=== PATIENT | male | born 1935 | race Caucasian/White ===

== ENCOUNTER 2017-01-20 17:34 | Inpatient (IN) ==
[2017-01-20] MEDS ORDERED: cefTRIAXone 1 GM in DEXTROSE 5% IN WATER 50 ML IV ONE (18:00)
[2017-01-20] MEDS ORDERED: 0.9 % SODIUM CHLORIDE 1,000 ML IV ONE ×2 (18:00→19:31)
--- NOTE | 2017-01-20 18:07 | Emergency Department Note ---
Weakness HPI - General Chief complaint: Weakness Stated complaint: lethargy, weakness Time Seen by Provider: 01/20/17 17:45 Source: patient, EMS Mode of arrival: wheelchair - History of Present Illness HPI Narrative: Patient brought in from pain clinic, just that his pain pump changed. Was actually feeling weak and slightly under the weather prior to the appointment. Patient unable to give history, friend who has been helping him get his appointment states "this is not him". No fevers reported no chills reported no cough reported - Related Data Home Medications Medication Instructions Recorded Confirmed bisacodyl 10 mg rectal suppository 10 mg [place] QDAY PRN supp 11/17/14 07/09/16 docusate sodium 100 mg capsule 100 mg PO QDAY cap 12/05/14 07/09/16 Saccharomyces boulardii 250 mg 250 mg PO BID 07/09/16 07/09/16 capsule Previous Rx's Medication Instructions Recorded oxybutynin chloride 5 mg tablet 5 mg PO QDAY PRN #90 tab 06/25/15 Disability Parking Permit #1 each 09/24/15 Moistened Shower Cap #30 each 10/11/15 Wash Cloths #30 each 10/11/15 Mepilex Border 4" X 4" bandage See Dose Instructions .ROUTE 10/26/15 .MEDSUPPLY #10 each NS drainage sponge 2X2 #30 each 10/26/15 methocarbamol 500 mg tablet 500 mg PO BID #180 tab 12/18/15 meclizine 25 mg chewable tablet 25 mg PO TID PRN #60 tab 01/01/16 potassium chloride ER 20 mEq 20 meq PO QDAY #90 tab 03/27/16 tablet,extended release tramadol 50 mg tablet 50 mg PO Q6H PRN #90 tab 06/18/16 citalopram 20 mg tablet 30 mg PO QDAY #90 tab 07/09/16 albuterol sulfate HFA 90 2 puff INHALATION Q6H PRN #18 g 09/08/16 mcg/actuation aerosol inhaler furosemide 40 mg tablet 40 mg PO BID 90 Days 12/24/16 sulfamethoxazole 800 1 tab PO BID #14 tab 12/24/16 mg-trimethoprim 160 mg tablet amoxicillin 875 mg-potassium 1 tab PO BID #14 tab 12/25/16 clavulanate 125 mg tablet ondansetron HCl 4 mg tablet 4 mg PO Q8H PRN #20 tab 01/06/17 lisinopril 2.5 mg tablet 2.5 mg PO QDAY 90 Days 01/20/17 Allergies Allergy/AdvReac Type Severity Reaction Status Date / Time sulfamethoxazole Allergy Intermediate Hives Verified 01/20/17 17:40 [From Bactrim] trimethoprim [From Bactrim] Allergy Intermediate Hives Verified 01/20/17 17:40 Tetracyclines Allergy Unknown Hives Verified 01/20/17 17:40 Review of Systems Limitations: ROS unobtainable due to patients medical condition Past Medical History - Past Medical History Attestation: Yes: The following information was validated with the patient. Medical history: Reports: diabetes, hypertension Surgical history ED: Reports: other (ankle ORIF) Family history: Reports: non-contributory - Social History smoking status: Never smoker Physical Exam - General General appearance: obtunded - Head Head exam: atraumatic - Eye Eye exam: Present: other (constricted symmetrical pupils) - ENT ENT exam: normal exam, mucous membranes moist - Neck Neck exam: Present: normal inspection. Absent: lymphadenopathy - Chest Chest inspection: Present: normal inspection - Respiratory Respiratory exam: Present: other (shallow; iminished left and right base). Absent: respiratory distress, accessory muscle use, prolonged expiratory phase - Cardiovascular Cardiovascular exam: Present: regular rate, normal rhythm. Absent: systolic murmur - Abdominal Exam Abdominal exam: Present: soft. Absent: tenderness, organomegaly - Extremities Exam Extremities exam: Present: normal inspection - Back Exam Back exam: Present: normal inspection - Neurological Exam Neurological exam: Absent: alert - Psychiatric Psychiatric exam: Present: normal affect - Skin Skin exam: Present: warm, dry, intact. Absent: rash Course - Reevaluation(s) Reevaluation #1: patient arousing, but still confused. scant urine output; bolus with lasix ordered awaiting UA family at bedside, updated Time: 19:33 Reevaluation #2: mall amount of Narcan given, almost immediate resolved of acute delirium Time: 20:16 Reevaluation #3: recurrent delirium and generalized weakness UA obtained, pending Time: 20:58 Vital Signs Temperature 99.4 F H 01/20/17 17:35 Pulse Rate 73 01/20/17 17:35 Respiratory Rate 16 01/20/17 17:35 Blood Pressure 118/90 01/20/17 17:35 Pulse Oximetry (%) 91 01/20/17 17:35 Temperature 98.2 F 01/20/17 21:49 Pulse Rate 82 01/20/17 22:10 Respiratory Rate 14 01/20/17 22:10 Blood Pressure 99/85 01/20/17 22:01 Pulse Oximetry (%) 98 01/20/17 22:10 Weakness - Lab Data Lab results reviewed: Yes I reviewed the patient's lab results. Result diagrams: 01/20/17 18:10 01/20/17 18:10 Lab Results 01/20/17 01/20/17 01/20/17 Range/Units 18:10 18:10 18:10 WBC 7.4 (4.5-11.0) K/mcL RBC 4.16 L (4.50-5.90) M/mcL Hgb 12.3 L (13.5-16.5) g/dL Hct 37.1 L (41.0-55.0) % MCV 89.1 (80.0-100.0) fL MCH 29.7 (26.0-34.0) pg MCHC 33.3 (31.0-36.0) g/dL RDW 15.1 H (11.5-14.5) % Plt Count 247 (140-440) K/mcL MPV 7.9 (7.4-10.4) fL Gran % 47.0 (38.0-78.0) % Lymph % (Auto) 40.8 (15.5-49.0) % Wilson % (Auto) 5.0 (1.0-12.0) % Eos % (Auto) 6.9 (0.0-7.0) % Baso % (Auto) 0.3 (0.0-2.0) % Gran # 3.5 (1.8-8.0) K/mcL Lymph # (Auto) 3.0 (1.5-4.8) K/mcL Wilson # (Auto) 0.4 (0.1-0.9) K/mcL Eos # (Auto) 0.5 (0.0-0.7) K/mcL Baso # (Auto) 0 (0.0-0.3) K/mcL VBG Lactic Acid 1.0 (0.5-2.2) mmol/L Sodium 136 (133-145) mmol/L Potassium 4.9 (3.3-5.1) mmol/L Chloride 94 L (96-108) mmol/L Carbon Dioxide 31 H (22-30) mmol/L Anion Gap 11.0 (8-16) BUN 28 H (8-23) mg/dl Creatinine 1.2 (0.7-1.2) mg/dl GFR Calculation 56 Glucose 95 (70-105) mg/dL Calcium 9.2 (8.6-10.4) mg/dl Total Bilirubin 0.4 (0.0-1.0) mg/dL AST 15 (0-37) U/l ALT 11 (0-40) U/l Alkaline Phosphatase 57 (39-117) U/L Total Protein 8.3 (5.9-8.4) gm/dL Albumin 4.5 (3.2-5.2) gm/dL Globulin 3.8 H (2.2-3.7) gm/dL Albumin/Globulin Ratio 1.2 (1.0-2.3) Urine Color Urine Appearance Urine pH (5.0-9.0) Ur Specific [place] (1.000-1.035) Urine Protein (NEG) mg/dL Urine Glucose (UA) (NEG) mg/dL Urine Ketones (NEG) mg/dL Urine Occult Blood (<0.03) mg/dL Urine Nitrate (NEG) Urine Bilirubin (NEG) mg/dL Urine Urobilinogen (NEG) mg/dL Ur Leukocyte Esterase (NEG) /uL Urine RBC (0-1) /hpf Urine WBC (0-4) /hpf Ur Squamous Epith Cells (0-4) /hpf Amorphous Crystals (0) /hpf Urine Bacteria (0) /hpf Hyaline Casts (0-2) /lpf Urine Mucus (0) /hpf Ur Culture Indicated? 01/20/17 Range/Units 21:15 WBC (4.5-11.0) K/mcL RBC (4.50-5.90) M/mcL Hgb (13.5-16.5) g/dL Hct (41.0-55.0) % MCV (80.0-100.0) fL MCH (26.0-34.0) pg MCHC (31.0-36.0) g/dL RDW (11.5-14.5) % Plt Count (140-440) K/mcL MPV (7.4-10.4) fL Gran % (38.0-78.0) % Lymph % (Auto) (15.5-49.0) % Wilson % (Auto) (1.0-12.0) % Eos % (Auto) (0.0-7.0) % Baso % (Auto) (0.0-2.0) % Gran # (1.8-8.0) K/mcL Lymph # (Auto) (1.5-4.8) K/mcL Wilson # (Auto) (0.1-0.9) K/mcL Eos # (Auto) (0.0-0.7) K/mcL Baso # (Auto) (0.0-0.3) K/mcL VBG Lactic Acid (0.5-2.2) mmol/L Sodium (133-145) mmol/L Potassium (3.3-5.1) mmol/L Chloride (96-108) mmol/L Carbon Dioxide (22-30) mmol/L Anion Gap (8-16) BUN (8-23) mg/dl Creatinine (0.7-1.2) mg/dl GFR Calculation Glucose (70-105) mg/dL Calcium (8.6-10.4) mg/dl Total Bilirubin (0.0-1.0) mg/dL AST (0-37) U/l ALT (0-40) U/l Alkaline Phosphatase (39-117) U/L Total Protein (5.9-8.4) gm/dL Albumin (3.2-5.2) gm/dL Globulin (2.2-3.7) gm/dL Albumin/Globulin Ratio (1.0-2.3) Urine Color Yellow Urine Appearance Hazy Urine pH 7.0 (5.0-9.0) Ur Specific [place] 1.009 (1.000-1.035) Urine Protein 30 A (NEG) mg/dL Urine Glucose (UA) Negative (NEG) mg/dL Urine Ketones Neg (NEG) mg/dL Urine Occult Blood 0.2 A (<0.03) mg/dL Urine Nitrate Neg (NEG) Urine Bilirubin Neg (NEG) mg/dL Urine Urobilinogen Neg (NEG) mg/dL Ur Leukocyte Esterase 500 A (NEG) /uL Urine RBC 55 H (0-1) /hpf Urine WBC 48 H (0-4) /hpf Ur Squamous Epith Cells 0 (0-4) /hpf Amorphous Crystals Few A (0) /hpf Urine Bacteria Few A (0) /hpf Hyaline Casts 49 H (0-2) /lpf Urine Mucus Few (0) /hpf Ur Culture Indicated? Yes - Radiology Data Radiology results reviewed: Yes I reviewed the patient's radiology results. no acute infiltrate Disposition Pt seen by [facility]/PA only: No Clinical Impression: Acute delirium, UTI (urinary tract infection), Indwelling catheter present on admission, Generalized weakness Summary: Dr Abreu receiving Disposition: Xfer As Outpt/Obs ([facility]) Condition: Fair Referrals: Nemesio Medrano MD [Primary Care Provider] -
[2017-01-20 18:46] LABS: Basophils # (Auto) 0 K/mcL (0.0-0.3); Basophils % (Auto) 0.3 % (0.0-2.0); Eosinophils # (Auto) 0.5 K/mcL (0.0-0.7); Eosinophils % (Auto) 6.9 % (0.0-7.0); Lymphocytes % (Auto) 40.8 % (15.5-49.0); Mean Cell Volume 89.1 fL (80.0-100.0); Mean Corpuscular HGB Conc 33.3 g/dL (31.0-36.0); Mean Corpuscular Hemoglobin 29.7 pg (26.0-34.0); Monocytes # (Auto) 0.4 K/mcL (0.1-0.9); Platelet Count 247 K/mcL (140-440); RBC 4.16 M/mcL (4.50-5.90); Red Cell Distribution Width 15.1 % (11.5-14.5)
[2017-01-20 19:07] LABS: ALT/SGPT 11 U/l (0-40); Albumin 4.5 gm/dL (3.2-5.2); Albumin/Globulin Ratio 1.2 (1.0-2.3); Alkaline Phosphatase 57 U/L (39-117); Blood Urea Nitrogen 28 mg/dl (8-23)
[2017-01-20] MEDS ORDERED: FUROSEMIDE 20 MG/2 ML VIAL IV ONE (19:32)
[2017-01-20] MEDS ORDERED: NALOXONE HCL 0.4 MG/ML VIAL IV ONE (19:46)
[2017-01-20 22:12] LABS: Appearance,Urine HAZY; Bacteria,Urine FEW /hpf (0); Bilirubin,Urine NEG (NEG); Color,Urine YELLOW; Glucose,Urine (UA) NEGATIVE (NEG); Leukocyte Esterase,Urine 500 /uL (NEG); Mucus,Urine FEW /hpf (0); Nitrate,Urine NEG (NEG); Protein,Urine 30 mg/dL (NEG); Specific Gravity,Urine 1.009 (1.000-1.035); Urine Amorphous Crystals FEW /hpf (0); Urine Blood 0.2 mg/dL (<0.03); Urine Hyaline Cast 49 /lpf (0-2); Urine RBC 55 /hpf (0-1); Urine Squamous Epithelial Cell 0 /hpf (0-4); Urine WBC 48 /hpf (0-4); Urobilinogen,Urine NEG (NEG)
--- NOTE | 2017-01-20 23:13 | Internal Med History&Physical ---
Medical - H&P: HPI Patient information: Note initiated : 01/20/17 at 11:13 pm Patient is reexamined around 0600,, and note is completed January 21, around 2: 30 PM Patient: Kenneth Encinas 81 y/o M admitted on for lethargy, weakness. History of present illness: Mr. Encinas is a 81 year old man with a history of diabetes, hypertension, chronic urinary retention with chronic Gonzalez catheter, who is brought in on the evening of January 20 for increasing weakness and confusion. There were apparently some family members here earlier on, but they have gone home by the time patient is admitted. The patient is very lethargic, and will only open his eyes briefly to questions. He tries to speak, but can barely say one word before falling back asleep. He is unable to give an adequate review of systems. He seems to deny pain. In the emergency room he was also noted to have O2 saturations below 90% when he was sleeping. He had been to the pain clinic earlier in the day, to have his pain pump refill, but they reported that they did not change any of the settings are his dose. He reportedly receives about 3 mg of morphine IV over the course of a day. I believe he was given a dose of Narcan in the emergency room, but verbal report is that he did not really respond to that. ER evaluation did show significant pyuria, and it was felt that he likely has altered mental status related to acute urinary tract infection. His mental status did not improve much after treatment with fluids and antibiotics in the ER, so he is now admitted to observation for monitoring. 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 obstruction (Acute) Carpal tunnel syndrome (Acute) Bilateral servere Colonic polyp (Acute) Fracture of ankle, closed (Acute) R Fungal infection of the groin (Acute 08/22/14) Hallucinations (Acute) Visual Hyperlipidemia (Acute) Hyperparathyroidism (Acute) Parathyroid adenoma Hypertension, essential (Acute) Joint effusion-lower leg (Acute) Knee Knee pain (Acute) Loss of balance (Acute 10/10/14) MRSA (methicillin resistant Staphylococcus aureus) (Acute 08/26/13) MRSA of the axilla & groin Multiple myeloma (Acute) Osteoarthritis (Acute) Spinal compression fracture (Acute) Urinary retention (Acute 08/11/13) Urinary tract infection (Acute) Diabetes mellitus, type II (Resolved) Surgical History History of open reduction and internal fixation (ORIF) procedure (Acute) R ankle History of vasectomy (Acute) Medication List: This was apparently unable to be updated at the time of admission: bisacodyl 10 mg OR QDAY PRN citalopram 30 mg (1.5 x 20 mg) PO QDAY docusate sodium 100 mg PO QDAY furosemide 40 mg PO BID 3 months lisinopril 2.5 mg PO QDAY 30 days meclizine 25 mg PO TID PRN Mepilex Border 4" X 4" bandage (foam bandage) As directed methocarbamol 500 mg PO BID ondansetron HCl (Zofran) 4 mg PO Q8H PRN oxybutynin chloride 5 mg PO QDAY PRN potassium chloride ER 20 mEq PO QDAY Saccharomyces boulardii (Florastor) 250 mg PO BID tramadol 50 mg PO Q6H PRN Guaifenesin DM every 4 hours as needed next line B12 2500 mcg sublingual daily Tylenol 1-2 tabs every 6 hours as needed Allergies/Adverse Reactions Tetracyclines Allergy Hives Sulfamethoxazole/trimethoprim Family History Father , at 74 years old Atherosclerosis of coronary artery Mother , at 86 years old Cerebrovascular accident Atherosclerosis of coronary artery Social History smoking status: Never smoker alcohol intake frequency: does not drink Medical - H&P: Meds Home Medications Medication Instructions Recorded Confirmed Type bisacodyl 10 mg rectal suppository 10 mg [place] QDAY PRN supp 11/17/14 01/21/17 History docusate sodium 100 mg capsule 100 mg PO QDAY cap 12/05/14 01/21/17 History Mepilex Border 4" X 4" bandage See Dose Instructions .ROUTE 10/26/15 07/09/16 Rx .MEDSUPPLY #10 each NS methocarbamol 500 mg tablet 500 mg PO BID #180 tab 12/18/15 01/21/17 Rx meclizine 25 mg chewable tablet 25 mg PO TID PRN #60 tab 01/01/16 01/21/17 Rx potassium chloride ER 20 mEq 20 meq PO QDAY #90 tab 03/27/16 01/21/17 Rx tablet,extended release tramadol 50 mg tablet 50 mg PO Q6H PRN #90 tab 06/18/16 01/21/17 Rx Saccharomyces boulardii 250 mg 250 mg PO BID 07/09/16 07/09/16 History capsule citalopram 20 mg tablet 30 mg PO QDAY #90 tab 07/09/16 01/21/17 Rx albuterol sulfate HFA 90 2 puff INHALATION Q6H PRN #18 g 09/08/16 01/21/17 Rx mcg/actuation aerosol inhaler furosemide 40 mg tablet 40 mg PO BID 90 Days 12/24/16 01/21/17 Rx amoxicillin 875 mg-potassium 1 tab PO BID #14 tab 12/25/16 01/21/17 Rx clavulanate 125 mg tablet ondansetron HCl 4 mg tablet 4 mg PO Q8H PRN #20 tab 01/06/17 01/21/17 Rx lisinopril 2.5 mg tablet 2.5 mg PO QDAY 90 Days 01/20/17 01/21/17 Rx Acetaminophen [Non-Aspirin] 1 - 2 tab PO Q6HP PRN MDD 3 grams 01/21/17 01/21/17 History Cyanocobalamin (Vitamin B-12) 2,500 mcg SL DAILY 01/21/17 01/21/17 History [Vitamin B12] Mag Hydrox/Al Hydrox/Simeth 30 ml PO Q6HP PRN 01/21/17 01/21/17 History [Maalox] Magnesium Hydroxide [Milk of 30 ml PO DAILYP PRN 01/21/17 01/21/17 History Magnesia] Na Phos,M-B/Na Phos,Di-Ba [Fleets 1 dose OR DAILYP PRN 01/21/17 01/21/17 History Adult] Nut.tx.impaired Renal Fxn,Soy 237 ml PO TIDP PRN 01/21/17 01/21/17 History [Novasource Renal 2 Nickolas] Oxybutynin Chloride [Ditropan] 1 - 2 tab PO QDAY PRN 01/21/17 01/21/17 History Polyvinyl Alcohol [Artificial 15 ml OP PRN PRN 01/21/17 01/21/17 History Tears] Simethicone [Gas-X Ultra Strength] 125 mg PO BID PRN 01/21/17 01/21/17 History Vits A and D/White Pet/Lanolin [A 113 gm TP PRN PRN 01/21/17 01/21/17 History and D Ointment] guaiFENesin/DEXTROMETHORPHAN 10 ml PO Q4HP PRN 01/21/17 01/21/17 History [Tussin Dm Syrup] morphine pain pump 2.447 mg INTRATHECA DAILY 01/21/17 01/21/17 History Allergies Allergy/AdvReac Type Severity Reaction Status Date / Time sulfamethoxazole Allergy Mild Hives Verified 01/21/17 06:43 [From Bactrim] Tetracyclines Allergy Mild Hives Verified 01/21/17 06:43 trimethoprim [From Bactrim] Allergy Mild Hives Verified 01/21/17 06:43 Medical - H&P: Exam - Constitutional Vitals: Temp Pulse Resp BP Pulse Ox 98.2 F 82 14 99/85 98 01/20/17 21:49 01/20/17 22:10 01/20/17 22:10 01/20/17 22:01 01/20/17 22:10 Temperature 99.4, O2 saturation 88% on room air, 96% on a 6 L mask On exam, the patient is quite somnolent. He only briefly opens his eyes to questions, but is able to follow some commands, such as deep breathing. He is otherwise in no acute distress. Head: Normocephalic atraumatic. Ears: TMs and canals are clear. Eyes: PERRLA, anicteric. EOM exam is suboptimal. Pharynx: He has full upper and lower plates. Mucosa is dry. Posterior pharynx is not well seen. Neck: Appears supple, without obvious lymphadenopathy, JVD, thyromegaly, bruits. Cardiac exam: Shows regular rate and rhythm, with normal S1 and S2, without obvious murmurs, rubs, gallops. Lungs: Appear clear to auscultation, although breath sounds seems somewhat decreased at the left base. Abdomen: Appears soft and nontender. There is a large mass in the left abdomen that appears to be a battery pack for his pain pump. There is no sign of infection. There is a suprapubic Gonzalez catheter in place, and the site looks okay. Is draining dark yellow urine. Extremities: Show no significant cyanosis, clubbing, edema. Neurologic exam: The patient is lethargic. He can follow some simple commands. His speech is thick and difficult to understand. On motor exam he does appear to be somewhat rigid with some cogwheeling rigidity and some twitching of his muscles. He is not really able to cooperate with exam otherwise. Medical - H&P: Reslt - Labs CBC & Chem 7: 01/20/17 18:10 01/21/17 04:43 Labs: Short CBC 01/20/17 Range/Units 18:10 WBC 7.4 (4.5-11.0) K/mcL Hgb 12.3 L (13.5-16.5) g/dL Hct 37.1 L (41.0-55.0) % Plt Count 247 (140-440) K/mcL BMP 01/20/17 18:10 Sodium 136 Potassium 4.9 Chloride 94 L Carbon Dioxide 31 H BUN 28 H Creatinine 1.2 Glucose 95 Calcium 9.2 Liver Function 01/20/17 Range/Units 18:10 Total Bilirubin 0.4 (0.0-1.0) mg/dL AST 15 (0-37) U/l ALT 11 (0-40) U/l Alkaline Phosphatase 57 (39-117) U/L Albumin 4.5 (3.2-5.2) gm/dL Urine 01/20/17 Range/Units 21:15 Urine Color Yellow Urine Appearance Hazy Urine pH 7.0 (5.0-9.0) Ur Specific [place] 1.009 (1.000-1.035) Urine Protein 30 A (NEG) mg/dL Urine Glucose (UA) Negative (NEG) mg/dL January 20: CBC differential: RDW is high at 15 Urinalysis shows 30 mg of protein, 500 of leukocyte esterase, 55 red cells, 48 white blood cells, 49 hyaline casts, few bacteria Urine culture is pending Globulin fraction is high at 3.8 Carissa December 30: Vitamin D level is low at 11.9 Chest x-ray: Shows poor inspiration. Possible developing perihilar infiltrates. EKG: Shows probable sinus rhythm rate of about 60, low voltage. Right bundle branch block. Slow R-wave progression. Medical - H&P: A/P (1) Type 2 diabetes mellitus Current visit: Yes Status: Acute (2) Acute delirium Current visit: Yes Status: Acute (3) Indwelling catheter present on admission Current visit: Yes Status: Acute (4) UTI (urinary tract infection) Current visit: Yes Status: Acute (5) Hypertension, essential Current visit: No Status: Chronic - Narrative A/P Narrative: #1. Infectious disease. Patient presents with probable medical delirium. Lethargy did not improve in the emergency room after IV fluids. Urinalysis is consistent with urinary tract infection, although the patient may also have chronic colonization. Chest x-ray is suboptimal, but suggestive of possible perihilar infiltrates. -Admit for presumed UTI. -Urine and blood cultures pending -UTI was covered empirically with Rocephin in the emergency room, but given the possibility of healthcare associated pneumonia, I will change him to Zosyn and vancomycin, pending cultures. Check follow-up chest x-ray. 2. . History of BPH, chronic urinary retention, chronic Gonzalez catheter. Patient reportedly takes oxybutynin, possibly for bladder spasm. 3. Code status: Nursing staff to talk to his facility, who relate that his post form request that he have a DNR CODE STATUS. 4. DVT prophylaxis: Subcu heparin 5. Endocrine. Type 2 diabetes. Accu-Cheks, sliding scale insulin 6. Hypertension. He also has a past history of multiple myeloma, and it is not clear if that is an actively treated condition. Continue lisinopril. Lasix will be held as the patient appears to be dehydrated. 7. Neurologic. The patient presents with what appears to be a medical delirium/encephalopathy. It is reported that he is normally awake and alert. This may just be due to acute illness. If he does not come around quickly, we may want to pursue CT scan of his brain. His chart also reports a past history of hallucinations, but it is unclear what the etiology of those were. 8. Chronic pain. Continue pain pump, tramadol. Ask the pain clinic if they can verify his current morphine pump dose, and that it is working correctly. Continue as needed methocarbamol. Next 9. Psychiatric. ? Depression. Continue citalopram, after medications are confirmed. 10. Renal. Follow-up labs at 04 100, show elevated potassium, BUN, creatinine, consistent with mild acute kidney injury. Continue to hydrate, and follow renal function. Hold potassium supplement, lisinopril, Lasix. Approximately 60 minutes has been spent so far reviewing this patient's records , examining him, reviewing plan of care with our team, and writing orders. Care was assumed late last night, and then resumed again early this morning.
[2017-01-20] MEDS ORDERED: ALBUTEROL SULFATE 2.5 MG/3 ML NEBULIZER NEB PRN (23:55)
[2017-01-20] MEDS ORDERED: DEXTROSE 31 GM ORAL.SUSP PO PRN (23:55)
[2017-01-20] MEDS ORDERED: NALOXONE HCL 0.4 MG/ML VIAL IV PRN (23:55)
[2017-01-20] MEDS ORDERED: DOCUSATE SODIUM 100 MG CAPSULE PO PRN (23:55)
[2017-01-20] MEDS ORDERED: MAGNESIUM HYDROXIDE 30 ML ORAL.SUSP PO PRN (23:55)
[2017-01-20] MEDS ORDERED: DEXTROSE 50% 50 ML VIAL IV PRN (23:55)
[2017-01-20] MEDS ORDERED: ACETAMINOPHEN 325 MG TABLET PO PRN (23:55)
[2017-01-21] MEDS ORDERED: POTASSIUM CHLORIDE 20 MEQ/10 ML VIAL IV ONE (00:01)
[2017-01-21] MEDS: POTASSIUM CHLORIDE 20 MEQ in 0.45 % SODIUM CHLORIDE 1,000 ML IV SCH ×2 (00:03→09:09)
[2017-01-21] MEDS: cefTRIAXone 1 GM in DEXTROSE 5% IN WATER 50 ML IV SCH ×2 (00:09→09:08)
[2017-01-21] MEDS: 0.9 % SODIUM CHLORIDE 10 ML SYRINGE IV SCH ×3 (05:54→20:27)
[2017-01-21 06:24] LABS: ALT/SGPT 10 U/l (0-40); Albumin 3.9 gm/dL (3.2-5.2); Albumin/Globulin Ratio 1.1 (1.0-2.3); Alkaline Phosphatase 49 U/L (39-117); Bilirubin,Direct < 0.2 mg/dL (0.0-0.3); Blood Urea Nitrogen 30 mg/dl (8-23); Gamma Glutamyl Transpeptidase 8 U/L (8-61); Magnesium 2.3 mg/dL (1.6-2.5); Uric Acid 6.7 mg/dL (2.5-8.0)
[2017-01-21] MEDS ORDERED: POLYVINYL ALCOHOL OPHTH DROPS 15ML BOTTLE OU PRN (07:22)
[2017-01-21] MEDS ORDERED: [UNRECOGNIZED DRUG - OTHER] PO PRN (07:22)
[2017-01-21] MEDS ORDERED: NUT TX IMPAIRED RENAL FXN SOY PO PRN (07:22)
[2017-01-21] MEDS ORDERED: MAG HYDROX/AL HYDROX/SIMETH 30 ML ORAL.SUSP PO PRN (07:22)
--- NOTE | 2017-01-21 07:35 | XRay Report ---
CLINICAL INFORMATION: Weakness acute mental status change COMPARISON: 01/05/2017 FINDINGS: The cardiomediastinal silhouette and hilum are accentuated by poor inspiratory result. There are possible developing perihilar infiltrates. No effusions. Bones and soft tissues are normal IMPRESSION: Poor inspiratory result. If patient can tolerate, suggest standard two view upright chest x-ray to better evaluate the hilar structures Interpreted and Authenticated by: Chris Morelos 01/21/17
[2017-01-21] MEDS ORDERED: MECLIZINE 25 MG TABLET PO PRN (07:47)
[2017-01-21] MEDS ORDERED: traMADol 50 MG TABLET PO PRN (07:49)
[2017-01-21] MEDS ORDERED: guaiFENesin/DEXTROMETHORPHAN ORAL SOL PO PRN (07:51)
[2017-01-21] MEDS: INSULIN LISPRO 1 UNIT/0.01 ML UNIT SQ SCH ×4 (08:04→20:26)
[2017-01-21] MEDS ORDERED: SIMETHICONE 80 MG TAB.CHEW CHEWED PRN (08:30)
[2017-01-21] MEDS: HEPARIN 5,000 UNIT/ML VIAL SQ SCH ×2 (09:09→20:25)
[2017-01-21] MEDS: LISINOPRIL 5 MG TABLET PO SCH (09:59)
[2017-01-21] MEDS: CYANOCOBALAMIN (VITAMIN B-12) 500 MCG TABLET PO SCH (09:59)
[2017-01-21] MEDS: CITALOPRAM 20 MG TABLET PO SCH (09:59)
[2017-01-21] MEDS: 0.9 % SODIUM CHLORIDE 1,000 ML IV SCH (11:18)
--- NOTE | 2017-01-21 14:08 | EKG Interpretations ---
INTERPRETATION: Normal sinus rhythm with a right bundle branch block. There was slow R-wave progression. Prior anterior infarction could not be excluded. No prior tracing for a comparison. [email or web address] Job ID: [id number] Doc ID: [id number] Jaspal Vyas DO
[2017-01-21] MEDS ORDERED: VANCOMYCIN PER PHARMACY IV SCH (14:24)
[2017-01-21] MEDS: PIPERACILLIN SODIUM/TAZOBACTAM 3.375 GM in DEXTROSE 5% IN WATER 50 ML IV SCH ×2 (15:23→23:01)
--- NOTE | 2017-01-21 15:43 | XRay Report ---
CLINICAL INFORMATION: Hypoxia altered mental status COMPARISON: 01/20/2017 FINDINGS: Mild cardiomegaly is noted. Mediastinum and pulmonary vessels are unremarkable. There is only minimal atelectasis in the perihilar regions. No infiltrates or effusions. IMPRESSION: Mild cardiomegaly and minimal bilateral atelectasis. No infiltrates Interpreted and Authenticated by: Chris Morelos 01/21/17
[2017-01-21] MEDS: VANCOMYCIN 1,500 MG in 0.9 % SODIUM CHLORIDE 500 ML IV SCH (16:01)
[2017-01-21] MEDS: ONDANSETRON 4 MG/2 ML VIAL IV PRN (18:30)
--- NOTE | 2017-01-21 19:49 | Internal Med Progress Note ---
Medical - PN: Subj Patient information: Note initiated : 01/21/17 at 7:49 pm Service Date, if different from initiated Date: [] Patient: Kenneth Ecninas 81 y/o M admitted on 01/20/17 for Lethargy, Weakness/ Delirium, UTI . Chief Complaint: [] Interval history: History of present illness: Mr. Encinas is a 81 year old man with a history of diabetes, hypertension, chronic urinary retention with chronic Gonzalez catheter, who is brought in on the evening of January 20 for increasing weakness and confusion. There were apparently some family members here earlier on, but they have gone home by the time patient is admitted. The patient is very lethargic, and will only open his eyes briefly to questions. He tries to speak, but can barely say one word before falling back asleep. He is unable to give an adequate review of systems. He seems to deny pain. In the emergency room he was also noted to have O2 saturations below 90% when he was sleeping. He had been to the pain clinic earlier in the day, to have his pain pump refill, but they reported that they did not change any of the settings are his dose. He reportedly receives about 3 mg of morphine IV over the course of a day. I believe he was given a dose of Narcan in the emergency room, but verbal report is that he did not really respond to that. ER evaluation did show significant pyuria, and it was felt that he likely has altered mental status related to acute urinary tract infection. His mental status did not improve much after treatment with fluids and antibiotics in the ER, so he is now admitted to observation for monitoring. January 21: This evening, the patient is much more awake and alert. He is able to tell me that he believes his family is driving over from [place] this evening. He says he is feeling better, and the nurses note he is asking for food. Otherwise, he has no specific complaints at this time - Constitutional Vitals: Vital Signs Temp Pulse Resp BP Pulse Ox 97.9 F 64 12 101/56 93 01/21/17 19:35 01/21/17 19:35 01/21/17 19:35 01/21/17 19:35 01/21/17 19:35 Period Temp Pulse Resp BP Sys/Zambrano Pulse Ox Last 24 Hr 97.6 F-99.2 F 64-90 12-20 101-128/48-78 93-97 Intake and Output 01/21/17 01/21/17 01/21/17 05:59 13:59 21:59 Intake Total 0 / 0 1670 / 1670 540 / 540 Output Total 400 / 400 450 / 450 Balance -400 / -400 1670 / 1670 90 / 90 Weight 192 lb 191 lb 8 oz Patient Weight 01/22/17 05:59 Weight 191 lb 8 oz Intake & Output: Intake & Output 01/21/17 01/21/17 01/21/17 05:59 13:59 21:59 Intake Total 0 / 0 1670 / 1670 540 / 540 Output Total 400 / 400 450 / 450 Balance -400 / -400 1670 / 1670 90 / 90 Weight 192 lb 191 lb 8 oz Intake: IV 1110 / 1110 Potassium Chloride 20 Meq 1060 / 1060 In Sodium Chloride 0.45% 1,000 ml @ 125 mls/hr IV .Q8H5M [facility] Rx#:[id number] Rocephin 1 gm In Dextrose 50 / 50 5% in Water 50 ml @ 100 mls/hr IV Q24H [facility] Rx#: [id number] Oral 0 / 0 560 / 560 540 / 540 Output: Urine Catheter Amount 400 / 400 450 / 450 Other: Meal Lunch Dinner Percent of Meal Consumed 25% 0% Feeding Ability Independent T-max 99.2, blood pressure 101/56, O2 saturation 93% on 2 L nasal cannula Medical - PN: Obj Da - Labs CBC & Chem 7: 01/20/17 18:10 01/21/17 04:43 Labs: Abnormal Lab Results 01/21/17 04:43 Potassium 5.2 H Carbon Dioxide 33 H Anion Gap 6.0 L BUN 30 H Creatinine 1.3 H Glucose 116 H Calcium 8.2 L Phosphorus 5.7 H Meds: Medications Acetaminophen (Tylenol) 650 mg PO Q6HP PRN PRN Reason: PAIN/FEVER > 101 Al Hydrox/Mg Hydrox/Simethicone (Maalox) 30 ml PO Q6HP PRN PRN Reason: Dyspepsia Albuterol Sulfate (Ventolin) 2.5 mg NEB Q2HP PRN PRN Reason: Shortness Of Breath Artificial Tears (Artificial Tears Ophth Drops) 1 gtt OU PRN PRN PRN Reason: Dry Eyes Citalopram Hydrobromide (Celexa) 30 mg PO QDAY [facility] Last Admin: 01/21/17 09:59 Dose: Not Given Cyanocobalamin (Vitamin B-12) 2,500 mcg PO DAILY [facility] Last Admin: 01/21/17 09:59 Dose: Not Given Dextrose (Dextrose 50%) 0 ml IV UD PRN PRN Reason: Hypoglycemia Diagnostic Test (Pha) (Accu-Chek) 1 each FS ACHS [facility] Last Admin: 01/21/17 17:17 Dose: 1 each Docusate Sodium (Colace) 100 mg PO BID PRN PRN Reason: Constipation Glucose (Insta-Glucose) 15 gm PO PRN PRN PRN Reason: Hypoglycemia Guaifenesin (Robitussin Dm) 10 ml PO Q4HP PRN PRN Reason: Cough Heparin Sodium (Porcine) (Heparin) 5,000 unit SQ Q12 [facility] Last Admin: 01/21/17 09:09 Dose: 5,000 unit Sodium Chloride (Sodium Chloride 0.9%) 1,000 mls @ 100 mls/hr IV .Q10H [facility] Last Admin: 01/21/17 11:18 Dose: 100 mls/hr Piperacillin Sod/Tazobactam (Sod 3.375 gm/ Dextrose) 50 mls @ 100 mls/hr IV Q8H [facility] Last Admin: 01/21/17 15:23 Dose: 100 mls/hr Vancomycin HCl 1,500 mg/ (Sodium Chloride) 500 mls @ 333.3 mls/hr IV Q24H [facility] Last Admin: 01/21/17 16:01 Dose: 250 mls/hr Insulin Human Lispro (Humalog) 0 unit SQ [facility] PRN Reason: Protocol Last Admin: 01/21/17 17:17 Dose: Not Given Lisinopril (Zestril) 2.5 mg PO DAILY [facility] Last Admin: 01/21/17 09:59 Dose: Not Given Magnesium Hydroxide (Milk Of Magnesia) 30 ml PO DAILYP PRN PRN Reason: Constipation Meclizine HCl (Antivert) 25 mg PO TIDP PRN PRN Reason: Vertigo Naloxone HCl (Narcan) 0.1 mg IV Q2MIN PRN PRN Reason: Opiate Reversal Ondansetron HCl (Zofran) 4 mg IV Q6HP PRN PRN Reason: Nausea And Vomiting Last Admin: 01/21/17 18:30 Dose: 4 mg Simethicone (Mylicon) 80 mg CHEWED BIDP PRN PRN Reason: GAS Sodium Chloride (Saline Flush) 10 ml IV Q8 [facility] Last Admin: 01/21/17 13:52 Dose: Not Given Tramadol HCl (Ultram) 50 mg PO Q6HP PRN PRN Reason: Pain Vancomycin HCl (Vancomycin Per Pharmacy) 1 order IV UD [facility] Medical - PN: A/P - Time Spent With Patient Total time spent is greater than 50% in coordination of care (as documented) at patient's floor/unit and/or counseling patient: (1) Type 2 diabetes mellitus Status: Acute Current Visit: Yes (2) Acute delirium Status: Acute Current Visit: Yes (3) Indwelling catheter present on admission Status: Acute Current Visit: Yes (4) UTI (urinary tract infection) Status: Acute Current Visit: Yes (5) Hypertension, essential Status: Chronic Current Visit: No - Narrative A/P Narrative: #1. Infectious disease. Patient presents with probable medical delirium. Urinalysis is consistent with urinary tract infection, although the patient may also have chronic colonization. Initial chest x-ray is suboptimal, but suggestive of possible perihilar infiltrates. -This evening, the patient is much more awake and alert, and seems to be mentating much better. We will continue with empiric antibiotics, pending cultures. Follow-up chest x-ray shows no obvious infiltrates or effusions this afternoon. -Continue Zosyn and vancomycin, pending culture results. 2. . History of BPH, chronic urinary retention, chronic Gonzalez catheter. Patient reportedly takes oxybutynin, possibly for bladder spasm. 3. Code status: Nursing staff to talk to his facility, who relate that his post form request that he have a DNR CODE STATUS. 4. DVT prophylaxis: Subcu heparin 5. Endocrine. Type 2 diabetes. Accu-Cheks, sliding scale insulin 6. Hypertension. Continue lisinopril. Lasix will be held as the patient appears to be dehydrated. 7. Neurologic. The patient presents with what appears to be a medical delirium/encephalopathy. -Much improved this evening. 8. Chronic pain. Continue pain pump, tramadol. Asked the pain clinic if they can verify his current morphine pump dose, and that it is working correctly. Apparently they did and they said it is fine. Continue as needed methocarbamol. 9. Psychiatric. ? Depression. Continue citalopram, after medications are confirmed. 10. Renal. Follow-up labs at 0400, show elevated potassium, BUN, creatinine, consistent with mild acute kidney injury. Continue to hydrate, and follow renal function. Hold potassium supplement, lisinopril, Lasix. #11. He also has a past history of multiple myeloma, and it is not clear if that is an actively treated condition. Medical - PN: Qual - VTE Deep Vein Thrombosis/Pulmonary Embolism Present on Admission: No
[2017-01-22] MEDS: 0.9 % SODIUM CHLORIDE 1,000 ML IV SCH ×4 (00:50→17:37)
[2017-01-22] MEDS: ONDANSETRON 4 MG/2 ML VIAL IV PRN ×2 (03:57→19:24)
[2017-01-22] MEDS: 0.9 % SODIUM CHLORIDE 10 ML SYRINGE IV SCH ×3 (06:02→20:15)
[2017-01-22] MEDS: PIPERACILLIN SODIUM/TAZOBACTAM 3.375 GM in DEXTROSE 5% IN WATER 50 ML IV SCH ×3 (06:03→22:11)
[2017-01-22 06:12] LABS: ALT/SGPT 11 U/l (0-40); Albumin 3.2 gm/dL (3.2-5.2); Alkaline Phosphatase 38 U/L (39-117); Bilirubin,Direct < 0.2 mg/dL (0.0-0.3); Blood Urea Nitrogen 23 mg/dl (8-23); Gamma Glutamyl Transpeptidase 7 U/L (8-61); Magnesium 2.1 mg/dL (1.6-2.5); Uric Acid 4.5 mg/dL (2.5-8.0)
[2017-01-22] MEDS: INSULIN LISPRO 1 UNIT/0.01 ML UNIT SQ SCH ×4 (07:37→20:15)
[2017-01-22 08:43] LABS: Basophils # (Auto) 0 K/mcL (0.0-0.3); Basophils % (Auto) 0.3 % (0.0-2.0); Eosinophils # (Auto) 0.2 K/mcL (0.0-0.7); Eosinophils % (Auto) 3.6 % (0.0-7.0); Granulocytes % (Auto) 65.6 % (38.0-78.0); Lymphocytes # (Auto) 1.8 K/mcL (1.5-4.8); Lymphocytes % (Auto) 27.2 % (15.5-49.0); Mean Cell Volume 89.2 fL (80.0-100.0); Mean Corpuscular HGB Conc 33.1 g/dL (31.0-36.0); Mean Corpuscular Hemoglobin 29.6 pg (26.0-34.0); Monocytes # (Auto) 0.2 K/mcL (0.1-0.9); Monocytes % (Auto) 3.3 % (1.0-12.0); Platelet Count 159 K/mcL (140-440); Red Cell Distribution Width 15.1 % (11.5-14.5)
[2017-01-22] MEDS: HEPARIN 5,000 UNIT/ML VIAL SQ SCH ×2 (09:24→20:14)
[2017-01-22] MEDS: CYANOCOBALAMIN (VITAMIN B-12) 500 MCG TABLET PO SCH (09:25)
[2017-01-22] MEDS: CITALOPRAM 20 MG TABLET PO SCH (09:25)
[2017-01-22] MEDS: LISINOPRIL 5 MG TABLET PO SCH (09:26)
[2017-01-22] MEDS ORDERED: FLEETS ADULT ENEMA PR PRN (09:35)
[2017-01-22] MEDS ORDERED: BISACODYL 10 MG SUPP.RECT PR PRN (09:35)
[2017-01-22] MEDS ORDERED: MAGNESIUM HYDROXIDE 30 ML ORAL.SUSP PO PRN (09:35)
[2017-01-22] MEDS: VANCOMYCIN 1,500 MG in 0.9 % SODIUM CHLORIDE 500 ML IV SCH (09:40)
--- NOTE | 2017-01-22 10:57 | Internal Med Progress Note ---
Medical - PN: Subj Patient information: Note initiated : 01/22/17 at 10:57 am Patient: Kenneth Encinas 81 y/o M admitted on 01/20/17 for Lethargy, Weakness/ Delirium, UTI . Interval history: January 202016: History of present illness: Mr. Encinas is a 81 year old man with a history of diabetes, hypertension, chronic urinary retention with chronic Gonzalez catheter, who is brought in on the evening of January 20 for increasing weakness and confusion. There were apparently some family members here earlier on, but they have gone home by the time patient is admitted. The patient is very lethargic, and will only open his eyes briefly to questions. He tries to speak, but can barely say one word before falling back asleep. He is unable to give an adequate review of systems. He seems to deny pain. In the emergency room he was also noted to have O2 saturations below 90% when he was sleeping. He had been to the pain clinic earlier in the day, to have his pain pump refill, but they reported that they did not change any of the settings are his dose. He reportedly receives about 3 mg of morphine IV over the course of a day. I believe he was given a dose of Narcan in the emergency room, but verbal report is that he did not really respond to that. ER evaluation did show significant pyuria, and it was felt that he likely has altered mental status related to acute urinary tract infection. His mental status did not improve much after treatment with fluids and antibiotics in the ER, so he is now admitted to observation for monitoring. January 21: This evening, the patient is much more awake and alert. He is able to tell me that he believes his family is driving over from [employer] this evening. He says he is feeling better, and the nurses note he is asking for food. Otherwise, he has no specific complaints at this time. January 22: This morning, the patient says he thinks he is feeling quite a bit better. He is talking and interactive and even joking this morning. -He did have a temperature of 100.1 earlier this evening. One bottle of his blood cultures is growing gram-positive cocci. -He tells me that he has a chronic suprapubic Gonzalez catheter because of damage that was done during a spine surgery, which also caused leg weakness. They change his catheter once a month. He does not really recall the circumstances surrounding his illness and transfer to the hospital. He is expecting his daughter to arrive from [place] today. She has his POA. He currently lives in an assisted living facility, and says they take good care of him. -Otherwise, he denies fever or chills, headaches or dizziness, chest pain or palpitations, shortness of breath, abdominal pain, nausea or vomiting, diarrhea or constipation. - Constitutional Vitals: Vital Signs Temp Pulse Resp BP Pulse Ox 98.4 F 53 L 12 132/89 94 01/22/17 07:04 01/22/17 07:24 01/22/17 07:24 01/22/17 07:04 01/22/17 07:25 Period Temp Pulse Resp BP Sys/Zambrano Pulse Ox Last 24 Hr 97.6 F-100.1 F 53-87 12-20 101-157/48-89 93-97 Intake and Output 01/21/17 01/22/17 01/22/17 21:59 05:59 13:59 Intake Total 2330 / 2330 200 / 200 240 / 240 Output Total 450 / 450 700 / 700 Balance 1880 / 1880 -500 / -500 240 / 240 Weight 191 lb 8 oz Intake & Output: Intake & Output 01/21/17 01/22/17 01/22/17 21:59 05:59 13:59 Intake Total 2330 / 2330 200 / 200 240 / 240 Output Total 450 / 450 700 / 700 Balance 1880 / 1880 -500 / -500 240 / 240 Weight 191 lb 8 oz Intake: IV 1550 / 1550 50 / 50 Sodium Chloride 0.9% 1, 1000 / 1000 000 ml @ 100 mls/hr IV . Q10H [facility] Rx#:[id number] Zosyn 3.375 gm In 50 / 50 50 / 50 Dextrose 5% in Water 50 ml @ 100 mls/hr IV Q8H [facility] Rx#:[id number] Vancomycin 1,500 mg In 500 / 500 Sodium Chloride 0.9% 500 ml @ 333.3 mls/hr IV Q24H [facility] Rx#:[id number] Oral 780 / 780 150 / 150 240 / 240 Output: Urine Catheter Amount 450 / 450 700 / 700 Other: Meal bread and milk Breakfast Percent of Meal Consumed 100% 75% Feeding Ability Independent # Bowel Movements 0 Temperature 98.5, T-max 100.1 early this morning. Heart rate 70, respiratory rate 18, blood pressure 110/56, O2 saturation 96% on 1.5 L O2 He is sitting up in bed, feeding himself breakfast. He is alert and interactive. Neck is supple without obvious lymphadenopathy or JVD. Cardiac exam shows regular rate and rhythm. Lungs are clear to auscultation. Abdomen is soft and nontender. Suprapubic catheter site looks fine. Gonzalez is draining clear yellow urine. Extremities show no or edema. Neurologic exam: Is not tested in detail, but is grossly nonfocal. Cognition appears to be quite intact today. Medical - PN: Obj Da - Labs CBC & Chem 7: 01/22/17 08:00 01/22/17 04:30 Labs: Abnormal Lab Results 01/22/17 01/22/17 01/21/17 08:00 04:30 04:43 RBC 3.20 L Hgb 9.5 L Hct 28.6 L RDW 15.1 H Potassium 5.2 H Carbon Dioxide 33 H Anion Gap 7.0 L 6.0 L BUN 30 H Creatinine 1.3 H Glucose 116 H Calcium 7.8 L 8.2 L Phosphorus 5.7 H GGT 7 L Alkaline Phosphatase 38 L January 21: Chemistry panel: Sodium 138, potassium 5.2, chloride 99, CO2 33, anion gap 6, BUN 30, creatinine 1.3, glucose 116, calcium 8.2, phosphorus 5.7 Chest x-ray: Shows mild cardiomegaly. Minimal atelectasis in the perihilar regions. No infiltrates or effusions. January 20: 1 of 4 bottles of the blood cultures is growing gram-positive cocci in clusters. Chemistry panel: At 0: Chloride 94, CO2 31, BUN 28, creatinine 1.2 CBC his white blood cell count of 7000, hemoglobin 12, hematocrit 37, platelets 247,000, differential: RDW is high at 15 Urinalysis shows 30 mg of protein, 500 of leukocyte esterase, 55 red cells, 48 white blood cells, 49 hyaline casts, few bacteria Urine culture is growing 40-50,000 gram-negative rods. ID pending Globulin fraction is high at 3.8 December 30: Vitamin D level is low at 11.9 Chest x-ray: Shows poor inspiration. Possible developing perihilar infiltrates. EKG: Shows probable sinus rhythm rate of about 60, low voltage. Right bundle branch block. Slow R-wave progression. Meds: Medications Acetaminophen (Tylenol) 650 mg PO Q6HP PRN PRN Reason: PAIN/FEVER > 101 Last Admin: 01/22/17 05:50 Dose: 650 mg Al Hydrox/Mg Hydrox/Simethicone (Maalox) 30 ml PO Q6HP PRN PRN Reason: Dyspepsia Albuterol Sulfate (Ventolin) 2.5 mg NEB Q2HP PRN PRN Reason: Shortness Of Breath Artificial Tears (Artificial Tears Ophth Drops) 1 gtt OU PRN PRN PRN Reason: Dry Eyes Bisacodyl (Dulcolax) 10 mg HI Q2-3DAYS PRN PRN Reason: Constipation Citalopram Hydrobromide (Celexa) 30 mg PO QDAY [facility] Last Admin: 01/22/17 09:25 Dose: 30 mg Cyanocobalamin (Vitamin B-12) 2,500 mcg PO DAILY [facility] Last Admin: 01/22/17 09:25 Dose: 2,500 mcg Dextrose (Dextrose 50%) 0 ml IV UD PRN PRN Reason: Hypoglycemia Diagnostic Test (Pha) (Accu-Chek) 1 each FS ACHS [facility] Last Admin: 01/22/17 07:37 Dose: 1 each Docusate Sodium (Colace) 100 mg PO BID [facility] Glucose (Insta-Glucose) 15 gm PO PRN PRN PRN Reason: Hypoglycemia Guaifenesin (Robitussin Dm) 10 ml PO Q4HP PRN PRN Reason: Cough Heparin Sodium (Porcine) (Heparin) 5,000 unit SQ Q12 [facility] Last Admin: 01/22/17 09:24 Dose: 5,000 unit Sodium Chloride (Sodium Chloride 0.9%) 1,000 mls @ 100 mls/hr IV .Q10H [facility] Last Admin: 01/22/17 07:37 Dose: Not Given Piperacillin Sod/Tazobactam (Sod 3.375 gm/ Dextrose) 50 mls @ 100 mls/hr IV Q8H [facility] Last Admin: 01/22/17 06:03 Dose: 100 mls/hr Vancomycin HCl 1,500 mg/ (Sodium Chloride) 500 mls @ 333.3 mls/hr IV Q24H [facility] Last Admin: 01/22/17 09:40 Dose: 250 mls/hr Insulin Human Lispro (Humalog) 0 unit SQ ACHS [facility] PRN Reason: Protocol Last Admin: 01/22/17 07:37 Dose: Not Given Lisinopril (Zestril) 2.5 mg PO DAILY [facility] Last Admin: 01/22/17 09:26 Dose: 2.5 mg Magnesium Hydroxide (Milk Of Magnesia) 30 ml PO DAILYP PRN PRN Reason: Constipation Magnesium Hydroxide (Milk Of Magnesia) 30 ml PO DAILYP PRN PRN Reason: Constipation Meclizine HCl (Antivert) 25 mg PO TIDP PRN PRN Reason: Vertigo Naloxone HCl (Narcan) 0.1 mg IV Q2MIN PRN PRN Reason: Opiate Reversal Ondansetron HCl (Zofran) 4 mg IV Q6HP PRN PRN Reason: Nausea And Vomiting Last Admin: 01/22/17 03:57 Dose: 4 mg Simethicone (Mylicon) 80 mg CHEWED BIDP PRN PRN Reason: GAS Sodium Biphosphate/Sodium Phosphate (Fleets Adult) 1 dose HI Q3-4DAYS PRN PRN Reason: Constipation Sodium Chloride (Saline Flush) 10 ml IV Q8 [facility] Last Admin: 01/22/17 06:02 Dose: Not Given Tramadol HCl (Ultram) 50 mg PO Q6HP PRN PRN Reason: Pain Vancomycin HCl (Vancomycin Per Pharmacy) 1 order IV [facility] [place] Medical - PN: A/P - Time Spent With Patient Total time spent is greater than 50% in coordination of care (as documented) at patient's floor/unit and/or counseling patient: 25 - 35 minutes (1) Type 2 diabetes mellitus Status: Acute Current Visit: Yes (2) Acute delirium Status: Acute Current Visit: Yes (3) Indwelling catheter present on admission Status: Acute Current Visit: Yes (4) UTI (urinary tract infection) Status: Acute Current Visit: Yes (5) Hypertension, essential Status: Chronic Current Visit: No - Narrative A/P Narrative: #1. Infectious disease. Patient presents with probable medical delirium. Urinalysis is consistent with urinary tract infection, although the patient may also have chronic colonization. Initial chest x-ray is suboptimal, but suggestive of possible perihilar infiltrates. -Patient's mental status continues to improve today. He is probably approaching his baseline. We are still awaiting for family to arrive to confirm this. So far cultures are not pointing to a definite cause, but it seems clear that he was delirious related to an infection. He continues to have a low-grade fever, and to require supplemental oxygen. Continue IV Zosyn and vancomycin, pending final culture results. -Change suprapubic catheter. 2. . History of BPH, chronic urinary retention, chronic Gonzalez catheter. Patient reportedly takes oxybutynin, possibly for bladder spasm. 3. Code status: Nursing staff to talked to his facility, who relate that his post form request that he have a DNR CODE STATUS. 4. DVT prophylaxis: Subcu heparin 5. Endocrine. Type 2 diabetes. Accu-Cheks, sliding scale insulin 6. Hypertension. Continue lisinopril. Lasix will be held as the patient appears to be dehydrated. 7. Neurologic. The patient presents with what appears to be a medical delirium/encephalopathy. -Much improved this evening. 8. Chronic pain. Continue pain pump, tramadol. Asked the pain clinic if they can verify his current morphine pump dose, and that it is working correctly. Apparently they did and they said it is fine. Continue as needed methocarbamol. 9. Psychiatric. ? Depression. Continue citalopram, after medications are confirmed. 10. Renal. Follow-up labs showed elevated potassium, BUN, creatinine, consistent with mild acute kidney injury. Yesterday he had elevated potassium, serum bicarb, BUN and creatinine. Today these are much improved, although anion gap is still a bit elevated. Total calcium is low today, but phosphorus has returned to normal. Continue to hydrate, and follow renal function. Hold potassium supplement, lisinopril, Lasix. #11. He also has a past history of multiple myeloma, and it is not clear if that is an actively treated condition. 12. Pulmonary. Patient continues to require supplemental oxygen. Chest x-ray looks okay though. Continue to follow, and try to wean oxygen. Disposition: Given that the patient is still febrile, and has positive blood cultures, I would like to continue to follow him. We will change him to inpatient status, to assure resolution of mental status issues, correct treatment of his infection, and return of normal renal function. Medical - PN: Qual - VTE Deep Vein Thrombosis/Pulmonary Embolism Present on Admission: No
[2017-01-22] MEDS: DOCUSATE SODIUM 100 MG CAPSULE PO SCH ×2 (11:04→20:14)
[2017-01-23] MEDS: 0.9 % SODIUM CHLORIDE 1,000 ML IV SCH ×3 (01:20→23:30)
[2017-01-23] MEDS: ONDANSETRON 4 MG/2 ML VIAL IV PRN (03:07)
[2017-01-23] MEDS: PIPERACILLIN SODIUM/TAZOBACTAM 3.375 GM in DEXTROSE 5% IN WATER 50 ML IV SCH ×3 (06:02→22:11)
[2017-01-23] MEDS: 0.9 % SODIUM CHLORIDE 10 ML SYRINGE IV SCH ×3 (06:02→20:29)
[2017-01-23 06:23] LABS: ALT/SGPT 12 U/l (0-40); Albumin 3.2 gm/dL (3.2-5.2); Albumin/Globulin Ratio 1.1 (1.0-2.3); Alkaline Phosphatase 38 U/L (39-117); Bilirubin,Direct < 0.2 mg/dL (0.0-0.3); Blood Urea Nitrogen 19 mg/dl (8-23); Gamma Glutamyl Transpeptidase 7 U/L (8-61); Uric Acid 3.5 mg/dL (2.5-8.0)
[2017-01-23] MEDS: INSULIN LISPRO 1 UNIT/0.01 ML UNIT SQ SCH ×4 (08:21→20:29)
[2017-01-23] MEDS: HEPARIN 5,000 UNIT/ML VIAL SQ SCH ×2 (09:33→20:29)
[2017-01-23] MEDS: DOCUSATE SODIUM 100 MG CAPSULE PO SCH ×2 (09:34→20:29)
[2017-01-23] MEDS: LISINOPRIL 5 MG TABLET PO SCH (09:34)
[2017-01-23] MEDS: CYANOCOBALAMIN (VITAMIN B-12) 500 MCG TABLET PO SCH (09:34)
[2017-01-23] MEDS: CITALOPRAM 20 MG TABLET PO SCH (09:34)
[2017-01-23] MEDS: NEUTRA PHOS 1 PACKET PO SCH ×2 (09:34→20:29)
[2017-01-23] MEDS ORDERED: VANCOMYCIN 500 MG VIAL ONE (09:48)
[2017-01-23] MEDS: VANCOMYCIN 1,500 MG in 0.9 % SODIUM CHLORIDE 500 ML IV SCH (10:29)
--- NOTE | 2017-01-23 11:39 | Internal Med Progress Note ---
Medical - PN: Subj Patient information: Note initiated : 01/23/17 at 11:39 am Patient: Kenneth Encinas 81 y/o M admitted on 01/22/17 for Lethargy, Weakness/ Delirium, UTI . Interval history: January 202016: History of present illness: Mr. Encinas is a 81 year old man with a history of diabetes, hypertension, chronic urinary retention with chronic Gonzalez catheter, who is brought in on the evening of January 20 for increasing weakness and confusion. There were apparently some family members here earlier on, but they have gone home by the time patient is admitted. The patient is very lethargic, and will only open his eyes briefly to questions. He tries to speak, but can barely say one word before falling back asleep. He is unable to give an adequate review of systems. He seems to deny pain. In the emergency room he was also noted to have O2 saturations below 90% when he was sleeping. He had been to the pain clinic earlier in the day, to have his pain pump refill, but they reported that they did not change any of the settings are his dose. He reportedly receives about 3 mg of morphine IV over the course of a day. I believe he was given a dose of Narcan in the emergency room, but verbal report is that he did not really respond to that. ER evaluation did show significant pyuria, and it was felt that he likely has altered mental status related to acute urinary tract infection. His mental status did not improve much after treatment with fluids and antibiotics in the ER, so he is now admitted to observation for monitoring. January 21: This evening, the patient is much more awake and alert. He is able to tell me that he believes his family is driving over from [employer] this evening. He says he is feeling better, and the nurses note he is asking for food. Otherwise, he has no specific complaints at this time. January 22: This morning, the patient says he thinks he is feeling quite a bit better. He is talking and interactive and even joking this morning. -He did have a temperature of 100.1 earlier this evening. One bottle of his blood cultures is growing gram-positive cocci. -He tells me that he has a chronic suprapubic Gonzalez catheter because of damage that was done during a spine surgery, which also caused leg weakness. They change his catheter once a month. He does not really recall the circumstances surrounding his illness and transfer to the hospital. He is expecting his daughter to arrive from [place] today. She has his POA. He currently lives in an assisted living facility, and says they take good care of him. -Otherwise, he denies fever or chills, headaches or dizziness, chest pain or palpitations, shortness of breath, abdominal pain, nausea or vomiting, diarrhea or constipation. January 23: Today, the patient says he is feeling pretty well, probably close to baseline. Has been able to walk to and from the bathroom a bit, but staff has reported that last night when he was walking to the bathroom he complained of chest discomfort associated with shortness of breath. He reports this pain seemed like it went across the lower part of his chest, both sides. He does not recall associated dyspnea or diaphoresis at that time and it resolved as soon as he got back in bed. He has not had any further chest discomfort since then. Otherwise, he denies fever chills, current chest pain or shortness of breath, abdominal pain, nausea or vomiting, diarrhea or constipation. Suprapubic catheter remains in place. - Constitutional Vitals: Vital Signs Temp Pulse Resp BP Pulse Ox 97.6 F 60 16 108/52 97 01/23/17 07:54 01/23/17 03:39 01/23/17 07:54 01/23/17 07:54 01/23/17 07:54 Period Temp Pulse Resp BP Sys/Zambrano Pulse Ox Last 24 Hr 97.6 F-99.3 F 58-73 14-20 108-164/52-78 95-97 Intake and Output 01/22/17 01/23/17 01/23/17 21:59 05:59 13:59 Intake Total 290 / 290 1450 / 1450 50 / 50 Output Total 430 / 430 250 / 250 Balance -140 / -140 1200 / 1200 50 / 50 Weight 207 lb Intake & Output: Intake & Output 01/22/17 01/23/17 01/23/17 21:59 05:59 13:59 Intake Total 290 / 290 1450 / 1450 50 / 50 Output Total 430 / 430 250 / 250 Balance -140 / -140 1200 / 1200 50 / 50 Weight 207 lb Intake: IV 50 / 50 1050 / 1050 50 / 50 Sodium Chloride 0.9% 1, 1000 / 1000 000 ml @ 100 mls/hr IV . Q10H [facility] Rx#:[id number] Zosyn 3.375 gm In 50 / 50 50 / 50 50 / 50 Dextrose 5% in Water 50 ml @ 100 mls/hr IV Q8H [facility] Rx#:[id number] Oral 240 / 240 400 / 400 Output: Urine Catheter Amount 80 / 80 250 / 250 Void Amount 350 / 350 Suprapubic 350 / 350 Other: Meal Dinner Percent of Meal Consumed 50% # Voids 1 # Bowel Movements 1 1 1 He is sitting up. He is alert and interactive. Neck is supple without obvious lymphadenopathy or JVD. Cardiac exam shows regular rate and rhythm. Lungs are clear to auscultation. Abdomen is soft and nontender. Suprapubic catheter site looks fine. Gonzalez is draining clear yellow urine. Extremities show no or edema. Neurologic exam: Is not tested in detail, but is grossly nonfocal. Cognition appears to be quite intact today. Medical - PN: Obj Da - Labs CBC & Chem 7: 01/22/17 08:00 01/23/17 04:14 Labs: Abnormal Lab Results 01/23/17 01/23/17 01/23/17 08:19 08:19 08:19 D-Dimer 1.03 H Calcium Phosphorus GGT Alkaline Phosphatase NT-Pro-B Natriuret Pep 4543.0 H Vancomycin Trough 14.0 H 01/23/17 04:14 D-Dimer Calcium 8.0 L Phosphorus 2.1 L GGT 7 L Alkaline Phosphatase 38 L NT-Pro-B Natriuret Pep Vancomycin Trough January 21: Chemistry panel: Sodium 138, potassium 5.2, chloride 99, CO2 33, anion gap 6, BUN 30, creatinine 1.3, glucose 116, calcium 8.2, phosphorus 5.7 Chest x-ray: Shows mild cardiomegaly. Minimal atelectasis in the perihilar regions. No infiltrates or effusions. January 20: 1 of 4 bottles of the blood cultures is growing gram-positive cocci in clusters. Chemistry panel: At 0: Chloride 94, CO2 31, BUN 28, creatinine 1.2 CBC his white blood cell count of 7000, hemoglobin 12, hematocrit 37, platelets 247,000, differential: RDW is high at 15 Urinalysis shows 30 mg of protein, 500 of leukocyte esterase, 55 red cells, 48 white blood cells, 49 hyaline casts, few bacteria Urine culture is growing 40-50,000 gram-negative rods. ID pending Globulin fraction is high at 3.8 December 1: Vitamin D level is low at 11.9 Chest x-ray: Shows poor inspiration. Possible developing perihilar infiltrates. EKG: Shows probable sinus rhythm rate of about 60, low voltage. Right bundle branch block. Slow R-wave progression. Meds: Medications Acetaminophen (Tylenol) 650 mg PO Q6HP PRN PRN Reason: PAIN/FEVER > 101 Last Admin: 01/22/17 05:50 Dose: 650 mg Al Hydrox/Mg Hydrox/Simethicone (Maalox) 30 ml PO Q6HP PRN PRN Reason: Dyspepsia Albuterol Sulfate (Ventolin) 2.5 mg NEB Q2HP PRN PRN Reason: Shortness Of Breath Artificial Tears (Artificial Tears Ophth Drops) 1 gtt OU PRN PRN PRN Reason: Dry Eyes Bisacodyl (Dulcolax) 10 mg [place] Q2-3DAYS PRN PRN Reason: Constipation Citalopram Hydrobromide (Celexa) 30 mg PO QDAY [facility] Last Admin: 01/23/17 09:34 Dose: 30 mg Cyanocobalamin (Vitamin B-12) 2,500 mcg PO DAILY [facility] Last Admin: 01/23/17 09:34 Dose: 2,500 mcg Dextrose (Dextrose 50%) 0 ml IV UD PRN PRN Reason: Hypoglycemia Diagnostic Test (Pha) (Accu-Chek) 1 each FS ACHS [facility] Last Admin: 01/23/17 08:21 Dose: 1 each Docusate Sodium (Colace) 100 mg PO BID [facility] Last Admin: 01/23/17 09:34 Dose: 100 mg Glucose (Insta-Glucose) 15 gm PO PRN PRN PRN Reason: Hypoglycemia Guaifenesin (Robitussin Dm) 10 ml PO Q4HP PRN PRN Reason: Cough Heparin Sodium (Porcine) (Heparin) 5,000 unit SQ Q12 [facility] Last Admin: 01/23/17 09:33 Dose: 5,000 unit Sodium Chloride (Sodium Chloride 0.9%) 1,000 mls @ 100 mls/hr IV .Q10H [facility] Last Admin: 01/23/17 01:20 Dose: 100 mls/hr Piperacillin Sod/Tazobactam (Sod 3.375 gm/ Dextrose) 50 mls @ 100 mls/hr IV Q8H [facility] Last Infusion: 01/23/17 09:56 Dose: Infused Vancomycin HCl 1,500 mg/ (Sodium Chloride) 500 mls @ 333.3 mls/hr IV Q24H [facility] Last Admin: 01/23/17 10:29 Dose: 250 mls/hr Insulin Human Lispro (Humalog) 0 unit SQ ACHS [facility] PRN Reason: Protocol Last Admin: 01/23/17 08:21 Dose: Not Given Lisinopril (Zestril) 2.5 mg PO DAILY [facility] Last Admin: 01/23/17 09:34 Dose: 2.5 mg Magnesium Hydroxide (Milk Of Magnesia) 30 ml PO DAILYP PRN PRN Reason: Constipation Magnesium Hydroxide (Milk Of Magnesia) 30 ml PO DAILYP PRN PRN Reason: Constipation Meclizine HCl (Antivert) 25 mg PO TIDP PRN PRN Reason: Vertigo Naloxone HCl (Narcan) 0.1 mg IV Q2MIN PRN PRN Reason: Opiate Reversal Ondansetron HCl (Zofran) 4 mg IV Q6HP PRN PRN Reason: Nausea And Vomiting Last Admin: 01/23/17 03:07 Dose: 4 mg Potassium/Phosphorus/Sodium (Neutra Phos) 1 packet PO BID [facility] Last Admin: 01/23/17 09:34 Dose: 1 packet Simethicone (Mylicon) 80 mg CHEWED BIDP PRN PRN Reason: GAS Sodium Chloride (Saline Flush) 10 ml IV Q8 [facility] Last Admin: 01/23/17 06:02 Dose: Not Given Tramadol HCl (Ultram) 50 mg PO Q6HP PRN PRN Reason: Pain Vancomycin HCl (Vancomycin Per Pharmacy) [address] [facility] Medical - PN: A/P - Time Spent With Patient Total time spent is greater than 50% in coordination of care (as documented) at patient's floor/unit and/or counseling patient: Greater than 35 minutes (1) Type 2 diabetes mellitus Status: Acute Current Visit: Yes (2) Acute delirium Status: Acute Current Visit: Yes (3) Indwelling catheter present on admission Status: Acute Current Visit: Yes (4) UTI (urinary tract infection) Status: Acute Current Visit: Yes (5) Hypertension, essential Status: Chronic Current Visit: No - Narrative A/P Narrative: #1. Cardiac. Patient had an episode of chest discomfort during the night, of uncertain cause. D-dimer is elevated, as is BNP. Troponin is negative. EKG shows probable sinus rhythm at a rate of 61, with low voltage, possible intraventricular conduction delay versus right bundle branch block. There is really no significant change from his EKG on January 20, 2017. At this point, I think we are probably obligated to check a CT angiogram to rule out PE. #1. Infectious disease. Patient presents with probable medical delirium. Urinalysis is consistent with urinary tract infection, although the patient may also have chronic colonization. Initial chest x-ray is suboptimal, but suggestive of possible perihilar infiltrates. -Patient's mental status continues to improve today. He is probably approaching his baseline. We are still awaiting for family to arrive to confirm this. So far cultures are not pointing to a definite cause, but it seems clear that he was delirious related to an infection. He continues to require supplemental oxygen. Continue IV Zosyn and vancomycin, pending final culture results. -Changed suprapubic catheter. 2. . History of BPH, chronic urinary retention, chronic Gonzalez catheter. Patient reportedly takes oxybutynin, possibly for bladder spasm. 3. Code status: Nursing staff to talked to his facility, who relate that his post form request that he have a DNR CODE STATUS. 4. DVT prophylaxis: Subcu heparin 5. Endocrine. Type 2 diabetes. Accu-Cheks, sliding scale insulin 6. Hypertension. Continue lisinopril. Lasix will be held as the patient appears to be dehydrated. 7. Neurologic. The patient presents with what appears to be a medical delirium/encephalopathy. -Improved. 8. Chronic pain. Continue pain pump, tramadol. Asked the pain clinic if they can verify his current morphine pump dose, and that it is working correctly. Apparently they did and they said it is fine. Continue as needed methocarbamol. 9. Psychiatric. ? Depression. Continue citalopram, after medications are confirmed. 10. Renal. Follow-up labs showed elevated potassium, BUN, creatinine, consistent with mild acute kidney injury. Resolved. Continue to hydrate, and follow renal function. Hold potassium supplement, lisinopril, Lasix. #11. He also has a past history of multiple myeloma, and it is not clear if that is an actively treated condition. 12. Pulmonary. Patient continues to require supplemental oxygen. Chest x-ray looks okay though. Continue to follow, and try to wean oxygen. Disposition: Given that the patient had some chest discomfort today, and has positive blood cultures, I would like to continue to follow him. We changed him to inpatient status, to assure resolution of mental status issues, correct treatment of his infection, and return of normal renal function. Medical - PN: Qual - VTE Deep Vein Thrombosis/Pulmonary Embolism Present on Admission: No
[2017-01-23] MEDS ORDERED: IOPAMIDOL 100 ML BOTTLE IV ONE (15:38)
--- NOTE | 2017-01-23 17:21 | Cat Scan Report ---
CLINICAL INFORMATION: Elevated d-dimer and shortness of breath COMPARISON: None TECHNIQUE: Axial images obtained through the chest. 80 cc intravenous contrast administration was administered, and scanning was performed during pulmonary arterial phase. Sagittally and coronally reformatted images were obtained. MIP reformatted images. FINDINGS: The pulmonary arteries are well opacified - no evidence of embolus. The pulmonary arteries are moderately congested and there is moderate bronchovascular edema with edema in the interlobular septi and small bilateral pleural effusions. Findings are compatible with moderate CHF. Mild basilar atelectasis appreciated. Mediastinal windows show the heart to be moderately enlarged. There is very heavy fibrofatty calcific plaque in the coronary arteries. There is no adenopathy in the mediastinal, hilar or axillary region. Thoracic aorta is normal. Esophagus is grossly normal. Images through the abdomen show multiple very large stones in the gallbladder ranging up to 4.8 cm. Visualized liver, spleen and pancreas are normal. The bone windows show no significant abnormality IMPRESSION: 1. No evidence of pulmonary embolus 2. Moderate CHF 3. Multiple large stones in the gallbladder ranging up to 4.8 cm. Interpreted and Authenticated by: Chirs Morelos 01/23/17
[2017-01-24] MEDS ORDERED: FUROSEMIDE 20 MG/2 ML VIAL IV ONE ×4 (04:03→14:00)
[2017-01-24] MEDS: 0.9 % SODIUM CHLORIDE 10 ML SYRINGE IV SCH ×3 (04:08→21:18)
[2017-01-24] MEDS: PIPERACILLIN SODIUM/TAZOBACTAM 3.375 GM in DEXTROSE 5% IN WATER 50 ML IV SCH (05:04)
[2017-01-24 06:54] LABS: ALT/SGPT 13 U/l (0-40); Albumin 3.4 gm/dL (3.2-5.2); Alkaline Phosphatase 39 U/L (39-117); Bilirubin,Direct < 0.2 mg/dL (0.0-0.3); Blood Urea Nitrogen 15 mg/dl (8-23); Gamma Glutamyl Transpeptidase 8 U/L (8-61); Uric Acid 2.8 mg/dL (2.5-8.0)
[2017-01-24] MEDS: INSULIN LISPRO 1 UNIT/0.01 ML UNIT SQ SCH ×4 (08:53→21:18)
[2017-01-24] MEDS: CYANOCOBALAMIN (VITAMIN B-12) 500 MCG TABLET PO SCH (08:54)
[2017-01-24] MEDS: NEUTRA PHOS 1 PACKET PO SCH ×2 (08:54→21:17)
[2017-01-24] MEDS: CITALOPRAM 20 MG TABLET PO SCH (08:55)
[2017-01-24] MEDS: LISINOPRIL 5 MG TABLET PO SCH (08:56)
[2017-01-24] MEDS: HEPARIN 5,000 UNIT/ML VIAL SQ SCH ×2 (08:58→21:17)
[2017-01-24] MEDS: DOCUSATE SODIUM 100 MG CAPSULE PO SCH ×2 (09:20→21:17)
[2017-01-24] MEDS: VANCOMYCIN 1,500 MG in 0.9 % SODIUM CHLORIDE 500 ML IV SCH (09:21)
--- NOTE | 2017-01-24 09:40 | Internal Med Progress Note ---
Medical - PN: Subj Patient information: Note initiated : 01/24/17 at 9:38 am Service Date, if different from initiated Date: [] Patient: Kenneth Encinas 81 y/o M admitted on 01/22/17 for Lethargy, Weakness/ Delirium, UTI . Chief Complaint: [] Interval history: January 202016: History of present illness: Mr. Encinas is a 81 year old man with a history of diabetes, hypertension, chronic urinary retention with chronic Gonzalez catheter, who is brought in on the evening of January 20 for increasing weakness and confusion. There were apparently some family members here earlier on, but they have gone home by the time patient is admitted. The patient is very lethargic, and will only open his eyes briefly to questions. He tries to speak, but can barely say one word before falling back asleep. He is unable to give an adequate review of systems. He seems to deny pain. In the emergency room he was also noted to have O2 saturations below 90% when he was sleeping. He had been to the pain clinic earlier in the day, to have his pain pump refill, but they reported that they did not change any of the settings are his dose. He reportedly receives about 3 mg of morphine IV over the course of a day. I believe he was given a dose of Narcan in the emergency room, but verbal report is that he did not really respond to that. ER evaluation did show significant pyuria, and it was felt that he likely has altered mental status related to acute urinary tract infection. His mental status did not improve much after treatment with fluids and antibiotics in the ER, so he is now admitted to observation for monitoring. January 21: This evening, the patient is much more awake and alert. He is able to tell me that he believes his family is driving over from [employer] this evening. He says he is feeling better, and the nurses note he is asking for food. Otherwise, he has no specific complaints at this time. January 22: This morning, the patient says he thinks he is feeling quite a bit better. He is talking and interactive and even joking this morning. -He did have a temperature of 100.1 earlier this evening. One bottle of his blood cultures is growing gram-positive cocci. -He tells me that he has a chronic suprapubic Gonzalez catheter because of damage that was done during a spine surgery, which also caused leg weakness. They change his catheter once a month. He does not really recall the circumstances surrounding his illness and transfer to the hospital. He is expecting his daughter to arrive from [place] today. She has his POA. He currently lives in an assisted living facility, and says they take good care of him. -Otherwise, he denies fever or chills, headaches or dizziness, chest pain or palpitations, shortness of breath, abdominal pain, nausea or vomiting, diarrhea or constipation. January 23: Today, the patient says he is feeling pretty well, probably close to baseline. Has been able to walk to and from the bathroom a bit, but staff has reported that last night when he was walking to the bathroom he complained of chest discomfort associated with shortness of breath. He reports this pain seemed like it went across the lower part of his chest, both sides. He does not recall associated dyspnea or diaphoresis at that time and it resolved as soon as he got back in bed. He has not had any further chest discomfort since then. Otherwise, he denies fever chills, current chest pain or shortness of breath, abdominal pain, nausea or vomiting, diarrhea or constipation. Suprapubic catheter remains in place. 01/24- atient developed significant shortness of breath along with moderate CHF on imaging. No evidence of PE on CT angiogram. Started on diuretics. DC IV fluids. DC vancomycin/Zosyn. Start Rocephin based on culture sensitivity. Multidrug-resistant Proteus mirabilis on urine culture. transfer to telemetry. ontinue diuresis - Constitutional Vitals: Vital Signs Temp Pulse Resp BP Pulse Ox 97.7 F 67 22 110/62 96 01/24/17 07:30 01/24/17 03:58 01/24/17 07:30 01/24/17 07:30 01/24/17 07:30 Period Temp Pulse Resp BP Sys/Zambrano Pulse Ox Last 24 Hr 95.5 F-98.6 F 59-67 16-22 108-128/62-72 91-97 Intake and Output 01/23/17 01/24/17 01/24/17 21:59 05:59 13:59 Intake Total 650 / 650 1050 / 1050 300 / 300 Output Total 400 / 400 350 / 350 275 / 275 Balance 250 / 250 700 / 700 25 / 25 Weight 206 lb 5 oz Intake & Output: Intake & Output 01/23/17 01/24/17 01/24/17 21:59 05:59 13:59 Intake Total 650 / 650 1050 / 1050 300 / 300 Output Total 400 / 400 350 / 350 275 / 275 Balance 250 / 250 700 / 700 25 / 25 Weight 206 lb 5 oz Intake: IV 50 / 50 1050 / 1050 Sodium Chloride 0.9% 1, 1000 / 1000 000 ml @ 100 mls/hr IV . Q10H [facility] Rx#:[id number] Zosyn 3.375 gm In 50 / 50 50 / 50 Dextrose 5% in Water 50 ml @ 100 mls/hr IV Q8H [facility] Rx#:[id number] Oral 600 / 600 300 / 300 Output: Urine Catheter Amount 400 / 400 350 / 350 175 / 175 Stool 100 / 100 Other: # Bowel Movements 1 1 General appearance: cooperative, no acute distress Exam: lert oriented Labored breathing, crackles bases nondistended abdomen foleys draining clear urine Medical - PN: Obj Da - Labs CBC & Chem 7: 01/22/17 08:00 01/24/17 04:50 Labs: Abnormal Lab Results 01/24/17 01/23/17 01/23/17 04:50 08:19 08:19 D-Dimer 1.03 H Calcium 8.5 L Phosphorus 2.0 L GGT Alkaline Phosphatase NT-Pro-B Natriuret Pep 4543.0 H Vancomycin Trough 01/23/17 01/23/17 08:19 04:14 D-Dimer Calcium 8.0 L Phosphorus 2.1 L GGT 7 L Alkaline Phosphatase 38 L NT-Pro-B Natriuret Pep Vancomycin Trough 14.0 H Meds: Medications Acetaminophen (Tylenol) 650 mg PO Q6HP PRN PRN Reason: PAIN/FEVER > 101 Last Admin: 01/22/17 05:50 Dose: 650 mg Al Hydrox/Mg Hydrox/Simethicone (Maalox) 30 ml PO Q6HP PRN PRN Reason: Dyspepsia Albuterol Sulfate (Ventolin) 2.5 mg NEB Q2HP PRN PRN Reason: Shortness Of Breath Last Admin: 01/24/17 03:53 Dose: 2.5 mg Artificial Tears (Artificial Tears Ophth Drops) 1 gtt OU PRN PRN PRN Reason: Dry Eyes Bisacodyl (Dulcolax) 10 mg CO Q2-3DAYS PRN PRN Reason: Constipation Citalopram Hydrobromide (Celexa) 30 mg PO QDAY [facility] Last Admin: 01/24/17 08:55 Dose: 30 mg Cyanocobalamin (Vitamin B-12) 2,500 mcg PO DAILY [facility] Last Admin: 01/24/17 08:54 Dose: 2,500 mcg Dextrose (Dextrose 50%) 0 ml IV UD PRN PRN Reason: Hypoglycemia Diagnostic Test (Pha) (Accu-Chek) 1 each FS ACHS [facility] Last Admin: 01/24/17 08:51 Dose: 1 each Docusate Sodium (Colace) 100 mg PO BID [facility] Last Admin: 01/24/17 09:20 Dose: Not Given Glucose (Insta-Glucose) 15 gm PO PRN PRN PRN Reason: Hypoglycemia Guaifenesin (Robitussin Dm) 10 ml PO Q4HP PRN PRN Reason: Cough Heparin Sodium (Porcine) (Heparin) 5,000 unit SQ Q12 [facility] Last Admin: 01/24/17 08:58 Dose: 5,000 unit Piperacillin Sod/Tazobactam (Sod 3.375 gm/ Dextrose) 50 mls @ 100 mls/hr IV Q8H [facility] Last Admin: 01/24/17 05:04 Dose: 100 mls/hr Vancomycin HCl 1,500 mg/ (Sodium Chloride) 500 mls @ 333.3 mls/hr IV Q24H [facility] Last Admin: 01/24/17 09:21 Dose: 250 mls/hr Insulin Human Lispro (Humalog) 0 unit SQ ACHS [facility] PRN Reason: Protocol Last Admin: 01/24/17 08:53 Dose: Not Given Lisinopril (Zestril) 2.5 mg PO DAILY [facility] Last Admin: 01/24/17 08:56 Dose: 2.5 mg Magnesium Hydroxide (Milk Of Magnesia) 30 ml PO DAILYP PRN PRN Reason: Constipation Magnesium Hydroxide (Milk Of Magnesia) 30 ml PO DAILYP PRN PRN Reason: Constipation Meclizine HCl (Antivert) 25 mg PO TIDP PRN PRN Reason: Vertigo Naloxone HCl (Narcan) 0.1 mg IV Q2MIN PRN PRN Reason: Opiate Reversal Ondansetron HCl (Zofran) 4 mg IV Q6HP PRN PRN Reason: Nausea And Vomiting Last Admin: 01/23/17 03:07 Dose: 4 mg Potassium/Phosphorus/Sodium (Neutra Phos) 1 packet PO BID [facility] Last Admin: 01/24/17 08:54 Dose: 1 packet Simethicone (Mylicon) 80 mg CHEWED BIDP PRN PRN Reason: GAS Sodium Chloride (Saline Flush) 10 ml IV Q8 [facility] Last Admin: 01/24/17 04:08 Dose: Not Given Tramadol HCl (Ultram) 50 mg PO Q6HP PRN PRN Reason: Pain Vancomycin HCl (Vancomycin Per Pharmacy) 1 order IV UD [facility] Medical - PN: A/P - Time Spent With Patient Total time spent is greater than 50% in coordination of care (as documented) at patient's floor/unit and/or counseling patient: 25 - 35 minutes - Narrative A/P Narrative: * Acute decompensated heart failure- Start aggressive diuresis. Continue JOELLE inhibitor. * Complicated hardware related UTI with [id number]. Switched to Rocephin. uprapubic catheter in place * hypertension onACE inhibitor * type 2 diabetes on sliding scale insulin * hronic pain- stable * History of anxiety depression-on citalopram * DVT prophylaxis on heparin * DNR plan * DC vancomycin, start Rocephin * Pre-existing medical condition management as above * transfer to telemetry * start diuresis Medical - PN: Qual - VTE Deep Vein Thrombosis/Pulmonary Embolism Present on Admission: No
[2017-01-24] MEDS ORDERED: cefTRIAXone 2 GM in DEXTROSE 5% IN WATER 50 ML IV SCH (10:00)
[2017-01-24] MEDS ORDERED: traMADol 50 MG TABLET PO PRN (12:29)
[2017-01-24] MEDS ORDERED: POLYVINYL ALCOHOL OPHTH DROPS 15ML BOTTLE OU PRN (12:29)
[2017-01-24] MEDS ORDERED: ACETAMINOPHEN 325 MG TABLET PO PRN (12:29)
[2017-01-24] MEDS ORDERED: DEXTROSE 50% 50 ML VIAL IV PRN (12:29)
[2017-01-24] MEDS ORDERED: NALOXONE HCL 0.4 MG/ML VIAL IV PRN (12:29)
[2017-01-24] MEDS ORDERED: BISACODYL 10 MG SUPP.RECT PR PRN (12:29)
[2017-01-24] MEDS ORDERED: SIMETHICONE 80 MG TAB.CHEW CHEWED PRN (12:29)
[2017-01-24] MEDS ORDERED: MAG HYDROX/AL HYDROX/SIMETH 30 ML ORAL.SUSP PO PRN (12:29)
[2017-01-24] MEDS ORDERED: MAGNESIUM HYDROXIDE 30 ML ORAL.SUSP PO PRN ×2 (12:29)
[2017-01-24] MEDS ORDERED: MECLIZINE 25 MG TABLET PO PRN (12:29)
[2017-01-24] MEDS ORDERED: ALBUTEROL SULFATE 2.5 MG/3 ML NEBULIZER NEB PRN (12:29)
[2017-01-24] MEDS ORDERED: DEXTROSE 31 GM ORAL.SUSP PO PRN (12:29)
[2017-01-24] MEDS ORDERED: guaiFENesin/DEXTROMETHORPHAN ORAL SOL PO PRN (12:29)
[2017-01-24] MEDS ORDERED: ONDANSETRON 4 MG/2 ML VIAL IV PRN (12:29)
--- NOTE | 2017-01-24 16:29 | EKG Interpretations ---
TEACHERS ASSISTANT: Addi Guadarrama MD FINDINGS: 1. Sinus rhythm, 62 beats per minute. 2. Incomplete right bundle branch block. 3. 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 SAMIR: Job ID: [id number] Doc ID: [id number] Addi Guadarrama MD
[2017-01-25 06:02] LABS: Basophils # (Auto) 0 K/mcL (0.0-0.3); Basophils % (Auto) 0.2 % (0.0-2.0); Eosinophils # (Auto) 0.1 K/mcL (0.0-0.7); Granulocytes % (Auto) 72.8 % (38.0-78.0); Lymphocytes # (Auto) 1.4 K/mcL (1.5-4.8); Lymphocytes % (Auto) 19.9 % (15.5-49.0); Mean Cell Volume 89.9 fL (80.0-100.0); Mean Corpuscular HGB Conc 33.6 g/dL (31.0-36.0); Mean Corpuscular Hemoglobin 30.2 pg (26.0-34.0); Monocytes # (Auto) 0.4 K/mcL (0.1-0.9); Monocytes % (Auto) 5.1 % (1.0-12.0); Platelet Count 152 K/mcL (140-440); RBC 3.14 M/mcL (4.50-5.90)
[2017-01-25 07:01] LABS: ALT/SGPT 11 U/l (0-40); Albumin 3.4 gm/dL (3.2-5.2); Albumin/Globulin Ratio 0.9 (1.0-2.3); Alkaline Phosphatase 38 U/L (39-117); Bilirubin,Direct < 0.2 mg/dL (0.0-0.3); Blood Urea Nitrogen 12 mg/dl (8-23); Gamma Glutamyl Transpeptidase 8 U/L (8-61)
[2017-01-25] MEDS: 0.9 % SODIUM CHLORIDE 10 ML SYRINGE IV SCH ×3 (08:33→21:01)
[2017-01-25] MEDS: INSULIN LISPRO 1 UNIT/0.01 ML UNIT SQ SCH ×4 (08:33→20:39)
[2017-01-25] MEDS: HEPARIN 5,000 UNIT/ML VIAL SQ SCH ×2 (09:36→21:00)
[2017-01-25] MEDS: LISINOPRIL 5 MG TABLET PO SCH (09:37)
[2017-01-25] MEDS: CYANOCOBALAMIN (VITAMIN B-12) 500 MCG TABLET PO SCH (09:38)
[2017-01-25] MEDS: CITALOPRAM 20 MG TABLET PO SCH (09:38)
[2017-01-25] MEDS: NEUTRA PHOS 1 PACKET PO SCH ×2 (09:40→21:01)
[2017-01-25] MEDS: cefTRIAXone 2 GM in DEXTROSE 5% IN WATER 50 ML IV SCH (09:41)
[2017-01-25] MEDS: DOCUSATE SODIUM 100 MG CAPSULE PO SCH ×2 (09:54→20:39)
[2017-01-25] MEDS ORDERED: FUROSEMIDE 20 MG/2 ML VIAL IV ONE (09:58)
--- NOTE | 2017-01-25 10:02 | Internal Med Progress Note ---
Medical - PN: Subj Patient information: Note initiated : 01/25/17 at 9:58 am Service Date, if different from initiated Date: [] Patient: Kenneth Encinas 81 y/o M admitted on 01/22/17 for Lethargy, Weakness/ Delirium, UTI . Chief Complaint: [] Interval history: January 202016: History of present illness: Mr. Encinas is a 81 year old man with a history of diabetes, hypertension, chronic urinary retention with chronic Gonzalez catheter, who is brought in on the evening of January 20 for increasing weakness and confusion. There were apparently some family members here earlier on, but they have gone home by the time patient is admitted. The patient is very lethargic, and will only open his eyes briefly to questions. He tries to speak, but can barely say one word before falling back asleep. He is unable to give an adequate review of systems. He seems to deny pain. In the emergency room he was also noted to have O2 saturations below 90% when he was sleeping. He had been to the pain clinic earlier in the day, to have his pain pump refill, but they reported that they did not change any of the settings are his dose. He reportedly receives about 3 mg of morphine IV over the course of a day. I believe he was given a dose of Narcan in the emergency room, but verbal report is that he did not really respond to that. ER evaluation did show significant pyuria, and it was felt that he likely has altered mental status related to acute urinary tract infection. His mental status did not improve much after treatment with fluids and antibiotics in the ER, so he is now admitted to observation for monitoring. January 21: This evening, the patient is much more awake and alert. He is able to tell me that he believes his family is driving over from [employer] this evening. He says he is feeling better, and the nurses note he is asking for food. Otherwise, he has no specific complaints at this time. January 22: This morning, the patient says he thinks he is feeling quite a bit better. He is talking and interactive and even joking this morning. -He did have a temperature of 100.1 earlier this evening. One bottle of his blood cultures is growing gram-positive cocci. -He tells me that he has a chronic suprapubic Gonzalez catheter because of damage that was done during a spine surgery, which also caused leg weakness. They change his catheter once a month. He does not really recall the circumstances surrounding his illness and transfer to the hospital. He is expecting his daughter to arrive from [place] today. She has his POA. He currently lives in an assisted living facility, and says they take good care of him. -Otherwise, he denies fever or chills, headaches or dizziness, chest pain or palpitations, shortness of breath, abdominal pain, nausea or vomiting, diarrhea or constipation. January 23: Today, the patient says he is feeling pretty well, probably close to baseline. Has been able to walk to and from the bathroom a bit, but staff has reported that last night when he was walking to the bathroom he complained of chest discomfort associated with shortness of breath. He reports this pain seemed like it went across the lower part of his chest, both sides. He does not recall associated dyspnea or diaphoresis at that time and it resolved as soon as he got back in bed. He has not had any further chest discomfort since then. Otherwise, he denies fever chills, current chest pain or shortness of breath, abdominal pain, nausea or vomiting, diarrhea or constipation. Suprapubic catheter remains in place. 01/24- atient developed significant shortness of breath along with moderate CHF on imaging. No evidence of PE on CT angiogram. Started on diuretics. DC IV fluids. DC vancomycin/Zosyn. Start Rocephin based on culture sensitivity. Multidrug-resistant Proteus mirabilis on urine culture. transfer to telemetry. ontinue diuresis 01/25- atient doing well. On 2 L oxygen. Still feeling weak and wiped out however ongoing physical therapy. Diuresing. Much improved since previous day. No overnight fever chills or telemetry events. No concerns per nursing staff. No family at bedside - Constitutional Vitals: Vital Signs Temp Pulse Resp BP Pulse Ox 97.4 F 58 L 20 129/73 94 01/25/17 07:15 01/25/17 04:00 01/25/17 07:15 01/25/17 07:15 01/25/17 08:00 Period Temp Pulse Resp BP Sys/Zambrano Pulse Ox Last 24 Hr 97.1 F-99.9 F 52-80 - 104-129/52-73 94-100 Intake and Output 01/24/17 01/25/17 01/25/17 21:59 05:59 13:59 Intake Total 50 / 50 420 / 420 Output Total 625 / 625 400 / 400 Balance -575 / -575 -400 / -400 420 / 420 Weight 209 lb Intake & Output: Intake & Output 01/24/17 01/25/17 01/25/17 21:59 05:59 13:59 Intake Total 50 / 50 420 / 420 Output Total 625 / 625 400 / 400 Balance -575 / -575 -400 / -400 420 / 420 Weight 209 lb Intake: Oral 50 / 50 420 / 420 Output: Urine Catheter Amount 625 / 625 400 / 400 Other: Meal Breakfast Percent of Meal Consumed 100% Feeding Ability Assist with Tray Set Up # Bowel Movements 1 General appearance: cooperative, no acute distress Exam: on 2 L oxygen nonlabored breathing \Weak and fatigued nondistended abdomen lymphedema Medical - PN: Obj Da - Labs CBC & Chem 7: 01/25/17 04:22 01/25/17 04:22 Labs: Abnormal Lab Results 01/25/17 01/25/17 01/24/17 04:22 04:22 04:50 RBC 3.14 L Hgb 9.5 L Hct 28.3 L RDW 15.0 H Lymph # (Auto) 1.4 L D-Dimer Calcium 8.5 L Phosphorus 1.7 L 2.0 L GGT Alkaline Phosphatase 38 L NT-Pro-B Natriuret Pep Globulin 3.8 H Albumin/Globulin Ratio 0.9 L Vancomycin Trough 01/23/17 01/23/17 01/23/17 08:19 08:19 08:19 RBC Hgb Hct RDW Lymph # (Auto) D-Dimer 1.03 H Calcium Phosphorus GGT Alkaline Phosphatase NT-Pro-B Natriuret Pep 4543.0 H Globulin Albumin/Globulin Ratio Vancomycin Trough 14.0 H 01/23/17 04:14 RBC Hgb Hct RDW Lymph # (Auto) D-Dimer Calcium 8.0 L Phosphorus 2.1 L GGT 7 L Alkaline Phosphatase 38 L NT-Pro-B Natriuret Pep Globulin Albumin/Globulin Ratio Vancomycin Trough Meds: Medications Acetaminophen (Tylenol) 650 mg PO Q6HP PRN PRN Reason: PAIN/FEVER > 101 Al Hydrox/Mg Hydrox/Simethicone (Maalox) 30 ml PO Q6HP PRN PRN Reason: Dyspepsia Albuterol Sulfate (Ventolin) 2.5 mg NEB Q2HP PRN PRN Reason: Shortness Of Breath Artificial Tears (Artificial Tears Ophth Drops) 1 gtt OU PRN PRN PRN Reason: Dry Eyes Bisacodyl (Dulcolax) 10 mg OK Q2-3DAYS PRN PRN Reason: Constipation Citalopram Hydrobromide (Celexa) 30 mg PO QDAY [facility] Last Admin: 01/25/17 09:38 Dose: 30 mg Cyanocobalamin (Vitamin B-12) 2,500 mcg PO DAILY [facility] Last Admin: 01/25/17 09:38 Dose: 2,500 mcg Dextrose (Dextrose 50%) 0 ml IV UD PRN PRN Reason: Hypoglycemia Diagnostic Test (Pha) (Accu-Chek) 1 each FS ACHS [facility] Last Admin: 01/25/17 07:10 Dose: 1 each Docusate Sodium (Colace) 100 mg PO BID [facility] Last Admin: 01/25/17 09:54 Dose: Not Given Furosemide (Lasix) 20 mg IV ONCE ONE Stop: 01/25/17 09:59 Furosemide (Lasix) 20 mg IV DAILY [facility] Glucose (Insta-Glucose) 15 gm PO PRN PRN PRN Reason: Hypoglycemia Guaifenesin (Robitussin Dm) 10 ml PO Q4HP PRN PRN Reason: Cough Heparin Sodium (Porcine) (Heparin) 5,000 unit SQ Q12 [facility] Last Admin: 01/25/17 09:36 Dose: 5,000 unit Ceftriaxone Sodium 2 gm/ (Dextrose) 50 mls @ 100 mls/hr IV Q24H [facility] Last Admin: 01/25/17 09:41 Dose: 100 mls/hr Insulin Human Lispro (Humalog) 0 unit SQ ACHS [facility] PRN Reason: Protocol Last Admin: 01/25/17 08:33 Dose: Not Given Lisinopril (Zestril) 2.5 mg PO DAILY [facility] Last Admin: 01/25/17 09:37 Dose: 2.5 mg Magnesium Hydroxide (Milk Of Magnesia) 30 ml PO DAILYP PRN PRN Reason: Constipation Magnesium Hydroxide (Milk Of Magnesia) 30 ml PO DAILYP PRN PRN Reason: Constipation Meclizine HCl (Antivert) 25 mg PO TIDP PRN PRN Reason: Vertigo Naloxone HCl (Narcan) 0.1 mg IV Q2MIN PRN PRN Reason: Opiate Reversal Ondansetron HCl (Zofran) 4 mg IV Q6HP PRN PRN Reason: Nausea And Vomiting Last Admin: 01/25/17 08:33 Dose: 4 mg Potassium/Phosphorus/Sodium (Neutra Phos) 2 packet PO BID [facility] Simethicone (Mylicon) 80 mg CHEWED BIDP PRN PRN Reason: GAS Sodium Chloride (Saline Flush) 10 ml IV Q8 [facility] Last Admin: 01/25/17 08:33 Dose: 10 ml Tramadol HCl (Ultram) 50 mg PO Q6HP PRN PRN Reason: Pain Medical - PN: A/P - Time Spent With Patient Total time spent is greater than 50% in coordination of care (as documented) at patient's floor/unit and/or counseling patient: 25 - 35 minutes - Narrative A/P Narrative: * Acute decompensated heart failure- continue diuresis. on JOELLE inhibitor. radycardia precluding beta ralf use * Complicated hardware related UTI with [id number]. On Rocephin * hypertension on JOELLE inhibitor * type 2 diabetes on sliding scale insulin * Chronic pain- stable * History of anxiety depression-on citalopram * DVT prophylaxis on heparin * DNR plan * continue Rocephin * Continue diuresis * Pre-existing medical condition management as above Medical - PN: Qual - VTE Deep Vein Thrombosis/Pulmonary Embolism Present on Admission: No
[2017-01-26 05:54] LABS: Basophils # (Auto) 0 K/mcL (0.0-0.3); Basophils % (Auto) 0.4 % (0.0-2.0); Eosinophils # (Auto) 0.3 K/mcL (0.0-0.7); Eosinophils % (Auto) 4.7 % (0.0-7.0); Granulocytes % (Auto) 67.4 % (38.0-78.0); Lymphocytes # (Auto) 1.4 K/mcL (1.5-4.8); Lymphocytes % (Auto) 23.3 % (15.5-49.0); Mean Cell Volume 89.3 fL (80.0-100.0); Mean Corpuscular HGB Conc 33.7 g/dL (31.0-36.0); Mean Corpuscular Hemoglobin 30.1 pg (26.0-34.0); Monocytes # (Auto) 0.2 K/mcL (0.1-0.9); Monocytes % (Auto) 4.2 % (1.0-12.0); Platelet Count 176 K/mcL (140-440); RBC 3.29 M/mcL (4.50-5.90); Red Cell Distribution Width 15.1 % (11.5-14.5)
[2017-01-26 06:32] LABS: ALT/SGPT 10 U/l (0-40); Albumin 3.5 gm/dL (3.2-5.2); Albumin/Globulin Ratio 0.9 (1.0-2.3); Alkaline Phosphatase 40 U/L (39-117); Bilirubin,Direct < 0.2 mg/dL (0.0-0.3); Blood Urea Nitrogen 13 mg/dl (8-23); Gamma Glutamyl Transpeptidase 9 U/L (8-61); Magnesium 2.1 mg/dL (1.6-2.5); Uric Acid 3.5 mg/dL (2.5-8.0)
[2017-01-26] MEDS: 0.9 % SODIUM CHLORIDE 10 ML SYRINGE IV SCH (07:01)
[2017-01-26] MEDS: INSULIN LISPRO 1 UNIT/0.01 ML UNIT SQ SCH ×2 (07:04→12:18)
[2017-01-26] MEDS ORDERED: FUROSEMIDE 20 MG/2 ML VIAL IV SCH (09:00)
--- NOTE | 2017-01-26 09:02 | Discharge Summary ---
Medical - DS: Prov Patient information: Note initiated : 01/26/17 at 8:55 am Service Date, if different from initiated Date: [] Patient: Kenneth Encinas 81 y/o M admitted on 01/22/17 for Lethargy, Weakness/ Delirium, UTI . Chief Complaint: [] Date of admission: 01/22/17 10:54 Discharge date: 01/26/17 Primary care physician: Nemesio Medrano Medical - DS: Meds - Discharge Medications Prescriptions: Cefdinir 300 mg PO BID #10 capsule Active and Home Medications: Home Medications bisacodyl 10 mg rectal suppository 10 mg VA QDAY PRN supp 11/17/14 [History Confirmed 01/21/17 Last Taken Unknown] docusate sodium 100 mg capsule 100 mg PO QDAY cap 12/05/14 [History Confirmed 01/21/17 Last Taken 01/20/17 08:00] Mepilex Border 4" X 4" bandage See Dose Instructions .ROUTE .MEDSUPPLY #10 each NS 10/26/15 [Rx Confirmed 07/09/16 Last Taken Unknown] methocarbamol 500 mg tablet 500 mg PO BID #180 tab 12/18/15 [Rx Confirmed Last Taken Unknown] meclizine 25 mg chewable tablet 25 mg PO TID PRN #60 tab 01/01/16 [Rx Confirmed 01/21/17 Last Taken 01/19/17 23:00] potassium chloride ER 20 mEq tablet,extended release 20 meq PO QDAY #90 tab [Rx Confirmed 01/21/17 Last Taken 01/20/17 08:00] tramadol 50 mg tablet 50 mg PO Q6H PRN #90 tab 06/18/16 [Rx Confirmed 01/21/17 Last Taken 01/17/17] Saccharomyces boulardii 250 mg capsule 250 mg PO BID 07/09/16 [History Confirmed 07/09/16 Last Taken Unknown] citalopram 20 mg tablet 30 mg PO QDAY #90 tab 07/09/16 [Rx Confirmed 01/21/17 Last Taken 01/20/17 08:00] albuterol sulfate HFA 90 mcg/actuation aerosol inhaler 2 puff INHALATION Q6H PRN #18 g 09/08/16 [Rx Confirmed 01/21/17 Last Taken Unknown] furosemide 40 mg tablet 40 mg PO BID 90 Days 12/24/16 [Rx Confirmed 01/21/17 Last Taken 01/20/17 08:00] ondansetron HCl 4 mg tablet 4 mg PO Q8H PRN #20 tab 01/06/17 [Rx Confirmed 01/21 Last Taken 01/06/17 01:13] lisinopril 2.5 mg tablet 2.5 mg PO QDAY 90 Days 01/20/17 [Rx Confirmed 01/21/17 Last Taken 01/20/17 08:00] Acetaminophen [Non-Aspirin] 1 - 2 tab PO Q6HP PRN MDD 3 grams 01/21/17 [History Confirmed 01/21/17 Last Taken 01/17/17 15:15] Cyanocobalamin (Vitamin B-12) [Vitamin B12] 2,500 mcg SL DAILY 01/21/17 [ History Confirmed 01/21/17 Last Taken 01/20/17 08:00] Mag Hydrox/Al Hydrox/Simeth [Maalox] 30 ml PO Q6HP PRN 01/21/17 [History Confirmed 01/21/17 Last Taken Unknown] Magnesium Hydroxide [Milk of Magnesia] 30 ml PO DAILYP PRN 01/21/17 [History Confirmed 01/21/17 Last Taken Unknown] Na Phos,M-B/Na Phos,Di-Ba [Fleets Adult] 1 dose VA DAILYP PRN 01/21/17 [History Confirmed 01/21/17 Last Taken Unknown] Nut.tx.impaired Renal Fxn,Soy [Novasource Renal 2 Nickolas] 237 ml PO TIDP PRN [History Confirmed 01/21/17 Last Taken Unknown] Oxybutynin Chloride [Ditropan] 1 - 2 tab PO QDAY PRN 01/21/17 [History Confirmed 01/21/17 Last Taken 01/12/17 23:49] Polyvinyl Alcohol [Artificial Tears] 15 ml OP PRN PRN 01/21/17 [History Confirmed 01/21/17 Last Taken Unknown] Simethicone [Gas-X Ultra Strength] 125 mg PO BID PRN 01/21/17 [History Confirmed 01/21/17 Last Taken Unknown] Vits A and D/White Pet/Lanolin [A and D Ointment] 113 gm TP PRN PRN 01/21/17 [ History Confirmed 01/21/17 Last Taken Unknown] guaiFENesin/DEXTROMETHORPHAN [Tussin Dm Syrup] 10 ml PO Q4HP PRN 01/21/17 [ History Confirmed 01/21/17 Last Taken Unknown] morphine pain pump 2.447 mg INTRATHECA DAILY 01/21/17 [History Confirmed Last Taken 01/21/17] Cefdinir 300 mg PO BID #10 capsule 01/26/17 [Rx Last Taken Unknown] Medical - DS: Hosp Hospital course: DISCHARGE DIAGNOSIS * Acute decompensated heart failure- linically improved with diuretics. continue JOELLE inhibitor. borderline Bradycardia precluding beta ralf use * Complicated hardware related UTI with Ldzldja-Pzrjpptti-axiztbnhd. Continue additional 5 days oral cephalosporin * hypertension stable on JOELLE inhibitor * type 2 diabetes on sliding scale insulin * Chronic pain- stable * History of anxiety depression- remained stable on citalopram BRIEF HOSPITAL COURSE January 202016: History of present illness: Mr. Encinas is a 81 year old man with a history of diabetes, hypertension, chronic urinary retention with chronic Gonzalez catheter, who is brought in on the evening of January 20 for increasing weakness and confusion. There were apparently some family members here earlier on, but they have gone home by the time patient is admitted. The patient is very lethargic, and will only open his eyes briefly to questions. He tries to speak, but can barely say one word before falling back asleep. He is unable to give an adequate review of systems. He seems to deny pain. In the emergency room he was also noted to have O2 saturations below 90% when he was sleeping. He had been to the pain clinic earlier in the day, to have his pain pump refill, but they reported that they did not change any of the settings are his dose. He reportedly receives about 3 mg of morphine IV over the course of a day. I believe he was given a dose of Narcan in the emergency room, but verbal report is that he did not really respond to that. ER evaluation did show significant pyuria, and it was felt that he likely has altered mental status related to acute urinary tract infection. His mental status did not improve much after treatment with fluids and antibiotics in the ER, so he is now admitted to observation for monitoring. January 21: This evening, the patient is much more awake and alert. He is able to tell me that he believes his family is driving over from [employer] [place] this evening. He says he is feeling better, and the nurses note he is asking for food. Otherwise, he has no specific complaints at this time. January 22: This morning, the patient says he thinks he is feeling quite a bit better. He is talking and interactive and even joking this morning. -He did have a temperature of 100.1 earlier this evening. One bottle of his blood cultures is growing gram-positive cocci. -He tells me that he has a chronic suprapubic Gonzalez catheter because of damage that was done during a spine surgery, which also caused leg weakness. They change his catheter once a month. He does not really recall the circumstances surrounding his illness and transfer to the hospital. He is expecting his daughter to arrive from [employer] today. She has his POA. He currently lives in an assisted living facility, and says they take good care of him. -Otherwise, he denies fever or chills, headaches or dizziness, chest pain or palpitations, shortness of breath, abdominal pain, nausea or vomiting, diarrhea or constipation. January 23: Today, the patient says he is feeling pretty well, probably close to baseline. Has been able to walk to and from the bathroom a bit, but staff has reported that last night when he was walking to the bathroom he complained of chest discomfort associated with shortness of breath. He reports this pain seemed like it went across the lower part of his chest, both sides. He does not recall associated dyspnea or diaphoresis at that time and it resolved as soon as he got back in bed. He has not had any further chest discomfort since then. Otherwise, he denies fever chills, current chest pain or shortness of breath, abdominal pain, nausea or vomiting, diarrhea or constipation. Suprapubic catheter remains in place. 01/24- patient developed significant shortness of breath along with moderate CHF on imaging. No evidence of PE on CT angiogram. Started on diuretics. DC IV fluids. DC vancomycin/Zosyn. Start Rocephin based on culture sensitivity. Multidrug-resistant Proteus mirabilis on urine culture. transfer to telemetry. ontinue diuresis 01/25- patient doing well. On 2 L oxygen. Still feeling weak and wiped out however ongoing physical therapy. Diuresing. Much improved since previous day. No overnight fever chills or telemetry events. No concerns per nursing staff. No family at bedside 01/26-Patient discharging to adult family home with home health. No overnight events ncluding fever chills CP/SOB. Patient feels at baseline and continuing physical therapy. Tolerating diet. No concerns expressed by nursing staff. Stable hemodynamics and vitals Discharge diagnosis: complicated UTI - Time Spent with Patient Total time spent providing and/or coordinating discharge services: Greater than 30 minutes Medical - DS: Exam - Constitutional Vitals: Vital Signs Temp Pulse Pulse Resp BP BP Pulse Ox 01/26/17 07:50 99 01/26/17 07:13 97.8 F 51 L 20 116/68 99 01/26/17 04:00 98.0 F 60 20 117/63 95 01/26/17 00:00 98.0 F 49 L 16 112/80 95 01/25/17 20:00 97.8 F 56 L 20 116/63 95 01/25/17 18:30 100 H 18 98 01/25/17 15:47 98 F 56 L 18 123/56 98 01/25/17 13:40 96 01/25/17 11:20 97 F 55 L 20 118/58 96 Intake and Output 01/25/17 01/26/17 01/26/17 21:59 05:59 13:59 Output Total 250 / 250 250 / 250 Balance -250 / -250 -250 / -250 Output: Urine Catheter Amount 250 / 250 250 / 250 Other: Weight 210 lb Medical - DS: Data Labs on day of discharge: Labs from last 24 hours 01/26/17 01/26/17 03:40 03:40 WBC 5.8 RBC 3.29 L Hgb 9.9 L Hct 29.4 L MCV 89.3 MCH 30.1 MCHC 33.7 RDW 15.1 H Plt Count 176 MPV 8.5 Gran % 67.4 Lymph % (Auto) 23.3 [place] % (Auto) 4.2 Eos % (Auto) 4.7 Baso % (Auto) 0.4 Gran # 3.9 Lymph # (Auto) 1.4 L [place] # (Auto) 0.2 Eos # (Auto) 0.3 Baso # (Auto) 0 Sodium 139 Potassium 4.1 Chloride 101 Carbon Dioxide 29 Anion Gap 9.0 BUN 13 Creatinine 0.9 GFR Calculation 79 Glucose 78 Uric Acid 3.5 Calcium 8.6 Phosphorus 2.3 L Magnesium 2.1 Total Bilirubin 0.5 Direct Bilirubin < 0.2 GGT 9 AST 14 ALT 10 Alkaline Phosphatase 40 Lactate Dehydrogenase 206 Total Protein 7.3 Albumin 3.5 Globulin 3.8 H Albumin/Globulin Ratio 0.9 L Triglycerides 89 Medical - DS: A/P - Patient/Caregiver Discharge Instructions Activity: as per physical therapy Diet: Regular Diet Additional Instructions: Follow-up PCP in 5 days ollow-up cardiology in 1-2 weeks I recommend SNF physician to check CBC BMP UA as a posthospital follow-up Antibiotics for additional 5 days RT to evaluate for home oxygen Continue aggressive bowel regimen to prevent constipation Continue fall precautions daily weights measurements and take additional 40 mg Lasix for 3 days if weight gain over 4 pounds over baseline or worsening shortness of breath and call primary care physician if inadequate response to Lasix continue home health physical therapy All meals on chair sitting upright at 90 degrees to prevent aspiration Return to ER if worsening fever chills shortness of breath, diarrhea, bleeding Review risk and side effect profile of medications including antibiotics. Side effect may include mild to severe reaction including rash, diarrhea, cdiff and even which can be prevented by close follow-up with PCP and monitoring for side effects Continue diet and activity as advised Discussed importance of medication adherence Please review medication list with patient prior to discharge Please schedule follow-up with PCP/Providers prior to discharge and provide printouts Portions of this chart may have been created with [employer] voice recognition software. Occasional wrong-word or ?sound-like? substitutions may have occurred due to the inherent limitations of voice recognition software. Please read the chart carefully and recognize, using context, where the substitutions have occurred. CC- PCP Prescriptions: Cefdinir 300 mg PO BID #10 capsule - Follow up Plan Follow up with: Nemesio Medrano MD [Primary Care Provider] - Disposition: Home Health Service Prognosis: Fair Rehab Potential: Fair I certify that the patient requires SNF services: No Overall status at discharge: patient is back to baseline Medical - DS: Qual - VTE Deep Vein Thrombosis/Pulmonary Embolism Present on Admission: No
[2017-01-26] MEDS: cefTRIAXone 2 GM in DEXTROSE 5% IN WATER 50 ML IV SCH (09:45)
[2017-01-26] MEDS: HEPARIN 5,000 UNIT/ML VIAL SQ SCH (09:45)
[2017-01-26] MEDS: CITALOPRAM 20 MG TABLET PO SCH (09:46)
[2017-01-26] MEDS: NEUTRA PHOS 1 PACKET PO SCH (09:47)
[2017-01-26] MEDS: CYANOCOBALAMIN (VITAMIN B-12) 500 MCG TABLET PO SCH (09:49)
[2017-01-26] MEDS: LISINOPRIL 5 MG TABLET PO SCH (09:49)
[2017-01-26] MEDS: DOCUSATE SODIUM 100 MG CAPSULE PO SCH (09:50)
== END 2017-01-26 13:20 | DRG 291 ==
LOC: ED 17:34 → MEDSUR 17:34 → ICU 01-24 16:02
PROVIDERS: ADMIT Internal Medicine; ATTEND Internal Medicine

== ENCOUNTER 2017-08-18 12:10 | Inpatient (IN) ==
[2017-08-18] MEDS ORDERED: IOPAMIDOL 100 ML BOTTLE IV ONE (12:11)
[2017-08-18] MEDS ORDERED: 0.9 % SODIUM CHLORIDE 1,000 ML IV ONE (12:39)
[2017-08-18] MEDS ORDERED: ONDANSETRON 4 MG/2 ML VIAL IV ONE (12:41)
--- NOTE | 2017-08-18 13:29 | XRay Report ---
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 There are bilateral rods with vertebral body screws at T11, T12, L2. There is an intrathecal pain pump and catheter. Bowel gas pattern is unremarkable. There is gas and fecal material within the colon. No dilated gas-filled small bowel. No mechanical small bowel obstruction. Left lateral decubitus views demonstrates nonspecific scattered air-fluid levels. No pneumoperitoneum. No biliary or portal venous gas. No pneumatosis. IMPRESSION: 1. Nonspecific bowel gas pattern. 2. No pneumoperitoneum. No acute abnormality. Interpreted and Authenticated by: Chris Jefferson 08/18/17
[2017-08-18] MEDS ORDERED: PHENAZOPYRIDINE 200 MG TABLET PO ONE ×2 (13:45→14:06)
[2017-08-18 13:59] LABS: Basophils # (Auto) 0 K/mcL (0.0-0.3); Basophils % (Auto) 0.1 % (0.0-2.0); Eosinophils # (Auto) 0.3 K/mcL (0.0-0.7); Granulocytes % (Auto) 78.7 % (38.0-78.0); Lymphocytes # (Auto) 3.2 K/mcL (1.5-4.8); Mean Cell Volume 91.9 fL (80.0-100.0); Mean Corpuscular HGB Conc 33.8 g/dL (31.0-36.0); Monocytes # (Auto) 0 K/mcL (0.1-0.9); Monocytes % (Auto) 0.2 % (1.0-12.0); Platelet Count 283 K/mcL (140-440); RBC 3.89 M/mcL (4.50-5.90)
[2017-08-18 14:25] LABS: ALT/SGPT 8 U/l (0-40); Albumin/Globulin Ratio 1.1 (1.0-2.3); Alkaline Phosphatase 157 U/L (39-117); Blood Urea Nitrogen 42 mg/dl (8-23); Lipase 12 U/L (7-60)
[2017-08-18 14:29] LABS: Appearance,Urine HAZY; Bacteria,Urine 0 /hpf (0); Bilirubin,Urine NEG (NEG); Color,Urine YELLOW; Glucose,Urine (UA) NEGATIVE (NEG); Leukocyte Esterase,Urine 250 /uL (NEG); Mucus,Urine FEW /hpf (0); Protein,Urine 100 mg/dL (NEG); Specific Gravity,Urine 1.011 (1.000-1.035); Urine Blood 0.03 mg/dL (<0.03); Urine Hyaline Cast 28 /lpf (0-2); Urine RBC 16 /hpf (0-1); Urine Squamous Epithelial Cell < 1 /hpf (0-4); Urine WBC 29 /hpf (0-4); Urobilinogen,Urine NEG (NEG)
--- NOTE | 2017-08-18 15:59 | Cat Scan Report ---
CLINICAL INFORMATION: Abdominal pain COMPARISON: Abdominal plain film examination dated 08/18/2017. Abdominal CT scan dated 07/24/2010 TECHNIQUE: Axial images were obtained through the abdomen and pelvis. Sagittally and coronally reformatted images. 80 mL contrast material injected intravenously. Oral contrast material was administered FINDINGS: There are two calcified gallstones. These measure 15 mm in 19 mm in diameter. There is soft tissue density surrounding these gallstones. This may be biliary sludge. There is surrounding lucency. I'm not certain whether this is normal bowel within the gallbladder or a thickened gallbladder wall. There is no significant pericholecystic fluid. No dilated bile ducts. Ultrasound may be helpful for further evaluation of the gallbladder to better assess the gallbladder wall. Liver is negative. No focal intrahepatic abnormality. No hepatic abscess. No splenomegaly. Normal enhancement of splenic and portal veins. Pancreas is atrophic. There is no pancreatic mass Negative adrenal glands. No hydronephrosis. There is a large bilobed right renal cyst. No solid mass. There is some calcification within the wall of this right renal cyst. There is a suprapubic bladder catheter. There is mild pericolonic inflammatory change in the both the right and left lower quadrant. No significant diverticulosis identified. Significance is not certain. No extraluminal gas. No intra-abdominal abscess. No free pelvic fluid. There is a right inguinal hernia which contains mesenteric fat. No bowel obstruction. Small bowel is negative. No dilatation. No obstruction. No mesenteric or retroperitoneal lymphadenopathy. There is dense calcification of abdominal aorta. No abdominal aortic aneurysm. Severe compression deformity of the L1 vertebral body. There are bilateral spinal rods body screws at T11, T12, and L2. There is a pain pump and intrathecal catheter. There is amorphous posterior subcutaneous soft tissue density at the level of the spinal fusion. No soft tissue gas identified. No well-defined soft tissue abscess. There is a somewhat mottled appearance of both hips, pelvis, and sacrum. Patient apparently has a history of myeloma. Appearance may be due to myeloma although demineralization can cause a similar appearance. No destructive lesions. No new compression deformities IMPRESSION: 1. Cholelithiasis. Density within the gallbladder lumen may be biliary sludge. Ultrasound may be helpful to better evaluate gallbladder wall 2. Pericolonic inflammatory change with in the pelvis. This is in both the right and left lower quadrant. Findings may be due to diverticulitis although very few diverticula are present. No intra-abdominal abscess 3. Previous L1 compression deformity. Mottled appearance of multiple bones consistent with either demineralization or myeloma 4. Right inguinal hernia containing only fat. No bowel obstruction. 5. Previous lumbar fusion. A more fetus a subcutaneous soft tissue density posterior to the fusion. No well-defined fluid collection or soft tissue gas The exam was performed using radiation dose optimization techniques including, but not limited to, automated exposure control, adjustment of the mA and/or kV according to patient size and use of iterative reconstruction technique. Interpreted and Authenticated by: Chris Jefferson 08/18/17
--- NOTE | 2017-08-18 17:43 | Emergency Department Note ---
Abdominal Pain HPI - General Chief Complaint: Abdominal Pain Stated Complaint: lower abd pain Time Seen by Provider: 08/18/17 12:19 Source: patient, EMS Mode of arrival: EMS Limitations: no limitations - History of Present Illness HPI Narrative: 82-year-old male presents with a 5 day history of loose stools, and abdominal pain. Abdominal pain is much worse today so he decided to come in. He is a very poor historian and hard to get much information from. Complaining of abdominal pain all over. No dysuria or frequency. Positive chills, unknown fever. Denies nausea or vomiting. No ear pain, sore throat, cough, or cold symptoms. He has had diarrhea once or twice a day for the last 4-5 days and he has had 3 episodes of diarrhea since his arrival here if so far. States he does take oral chemo for multiple myeloma but that is not new. He is also complaining of some generalized weakness and just not feeling well in general Associated symptoms: Reports: diarrhea, chills. Denies: nausea, vomiting, dysuria, hematemesis, hematuria, anorexia, syncope - Related Data Home Medications Medication Instructions Recorded Confirmed docusate sodium 100 mg capsule 100 mg PO QDAY cap 12/05/14 08/18/17 Saccharomyces boulardii 250 mg 250 mg PO BID 07/09/16 08/18/17 capsule Acetaminophen [Non-Aspirin] 1 - 2 tab PO Q6HP PRN MDD 3 grams 01/21/17 08/18/17 Cyanocobalamin (Vitamin B-12) 2,500 mcg SL DAILY 01/21/17 08/18/17 [Vitamin B12] Magnesium Hydroxide [Milk of 30 ml PO DAILYP PRN 01/21/17 08/18/17 Magnesia] Na Phos,M-B/Na Phos,Di-Ba [Fleets 1 dose SC DAILYP PRN 01/21/17 08/18/17 Adult] Simethicone [Gas-X Ultra Strength] 125 mg PO BID PRN 01/21/17 08/18/17 Vits A and D/White Pet/Lanolin [A 113 gm TP PRN PRN 01/21/17 08/18/17 and D Ointment] guaiFENesin/DEXTROMETHORPHAN 10 ml PO Q4HP PRN 08/23/17 03/20/18 [Tussin Dm Syrup] morphine pain pump 2.447 mg INTRATHECA DAILY 01/21/17 08/18/17 Lenalidomide [Revlimid] 10 mg PO DAILY 08/18/17 08/18/17 Previous Rx's Medication Instructions Recorded albuterol sulfate HFA 90 2 puff INHALATION Q6H PRN #18 g 09/08/16 mcg/actuation aerosol inhaler methocarbamol 500 mg tablet 500 mg PO BID 90 Days #180 tab 02/17/17 potassium chloride ER 20 mEq 20 meq PO QDAY #90 tab 04/20/17 tablet,extended release lisinopril 2.5 mg tablet 2.5 mg PO QDAY #90 tab 05/19/17 oxybutynin chloride 5 mg tablet 10 mg PO QDAY PRN #180 tab 06/03/17 citalopram 20 mg tablet 30 mg PO QDAY #135 tab 06/08/17 meclizine 25 mg chewable tablet 25 mg PO TID PRN #60 tab 06/25/17 tramadol 50 mg tablet 50 mg PO Q6H PRN #90 tab 06/25/17 furosemide 40 mg tablet 40 mg PO BID #180 tab 07/10/17 bisacodyl 10 mg rectal suppository 10 mg SC QDAY PRN #1 each 07/23/17 glucosamine-chondroitin 750 mg-600 2 tab PO QDAY #1 tab 07/23/17 mg tablet methylsulfonylmethane 1,000 mg 1,000 mg PO QDAY #1 cap 07/23/17 capsule ondansetron HCl 4 mg tablet 4 mg PO Q8H PRN #20 tab 08/18/17 Allergies Allergy/AdvReac Type Severity Reaction Status Date / Time sulfamethoxazole Allergy Mild Hives Verified 08/18/17 12:15 [From Bactrim] Tetracyclines Allergy Mild Hives Verified 08/18/17 12:15 trimethoprim [From Bactrim] Allergy Mild Hives Verified 08/18/17 12:15 Review of Systems All systems ED: reviewed and negative except as stated. Abdominal Pain PMH - Past Medical History [facility], [facility] Narrative: Medical History Urinary tract infection (Acute) Urinary retention (Acute 08/11/13) Spinal compression fracture (Acute) Osteoarthritis (Acute) Multiple myeloma (Acute) MRSA (methicillin resistant Staphylococcus aureus) (Acute 08/26/13) Loss of balance (Acute 10/10/14) Knee pain (Acute) Joint effusion-lower leg (Acute) Hypertension, essential (Chronic) Hyperparathyroidism (Acute) Hyperlipidemia (Acute) Hallucinations (Acute) Fungal infection of the groin (Acute 08/22/14) Colonic polyp (Acute) Carpal tunnel syndrome (Acute) Benign localized hyperplasia of prostate without urinary obstruction (Acute) Fracture of ankle, closed (Acute) Diabetes mellitus, type II (Resolved) Past Surgical History History of vasectomy (Acute) History of open reduction and internal fixation (ORIF) procedure (Acute) Medical history: Reports: DM, hyperlipidemia, hypertension, other (Multiple myeloma, BPH) Surgical history ED: Reports: vasectomy - Social History Smoking status: Never smoker Alcohol use: Reports: None Drug use: Reports: none Physical Exam Limitations: no limitations General appearance: alert, other (Poor historian. Mildly anxious. Appears in pain) Head: atraumatic, normocephalic, normal inspection Eye: Present: normal appearance. Absent: conjunctival injection ENT: normal exam, normal oropharynx, mucous membranes moist, normal external ear exam Neck: Present: normal inspection, trachea midline. Absent: tenderness, lymphadenopathy Chest: Present: normal inspection, symmetric chest wall rise Respiratory: Present: normal lung sounds bilaterally. Absent: respiratory distress, wheezes, accessory muscle use Cardiovascular: Present: regular rate, normal heart sounds Abdominal: Present: soft, distention, tenderness (Diffuse tenderness throughout the abdomen.), normal bowel sounds, other (Guaiac positive). Absent: rigidity, mass Extremities: Present: normal inspection Neurological: Present: alert, oriented X3 (Oriented to person, place, time, and situation but is forgetful and extremely poor historian) Psychiatric: Present: normal affect, normal mood Skin: Present: warm, dry, intact, normal color Course Course Narrative: I did consult with Dr. Alejandre with gastroenterology. He did will consult on the patient. He thinks the patient should be admitted and treated for diverticulitis. He cannot scope the patient until the inflammation is down. We will also get stool cultures and C. difficile. I will also contact the hospitalist for potential admit. I did speak with Dr. Sandra who agrees to admit the patient. Vital Signs Temperature 96.8 F L 08/18/17 12:12 Pulse Rate 86 08/18/17 12:12 Respiratory Rate 16 03/20/18 12:12 Blood Pressure 125/66 03/20/18 12:12 Pulse Oximetry (%) 96 08/18/17 12:12 Temperature 96.8 F L 08/18/17 12:12 Pulse Rate 86 08/18/17 12:12 Respiratory Rate 16 08/18/17 12:12 Blood Pressure 98/61 08/18/17 17:32 Pulse Oximetry (%) 96 08/18/17 12:12 Abdominal Pain - Lab Data Lab results reviewed: Yes I reviewed the patient's lab results. Result diagrams: 08/18/17 13:35 08/18/17 13:35 Lab Results 08/18/17 08/18/17 08/18/17 Range/Units 13:35 13:35 13:47 WBC 17.1 H (4.5-11.0) K/mcL RBC 3.89 L (4.50-5.90) M/mcL Hgb 12.1 L (13.5-16.5) g/dL Hct 35.8 L (41.0-55.0) % POC Hct (41.0-55.0) % MCV 91.9 (80.0-100.0) fL MCH 31.0 (26.0-34.0) pg MCHC 33.8 (31.0-36.0) g/dL RDW 15.0 H (11.5-14.5) % Plt Count 283 (140-440) K/mcL MPV 9.1 (7.4-10.4) fL Gran % 78.7 H (38.0-78.0) % Lymph % (Auto) 19.0 (15.5-49.0) % Gates % (Auto) 0.2 L (1.0-12.0) % Eos % (Auto) 2.0 (0.0-7.0) % Baso % (Auto) 0.1 (0.0-2.0) % Gran # 13.4 H (1.8-8.0) K/mcL Lymph # (Auto) 3.2 (1.5-4.8) K/mcL Gates # (Auto) 0 L (0.1-0.9) K/mcL Eos # (Auto) 0.3 (0.0-0.7) K/mcL Baso # (Auto) 0 (0.0-0.3) K/mcL POC Sodium (133-145) mmol/L Sodium 138 (133-145) mmol/L POC Potassium (3.3-5.1) mmol/L Potassium 3.6 (3.3-5.1) mmol/L POC Chloride (96-108) mmol/L Chloride 93 L (96-108) mmol/L Carbon Dioxide 22 (22-30) mmol/L POC Total CO2 (22-30) mmol/L Anion Gap 23.0 H (8-16) POC BUN (8-23) mg/dl BUN 42 H (8-23) mg/dl Creatinine 1.4 H (0.7-1.2) mg/dl POC Creatinine (0.7-1.2) mg/dl GFR Calculation 46 Glucose 214 H (70-105) mg/dL POC Glucose (70-105) mg/dL Calcium 8.9 (8.6-10.4) mg/dl POC WB Ioniz Calcium (1.16-1.32) mmol/L Total Bilirubin 0.9 (0.0-1.0) mg/dL AST 17 (0-37) U/l ALT 8 (0-40) U/l Alkaline Phosphatase 157 H (39-117) U/L Total Protein 7.8 (5.9-8.4) gm/dL Albumin 4.0 (3.2-5.2) gm/dL Globulin 3.8 H (2.2-3.7) gm/dL Albumin/Globulin Ratio 1.1 (1.0-2.3) Lipase 12 (7-60) U/L Urine Color Yellow Urine Appearance Hazy Urine pH 6.0 (5.0-9.0) Ur Specific Warren 1.011 (1.000-1.035) Urine Protein 100 A (NEG) mg/dL Urine Glucose (UA) Negative (NEG) mg/dL Urine Ketones Neg (NEG) mg/dL Urine Occult Blood 0.03 A (<0.03) mg/dL Urine Nitrate Neg (NEG) Urine Bilirubin Neg (NEG) mg/dL Urine Urobilinogen Neg (NEG) mg/dL Ur Leukocyte Esterase 250 A (NEG) /uL Urine RBC 16 H (0-1) /hpf Urine WBC 29 H (0-4) /hpf Ur Squamous Epith Cells < 1 (0-4) /hpf Urine Bacteria 0 (0) /hpf Hyaline Casts 28 H (0-2) /lpf Urine Mucus Few (0) /hpf Ur Culture Indicated? Yes 08/18/17 Range/Units 14:04 WBC (4.5-11.0) K/mcL RBC (4.50-5.90) M/mcL Hgb (13.5-16.5) g/dL Hct (41.0-55.0) % POC Hct 37.0 L (41.0-55.0) % MCV (80.0-100.0) fL MCH (26.0-34.0) pg MCHC (31.0-36.0) g/dL RDW (11.5-14.5) % Plt Count (140-440) K/mcL MPV (7.4-10.4) fL Gran % (38.0-78.0) % Lymph % (Auto) (15.5-49.0) % Gates % (Auto) (1.0-12.0) % Eos % (Auto) (0.0-7.0) % Baso % (Auto) (0.0-2.0) % Gran # (1.8-8.0) K/mcL Lymph # (Auto) (1.5-4.8) K/mcL Gates # (Auto) (0.1-0.9) K/mcL Eos # (Auto) (0.0-0.7) K/mcL Baso # (Auto) (0.0-0.3) K/mcL POC Sodium 138 (133-145) mmol/L Sodium (133-145) mmol/L POC Potassium 3.6 (3.3-5.1) mmol/L Potassium (3.3-5.1) mmol/L POC Chloride 97 (96-108) mmol/L Chloride (96-108) mmol/L Carbon Dioxide (22-30) mmol/L POC Total CO2 26 (22-30) mmol/L Anion Gap (8-16) POC BUN 41 H (8-23) mg/dl BUN (8-23) mg/dl Creatinine (0.7-1.2) mg/dl POC Creatinine 1.4 H (0.7-1.2) mg/dl GFR Calculation Glucose (70-105) mg/dL POC Glucose 222 H (70-105) mg/dL Calcium (8.6-10.4) mg/dl POC WB Ioniz Calcium 1.02 L (1.16-1.32) mmol/L Total Bilirubin (0.0-1.0) mg/dL AST (0-37) U/l ALT (0-40) U/l Alkaline Phosphatase (39-117) U/L Total Protein (5.9-8.4) gm/dL Albumin (3.2-5.2) gm/dL Globulin (2.2-3.7) gm/dL Albumin/Globulin Ratio (1.0-2.3) Lipase (7-60) U/L Urine Color Urine Appearance Urine pH (5.0-9.0) Ur Specific Warren (1.000-1.035) Urine Protein (NEG) mg/dL Urine Glucose (UA) (NEG) mg/dL Urine Ketones (NEG) mg/dL Urine Occult Blood (<0.03) mg/dL Urine Nitrate (NEG) Urine Bilirubin (NEG) mg/dL Urine Urobilinogen (NEG) mg/dL Ur Leukocyte Esterase (NEG) /uL Urine RBC (0-1) /hpf Urine WBC (0-4) /hpf Ur Squamous Epith Cells (0-4) /hpf Urine Bacteria (0) /hpf Hyaline Casts (0-2) /lpf Urine Mucus (0) /hpf Ur Culture Indicated? - Radiology Data Radiology results reviewed: Yes I reviewed the patient's radiology results. Disposition Pt seen by H[employer]PA[employer] TEACHER/PA only: No Clinical Impression: Diverticulitis, Cholelithiasis, Diarrhea, Urinary tract infection, Hematochezia Disposition: Xfer As Inpt ([facility]) Condition: Fair Referrals: Nemesio Medrano MD [Primary Care Provider] - Time of Disposition: 17:57
[2017-08-18] MEDS ORDERED: CIPROFLOXACIN 400 MG/200 ML BAG IV ONE (17:44)
[2017-08-18] MEDS ORDERED: metroNIDAZOLE 500 MG/100 ML BAG IV ONE (17:57)
[2017-08-18] MEDS ORDERED: ONDANSETRON 4 MG/2 ML VIAL IV PRN (19:52)
[2017-08-18] MEDS ORDERED: traZODone HCL 50 MG TABLET PO PRN (19:52)
[2017-08-18] MEDS ORDERED: MECLIZINE 25 MG TABLET PO PRN (19:52)
[2017-08-18] MEDS ORDERED: ALBUTEROL SULFATE 1 PUFF INHALER INH PRN (19:52)
[2017-08-18] MEDS ORDERED: POTASSIUM CHLORIDE 20 MEQ PACKET PO PRN (19:52)
[2017-08-18] MEDS ORDERED: traMADol 50 MG TABLET PO PRN (19:52)
[2017-08-18] MEDS ORDERED: ACETAMINOPHEN 325 MG TABLET PO PRN (19:52)
[2017-08-18] MEDS ORDERED: 0.9 % SODIUM CHLORIDE 1,000 ML IV SCH (19:52)
[2017-08-18] MEDS ORDERED: ACETAMINOPHEN 1,000 MG/100 ML BOTTLE IV PRN (19:52)
[2017-08-18] MEDS ORDERED: MAGNESIUM SULFATE 2 GM/50 ML BAG IV PRN (19:52)
[2017-08-18] MEDS ORDERED: OXYBUTYNIN CHLORIDE 5 MG TABLET PO PRN (19:52)
[2017-08-18] MEDS ORDERED: SENNOSIDES/DOCUSATE SODIUM 1 TAB TABLET PO SCH (21:00)
[2017-08-18] MEDS: LACTOBACILLUS 1 CAPSULE PO SCH (21:51)
[2017-08-18] MEDS: METHOCARBAMOL 500 MG TABLET PO SCH (21:51)
[2017-08-18] MEDS: 0.9 % SODIUM CHLORIDE 10 ML SYRINGE IV SCH (21:51)
[2017-08-18] MEDS: metroNIDAZOLE 500 MG/100 ML BAG IV SCH (21:51)
[2017-08-18] MEDS: LACTATED RINGERS 1,000 ML IV SCH (22:56)
--- NOTE | 2017-08-18 23:49 | Emergency Department Note ---
ED Note Addendum Note Addendum: I saw this patient with Margie FORRESTER and agree with her evaluation management documentation. we discussed his disposition and admission after workup.
--- NOTE | 2017-08-19 00:10 | History and Physical Report ---
DATE OF ADMISSION: 08/18/2017 DATE OF ADMISSION: 08/18/2017 REASON FOR ADMISSION: Worsening abdominal pain, mental status change, weakness. HISTORY OF CHIEF COMPLAINT: Mr. 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 He is currently residing at [facility] in [place] and has been receiving his chemotherapy. The patient comes to [facility] Emergency Room with roughly 5 to 7 day history of worsening abdominal pain, along with multiple frequent watery stools, weakness, loss of appetite, and abdominal pain. Over the last 24 hours he has beeb minimally responsive. With progressive symptoms, he was referred to the ER. Initial workup was significant for colitis on the CT scan, along with guaiac positive stools. Dr. Champion was consulted by ER and subsequently recommended admission and initiation of management of presumed diverticulitis. Subsequently Hospitalist Service was consulted. Further workup in the ER revealed white count of 17,000 with a creatinine of 1.4; pyuria and CT evidence of a pericolonic inflammatory changes. The patient received crystalloids, antibiotics. Hospitalist Service was consulted. At the time of evaluation, the patient is very confused, lethargic, barely able to open his eyes; however, he does respond. When barely touching his abdomen, it is exquisitely tender. The patient, however, could not delineate onset or any of the history above, which was obtained from ER medical records. He was unable to carry out a conversation. REVIEW OF SYSTEMS: Ten-point review of system was attempted, but could not be performed. PAST MEDICAL HISTORY: 1. History of multiple myeloma. 2. Vertebral body plasmacytoma. 3. Recurrent UTI. 4. Suprapubic catheter. 5. Spinal compression fracture. 6. Degenerative joint disease. 7. Hypertension. 8. Hypoparathyroidism. 9. Hyperlipidemia. 10. Diabetes mellitus type 2. SURGICAL HISTORY: 1. History of vasectomy. 2. Open reduction and internal fixation, right ankle. 3. Suprapubic catheter placement. SOCIAL HISTORY: No history of smoking or alcoholism. Currently, lives at [facility]. CODE STATUS: He is a DO NOT RESUSCITATE. PRIMARY CARE PHYSICIAN: Nemesio Medrano MD FAMILY HISTORY: Significant for father with coronary artery disease; mother, CVA and coronary artery disease. CURRENT MEDICATIONS: As of 07/23: 1. Albuterol every 6 hours inhaled. 2. Dulcolax 10 mg per rectum as needed. 3. Citalopram 30. 4. Dextromethorphan-Guaifenesin as needed every 4 hours. 5. Furosemide 40. 6. Docusate 100. 7. Lisinopril 2.5. 8. Magnesium hydroxide 30 as needed. 9. Meclizine 25. 10. Methocarbamol 500. 11. Oxybutynin 10 mg. 12. Potassium 20. 13. Saccharomyces 250 mg twice daily. 14. Simethicone 125. 15. Tramadol 50. ALLERGIES: Known to: 1. TETRACYCLINE. 2. TRIMETHOPRIM/SULFAMETHOXAZOLE. PHYSICAL EXAMINATION: GENERAL EXAM: The patient is lethargic, nearly obtunded. BMI 27. Height 5 feet 10 inches. VITAL SIGNS: Blood pressure 118/67, respiratory rate 16, temperature 96.8, pulse 86, sats 96 percent on room air. HEENT: Pupils symmetric. Oral cavity dry. No ear or nose discharge. Head: Normocephalic, atraumatic. NECK: No lymphadenopathy. CHEST: S1, S2, tachycardia. ESM grade 1. Diminished breath sounds at bases. ABDOMEN: Very tender. Rebound noted. Suprapubic catheter in place. LOWER EXTREMITY EXAMINATION: No cyanosis or clubbing, but minimal edema. No joint swelling. SKIN: No suspicious lesions. PSYCHIATRIC: Lethargic, confused, but no anxiety or agitation. NEURO: Opens eyes to pain stimulus and verbal commands, unable to hold a conversation. Higher functions could not be checked, but moving all 4 extremities to pain stimulus. LABS AND IMAGING: White count 17.1, hemoglobin 12.1, platelets 283, neutrophils 78 percent. Lactic acid 3.3. Sodium 130, potassium 3.6, creatinine 1.4, BUN 41. LFTs unremarkable. UA: [address] abdomen: Pericolonic inflammation along with cholelithiasis. Right inguinal hernia, nonobstructive. Previous lumbar fusion. Please refer to detailed report on EMR. ASSESSMENT AND PLAN: An 82-year-old admitted with acute diverticulitis and sepsis. 1. Acute diverticulitis. Keep nothing by mouth. Start antibiotic coverage with empiric Levaquin and Flagyl for anaerobes and Gram negative pathogens. bowel rest. Pain management with as-needed opioids. 2. Sepsis, secondary to above with mental status change, PO[place] IRA score 20, high risk mortality. The patient is a NO CODE. No family members are present for discussion of further goals of care. . 3. Gastrointestinal bleed. Dr. Champion of gastroenterology was consulted and will continue to follow along. Check serial [id number] hemoglobin and hematocrit. 4. Acute kidney injury, likely secondary to sepsis and end-organ dysfunction. Continue crystalloids and monitor renal function. Avoid nephrotoxins. 5. Urinary tract infection. Continue antibiotic coverage with Levaquin. Cultures and sensitivities. Likely hardware related. 6. Other prior medical issues, including: a. History of chronic pain. Currently on morphine pump. b. History of [place] [employer], Class III systolic heart failure. Continue JOELLE inhibitor. c. History of reactive airways disease. Continue albuterol. d. History of multiple myeloma. Currently managed by oncology at [place]. As of 07/16/2017, the patient has been treated on Revlimid along with dexamethasone. Again medication list is being verified. e. CODE STATUS: NO CODE. f. Prophylaxis: Sequential compression devices. Avoid heparin in light of gastrointestinal bleed. PLAN FOR TODAY: Admit as inpatient in light of PO[place] L[place] IRA score 20, high risk mortality with acute renal failure, sepsis, acute diverticulitis, UTI and GI bleed, mandating minimum 2 midnight hospitalization. AA:andres Job ID: [id number] Doc ID: [id number] Jeronimo Medrano MD HEALTH SYSTEMKrissy
[2017-08-19 05:58] LABS: Mean Cell Volume 91.9 fL (80.0-100.0); Mean Corpuscular HGB Conc 33.3 g/dL (31.0-36.0); Mean Corpuscular Hemoglobin 30.6 pg (26.0-34.0); Platelet Count 164 K/mcL (140-440); RBC 3.11 M/mcL (4.50-5.90); Red Cell Distribution Width 15.3 % (11.5-14.5)
[2017-08-19] MEDS: 0.9 % SODIUM CHLORIDE 10 ML SYRINGE IV SCH ×3 (06:02→21:54)
[2017-08-19] MEDS: metroNIDAZOLE 500 MG/100 ML BAG IV SCH (06:08)
[2017-08-19 06:49] LABS: ALT/SGPT 6 U/l (0-40); Albumin 3.3 gm/dL (3.2-5.2); Albumin/Globulin Ratio 1.1 (1.0-2.3); Alkaline Phosphatase 110 U/L (39-117); Bilirubin,Direct < 0.2 mg/dL (0.0-0.3); Blood Urea Nitrogen 49 mg/dl (8-23); Gamma Glutamyl Transpeptidase 6 U/L (8-61); Uric Acid 7.2 mg/dL (2.5-8.0)
[2017-08-19 07:44] LABS: Band Neutrophils % 22 % (0-10); Lymphocytes % 8 % (15-49); Monocytes % (Manual) 4 % (1-12); Platelet Estimate NORMAL (NORMAL); RBC Morphology NORMAL (NORMAL); Segmented Neutrophils % 66 % (38-78)
[2017-08-19] MEDS ORDERED: 0.9 % SODIUM CHLORIDE 1,000 ML IV SCH ×2 (08:30→10:38)
[2017-08-19] MEDS ORDERED: CITALOPRAM 20 MG TABLET PO SCH (09:00)
[2017-08-19] MEDS ORDERED: MORPHINE INTRATHECA SCH (09:00)
[2017-08-19] MEDS ORDERED: LISINOPRIL 5 MG TABLET PO SCH (09:00)
[2017-08-19] MEDS ORDERED: LENALIDOMIDE 10 MG PO SCH (09:00)
[2017-08-19] MEDS ORDERED: LEVOFLOXACIN 750 MG/150 ML BAG IV SCH ×2 (09:00)
[2017-08-19] MEDS: LACTOBACILLUS 1 CAPSULE PO SCH ×2 (09:30→21:53)
[2017-08-19] MEDS: METHOCARBAMOL 500 MG TABLET PO SCH ×2 (09:30→21:54)
[2017-08-19] MEDS: LACTATED RINGERS 1,000 ML IV SCH (09:32)
[2017-08-19] MEDS ORDERED: POTASSIUM CHLORIDE 20 MEQ PACKET PO PRN (10:38)
[2017-08-19] MEDS ORDERED: ACETAMINOPHEN 1,000 MG/100 ML BOTTLE IV PRN (10:38)
[2017-08-19] MEDS ORDERED: ACETAMINOPHEN 325 MG TABLET PO PRN (10:38)
[2017-08-19] MEDS ORDERED: MAGNESIUM SULFATE 2 GM/50 ML BAG IV PRN (10:38)
[2017-08-19] MEDS ORDERED: MECLIZINE 25 MG TABLET PO PRN (10:38)
[2017-08-19] MEDS ORDERED: traMADol 50 MG TABLET PO PRN (10:38)
[2017-08-19] MEDS ORDERED: OXYBUTYNIN CHLORIDE 5 MG TABLET PO PRN (10:38)
[2017-08-19] MEDS ORDERED: ALBUTEROL SULFATE 1 PUFF INHALER INH PRN (10:38)
[2017-08-19] MEDS: 0.9 % SODIUM CHLORIDE 1,000 ML IV SCH ×3 (10:40→23:34)
[2017-08-19] MEDS: PIPERACILLIN SODIUM/TAZOBACTAM 3.375 GM in DEXTROSE 5% IN WATER 50 ML IV SCH ×2 (11:32→18:35)
--- NOTE | 2017-08-19 11:58 | General Surgery Consult Note ---
History of Present Illness Patient information: Note initiated : 08/19/17 at 11:53 am Service Date, if different from initiated Date: [] Patient: Kenneth Encinas 82 y/o M admitted on 08/18/17 for Lower Abd Pain/ Diverticulitis, Sepsis. Chief Complaint: [] Reason for consult: abdominal pain Requesting physician: Jeronimo Clark History of present illness: 82-year-old male admitted with abdominal pain and bloody diarrhea. The patient has a 5 day history of abdominal episodic diarrhea. He denies nausea or vomiting. He states that he had onset after meals and it has continued since that time. He has had shaking chills but there is been no documented. He presented with leukocytosis, mild hypotension. He has been treated with IV fluids and antibiotics with his white blood count returning to normal. His blood pressure systolic still lingers in the 80s-90s but he does not have tachycardia. He is afebrile at this time. CT of the abdomen shows a long segment of descending and sigmoid colon with thickened wall and tissue edema without any evidence of abscess and no evidence of significant fluid. He has not had previous episodes. The segment of involved bowel in the right appears to be in continuity with a redundant sigmoid and not the cecum or right colon. There is no clinical evidence to support diverticulitis. Review of Systems - Constitutional chills, fatigue, weakness - Gastrointestinal constipation, diarrhea, hematochezia - Genitourinary difficulty urinating, other (Suprapubic cath) - Musculoskeletal abnormal gait, arthralgias, back pain, joint swelling, limited range of motion, myalgias, stiffness - Hematologic/Lymphatic other (Multiple myeloma) Past History Past medical history: Atypical chest pain Cholelithiasis Anxiety with depression Congestive heart failure Chronic urinary tract infection Multiple myeloma chronic Hypertension Hyperparathyroidism by history History of colon polyps BPH with chronic urinary retention Diabetes mellitus by history History of MRSA infection Right inguinal hernia Past surgical history: Super pubic catheter insertion Is active Open treatment and fixation right ankle Pain pump insertion Past family history: Coronary artery disease Stroke Past social history: Never smoker Never drinker Denies drug Medications and Allergies Home Medications Medication Instructions Recorded Confirmed Type docusate sodium 100 mg capsule 100 mg PO QDAY cap 12/05/14 08/19/17 History Saccharomyces boulardii 250 mg 250 mg PO BID 07/09/16 08/19/17 History capsule albuterol sulfate HFA 90 2 puff INHALATION Q6H PRN #18 g 09/08/16 08/19/17 Rx mcg/actuation aerosol inhaler Acetaminophen [Non-Aspirin] 1 - 2 tab PO Q6HP PRN MDD 3 grams 01/21/17 08/19/17 History Cyanocobalamin (Vitamin B-12) 2,500 mcg SL DAILY 01/21/17 08/19/17 History [Vitamin B12] Magnesium Hydroxide [Milk of 30 ml PO DAILYP PRN 01/21/17 08/19/17 History Magnesia] Na Phos,M-B/Na Phos,Di-Ba [Fleets 1 dose [place] DAILYP PRN 01/21/17 08/18/17 History Adult] Simethicone [Gas-X Ultra Strength] 125 mg PO BID PRN 01/21/17 08/19/17 History Vits A and D/White Pet/Lanolin [A 113 gm TP PRN PRN 01/21/17 08/18/17 History and D Ointment] guaiFENesin/DEXTROMETHORPHAN 10 ml PO Q4HP PRN 01/21/17 08/18/17 History [Tussin Dm Syrup] morphine pain pump 2.447 mg INTRATHECA DAILY 01/21/17 08/19/17 History methocarbamol 500 mg tablet 500 mg PO BID 90 Days #180 tab 02/17/17 08/19/17 Rx potassium chloride ER 20 mEq 20 meq PO QDAY #90 tab 04/20/17 08/19/17 Rx tablet,extended release lisinopril 2.5 mg tablet 2.5 mg PO QDAY #90 tab 05/19/17 08/19/17 Rx oxybutynin chloride 5 mg tablet 10 mg PO QDAY PRN #180 tab 06/03/17 08/18/17 Rx citalopram 20 mg tablet 30 mg PO QDAY #135 tab 06/08/17 08/19/17 Rx meclizine 25 mg chewable tablet 25 mg PO TID PRN #60 tab 06/25/17 08/19/17 Rx tramadol 50 mg tablet 50 mg PO Q6H PRN #90 tab 06/25/17 08/19/17 Rx furosemide 40 mg tablet 40 mg PO BID #180 tab 07/10/17 08/19/17 Rx bisacodyl 10 mg rectal suppository 10 mg [place] QDAY PRN #1 each 07/23/17 08/18/17 Rx glucosamine-chondroitin 750 mg-600 2 tab PO QDAY #1 tab 07/23/17 08/19/17 Rx mg tablet methylsulfonylmethane 1,000 mg 1,000 mg PO QDAY #1 cap 07/23/17 08/19/17 Rx capsule Lenalidomide [Revlimid] 10 mg PO DAILY 08/18/17 08/19/17 History ondansetron HCl 4 mg tablet 4 mg PO Q8H PRN #20 tab 08/18/17 08/19/17 Rx Dexamethasone [Decadron] 4 mg PO WEEKLY 08/19/17 08/19/17 History Miconazole Nitrate [Antifungal 14 gm TOPICAL BID 08/19/17 08/19/17 History Cream] Polyvinyl Alcohol [Artificial 1 gtt OU Q4HP PRN 08/19/17 08/19/17 History Tears] Prochlorperazine [Compazine] 10 mg PO Q6HP PRN 08/19/17 08/19/17 History Allergies Allergy/AdvReac Type Severity Reaction Status Date / Time sulfamethoxazole Allergy Mild Hives Verified 08/18/17 12:15 [From Bactrim] Tetracyclines Allergy Mild Hives Verified 08/18/17 12:15 trimethoprim [From Bactrim] Allergy Mild Hives Verified 08/18/17 12:15 Exam Temp Pulse Resp BP Pulse Ox 98.2 F 60 16 88/42 99 08/19/17 11:37 08/19/17 07:35 08/19/17 11:37 08/19/17 11:37 08/19/17 11:37 - General physical appearance well developed, well nourished, moderate distress, moderate pain, chronically ill - Eyes PERRL, normal ocular movement - ENT normal pinna, normal nares, normal mucosa, no hearing loss, no congestion - Head Head exam IM: Present: atraumatic, normal inspection, normocephalic - Neck no masses, no bruits, trachea midline, no lymphadectomy, no venous distension - Cardiovascular Cardiovascular exam IM: Present: normal rate and rhythm, RRR, +S1, +S2. Absent : JVD - Respiratory normal expansion, normal respiratory effort, clear to percussion, clear to auscultation - Abdomen Abdomen: Present: soft, tender (Tender to palpation in the lower abdomen and left lower quadrant extending into the left flank; good active bowel sounds; guarding to palpation left lower quadrant), bowel sounds Hernia: Present: none - Genitourinary Present: normal penis with no external lesions, other (Suprapubic urinary catheter in place) - Integumentary Present: no rash, no growths, no abnormal pigmentation - Neurologic Present: normal coordination, normal sensation - Musculoskeletal Present: normal gait, normal posture - Psychiatric Present: oriented to time, oriented to person, oriented to place, speech is normal, memory intact Results - Labs 08/19/17 08:11 08/19/17 04:15 Abnormal lab results 08/18/17 08/18/17 08/18/17 Range/Units 13:35 13:35 13:35 WBC 17.1 H (4.5-11.0) K/mcL RBC 3.89 L (4.50-5.90) M/mcL Hgb 12.1 L (13.5-16.5) g/dL Hct 35.8 L (41.0-55.0) % POC Hct (41.0-55.0) % RDW 15.0 H (11.5-14.5) % Gran % 78.7 H (38.0-78.0) % [place] % (Auto) 0.2 L (1.0-12.0) % Gran # 13.4 H (1.8-8.0) K/mcL [place] # (Auto) 0 L (0.1-0.9) K/mcL Band Neutrophils % (0-10) % Lymphocytes % (15-49) % ESR 25 H (0-15) mm/hr VBG Lactic Acid (0.5-2.2) mmol/L Potassium (3.3-5.1) mmol/L Chloride 93 L (96-108) mmol/L Anion Gap 23.0 H (8-16) POC BUN (8-23) mg/dl BUN 42 H (8-23) mg/dl Creatinine 1.4 H (0.7-1.2) mg/dl POC Creatinine (0.7-1.2) mg/dl Glucose 214 H (70-105) mg/dL POC Glucose (70-105) mg/dL Calcium (8.6-10.4) mg/dl POC WB Ioniz Calcium (1.16-1.32) mmol/L Magnesium (1.6-2.5) mg/dL GGT (8-61) U/L Alkaline Phosphatase 157 H (39-117) U/L Globulin 3.8 H (2.2-3.7) gm/dL Urine Protein (NEG) mg/dL Urine Occult Blood (<0.03) mg/dL Ur Leukocyte Esterase (NEG) /uL Urine RBC (0-1) /hpf Urine WBC (0-4) /hpf Hyaline Casts (0-2) /lpf 08/18/17 08/18/17 08/18/17 Range/Units 13:47 14:04 17:57 WBC (4.5-11.0) K/mcL RBC (4.50-5.90) M/mcL Hgb (13.5-16.5) g/dL Hct (41.0-55.0) % POC Hct 37.0 L (41.0-55.0) % RDW (11.5-14.5) % Gran % (38.0-78.0) % [place] % (Auto) (1.0-12.0) % Gran # (1.8-8.0) K/mcL [place] # (Auto) (0.1-0.9) K/mcL Band Neutrophils % (0-10) % Lymphocytes % (15-49) % ESR (0-15) mm/hr VBG Lactic Acid 3.3 H (0.5-2.2) mmol/L Potassium (3.3-5.1) mmol/L Chloride (96-108) mmol/L Anion Gap (8-16) POC BUN 41 H (8-23) mg/dl BUN (8-23) mg/dl Creatinine (0.7-1.2) mg/dl POC Creatinine 1.4 H (0.7-1.2) mg/dl Glucose (70-105) mg/dL POC Glucose 222 H (70-105) mg/dL Calcium (8.6-10.4) mg/dl POC WB Ioniz Calcium 1.02 L (1.16-1.32) mmol/L Magnesium (1.6-2.5) mg/dL GGT (8-61) U/L Alkaline Phosphatase (39-117) U/L Globulin (2.2-3.7) gm/dL Urine Protein 100 A (NEG) mg/dL Urine Occult Blood 0.03 A (<0.03) mg/dL Ur Leukocyte Esterase 250 A (NEG) /uL Urine RBC 16 H (0-1) /hpf Urine WBC 29 H (0-4) /hpf Hyaline Casts 28 H (0-2) /lpf 08/19/17 08/19/17 08/19/17 Range/Units 00:20 04:15 04:15 WBC (4.5-11.0) K/mcL RBC 3.11 L (4.50-5.90) M/mcL Hgb 9.8 L 9.5 L (13.5-16.5) g/dL Hct 28.6 L (41.0-55.0) % POC Hct (41.0-55.0) % RDW 15.3 H (11.5-14.5) % Gran % (38.0-78.0) % [place] % (Auto) (1.0-12.0) % Gran # (1.8-8.0) K/mcL [place] # (Auto) (0.1-0.9) K/mcL Band Neutrophils % 22 H (0-10) % Lymphocytes % 8 L (15-49) % ESR (0-15) mm/hr VBG Lactic Acid (0.5-2.2) mmol/L Potassium 5.4 H (3.3-5.1) mmol/L Chloride (96-108) mmol/L Anion Gap (8-16) POC BUN (8-23) mg/dl BUN 49 H (8-23) mg/dl Creatinine 1.8 H (0.7-1.2) mg/dl POC Creatinine (0.7-1.2) mg/dl Glucose 125 H (70-105) mg/dL POC Glucose (70-105) mg/dL Calcium 7.8 L (8.6-10.4) mg/dl POC WB Ioniz Calcium (1.16-1.32) mmol/L Magnesium 2.7 H (1.6-2.5) mg/dL GGT 6 L (8-61) U/L Alkaline Phosphatase (39-117) U/L Globulin (2.2-3.7) gm/dL Urine Protein (NEG) mg/dL Urine Occult Blood (<0.03) mg/dL Ur Leukocyte Esterase (NEG) /uL Urine RBC (0-1) /hpf Urine WBC (0-4) /hpf Hyaline Casts (0-2) /lpf 08/19/17 Range/Units 08:11 WBC (4.5-11.0) K/mcL RBC (4.50-5.90) M/mcL Hgb 9.4 L (13.5-16.5) g/dL Hct (41.0-55.0) % POC Hct (41.0-55.0) % RDW (11.5-14.5) % Gran % (38.0-78.0) % [place]ette % (Auto) (1.0-12.0) % Gran # (1.8-8.0) K/mcL [place] # (Auto) (0.1-0.9) K/mcL Band Neutrophils % (0-10) % Lymphocytes % (15-49) % ESR (0-15) mm/hr VBG Lactic Acid (0.5-2.2) mmol/L Potassium (3.3-5.1) mmol/L Chloride (96-108) mmol/L Anion Gap (8-16) POC BUN (8-23) mg/dl BUN (8-23) mg/dl Creatinine (0.7-1.2) mg/dl POC Creatinine (0.7-1.2) mg/dl Glucose (70-105) mg/dL POC Glucose (70-105) mg/dL Calcium (8.6-10.4) mg/dl POC WB Ioniz Calcium (1.16-1.32) mmol/L Magnesium (1.6-2.5) mg/dL GGT (8-61) U/L Alkaline Phosphatase (39-117) U/L Globulin (2.2-3.7) gm/dL Urine Protein (NEG) mg/dL Urine Occult Blood (<0.03) mg/dL Ur Leukocyte Esterase (NEG) /uL Urine RBC (0-1) /hpf Urine WBC (0-4) /hpf Hyaline Casts (0-2) /lpf Diabetes panel 08/18/17 08/19/17 Range/Units 13:35 04:15 Sodium 138 137 (133-145) mmol/L Potassium 3.6 5.4 H (3.3-5.1) mmol/L Chloride 93 L 98 (96-108) mmol/L Carbon Dioxide 22 28 (22-30) mmol/L BUN 42 H 49 H (8-23) mg/dl Creatinine 1.4 H 1.8 H (0.7-1.2) mg/dl Glucose 214 H 125 H (70-105) mg/dL Calcium 8.9 7.8 L (8.6-10.4) mg/dl AST 17 14 (0-37) U/l ALT 8 6 (0-40) U/l Alkaline Phosphatase 157 H 110 (39-117) U/L Total Protein 7.8 6.2 (5.9-8.4) gm/dL Albumin 4.0 3.3 (3.2-5.2) gm/dL Triglycerides 51 (<150) mg/dl Calcium panel 08/18/17 08/19/17 Range/Units 13:35 04:15 Calcium 8.9 7.8 L (8.6-10.4) mg/dl Phosphorus 4.2 (2.7-4.5) mg/dL Albumin 4.0 3.3 (3.2-5.2) gm/dL Pituitary panel 08/18/17 08/19/17 Range/Units 13:35 04:15 Sodium 138 137 (133-145) mmol/L Potassium 3.6 5.4 H (3.3-5.1) mmol/L Chloride 93 L 98 (96-108) mmol/L Carbon Dioxide 22 28 (22-30) mmol/L BUN 42 H 49 H (8-23) mg/dl Creatinine 1.4 H 1.8 H (0.7-1.2) mg/dl Glucose 214 H 125 H (70-105) mg/dL Calcium 8.9 7.8 L (8.6-10.4) mg/dl Adrenal panel 08/18/17 08/19/17 Range/Units 13:35 04:15 Sodium 138 137 (133-145) mmol/L Potassium 3.6 5.4 H (3.3-5.1) mmol/L Chloride 93 L 98 (96-108) mmol/L Carbon Dioxide 22 28 (22-30) mmol/L BUN 42 H 49 H (8-23) mg/dl Creatinine 1.4 H 1.8 H (0.7-1.2) mg/dl Glucose 214 H 125 H (70-105) mg/dL Calcium 8.9 7.8 L (8.6-10.4) mg/dl Total Bilirubin 0.9 0.6 (0.0-1.0) mg/dL AST 17 14 (0-37) U/l ALT 8 6 (0-40) U/l Alkaline Phosphatase 157 H 110 (39-117) U/L Total Protein 7.8 6.2 (5.9-8.4) gm/dL Albumin 4.0 3.3 (3.2-5.2) gm/dL All other labs normal. Assessment and Plan (1) Acute ischemic colitis Patient is responding to present therapy. He may need slight increase in intravenous fluid infusion to support his blood pressure. Would get echocardiogram to evaluate his left ventricular function prior to increase in fluid infusion. He is on appropriate antibiotics. Generally segmental colitis is self-limiting and in most times if it resolved she does not need colonoscopy. We will follow with you daily until he is over this acute episode. Status: Acute (2) Hypertension Withhold antihypertensive medications Status: Acute (3) Cholelithiasis and cholecystitis without obstruction No evidence of acute cholecystitis at this time Status: Acute (4) Congestive heart failure of unknown etiology Echocardiogram to assess baseline left ventricular function and evaluate diastolic dysfunction Status: Acute (5) Benign prostatic hyperplasia with lower urinary tract symptoms Status: Acute
[2017-08-19] MEDS ORDERED: 0.9 % SODIUM CHLORIDE 1,000 ML IV ONE ×2 (12:08→12:13)
--- NOTE | 2017-08-19 12:32 | Nephrology Consult Note ---
History of Present Illness - Reason for Consult Patient information: Note initiated : 08/19/17 at 12:28 pm Kenneth Encinas is an 82-year-old male admitted on 08/18/17 for acute sepsis due to diverticulitis. Nephrology consultation requested for acute kidney injury associated with hyperkalemia. Chief Complaint: Abdominal pain. acute renal failure, hyperkalemia Requesting physician: Jeronimo Clark - Chief Complaint Abdominal pain - History of Present Illness Kenneth Encinas is an 82-year-old male with urinary retention s/p suprapubic catheter, recurrent urinary tract infections, hypertension, diabetes mellitus type 2, multiple myeloma and vertebral body plasmacytoma admitted on 08/18/17 for acute sepsis due to diverticulitis. He was seen in ICU. He looked drowsy. His main complaint was abdominal pain. He did not report history kidney disease. Review of Systems Constitutional: lethargy, weakness Nose, mouth and throat: dry mouth, no nasal congestion Cardiovascular: dyspnea, no chest pain Respiratory: no hemoptysis, no wheezing Gastrointestinal: abdominal pain, no nausea Genitourinary: no flank pain, no hematuria Musculoskeletal: no back pain, no neck pain Integumentary: no pruritus, no rash Neurological: no abnormal speech, no focal weakness Psychiatric: no anxiety, no confusion Endocrine: no cold intolerance, no heat intolerance Hematologic/Lymphatic: no easy bleeding, no easy bruising Allergic/Immunologic: no tongue swelling, no uticaria Past History Past medical history: Medical History Urinary tract infection (Acute) Urinary retention (Acute 08/11/13) Spinal compression fracture (Acute) Osteoarthritis (Acute) Multiple myeloma (Acute) MRSA (methicillin resistant Staphylococcus aureus) (Acute 08/26/13) Loss of balance (Acute 10/10/14) Knee pain (Acute) Joint effusion-lower leg (Acute) Hypertension, essential (Chronic) Hyperparathyroidism (Acute) Hyperlipidemia (Acute) Hallucinations (Acute) Fungal infection of the groin (Acute 08/22/14) Colonic polyp (Acute) Carpal tunnel syndrome (Acute) Benign localized hyperplasia of prostate without urinary obstruction (Acute) Fracture of ankle, closed (Acute) Diabetes mellitus, type II (Resolved) Past surgical history: Past Surgical History History of vasectomy (Acute) History of open reduction and internal fixation (ORIF) procedure (Acute) Past family history: Family History Father Atherosclerosis of coronary artery Mother Cerebrovascular accident Atherosclerosis of coronary artery Past social history: No history of smoking or alcoholism. Currently, lives at [facility] adult home. Medications and Allergies Home Medications Medication Instructions Recorded Confirmed Type docusate sodium 100 mg capsule 100 mg PO QDAY cap 12/05/14 08/19/17 History Saccharomyces boulardii 250 mg 250 mg PO BID 07/09/16 08/19/17 History capsule albuterol sulfate HFA 90 2 puff INHALATION Q6H PRN #18 g 09/08/16 08/19/17 Rx mcg/actuation aerosol inhaler Acetaminophen [Non-Aspirin] 1 - 2 tab PO Q6HP PRN MDD 3 grams 01/21/17 08/19/17 History Cyanocobalamin (Vitamin B-12) 2,500 mcg SL DAILY 01/21/17 08/19/17 History [Vitamin B12] Magnesium Hydroxide [Milk of 30 ml PO DAILYP PRN 01/21/17 08/19/17 History Magnesia] Na Phos,M-B/Na Phos,Di-Ba [Fleets 1 dose [place] DAILYP PRN 01/21/17 08/18/17 History Adult] Simethicone [Gas-X Ultra Strength] 125 mg PO BID PRN 01/21/17 08/19/17 History Vits A and D/White Pet/Lanolin [A 113 gm TP PRN PRN 01/21/17 08/18/17 History and D Ointment] guaiFENesin/DEXTROMETHORPHAN 10 ml PO Q4HP PRN 01/21/17 08/18/17 History [Tussin Dm Syrup] morphine pain pump 2.447 mg INTRATHECA DAILY 01/21/17 08/19/17 History methocarbamol 500 mg tablet 500 mg PO BID 90 Days #180 tab 02/17/17 08/19/17 Rx potassium chloride ER 20 mEq 20 meq PO QDAY #90 tab 04/20/17 08/19/17 Rx tablet,extended release lisinopril 2.5 mg tablet 2.5 mg PO QDAY #90 tab 05/19/17 08/19/17 Rx oxybutynin chloride 5 mg tablet 10 mg PO QDAY PRN #180 tab 06/03/17 08/18/17 Rx citalopram 20 mg tablet 30 mg PO QDAY #135 tab 06/08/17 08/19/17 Rx meclizine 25 mg chewable tablet 25 mg PO TID PRN #60 tab 06/25/17 08/19/17 Rx tramadol 50 mg tablet 50 mg PO Q6H PRN #90 tab 06/25/17 08/19/17 Rx furosemide 40 mg tablet 40 mg PO BID #180 tab 07/10/17 08/19/17 Rx bisacodyl 10 mg rectal suppository 10 mg [place] QDAY PRN #1 each 07/23/17 08/18/17 Rx glucosamine-chondroitin 750 mg-600 2 tab PO QDAY #1 tab 07/23/17 08/19/17 Rx mg tablet methylsulfonylmethane 1,000 mg 1,000 mg PO QDAY #1 cap 07/23/17 08/19/17 Rx capsule Lenalidomide [Revlimid] 10 mg PO DAILY 08/18/17 08/19/17 History ondansetron HCl 4 mg tablet 4 mg PO Q8H PRN #20 tab 08/18/17 08/19/17 Rx Dexamethasone [Decadron] 4 mg PO WEEKLY 08/19/17 08/19/17 History Miconazole Nitrate [Antifungal 14 gm TOPICAL BID 08/19/17 08/19/17 History Cream] Polyvinyl Alcohol [Artificial 1 gtt OU Q4HP PRN 08/19/17 08/19/17 History Tears] Prochlorperazine [Compazine] 10 mg PO Q6HP PRN 08/19/17 08/19/17 History Allergies Allergy/AdvReac Type Severity Reaction Status Date / Time sulfamethoxazole Allergy Mild Hives Verified 08/18/17 12:15 [From Bactrim] Tetracyclines Allergy Mild Hives Verified 08/18/17 12:15 trimethoprim [From Bactrim] Allergy Mild Hives Verified 08/18/17 12:15 Exam - Vital Signs Vital signs: Temp Pulse Resp BP Pulse Ox 98.3 F 58 L 17 98/69 100 08/19/17 12:01 08/19/17 12:16 08/19/17 12:16 08/19/17 12:16 08/19/17 12:16 - General Appearance General appearance: appears started age, fatigue EENT: mucous membranes dry Neck: supple Respiratory: clear Cardiology: normal S1, normal S2 Gastrointestinal: tenderness Integumentary: cool/clammy Neurologic: no focal deficit Musculoskeletal: no erythema, no cyanosis Psychiatric: mood/affect appropriate, cooperative Results - Lab Results 08/19/17 11:57 08/19/17 04:15 Most recent lab results Calcium 7.8 mg/dl (8.6-10.4) L 08/19/17 04:15 Phosphorus 4.2 mg/dL (2.7-4.5) 08/19/17 04:15 Magnesium 2.7 mg/dL (1.6-2.5) H 08/19/17 04:15 Assessment and Plan (1) Acute kidney injury Work up: CT Abdomen and Pelvis on 08/18/17: No hydronephrosis. There is a large bilobed right renal cyst. No solid mass. There is some calcification within the wall of this right renal cyst. Progress; Shock requiring transfer to ICU. Discussion: Acute kidney injury associated with hypotension due to severe sepsis. Plan: NS bolus for hypotension (SBP < 90 or MAP < 60) up to 3 L then IV pressors (Norepinephrine). NS at 100 ml/hour if hypotension resolves. BMP to follow up hyperkalemia. Status: Acute Priority: High (2) Hyperkalemia, diminished renal excretion As discussed above. Status: Acute Priority: High (3) Severe sepsis with acute organ dysfunction Due to acute diverticulitis. As discussed above. Status: Acute Priority: High
--- NOTE | 2017-08-19 13:03 | Internal Med Progress Note ---
Medical - PN: Subj Patient information: Note initiated : 08/19/17 at 1:00 pm Service Date, if different from initiated Date: [] Patient: Kenneth Encinas 82 y/o M admitted on 08/18/17 for Lower Abd Pain/ Diverticulitis, Sepsis. Chief Complaint: [] Interval history: August 18- patient admitted with progressive diarrhea and shortness of breath and weakness and mental status change. CT abdomen service to above colitis along with bloody stool on presentation. GI/nephrology/surgery on board. On broad antibiotic coverage in light of severe sepsis with tachycardia and white count over 17,000. Elevated lactate. Admitted to medical floor. creatinine 1.4. hemoglobin 12.1 August 19- patient clinically deteriorating. Blanchard score 18. white count down 8.5. hemoglobin down from 12.1-9.4. on 4 hourly hemoglobin check. Surgery and nephrology on board. On crystalloid challenge to maintain map at goal. Initiate vasopressors. De-escalate antibiotics from Levaquin Flagyl to Zosyn. case discussed with son Jason on phone. Explained grim prognosis. Clinical visit in the evening. Discussed clinical deterioration with multiple end organ dysfunction including acute renal failure with creatinine of 1.9. Nephrology recommends continuing crystalloid bolus/pressors if indicated. Surgery recommends continue existing treatment due to high probability ischemic colitis. 3 L oxygen systolic hovering around mid 90s. Critically ill - Constitutional Vitals: Vital Signs Temp Pulse Resp BP Pulse Ox 98.3 F 58 L 17 98/69 100 08/19/17 12:01 08/19/17 12:16 08/19/17 12:16 08/19/17 12:16 08/19/17 12:16 Period Temp Pulse Resp BP Sys/Zambrano Pulse Ox Last 24 Hr 97.0 F-98.8 F 56-82 12-25 54-128/29-103 91-100 Intake and Output 08/18/17 08/19/17 08/19/17 21:59 05:59 13:59 Intake Total 1200 / 1200 300 / 300 3150 / 3150 Output Total 275 / 275 Balance 1200 / 1200 / 3150 / 3150 Weight 183 lb 8 oz Intake & Output: Intake & Output 08/18/17 08/19/17 08/19/17 21:59 05:59 13:59 Intake Total 1200 / 1200 300 / 300 3150 / 3150 Output Total 275 / 275 Balance 1200 / 1200 25 / 25 3150 / 3150 Weight 183 lb 8 oz Intake: IV 1200 / 1200 200 / 200 3150 / 3150 Sodium Chloride 0.9% 1,000 ml @ 1000 / 1000 1999 / 1999 Wide Open IV BOLUS [facility] Rx#: [id number] Zosyn 3.375 gm In Dextrose 5% 50 / 50 in Water 50 ml @ 100 mls/hr IV Q6H [facility] Rx#:[id number] Oral 100 / 100 Output: Urine Catheter Amount 275 / 275 Other: Stool Size Moderate Small Stool Color Yellow Yellow Stool Consistency Liquid Loose Watery # of times incontinent of 1 Bowels General appearance: moderate distress Exam: abdominal pain Obtunded/minimally responsive nonlabored Breathing no telemetry events except for tachycardia suprapubic catheter draining concentrated urine appears bilious Medical - PN: Obj Da - Labs CBC & Chem 7: 08/19/17 08:11 08/19/17 04:15 Labs: Abnormal Lab Results 08/19/17 08/19/17 08/19/17 08:11 04:15 04:15 WBC RBC 3.11 L Hgb 9.4 L 9.5 L Hct 28.6 L POC Hct RDW 15.3 H Gran % Mineral % (Auto) Gran # Mineral # (Auto) Band Neutrophils % 22 H Lymphocytes % 8 L ESR VBG Lactic Acid Potassium 5.4 H Chloride Anion Gap POC BUN BUN 49 H Creatinine 1.8 H POC Creatinine Glucose 125 H POC Glucose Calcium 7.8 L POC WB Ioniz Calcium Magnesium 2.7 H GGT 6 L Alkaline Phosphatase Globulin Urine Protein Urine Occult Blood Ur Leukocyte Esterase Urine RBC Urine WBC Hyaline Casts 08/19/17 08/18/17 08/18/17 00:20 17:57 14:04 WBC RBC Hgb 9.8 L Hct POC Hct 37.0 L RDW Gran % Mineral % (Auto) Gran # Mineral # (Auto) Band Neutrophils % Lymphocytes % ESR VBG Lactic Acid 3.3 H Potassium Chloride Anion Gap POC BUN 41 H BUN Creatinine POC Creatinine 1.4 H Glucose POC Glucose 222 H Calcium POC WB Ioniz Calcium 1.02 L Magnesium GGT Alkaline Phosphatase Globulin Urine Protein Urine Occult Blood Ur Leukocyte Esterase Urine RBC Urine WBC Hyaline Casts 08/18/17 08/18/17 08/18/17 13:47 13:35 13:35 WBC RBC Hgb Hct POC Hct RDW Gran % Mineral % (Auto) Gran # Mineral # (Auto) Band Neutrophils % Lymphocytes % ESR 25 H VBG Lactic Acid Potassium Chloride 93 L Anion Gap 23.0 H POC BUN BUN 42 H Creatinine 1.4 H POC Creatinine Glucose 214 H POC Glucose Calcium POC WB Ioniz Calcium Magnesium GGT Alkaline Phosphatase 157 H Globulin 3.8 H Urine Protein 100 A Urine Occult Blood 0.03 A Ur Leukocyte Esterase 250 A Urine RBC 16 H Urine WBC 29 H Hyaline Casts 28 H 08/18/17 13:35 WBC 17.1 H RBC 3.89 L Hgb 12.1 L Hct 35.8 L POC Hct RDW 15.0 H Gran % 78.7 H Mineral % (Auto) 0.2 L Gran # 13.4 H Mineral # (Auto) 0 L Band Neutrophils % Lymphocytes % ESR VBG Lactic Acid Potassium Chloride Anion Gap POC BUN BUN Creatinine POC Creatinine Glucose POC Glucose Calcium POC WB Ioniz Calcium Magnesium GGT Alkaline Phosphatase Globulin Urine Protein Urine Occult Blood Ur Leukocyte Esterase Urine RBC Urine WBC Hyaline Casts Meds: Medications Acetaminophen (Tylenol) 650 mg PO Q4-6HP PRN PRN Reason: PAIN/FEVER > 101 Albuterol Sulfate (Ventolin) 2 puff INH Q6HP PRN PRN Reason: shortness of breath or wheezing Citalopram Hydrobromide (Celexa) 30 mg PO QDAY [facility] Magnesium Sulfate (Magnesium Sulfate) 2 gm in 50 mls @ 50 mls/hr IV UD PRN PRN Reason: MG = or < 1.7 Sodium Chloride (Sodium Chloride 0.9%) 1,000 mls @ 0 mls/hr IV BOLUS [facility] PRN Reason: Wide Open Last Infusion: 08/19/17 12:18 Dose: Infused Sodium Chloride (Sodium Chloride 0.9%) 1,000 mls @ 50 mls/hr IV .Q20H [facility] Stop: 08/21/17 20:29 Last Admin: 08/19/17 11:33 Dose: Not Given Acetaminophen (Ofirmev) 1,000 mg in 100 mls @ 200 mls/hr IV Q6HP PRN PRN Reason: PAIN/FEVER > 101 Piperacillin Sod/Tazobactam (Sod 3.375 gm/ Dextrose) 50 mls @ 100 mls/hr IV Q6H [facility] Last Infusion: 08/19/17 12:17 Dose: Infused Sodium Chloride (Sodium Chloride 0.9%) 1,000 mls @ 100 mls/hr IV .Q10H [facility] Lactobacillus Rhamnosus (Culturelle) 1 cap PO BID [facility] Meclizine HCl (Antivert) 25 mg PO TIDP PRN PRN Reason: dizziness Methocarbamol (Robaxin) 500 mg PO BID [facility] Ondansetron HCl (Zofran) 4 mg IV Q4-6HP PRN PRN Reason: Nausea And Vomiting Oxybutynin Chloride (Ditropan) 10 mg PO QDAY PRN PRN Reason: Bladder spasms or leakage Lenalidomide [ Revlimid] 10 Mg Tablet 1 dose PO HS [facility] Stop: 08/30/17 21:01 Morphine Pain Pump 2 (.447 Mg) 0 dose INTRATHECA DAILY [facility] Potassium Chloride (Klor-Con) 40 meq PO DAILYP PRN PRN Reason: K+ < 3.5 Senna/Docusate Sodium (Senna Plus Tablet) 1 tab PO HS [facility] Sodium Chloride (Saline Flush) 10 ml IV Q8 [facility] Last Admin: 08/19/17 12:17 Dose: 10 ml Tramadol HCl (Ultram) 50 mg PO Q6HP PRN PRN Reason: pain Trazodone HCl (Desyrel) 50 mg PO [facility] PRN PRN Reason: Insomnia Medical - PN: A/P - Time Spent With Patient Total time spent is greater than 50% in coordination of care (as documented) at patient's floor/unit and/or counseling patient: Greater than 35 minutes - Narrative A/P Narrative: * Severe sepsis secondary to ischemic colitis-continue antibiotic coverage. Venous lactate trending.surgery on board. antibiotic changed to Zosyn * Acute mental status change- sepsis end organ dysfunction * LESLI-ups and organ dysfunction. Nephrology on board * GI bleed- likely secondary to ischemic colitis. Continue monitoring. Transfuse if hemoglobin drop more than 30% * complicated UTI-continue antibiotic coverage * history of congestive heart failure-wait echocardiogram * DNR * Prophylaxis on SCDs plan * continue aggressive sepsis management per protocol/crystalloid/pressors * Monitor renal function * 4 hour hemoglobin checks * Change antibiotics to Zosyn * Patient critically ill * await family for discussion on future goals of care Medical - PN: Qual - VTE Deep Vein Thrombosis/Pulmonary Embolism Present on Admission: No
[2017-08-19] MEDS ORDERED: metroNIDAZOLE 500 MG/100 ML BAG IV SCH (14:00)
[2017-08-19] MEDS: ONDANSETRON 4 MG/2 ML VIAL IV PRN (15:14)
[2017-08-19] MEDS: HYDROmorphone 2 MG/ML VIAL IV PRN (16:43)
[2017-08-19] MEDS ORDERED: NOREPINEPHRINE BITARTRATE 16 MG in 0.9 % SODIUM CHLORIDE 234 ML IV PRN (17:07)
[2017-08-19] MEDS: 0.9 % SODIUM CHLORIDE 250 ML IV SCH (17:12)
[2017-08-19 18:16] LABS: Blood Urea Nitrogen 42 mg/dl (8-23)
[2017-08-19] MEDS ORDERED: SENNOSIDES/DOCUSATE SODIUM 1 TAB TABLET PO SCH (21:00)
[2017-08-19] MEDS ORDERED: traZODone HCL 50 MG TABLET PO PRN (21:00)
[2017-08-19] MEDS: LENALIDOMIDE 10 MG PO SCH (21:53)
[2017-08-20] MEDS: PIPERACILLIN SODIUM/TAZOBACTAM 3.375 GM in DEXTROSE 5% IN WATER 50 ML IV SCH ×4 (00:03→17:46)
[2017-08-20] MEDS: ONDANSETRON 4 MG/2 ML VIAL IV PRN ×2 (00:20→04:58)
[2017-08-20] MEDS: 0.9 % SODIUM CHLORIDE 250 ML IV SCH ×3 (04:55→17:28)
[2017-08-20 05:09] LABS: ALT/SGPT 7 U/l (0-40); Albumin 3.1 gm/dL (3.2-5.2); Albumin/Globulin Ratio 1.1 (1.0-2.3); Alkaline Phosphatase 91 U/L (39-117); Bilirubin,Direct < 0.2 mg/dL (0.0-0.3); Blood Urea Nitrogen 32 mg/dl (8-23); Gamma Glutamyl Transpeptidase 6 U/L (8-61); Uric Acid 4.1 mg/dL (2.5-8.0)
[2017-08-20] MEDS: 0.9 % SODIUM CHLORIDE 10 ML SYRINGE IV SCH ×3 (05:27→21:03)
[2017-08-20 05:51] LABS: Mean Cell Volume 92.4 fL (80.0-100.0); Mean Corpuscular HGB Conc 33.7 g/dL (31.0-36.0); Mean Corpuscular Hemoglobin 31.1 pg (26.0-34.0); Platelet Count 124 K/mcL (140-440); RBC 2.78 M/mcL (4.50-5.90); Red Cell Distribution Width 15.3 % (11.5-14.5)
[2017-08-20] MEDS: HYDROmorphone 2 MG/ML VIAL IV PRN ×3 (07:22→21:56)
--- NOTE | 2017-08-20 07:29 | Nephrology Progress Note ---
Subjective Patient information: Note initiated : 08/20/17 at 7:28 am Kenneth Encinas is an 82-year-old male admitted on 08/18/17 for acute sepsis due to diverticulitis. Nephrology consultation requested for acute kidney injury associated with hyperkalemia. Chief Complaint: Abdominal pain. Principal diagnosis: Acute kidney injury with hyperkalemia Interval history: In ICU. No IV pressors. Gonzalez in place. Pertinent ROS: No new complaints. No confusion. No edema. Objective - Vital Signs Vital signs: Vital Signs Temp Pulse Pulse Resp BP BP Pulse Ox 08/20/17 06:01 72 20 123/65 94 08/20/17 05:49 73 24 H 133/63 100 08/20/17 05:01 76 16 132/85 97 08/20/17 04:31 63 16 123/58 96 08/20/17 04:04 58 L 15 104/58 97 08/20/17 03:31 73 18 118/62 96 08/20/17 03:03 66 15 101/51 97 08/20/17 03:01 66 15 105/33 94 08/20/17 02:31 61 18 113/53 99 08/20/17 02:01 98.8 F 59 L 17 105/92 98 08/20/17 01:30 72 18 98 08/20/17 01:01 62 19 97/51 99 08/20/17 00:31 67 13 125/35 97 08/20/17 00:07 73 15 103/52 90 08/20/17 00:01 78 16 129/111 95 08/19/17 23:31 81 18 131/67 97 08/19/17 23:05 67 12 118/51 96 08/19/17 22:41 66 17 94/49 98 08/19/17 22:38 62 14 77/55 96 08/19/17 22:01 60 16 103/90 98 08/19/17 21:31 61 16 82/65 96 08/19/17 21:01 62 15 113/85 97 08/19/17 20:52 69 14 120/93 99 08/19/17 20:01 64 13 92/56 93 08/19/17 20:00 98.2 F 69 20 89/64 95 08/19/17 19:01 72 17 89/64 95 03/21/18 18:01 13 111/58 96 03/21/18 17:59 14 106/61 96 08/19/17 17:01 60 14 99/74 96 08/19/17 16:34 62 15 87/50 90 08/19/17 16:01 17 99/85 95 08/19/17 15:54 98.9 F 16 103/86 96 08/19/17 15:31 19 130/64 96 08/19/17 15:01 15 103/86 96 08/19/17 14:31 16 108/91 97 08/19/17 14:12 15 137/119 95 08/19/17 14:01 15 128/107 96 08/19/17 14:00 81 17 95 08/19/17 13:32 17 138/79 98 08/19/17 13:03 11 L 85/61 99 08/19/17 12:46 13 90/72 99 08/19/17 12:31 98.0 F 14 102/84 99 08/19/17 12:16 58 L 17 98/69 100 08/19/17 12:05 61 12 98 08/19/17 12:01 98.3 F 64 12 102/82 98 08/19/17 11:46 67 14 109/79 99 08/19/17 11:40 61 16 93/45 97 08/19/17 11:37 98.2 F 16 88/42 99 08/19/17 11:36 59 L 15 54/43 97 08/19/17 11:31 61 15 94/50 100 08/19/17 11:26 66 14 89/53 97 08/19/17 11:21 59 L 13 77/65 98 08/19/17 11:16 68 15 86/45 99 08/19/17 11:14 59 L 14 88/42 98 08/19/17 11:11 58 L 13 87/49 99 08/19/17 11:07 75 12 118/103 99 08/19/17 11:01 60 12 79/57 97 08/19/17 10:56 59 L 13 110/47 99 08/19/17 10:51 64 12 103/51 99 08/19/17 10:47 73 15 120/64 99 08/19/17 10:41 63 25 H 78/31 97 08/19/17 10:39 56 L 15 88/53 98 08/19/17 10:37 64 13 61/29 98 08/19/17 10:31 61 13 78/49 99 08/19/17 10:17 59 L 14 86/57 98 08/19/17 10:11 65 16 106/52 100 08/19/17 07:35 98.1 F 60 12 90/46 97 08/19/17 07:30 58 L 14 97 Intake and Output 08/19/17 08/20/17 08/20/17 21:59 05:59 13:59 Intake Total 1150 / 1150 1400 / 1400 50 / 50 Output Total 451 / 451 900 / 900 225 / 225 Balance 699 / 699 500 / 500 -175 / -175 Intake: IV 1050 / 1050 1050 / 1050 50 / 50 Sodium Chloride 0.9% 1,000 ml @ 1000 / 1000 100 mls/hr IV .Q10H [facility] Rx#: [id number] Zosyn 3.375 gm In Dextrose 5% 50 / 50 50 / 50 50 / 50 in Water 50 ml @ 100 mls/hr IV Q6H [facility] Rx#:[id number] Oral 100 / 100 350 / 350 Output: Urine Catheter Amount 450 / 450 900 / 900 225 / 225 # of times incontinent of urine 1 / Other: Stool Size Small Stool Color Yellow Stool Consistency Loose # Bowel Movements 0 Weight 207 lb 14.334 oz Intake & Output: Intake & Output 08/19/17 08/20/17 08/20/17 21:59 05:59 13:59 Intake Total 1150 / 1150 1400 / 1400 50 / 50 Output Total 451 / 451 900 / 900 225 / 225 Balance 699 / 699 500 / 500 -175 / -175 Weight 207 lb 14.334 oz Intake: IV 1050 / 1050 1050 / 1050 50 / 50 Sodium Chloride 0.9% 1,000 ml @ 1000 / 1000 100 mls/hr IV .Q10H [facility] Rx#: [id number] Zosyn 3.375 gm In Dextrose 5% 50 / 50 50 / 50 50 / 50 in Water 50 ml @ 100 mls/hr IV Q6H [facility] Rx#:[id number] Oral 100 / 100 350 / 350 Output: Urine Catheter Amount 450 / 450 900 / 900 225 / 225 # of times incontinent of urine / Other: Stool Size Small Stool Color Yellow Stool Consistency Loose # Bowel Movements 0 - General Appearance General appearance: appears started age, fatigue EENT: mucous membranes dry Neck: supple Respiratory: clear Cardiology: normal S1, normal S2 Gastrointestinal: tenderness Integumentary: warm and dry Neurologic: no focal deficit, alert and oriented x3 Musculoskeletal: no erythema, no cyanosis Psychiatric: mood/affect appropriate, cooperative - Lab 08/20/17 05:00 08/20/17 03:30 Most recent lab results Calcium 7.3 mg/dl (8.6-10.4) L 08/20/17 03:30 Phosphorus 2.8 mg/dL (2.7-4.5) 08/20/17 03:30 Magnesium 2.5 mg/dL (1.6-2.5) 08/20/17 03:30 Assessment and Plan (1) Acute kidney injury Work up: CT Abdomen and Pelvis on 08/18/17: No hydronephrosis. There is a large bilobed right renal cyst. No solid mass. There is some calcification within the wall of this right renal cyst. Progress; Shock requiring transfer to ICU. Hypotension resolved with IV fluid resuscitation; now NS at 100 ml/hour. Creatinine decreased from 1.8 to 1.3 in the past 24 hours. Urine output 1350 ml reported. Discussion: Acute kidney injury associated with hypotension due to severe sepsis. Plan: No need for hemodialysis. Monitor with metabolic panel and urine output. Status: Acute Priority: High (2) Hyperkalemia, diminished renal excretion Status: Resolved Priority: High (3) Severe sepsis with acute organ dysfunction Due to acute diverticulitis. Management by hospitalist team. Status: Acute Priority: High
[2017-08-20 08:04] LABS: Anisocytosis FEW (NONE SEEN); Band Neutrophils % 10 % (0-10); Dohle Bodies RARE (NONE SEEN); Eosinophils % (Manual) 2 % (0-7); Lymphocytes % 21 % (15-49); Monocytes % (Manual) 2 % (1-12); Platelet Estimate DECREASED (NORMAL); RBC Morphology ABNORM (NORMAL); Segmented Neutrophils % 65 % (38-78); Toxic Granulation FEW (NONE SEEN)
[2017-08-20] MEDS ORDERED: CITALOPRAM 20 MG TABLET PO SCH (09:00)
[2017-08-20] MEDS ORDERED: MORPHINE INTRATHECA SCH (09:00)
[2017-08-20] MEDS: METHOCARBAMOL 500 MG TABLET PO SCH ×2 (09:52→20:30)
[2017-08-20] MEDS: LACTOBACILLUS 1 CAPSULE PO SCH ×2 (09:52→20:30)
[2017-08-20] MEDS: 0.9 % SODIUM CHLORIDE 1,000 ML IV SCH ×4 (09:59→20:20)
--- NOTE | 2017-08-20 11:03 | General Surgery Progress Note ---
Subjective Patient reports: feels better, still having pain, pain is less, flatus, no bowel movement, afebrile Narrative: Note initiated : 08/20/17 at 11:03 am Service Date, if different from initiated Date: [] Patient: Kenneth Encinas 82 y/o M admitted on 08/18/17 for Lower Abd Pain/ Diverticulitis, Sepsis. Chief Complaint: [Patient is better. He states that he still has abdominal pain and mild nausea. He has not had vomiting. He has had some flatus but no bowel movement has been noted. He is a little more lethargic today. His blood pressure and pulse ox is now stabilized and in normal range. His BUN and creatinine are improving and his urine output is increased. White blood count is normal. His serum lactate is also in normal range. All of this suggests improving status associated with his segmental ischemic colitis.] Objective Temp Pulse Resp BP Pulse Ox 98.0 F 72 15 114/65 97 08/20/17 06:57 08/20/17 06:57 08/20/17 06:57 08/20/17 06:57 08/20/17 06:57 - Additional Data Intake & Output - Last 24 hours: Intake & Output 08/18/17 08/19/17 08/20/17 08/21/17 05:59 05:59 05:59 05:59 Intake Total 1500 / 1500 6700 / 6700 1050 / 1050 Output Total 275 / 275 1351 / 1351 225 / 225 Balance 1225 / 1225 5349 / 5349 825 / 825 Weight 183 lb 8 oz 207 lb 14.334 oz - General physical appearance well developed, well nourished, moderate distress, severe distress, moderate pain, chronically ill - Eyes PERRL, normal ocular movement - ENT normal pinna, normal nares, normal mucosa, no hearing loss, no congestion - Neck no masses, no bruits, trachea midline, no lymphadectomy, no venous distension - Respiratory normal expansion, normal respiratory effort, clear to percussion, clear to auscultation, other (Good breath sounds in both lung marcano without splinting) - Cardiovascular Cardiovascular exam: Present: normal rate and rhythm, RRR, +S1, +S2. Absent: JVD - Abdomen tender (Moderate tenderness in the hypogastrium; active bowel sounds), bowel sounds (present), surgical scars (none), masses (none) - Integumentary no rash, no growths, no abnormal pigmentation - Neurologic normal coordination, normal sensation - Psychiatric oriented to time, oriented to person, oriented to place, speech is normal, memory intact - Labs 08/20/17 05:00 08/20/17 03:30 Diabetes panel 08/19/17 08/20/17 Range/Units 17:26 03:30 Sodium 138 142 (133-145) mmol/L Potassium 4.3 4.2 (3.3-5.1) mmol/L Chloride 104 108 (96-108) mmol/L Carbon Dioxide 26 24 (22-30) mmol/L BUN 42 H 32 H (8-23) mg/dl Creatinine 1.5 H 1.3 H (0.7-1.2) mg/dl Glucose 107 H 91 (70-105) mg/dL Calcium 7.1 L 7.3 L (8.6-10.4) mg/dl AST 17 (0-37) U/l ALT 7 (0-40) U/l Alkaline Phosphatase 91 (39-117) U/L Total Protein 5.9 (5.9-8.4) gm/dL Albumin 3.1 L (3.2-5.2) gm/dL Triglycerides 75 (<150) mg/dl Calcium panel 08/19/17 08/20/17 Range/Units 17:26 03:30 Calcium 7.1 L 7.3 L (8.6-10.4) mg/dl Phosphorus 2.8 (2.7-4.5) mg/dL Albumin 3.1 L (3.2-5.2) gm/dL Pituitary panel 08/19/17 08/20/17 Range/Units 17:26 03:30 Sodium 138 142 (133-145) mmol/L Potassium 4.3 4.2 (3.3-5.1) mmol/L Chloride 104 108 (96-108) mmol/L Carbon Dioxide 26 24 (22-30) mmol/L BUN 42 H 32 H (8-23) mg/dl Creatinine 1.5 H 1.3 H (0.7-1.2) mg/dl Glucose 107 H 91 (70-105) mg/dL Calcium 7.1 L 7.3 L (8.6-10.4) mg/dl Adrenal panel 08/19/17 08/20/17 Range/Units 17:26 03:30 Sodium 138 142 (133-145) mmol/L Potassium 4.3 4.2 (3.3-5.1) mmol/L Chloride 104 108 (96-108) mmol/L Carbon Dioxide 26 24 (22-30) mmol/L BUN 42 H 32 H (8-23) mg/dl Creatinine 1.5 H 1.3 H (0.7-1.2) mg/dl Glucose 107 H 91 (70-105) mg/dL Calcium 7.1 L 7.3 L (8.6-10.4) mg/dl Total Bilirubin 0.4 (0.0-1.0) mg/dL AST 17 (0-37) U/l ALT 7 (0-40) U/l Alkaline Phosphatase 91 (39-117) U/L Total Protein 5.9 (5.9-8.4) gm/dL Albumin 3.1 L (3.2-5.2) gm/dL Assessment and Plan (1) Acute ischemic colitis Status: Acute Assessment and plan: Patient is clinically improving to present therapy and it will be continued. Current Visit: Yes (2) Hypertension Status: Acute Assessment and plan: Blood pressure is now in normal range Current Visit: Yes (3) Cholelithiasis and cholecystitis without obstruction Status: Acute Assessment and plan: No findings to suggest cholecystitis Current Visit: Yes (4) Congestive heart failure of unknown etiology Status: Acute Current Visit: Yes (5) Benign prostatic hyperplasia with lower urinary tract symptoms Status: Acute Current Visit: Yes - Time Spent With Patient Total time spent is greater than 50% in coordination of care (as documented) at patient's floor/unit and/or counseling patient:
--- NOTE | 2017-08-20 11:08 | Internal Med Progress Note ---
Medical - PN: Subj Patient information: Note initiated : 08/20/17 at 11:05 am Service Date, if different from initiated Date: [] Patient: Kenneth Encinas 82 y/o M admitted on 08/18/17 for Lower Abd Pain/ Diverticulitis, Sepsis. Chief Complaint: [] Interval history: August 18- patient admitted with progressive diarrhea and shortness of breath and weakness and mental status change. CT abdomen service to above colitis along with bloody stool on presentation. GI/nephrology/surgery on board. On broad antibiotic coverage in light of severe sepsis with tachycardia and white count over 17,000. Elevated lactate. Admitted to medical floor. creatinine 1.4. hemoglobin 12.1 August 19- patient clinically deteriorating. Comal score 18. white count down 8.5. hemoglobin down from 12.1-9.4. on 4 hourly hemoglobin check. Surgery and nephrology on board. On crystalloid challenge to maintain map at goal. Initiate vasopressors. De-escalate antibiotics from Levaquin Flagyl to Zosyn. case discussed with son Jason on phone. Explained grim prognosis. Clinical visit in the evening. Discussed clinical deterioration with multiple end organ dysfunction including acute renal failure with creatinine of 1.9. Nephrology recommends continuing crystalloid bolus/pressors if indicated. Surgery recommends continue existing treatment due to high probability ischemic colitis. 3 L oxygen systolic hovering around mid 90s. Critically ill August 20- patient hemodynamic stable. Doing a lot better. Improved diarrhea and bloody stool. White count downto 6.2 with creatinine improved from 1.9- 1.3. Surgery and nephrology on board. Surgery recommended initiation of oral diet in 24 hours. Map at goal. transfer to telemetry. No overnight events including fever chills worsening shortness of breath chest pain. - Constitutional Vitals: Vital Signs Temp Pulse Resp BP Pulse Ox 98.0 F 72 15 114/65 97 08/20/17 06:57 08/20/17 06:57 08/20/17 06:57 08/20/17 06:57 08/20/17 06:57 Period Temp Pulse Resp BP Sys/Zambrano Pulse Ox Last 24 Hr 98.0 F-98.9 F 58-81 11-24 54-138/33-119 90-100 Intake and Output 08/19/17 08/20/17 08/20/17 21:59 05:59 13:59 Intake Total 1150 / 1150 1400 / 1400 1050 / 1050 Output Total 451 / 451 900 / 900 225 / 225 Balance 699 / 699 500 / 500 825 / 825 Weight 207 lb 14.334 oz Intake & Output: Intake & Output 08/19/17 08/20/17 08/20/17 21:59 05:59 13:59 Intake Total 1150 / 1150 1400 / 1400 1050 / 1050 Output Total 451 / 451 900 / 900 225 / 225 Balance 699 / 699 500 / 500 825 / 825 Weight 207 lb 14.334 oz Intake: IV 1050 / 1050 1050 / 1050 1050 / 1050 Sodium Chloride 0.9% 1,000 ml @ 1000 / 1000 1000 / 1000 100 mls/hr IV .Q10H [facility] Rx#: [id number] Zosyn 3.375 gm In Dextrose 5% 50 / 50 50 / 50 50 / 50 in Water 50 ml @ 100 mls/hr IV Q6H [facility] Rx#:[id number] Oral 100 / 100 350 / 350 Output: Urine Catheter Amount 450 / 450 900 / 900 225 / 225 # of times incontinent of urine Other: Stool Size Small Small Stool Color Yellow Yellow Stool Consistency Loose Loose # Bowel Movements 0 1 General appearance: cooperative, no acute distress Exam: nonlabored breathing No telemetry events afebrile tender abdomen Foleys draining dark urine Medical - PN: Obj Da - Labs CBC & Chem 7: 08/20/17 05:00 08/20/17 03:30 Labs: Abnormal Lab Results 08/20/17 08/20/17 08/19/17 05:00 03:30 20:00 WBC RBC 2.78 L Hgb 8.6 L 8.9 L Hct 25.7 L POC Hct RDW 15.3 H Plt Count 124 L Gran % Bibb % (Auto) Gran # Bibb # (Auto) Band Neutrophils % Lymphocytes % WBC Morphology Abnorm A Toxic Granulation Few A Dohle Bodies Rare A Platelet Estimate Decreased A RBC Morphology Abnorm A Anisocytosis Few A ESR VBG Lactic Acid Potassium Chloride Anion Gap POC BUN BUN 32 H Creatinine 1.3 H POC Creatinine Glucose POC Glucose Calcium 7.3 L POC WB Ioniz Calcium Magnesium GGT 6 L Alkaline Phosphatase Albumin 3.1 L Globulin Urine Protein Urine Occult Blood Ur Leukocyte Esterase Urine RBC Urine WBC Hyaline Casts 03/21/18 03/21/18 03/21/18 17:26 16:03 11:57 WBC RBC Hgb 9.0 L 9.2 L Hct POC Hct RDW Plt Count Gran % Bibb % (Auto) Gran # Bibb # (Auto) Band Neutrophils % Lymphocytes % WBC Morphology Toxic Granulation Dohle Bodies Platelet Estimate RBC Morphology Anisocytosis ESR VBG Lactic Acid Potassium Chloride Anion Gap POC BUN BUN 42 H Creatinine 1.5 H POC Creatinine Glucose 107 H POC Glucose Calcium 7.1 L POC WB Ioniz Calcium Magnesium GGT Alkaline Phosphatase Albumin Globulin Urine Protein Urine Occult Blood Ur Leukocyte Esterase Urine RBC Urine WBC Hyaline Casts 08/19/17 08/19/17 08/19/17 08:11 04:15 04:15 WBC RBC 3.11 L Hgb 9.4 L 9.5 L Hct 28.6 L POC Hct RDW 15.3 H Plt Count Gran % Bibb % (Auto) Gran # Bibb # (Auto) Band Neutrophils % 22 H Lymphocytes % 8 L WBC Morphology Toxic Granulation Dohle Bodies Platelet Estimate RBC Morphology Anisocytosis ESR VBG Lactic Acid Potassium 5.4 H Chloride Anion Gap POC BUN BUN 49 H Creatinine 1.8 H POC Creatinine Glucose 125 H POC Glucose Calcium 7.8 L POC WB Ioniz Calcium Magnesium 2.7 H GGT 6 L Alkaline Phosphatase Albumin Globulin Urine Protein Urine Occult Blood Ur Leukocyte Esterase Urine RBC Urine WBC Hyaline Casts 08/19/17 08/18/17 08/18/17 00:20 17:57 14:04 WBC RBC Hgb 9.8 L Hct POC Hct 37.0 L RDW Plt Count Gran % Bibb % (Auto) Gran # Bibb # (Auto) Band Neutrophils % Lymphocytes % WBC Morphology Toxic Granulation Dohle Bodies Platelet Estimate RBC Morphology Anisocytosis ESR VBG Lactic Acid 3.3 H Potassium Chloride Anion Gap POC BUN 41 H BUN Creatinine POC Creatinine 1.4 H Glucose POC Glucose 222 H Calcium POC WB Ioniz Calcium 1.02 L Magnesium GGT Alkaline Phosphatase Albumin Globulin Urine Protein Urine Occult Blood Ur Leukocyte Esterase Urine RBC Urine WBC Hyaline Casts 08/18/17 08/18/17 08/18/17 13:47 13:35 13:35 WBC RBC Hgb Hct POC Hct RDW Plt Count Gran % Bibb % (Auto) Gran # Bibb # (Auto) Band Neutrophils % Lymphocytes % WBC Morphology Toxic Granulation Dohle Bodies Platelet Estimate RBC Morphology Anisocytosis ESR 25 H VBG Lactic Acid Potassium Chloride 93 L Anion Gap 23.0 H POC BUN BUN 42 H Creatinine 1.4 H POC Creatinine Glucose 214 H POC Glucose Calcium POC WB Ioniz Calcium Magnesium GGT Alkaline Phosphatase 157 H Albumin Globulin 3.8 H Urine Protein 100 A Urine Occult Blood 0.03 A Ur Leukocyte Esterase 250 A Urine RBC 16 H Urine WBC 29 H Hyaline Casts 28 H 08/18/17 13:35 WBC 17.1 H RBC 3.89 L Hgb 12.1 L Hct 35.8 L POC Hct RDW 15.0 H Plt Count Gran % 78.7 H Bibb % (Auto) 0.2 L Gran # 13.4 H Bibb # (Auto) 0 L Band Neutrophils % Lymphocytes % WBC Morphology Toxic Granulation Dohle Bodies Platelet Estimate RBC Morphology Anisocytosis ESR VBG Lactic Acid Potassium Chloride Anion Gap POC BUN BUN Creatinine POC Creatinine Glucose POC Glucose Calcium POC WB Ioniz Calcium Magnesium GGT Alkaline Phosphatase Albumin Globulin Urine Protein Urine Occult Blood Ur Leukocyte Esterase Urine RBC Urine WBC Hyaline Casts Meds: Medications Acetaminophen (Tylenol) 650 mg PO Q4-6HP PRN PRN Reason: PAIN/FEVER > 101 Albuterol Sulfate (Ventolin) 2 puff INH Q6HP PRN PRN Reason: shortness of breath or wheezing Citalopram Hydrobromide (Celexa) 30 mg PO QDAY [facility] Last Admin: 08/20/17 09:52 Dose: 30 mg Hydromorphone HCl (Dilaudid) 0.25 mg IV Q2HP PRN PRN Reason: PAIN LEVEL > 6 Last Admin: 08/20/17 07:22 Dose: 0.25 mg Magnesium Sulfate (Magnesium Sulfate) 2 gm in 50 mls @ 50 mls/hr IV UD PRN PRN Reason: MG = or < 1.7 Sodium Chloride (Sodium Chloride 0.9%) 1,000 mls @ 0 mls/hr IV BOLUS [facility] PRN Reason: Wide Open Last Infusion: 08/19/17 12:18 Dose: Infused Acetaminophen (Ofirmev) 1,000 mg in 100 mls @ 200 mls/hr IV Q6HP PRN PRN Reason: PAIN/FEVER > 101 Piperacillin Sod/Tazobactam (Sod 3.375 gm/ Dextrose) 50 mls @ 100 mls/hr IV Q6H [facility] Last Infusion: 08/20/17 06:04 Dose: Infused Sodium Chloride (Sodium Chloride 0.9%) 1,000 mls @ 100 mls/hr IV .Q10H [facility] Last Admin: 08/20/17 09:59 Dose: 100 mls/hr Norepinephrine Bitartrate 16 (mg/ Sodium Chloride) 250 mls @ 4.68 mls/hr IV PRN PRN; Protocol; 5 MCG/MIN PRN Reason: Hypotension Sodium Chloride (Sodium Chloride 0.9%) 250 mls @ 20 mls/hr IV .[id number] [facility] Last Admin: 08/20/17 04:55 Dose: Not Given Lactobacillus Rhamnosus (Culturelle) 1 cap PO BID [facility] Last Admin: 08/20/17 09:52 Dose: 1 cap Meclizine HCl (Antivert) 25 mg PO TIDP PRN PRN Reason: dizziness Methocarbamol (Robaxin) 500 mg PO BID [facility] Last Admin: 08/20/17 09:52 Dose: 500 mg Ondansetron HCl (Zofran) 4 mg IV Q4-6HP PRN PRN Reason: Nausea And Vomiting Last Admin: 08/20/17 04:58 Dose: 4 mg Oxybutynin Chloride (Ditropan) 10 mg PO QDAY PRN PRN Reason: Bladder spasms or leakage Lenalidomide [ Revlimid] 10 Mg Tablet 1 dose PO [facility] Stop: 08/30/17 21:01 Last Admin: 08/19/17 21:53 Dose: 1 dose Morphine Pain Pump 2 (.447 Mg) 0 dose INTRATHECA DAILY [facility] Last Admin: 08/20/17 09:53 Dose: Not Given Potassium Chloride (Klor-Con) 40 meq PO DAILYP PRN PRN Reason: K+ < 3.5 Senna/Docusate Sodium (Senna Plus Tablet) 1 tab PO [facility] Last Admin: 08/19/17 21:54 Dose: 1 tab Sodium Chloride (Saline Flush) 10 ml IV Q8 [facility] Last Admin: 08/20/17 05:27 Dose: 10 ml Tramadol HCl (Ultram) 50 mg PO Q6HP PRN PRN Reason: pain Trazodone HCl (Desyrel) 50 mg PO HSP PRN PRN Reason: Insomnia Medical - PN: A/P - Time Spent With Patient Total time spent is greater than 50% in coordination of care (as documented) at patient's floor/unit and/or counseling patient: 25 - 35 minutes - Narrative A/P Narrative: * Severe sepsis secondary to ischemic colitis-on conservative management/NPO/ antibiotic coverage.clinically improving. Surgery on board * Acute mental status change- sepsis end organ dysfunction. clinically * LESLI- secondary to sepsis end organ dysfunction. Clinically improving with crystalloids. Nephrology on board * GI bleed- likely secondary to ischemic colitis. Continue monitoring. hemoglobin 8.6.down from 12.1. Transfuse if less than 8 * complicated UTI-continue antibiotic coverage * history of congestive heart failure-wait echocardiogram * DNR * Prophylaxis on SCDs plan * sepsis management per protocol * continue antibiotics * improved prognosis Medical - PN: Qual - VTE Deep Vein Thrombosis/Pulmonary Embolism Present on Admission: No
[2017-08-20 12:59] LABS: Blood Urea Nitrogen 27 mg/dl (8-23)
[2017-08-20] MEDS ORDERED: traZODone HCL 50 MG TABLET PO PRN (13:06)
[2017-08-20] MEDS ORDERED: OXYBUTYNIN CHLORIDE 5 MG TABLET PO PRN (13:06)
[2017-08-20] MEDS ORDERED: NOREPINEPHRINE BITARTRATE 16 MG in 0.9 % SODIUM CHLORIDE 234 ML IV PRN (13:06)
[2017-08-20] MEDS ORDERED: MECLIZINE 25 MG TABLET PO PRN (13:06)
[2017-08-20] MEDS ORDERED: 0.9 % SODIUM CHLORIDE 1,000 ML IV SCH (13:06)
[2017-08-20] MEDS ORDERED: ALBUTEROL SULFATE 1 PUFF INHALER INH PRN (13:06)
[2017-08-20] MEDS ORDERED: ACETAMINOPHEN 325 MG TABLET PO PRN (13:06)
[2017-08-20] MEDS ORDERED: traMADol 50 MG TABLET PO PRN (13:06)
[2017-08-20] MEDS ORDERED: ONDANSETRON 4 MG/2 ML VIAL IV PRN (13:06)
[2017-08-20] MEDS ORDERED: MAGNESIUM SULFATE 2 GM/50 ML BAG IV PRN (13:06)
[2017-08-20] MEDS ORDERED: ACETAMINOPHEN 1,000 MG/100 ML BOTTLE IV PRN (13:06)
[2017-08-20] MEDS ORDERED: POTASSIUM CHLORIDE 20 MEQ PACKET PO PRN (13:06)
[2017-08-20] MEDS: LENALIDOMIDE 10 MG PO SCH (20:32)
[2017-08-20] MEDS ORDERED: SENNOSIDES/DOCUSATE SODIUM 1 TAB TABLET PO SCH (21:00)
[2017-08-20] MEDS ORDERED: LENALIDOMIDE 10 MG PO SCH (21:00)
[2017-08-21] MEDS: PIPERACILLIN SODIUM/TAZOBACTAM 3.375 GM in DEXTROSE 5% IN WATER 50 ML IV SCH ×2 (01:17→05:16)
[2017-08-21] MEDS: 0.9 % SODIUM CHLORIDE 250 ML IV SCH ×2 (02:48→02:49)
[2017-08-21 04:56] LABS: Mean Cell Volume 92.8 fL (80.0-100.0); Mean Corpuscular HGB Conc 33.7 g/dL (31.0-36.0); Mean Corpuscular Hemoglobin 31.3 pg (26.0-34.0); Platelet Count 132 K/mcL (140-440); RBC 2.78 M/mcL (4.50-5.90); Red Cell Distribution Width 14.9 % (11.5-14.5)
[2017-08-21 05:12] LABS: ALT/SGPT 7 U/l (0-40); Albumin 3.1 gm/dL (3.2-5.2); Alkaline Phosphatase 85 U/L (39-117); Bilirubin,Direct < 0.2 mg/dL (0.0-0.3); Blood Urea Nitrogen 21 mg/dl (8-23); Gamma Glutamyl Transpeptidase 9 U/L (8-61); Uric Acid 2.7 mg/dL (2.5-8.0)
[2017-08-21] MEDS: 0.9 % SODIUM CHLORIDE 10 ML SYRINGE IV SCH ×4 (05:16→21:20)
[2017-08-21 05:56] LABS: Band Neutrophils % 4 % (0-10); Eosinophils % (Manual) 3 % (0-7); Lymphocytes % 20 % (15-49); Monocytes % (Manual) 4 % (1-12); Platelet Estimate DECREASED (NORMAL); RBC Morphology NORMAL (NORMAL); Segmented Neutrophils % 69 % (38-78)
--- NOTE | 2017-08-21 06:01 | Nephrology Progress Note ---
Subjective Patient information: Note initiated : 08/21/17 at 5:59 am Kenneth Encinas is an 82-year-old male admitted on 08/18/17 for acute sepsis due to diverticulitis. Nephrology consultation requested for acute kidney injury associated with hyperkalemia. Chief Complaint: Abdominal pain. Principal diagnosis: Acute kidney injury with hyperkalemia Interval history: Hemodynamically stable. Pertinent ROS: Less abdominal pain. Leakage of urine around Gonzalez. Swollen penis. Objective - Vital Signs Vital signs: Vital Signs Temp Pulse Pulse Resp BP BP Pulse Ox 08/21/17 04:03 66 15 98 08/21/17 04:01 98.3 F 58 L 12 135/75 96 08/21/17 00:48 59 L 13 97 08/21/17 00:01 98.6 F 59 L 18 99/73 97 08/20/17 20:02 98.6 F 15 107/57 95 08/20/17 19:30 74 96 08/20/17 16:57 98.0 F 16 107/53 95 08/20/17 16:01 60 13 129/96 96 08/20/17 15:38 66 15 107/53 93 08/20/17 12:01 98.8 F 52 L 13 92/58 91 08/20/17 11:29 56 L 13 100 08/20/17 11:01 74 17 136/82 98 08/20/17 10:01 11 L 92/66 08/20/17 09:01 66 15 112/95 96 08/20/17 08:35 79 15 107/79 95 08/20/17 08:01 60 20 85/69 99 08/20/17 06:57 98.0 F 72 15 114/65 97 08/20/17 06:40 98 08/20/17 06:01 72 20 123/65 94 Intake and Output 08/20/17 08/20/17 08/21/17 13:59 21:59 05:59 Intake Total 1050 / 1050 1050 / 1050 330 / 330 Output Total 225 / 225 350 / 350 Balance 825 / 825 700 / 700 330 / 330 Intake: IV 1050 / 1050 1050 / 1050 50 / 50 Sodium Chloride 0.9% 1,000 ml @ 1000 / 1000 100 mls/hr IV .Q10H [facility] Rx#: [id number] Zosyn 3.375 gm In Dextrose 5% 50 / 50 50 / 50 50 / 50 in Water 50 ml @ 100 mls/hr IV Q6H [facility] Rx#:[id number] Oral 280 / 280 Output: Urine Catheter Amount 225 / 225 350 / 350 Other: Stool Size Moderate Stool Color Yellow Stool Consistency Loose # Bowel Movements 1 1 # of times incontinent of 1 Bowels Weight 195 lb 1.6 oz Patient Weight 08/21/17 05:59 Weight 195 lb 1.6 oz Intake & Output: Intake & Output 08/20/17 08/20/17 08/21/17 13:59 21:59 05:59 Intake Total 1050 / 1050 1050 / 1050 330 / 330 Output Total 225 / 225 350 / 350 Balance 825 / 825 700 / 700 330 / 330 Weight 195 lb 1.6 oz Intake: IV 1050 / 1050 1050 / 1050 50 / 50 Sodium Chloride 0.9% 1,000 ml @ 1000 / 1000 100 mls/hr IV .Q10H [facility] Rx#: [id number] Zosyn 3.375 gm In Dextrose 5% 50 / 50 50 / 50 50 / 50 in Water 50 ml @ 100 mls/hr IV Q6H [facility] Rx#:[id number] Oral 280 / 280 Output: Urine Catheter Amount 225 / 225 350 / 350 Other: Stool Size Moderate Stool Color Yellow Stool Consistency Loose # Bowel Movements 1 1 # of times incontinent of 1 Bowels - General Appearance General appearance: appears started age EENT: mucous membranes moist Neck: supple Respiratory: clear Cardiology: normal S1, normal S2 Gastrointestinal: tenderness Integumentary: warm and dry Neurologic: no focal deficit, alert and oriented x3 Musculoskeletal: no erythema Psychiatric: mood/affect appropriate, cooperative - Lab 08/21/17 03:37 08/21/17 03:37 Most recent lab results Calcium 7.2 mg/dl (8.6-10.4) L 08/21/17 03:37 Phosphorus 2.1 mg/dL (2.7-4.5) L 08/21/17 03:37 Magnesium 2.5 mg/dL (1.6-2.5) 08/21/17 03:37 Assessment and Plan (1) Acute kidney injury Work up: CT Abdomen and Pelvis on 08/18/17: No hydronephrosis. There is a large bilobed right renal cyst. No solid mass. There is some calcification within the wall of this right renal cyst. Progress; Hemodynamically stable. Creatinine decreased from 1.3 to 1.2 in the past 24 hours. Urine output 1350 ml reported. Discussion: Acute kidney injury associated with hypotension due to severe sepsis, resolving. Plan: No need for hemodialysis. Monitor with metabolic panel and urine output. Nephrology will sign off. Please call if further follow up needed. Status: Acute Priority: High (2) Severe sepsis with acute organ dysfunction Due to acute diverticulitis. Management by hospitalist team. Status: Acute Priority: High
--- NOTE | 2017-08-21 07:37 | Internal Med Progress Note ---
Medical - PN: Subj Patient information: Note initiated : 08/21/17 at 7:32 am Service Date, if different from initiated Date: [] Patient: Kenneth Encinas 82 y/o M admitted on 08/18/17 for Lower Abd Pain/ Diverticulitis, Sepsis. Chief Complaint: [] Interval history: August 18- patient admitted with progressive diarrhea and shortness of breath and weakness and mental status change. CT abdomen service to above colitis along with bloody stool on presentation. GI/nephrology/surgery on board. On broad antibiotic coverage in light of severe sepsis with tachycardia and white count over 17,000. Elevated lactate. Admitted to medical floor. creatinine 1.4. hemoglobin 12.1 August 19- patient clinically deteriorating. Staples score 18. white count down 8.5. hemoglobin down from 12.1-9.4. on 4 hourly hemoglobin check. Surgery and nephrology on board. On crystalloid challenge to maintain map at goal. Initiate vasopressors. De-escalate antibiotics from Levaquin Flagyl to Zosyn. case discussed with son Jason on phone. Explained grim prognosis. Clinical visit in the evening. Discussed clinical deterioration with multiple end organ dysfunction including acute renal failure with creatinine of 1.9. Nephrology recommends continuing crystalloid bolus/pressors if indicated. Surgery recommends continue existing treatment due to high probability ischemic colitis. 3 L oxygen systolic hovering around mid 90s. Critically ill August 20- patient hemodynamic stable. Doing a lot better. Improved diarrhea and bloody stool. White count downto 6.2 with creatinine improved from 1.9- 1.3. Surgery and nephrology on board. Surgery recommended initiation of oral diet in 24 hours. Map at goal. transfer to telemetry. No overnight events including fever chills worsening shortness of breath chest pain. August 21-no overnight events. No concerns per staff. Renal function normalized. White count normalized. No fever chills nausea vomiting. Patient alert and oriented. No family at bedside. no telemetry events. hemoglobin 8.7. transfer to medical floor. Possible transfer to SNF in 24-48 hours - Constitutional Vitals: Vital Signs Temp Pulse Resp BP Pulse Ox 98.3 F 66 15 135/75 98 08/21/17 04:01 08/21/17 04:03 08/21/17 04:03 08/21/17 04:01 08/21/17 04:03 Period Temp Pulse Resp BP Sys/Zambrano Pulse Ox Last 24 Hr 98.0 F-98.8 F 52-79 11-20 85-136/53-96 91-100 Intake and Output 08/20/17 08/21/17 08/21/17 21:59 05:59 13:59 Intake Total 1250 / 1250 630 / 630 50 / 50 Output Total 350 / 350 300 / 300 Balance 900 / 900 330 / 330 50 / 50 Weight 195 lb 1.6 oz Intake & Output: Intake & Output 08/20/17 08/21/17 08/21/17 21:59 05:59 13:59 Intake Total 1250 / 1250 630 / 630 50 / 50 Output Total 350 / 350 300 / 300 Balance 900 / 900 330 / 330 50 / 50 Weight 195 lb 1.6 oz Intake: IV 1050 / 1050 50 / 50 50 / 50 Zosyn 3.375 gm In Dextrose 5% 50 / 50 50 / 50 50 / 50 in Water 50 ml @ 100 mls/hr IV Q6H [facility] Rx#:[id number] Oral 200 / 200 580 / 580 Output: Urine Catheter Amount 350 / 350 300 / 300 Other: # Bowel Movements 1 # of times incontinent of 1 1 Bowels General appearance: cooperative, no acute distress Exam: resting comfortably nonlabored breathing No telemetry events No lymphedema Medical - PN: Obj Da - Labs CBC & Chem 7: 08/21/17 03:37 08/21/17 03:37 Labs: Abnormal Lab Results 08/21/17 08/21/17 08/20/17 03:37 03:37 11:20 WBC RBC 2.78 L Hgb 8.7 L Hct 25.8 L POC Hct RDW 14.9 H Plt Count 132 L Gran % [place] % (Auto) Gran # [place] # (Auto) Band Neutrophils % Lymphocytes % WBC Morphology Toxic Granulation Dohle Bodies Platelet Estimate Decreased A RBC Morphology Anisocytosis ESR VBG Lactic Acid Potassium Chloride Anion Gap POC BUN BUN 27 H Creatinine POC Creatinine Glucose 114 H POC Glucose Calcium 7.2 L 7.0 L POC WB Ioniz Calcium Phosphorus 2.1 L Magnesium GGT Alkaline Phosphatase Albumin 3.1 L Globulin Urine Protein Urine Occult Blood Ur Leukocyte Esterase Urine RBC Urine WBC Hyaline Casts 08/20/17 08/20/17 08/19/17 05:00 03:30 20:00 WBC RBC 2.78 L Hgb 8.6 L 8.9 L Hct 25.7 L POC Hct RDW 15.3 H Plt Count 124 L Gran % [place] % (Auto) Gran # [place] # (Auto) Band Neutrophils % Lymphocytes % WBC Morphology Abnorm A Toxic Granulation Few A Dohle Bodies Rare A Platelet Estimate Decreased A RBC Morphology Abnorm A Anisocytosis Few A ESR VBG Lactic Acid Potassium Chloride Anion Gap POC BUN BUN 32 H Creatinine 1.3 H POC Creatinine Glucose POC Glucose Calcium 7.3 L POC WB Ioniz Calcium Phosphorus Magnesium GGT 6 L Alkaline Phosphatase Albumin 3.1 L Globulin Urine Protein Urine Occult Blood Ur Leukocyte Esterase Urine RBC Urine WBC Hyaline Casts 08/19/17 08/19/17 08/19/17 17:26 16:03 11:57 WBC RBC Hgb 9.0 L 9.2 L Hct POC Hct RDW Plt Count Gran % [place] % (Auto) Gran # [place] # (Auto) Band Neutrophils % Lymphocytes % WBC Morphology Toxic Granulation Dohle Bodies Platelet Estimate RBC Morphology Anisocytosis ESR VBG Lactic Acid Potassium Chloride Anion Gap POC BUN BUN 42 H Creatinine 1.5 H POC Creatinine Glucose 107 H POC Glucose Calcium 7.1 L POC WB Ioniz Calcium Phosphorus Magnesium GGT Alkaline Phosphatase Albumin Globulin Urine Protein Urine Occult Blood Ur Leukocyte Esterase Urine RBC Urine WBC Hyaline Casts 08/19/17 08/19/17 08/19/17 08:11 04:15 04:15 WBC RBC 3.11 L Hgb 9.4 L 9.5 L Hct 28.6 L POC Hct RDW 15.3 H Plt Count Gran % [place] % (Auto) Gran # [place] # (Auto) Band Neutrophils % 22 H Lymphocytes % 8 L WBC Morphology Toxic Granulation Dohle Bodies Platelet Estimate RBC Morphology Anisocytosis ESR VBG Lactic Acid Potassium 5.4 H Chloride Anion Gap POC BUN BUN 49 H Creatinine 1.8 H POC Creatinine Glucose 125 H POC Glucose Calcium 7.8 L POC WB Ioniz Calcium Phosphorus Magnesium 2.7 H GGT 6 L Alkaline Phosphatase Albumin Globulin Urine Protein Urine Occult Blood Ur Leukocyte Esterase Urine RBC Urine WBC Hyaline Casts 08/19/17 08/18/17 08/18/17 00:20 17:57 14:04 WBC RBC Hgb 9.8 L Hct POC Hct 37.0 L RDW Plt Count Gran % [place] % (Auto) Gran # [place] # (Auto) Band Neutrophils % Lymphocytes % WBC Morphology Toxic Granulation Dohle Bodies Platelet Estimate RBC Morphology Anisocytosis ESR VBG Lactic Acid 3.3 H Potassium Chloride Anion Gap POC BUN 41 H BUN Creatinine POC Creatinine 1.4 H Glucose POC Glucose 222 H Calcium POC WB Ioniz Calcium 1.02 L Phosphorus Magnesium GGT Alkaline Phosphatase Albumin Globulin Urine Protein Urine Occult Blood Ur Leukocyte Esterase Urine RBC Urine WBC Hyaline Casts 08/18/17 08/18/17 08/18/17 13:47 13:35 13:35 WBC RBC Hgb Hct POC Hct RDW Plt Count Gran % [place] % (Auto) Gran # [place] # (Auto) Band Neutrophils % Lymphocytes % WBC Morphology Toxic Granulation Dohle Bodies Platelet Estimate RBC Morphology Anisocytosis ESR 25 H VBG Lactic Acid Potassium Chloride 93 L Anion Gap 23.0 H POC BUN BUN 42 H Creatinine 1.4 H POC Creatinine Glucose 214 H POC Glucose Calcium POC WB Ioniz Calcium Phosphorus Magnesium GGT Alkaline Phosphatase 157 H Albumin Globulin 3.8 H Urine Protein 100 A Urine Occult Blood 0.03 A Ur Leukocyte Esterase 250 A Urine RBC 16 H Urine WBC 29 H Hyaline Casts 28 H 08/18/17 13:35 WBC 17.1 H RBC 3.89 L Hgb 12.1 L Hct 35.8 L POC Hct RDW 15.0 H Plt Count Gran % 78.7 H [place] % (Auto) 0.2 L Gran # 13.4 H [place] # (Auto) 0 L Band Neutrophils % Lymphocytes % WBC Morphology Toxic Granulation Dohle Bodies Platelet Estimate RBC Morphology Anisocytosis ESR VBG Lactic Acid Potassium Chloride Anion Gap POC BUN BUN Creatinine POC Creatinine Glucose POC Glucose Calcium POC WB Ioniz Calcium Phosphorus Magnesium GGT Alkaline Phosphatase Albumin Globulin Urine Protein Urine Occult Blood Ur Leukocyte Esterase Urine RBC Urine WBC Hyaline Casts Meds: Medications Acetaminophen (Tylenol) 650 mg PO Q4-6HP PRN PRN Reason: PAIN/FEVER > 101 Albuterol Sulfate (Ventolin) 2 puff INH Q6HP PRN PRN Reason: shortness of breath or wheezing Citalopram Hydrobromide (Celexa) 30 mg PO QDAY DARINEL Hydromorphone HCl (Dilaudid) 0.25 mg IV Q2HP PRN PRN Reason: PAIN LEVEL > 6 Last Admin: 08/20/17 21:56 Dose: 0.25 mg Magnesium Sulfate (Magnesium Sulfate) 2 gm in 50 mls @ 50 mls/hr IV UD PRN PRN Reason: MG = or < 1.7 Norepinephrine Bitartrate 16 (mg/ Sodium Chloride) 250 mls @ 4.68 mls/hr IV PRN PRN; Protocol; 5 MCG/MIN PRN Reason: Hypotension Sodium Chloride (Sodium Chloride 0.9%) 1,000 mls @ 100 mls/hr IV .Q10H [facility] Last Admin: 08/20/17 20:20 Dose: 100 mls/hr Acetaminophen (Ofirmev) 1,000 mg in 100 mls @ 200 mls/hr IV Q6HP PRN PRN Reason: PAIN/FEVER > 101 Piperacillin Sod/Tazobactam (Sod 3.375 gm/ Dextrose) 50 mls @ 100 mls/hr IV Q6H [facility] Last Infusion: 08/21/17 06:00 Dose: Infused Sodium Chloride (Sodium Chloride 0.9%) 250 mls @ 20 mls/hr IV .[id number] [facility] Last Admin: 08/21/17 02:49 Dose: Not Given Lactobacillus Rhamnosus (Culturelle) 1 cap PO BID [facility] Last Admin: 08/20/17 20:30 Dose: 1 cap Meclizine HCl (Antivert) 25 mg PO TIDP PRN PRN Reason: dizziness Methocarbamol (Robaxin) 500 mg PO BID [facility] Last Admin: 08/20/17 20:30 Dose: 500 mg Ondansetron HCl (Zofran) 4 mg IV Q4-6HP PRN PRN Reason: Nausea And Vomiting Last Admin: 08/20/17 21:51 Dose: 4 mg Oxybutynin Chloride (Ditropan) 10 mg PO QDAY PRN PRN Reason: Bladder spasms or leakage Last Admin: 08/20/17 14:22 Dose: 10 mg Lenalidomide [ Revlimid] 10 Mg Tablet 1 dose PO [facility] Stop: 08/30/17 21:01 Last Admin: 08/20/17 20:40 Dose: 1 dose Morphine Pain Pump 2 (.447 Mg) 0 dose INTRATHECA DAILY [facility] Potassium Chloride (Klor-Con) 40 meq PO DAILYP PRN PRN Reason: K+ < 3.5 Senna/Docusate Sodium (Senna Plus Tablet) 1 tab PO [facility] Last Admin: 08/20/17 21:03 Dose: Not Given Sodium Chloride (Saline Flush) 10 ml IV Q8 [facility] Last Admin: 08/21/17 05:16 Dose: 10 ml Tramadol HCl (Ultram) 50 mg PO Q6HP PRN PRN Reason: pain Trazodone HCl (Desyrel) 50 mg PO HSP PRN PRN Reason: Insomnia Medical - PN: A/P - Time Spent With Patient Total time spent is greater than 50% in coordination of care (as documented) at patient's floor/unit and/or counseling patient: 15 - 24 minutes - Narrative A/P Narrative: * Ischemic colitis-clinically improving.surgery on board. On conservative management * LESLI- secondary to sepsis end organ dysfunction. clinically resolved. Creatinine down to 1.2 * Severe sepsis secondary to ischemic colitis-clinically improving. on Zosyn. De-escalate antibiotics in 24 hours * Acute mental status change- sepsis end organ dysfunction. clinically resolved * GI bleed- likely secondary to ischemic colitis. hemoglobin stabilized at 8.7. No indication for transfusion * complicated multidrug-resistant Proteus UTI-6 antibiotic to Rocephin. * history of congestive heart failure-wait echocardiogram * DNR * Prophylaxis start heparin plan * Clears and advance diet per surgery * switch antibiotic to Rocephin in light of multidrug-resistant Proteus * Start Flagyl * transfer to medical floor * tart prophylaxis on heparin Medical - PN: Qual - VTE Deep Vein Thrombosis/Pulmonary Embolism Present on Admission: No
[2017-08-21] MEDS ORDERED: metroNIDAZOLE 500 MG/100 ML BAG IV SCH (08:00)
[2017-08-21] MEDS: METHOCARBAMOL 500 MG TABLET PO SCH ×3 (08:31→21:17)
[2017-08-21] MEDS: LACTOBACILLUS 1 CAPSULE PO SCH ×3 (08:31→21:17)
[2017-08-21] MEDS ORDERED: POTASSIUM CHLORIDE 20 MEQ PACKET PO PRN (08:52)
[2017-08-21] MEDS ORDERED: ALBUTEROL SULFATE 1 PUFF INHALER INH PRN (08:52)
[2017-08-21] MEDS ORDERED: MAGNESIUM SULFATE 2 GM/50 ML BAG IV PRN (08:52)
[2017-08-21] MEDS ORDERED: OXYBUTYNIN CHLORIDE 5 MG TABLET PO PRN (08:52)
[2017-08-21] MEDS ORDERED: traZODone HCL 50 MG TABLET PO PRN (08:52)
[2017-08-21] MEDS ORDERED: HYDROmorphone 2 MG/ML VIAL IV PRN (08:52)
[2017-08-21] MEDS ORDERED: ACETAMINOPHEN 1,000 MG/100 ML BOTTLE IV PRN (08:52)
[2017-08-21] MEDS ORDERED: traMADol 50 MG TABLET PO PRN (08:52)
[2017-08-21] MEDS ORDERED: MECLIZINE 25 MG TABLET PO PRN (08:52)
[2017-08-21] MEDS ORDERED: CITALOPRAM 20 MG TABLET PO SCH (09:00)
[2017-08-21] MEDS ORDERED: MORPHINE INTRATHECA SCH (09:00)
[2017-08-21] MEDS ORDERED: HEPARIN 5,000 UNIT/ML VIAL SQ SCH (09:00)
[2017-08-21] MEDS ORDERED: cefTRIAXone 1 GM VIAL IV SCH (09:00)
[2017-08-21] MEDS ORDERED: FUROSEMIDE 20 MG/2 ML VIAL IV ONE (09:01)
[2017-08-21] MEDS: 0.9 % SODIUM CHLORIDE 1,000 ML IV SCH (09:06)
[2017-08-21] MEDS: CITALOPRAM 20 MG TABLET PO SCH (09:10)
[2017-08-21] MEDS: HEPARIN 5,000 UNIT/ML VIAL SQ SCH ×2 (09:11→21:17)
[2017-08-21] MEDS: MORPHINE INTRATHECA SCH (09:12)
[2017-08-21] MEDS: cefTRIAXone 1 GM VIAL IV SCH (09:26)
[2017-08-21] MEDS: metroNIDAZOLE 500 MG/100 ML BAG IV SCH ×2 (12:27→19:38)
--- NOTE | 2017-08-21 13:52 | General Surgery Progress Note ---
Subjective Patient reports: feels better, pain is less, tolerating liquids well, flatus, bowel movement, afebrile Narrative: Note initiated : 08/21/17 at 1:50 pm Service Date, if different from initiated Date: [] Patient: Kenneth Encinas 82 y/o M admitted on 08/18/17 for Lower Abd Pain/ Diverticulitis, Sepsis. Chief Complaint: [Patient continues to improve. Vital signs were totally stable. He denies abdominal pain. He denies nausea and has tolerated soft diet. He has had soft bowel movements with passage of gas. He remains afebrile. White blood count is normal. Hemoglobin is stable at 8.7. BUN and creatinine are normal. Urine output is excellent.] Objective Temp Pulse Resp BP Pulse Ox 96.9 F L 63 16 113/64 94 08/21/17 12:01 08/21/17 12:01 08/21/17 12:01 08/21/17 12:01 08/21/17 12:01 - Additional Data Intake & Output - Last 24 hours: Intake & Output 08/19/17 08/20/17 08/21/17 08/22/17 05:59 05:59 05:59 05:59 Intake Total 1500 / 1500 6700 / 6700 2980 / 2980 1710 / 1710 Output Total 275 / 275 1351 / 1351 875 / 875 725 / 725 Balance 1225 / 1225 5349 / 5349 2105 / 2105 985 / 985 Weight 183 lb 8 oz 207 lb 14.334 oz 195 lb 1.6 oz 195 lb 1.6 oz - General physical appearance well developed, well nourished, no distress, chronically ill - Eyes PERRL, normal ocular movement - ENT normal pinna, normal nares, normal mucosa, no hearing loss, no congestion - Neck no masses, no bruits, trachea midline, no lymphadectomy, no venous distension - Respiratory normal expansion, normal respiratory effort, clear to percussion, other ( Basilar rales bilaterally) - Cardiovascular Cardiovascular exam: Present: normal rate and rhythm, RRR, +S1, +S2. Absent: JVD - Abdomen tender (Tenderness to palpation in both lower quadrants), bowel sounds ( hyperactive bowel sounds), surgical scars (none), masses (none) - Integumentary no rash, no growths, no abnormal pigmentation - Neurologic normal coordination - Musculoskeletal other - Psychiatric oriented to time, oriented to person, oriented to place, speech is normal, memory intact - Labs 08/21/17 03:37 08/21/17 03:37 Diabetes panel 08/21/17 Range/Units 03:37 Sodium 141 (133-145) mmol/L Potassium 3.7 (3.3-5.1) mmol/L Chloride 107 (96-108) mmol/L Carbon Dioxide 24 (22-30) mmol/L BUN 21 (8-23) mg/dl Creatinine 1.2 (0.7-1.2) mg/dl Glucose 89 (70-105) mg/dL Calcium 7.2 L (8.6-10.4) mg/dl AST 18 (0-37) U/l ALT 7 (0-40) U/l Alkaline Phosphatase 85 (39-117) U/L Total Protein 6.2 (5.9-8.4) gm/dL Albumin 3.1 L (3.2-5.2) gm/dL Triglycerides 88 (<150) mg/dl Calcium panel 08/21/17 Range/Units 03:37 Calcium 7.2 L (8.6-10.4) mg/dl Phosphorus 2.1 L (2.7-4.5) mg/dL Albumin 3.1 L (3.2-5.2) gm/dL Pituitary panel 08/21/17 Range/Units 03:37 Sodium 141 (133-145) mmol/L Potassium 3.7 (3.3-5.1) mmol/L Chloride 107 (96-108) mmol/L Carbon Dioxide 24 (22-30) mmol/L BUN 21 (8-23) mg/dl Creatinine 1.2 (0.7-1.2) mg/dl Glucose 89 (70-105) mg/dL Calcium 7.2 L (8.6-10.4) mg/dl Adrenal panel 08/21/17 Range/Units 03:37 Sodium 141 (133-145) mmol/L Potassium 3.7 (3.3-5.1) mmol/L Chloride 107 (96-108) mmol/L Carbon Dioxide 24 (22-30) mmol/L BUN 21 (8-23) mg/dl Creatinine 1.2 (0.7-1.2) mg/dl Glucose 89 (70-105) mg/dL Calcium 7.2 L (8.6-10.4) mg/dl Total Bilirubin 0.5 (0.0-1.0) mg/dL AST 18 (0-37) U/l ALT 7 (0-40) U/l Alkaline Phosphatase 85 (39-117) U/L Total Protein 6.2 (5.9-8.4) gm/dL Albumin 3.1 L (3.2-5.2) gm/dL Assessment and Plan (1) Acute ischemic colitis Status: Acute Assessment and plan: Patient is clinically improving to present therapy and it will be continued. May advance to soft diet Current Visit: Yes (2) Hypertension Status: Acute Assessment and plan: Blood pressure is now in normal range Current Visit: Yes (3) Cholelithiasis and cholecystitis without obstruction Status: Acute Assessment and plan: No findings to suggest cholecystitis Current Visit: Yes (4) Congestive heart failure of unknown etiology Status: Acute Current Visit: Yes (5) Benign prostatic hyperplasia with lower urinary tract symptoms Status: Acute Current Visit: Yes - Time Spent With Patient Total time spent is greater than 50% in coordination of care (as documented) at patient's floor/unit and/or counseling patient:
[2017-08-21] MEDS: SENNOSIDES/DOCUSATE SODIUM 1 TAB TABLET PO SCH (21:17)
[2017-08-21] MEDS: LENALIDOMIDE 10 MG PO SCH (21:18)
[2017-08-22] MEDS: metroNIDAZOLE 500 MG/100 ML BAG IV SCH ×4 (00:19→22:30)
[2017-08-22] MEDS: 0.9 % SODIUM CHLORIDE 10 ML SYRINGE IV SCH ×4 (05:18→22:19)
[2017-08-22 06:07] LABS: Basophils # (Auto) 0 K/mcL (0.0-0.3); Basophils % (Auto) 0.2 % (0.0-2.0); Eosinophils # (Auto) 0.4 K/mcL (0.0-0.7); Eosinophils % (Auto) 10.2 % (0.0-7.0); Granulocytes % (Auto) 62.3 % (38.0-78.0); Lymphocytes % (Auto) 23.2 % (15.5-49.0); Mean Cell Volume 93.1 fL (80.0-100.0); Mean Corpuscular Hemoglobin 30.7 pg (26.0-34.0); Monocytes # (Auto) 0.2 K/mcL (0.1-0.9); Monocytes % (Auto) 4.1 % (1.0-12.0); Platelet Count 110 K/mcL (140-440); RBC 2.53 M/mcL (4.50-5.90); Red Cell Distribution Width 14.9 % (11.5-14.5)
[2017-08-22 06:47] LABS: ALT/SGPT 10 U/l (0-40); Alkaline Phosphatase 67 U/L (39-117); Bilirubin,Direct < 0.2 mg/dL (0.0-0.3); Blood Urea Nitrogen 20 mg/dl (8-23); Gamma Glutamyl Transpeptidase 8 U/L (8-61)
[2017-08-22] MEDS: METHOCARBAMOL 500 MG TABLET PO SCH ×2 (09:15→22:19)
[2017-08-22] MEDS: LACTOBACILLUS 1 CAPSULE PO SCH ×2 (09:15→22:19)
[2017-08-22] MEDS: CITALOPRAM 20 MG TABLET PO SCH (09:15)
[2017-08-22] MEDS: HEPARIN 5,000 UNIT/ML VIAL SQ SCH ×2 (09:16→22:19)
[2017-08-22] MEDS: cefTRIAXone 1 GM VIAL IV SCH ×2 (09:51→09:53)
[2017-08-22] MEDS: MORPHINE INTRATHECA SCH (09:52)
[2017-08-22] MEDS: CEFEPIME 1 GM VIAL IV SCH (11:27)
[2017-08-22] MEDS: ONDANSETRON 4 MG/2 ML VIAL IV PRN ×2 (13:02→20:04)
--- NOTE | 2017-08-22 13:45 | General Surgery Progress Note ---
Subjective Patient reports: feels better, pain is less, tolerating liquids well, flatus, bowel movement, afebrile Narrative: Note initiated : 08/22/17 at 1:42 pm Service Date, if different from initiated Date: [] Patient: Kenneth Encinas 82 y/o M admitted on 08/18/17 for Lower Abd Pain/ Diverticulitis, Sepsis. Chief Complaint: [. He is afebrile. He is afebrile. He is tolerating his full liquids without difficulty and is having bowel movements without bleeding. He denies nausea. His white blood count is 4.3 and hemoglobin is 7.8. BUN and creatinine are normal with creatinine 1.2. His platelets are down to 110, 000. Objective Temp Pulse Resp BP Pulse Ox 98.4 F 64 12 104/60 93 08/22/17 04:53 08/22/17 04:53 08/22/17 04:53 08/22/17 04:53 08/22/17 04:53 - Additional Data Intake & Output - Last 24 hours: Intake & Output 08/20/17 08/21/17 08/22/17 08/23/17 05:59 05:59 05:59 05:59 Intake Total 6700 / 6700 2980 / 2980 2360 / 2360 100 / 100 Output Total 1351 / 1351 875 / 875 950 / 950 Balance 5349 / 5349 2105 / 2105 1410 / 1410 100 / 100 Weight 207 lb 14.334 oz 195 lb 1.6 oz 200 lb - General physical appearance well developed, well nourished, no distress, moderate pain, chronically ill - Eyes PERRL, normal ocular movement - ENT normal pinna, normal nares, normal mucosa, no hearing loss, no congestion - Neck no masses, no bruits, trachea midline, no lymphadectomy, no venous distension - Respiratory normal expansion, normal respiratory effort, clear to percussion, clear to auscultation, other (Good breath sounds without rales rhonchi or wheezes) - Cardiovascular Cardiovascular exam: Present: normal rate and rhythm, RRR, +S1, +S2. Absent: JVD - Abdomen tender (matrix drier tender on the left side especially left lower quadrant but with good active bowel sounds), bowel sounds (present), surgical scars (none), masses (none) - Integumentary no rash, no growths, no abnormal pigmentation - Neurologic normal coordination, normal sensation - Psychiatric oriented to time, oriented to person, oriented to place, speech is normal, memory intact - Labs 08/22/17 04:40 08/22/17 04:40 Diabetes panel 08/22/17 Range/Units 04:40 Sodium 143 (133-145) mmol/L Potassium 3.7 (3.3-5.1) mmol/L Chloride 107 (96-108) mmol/L Carbon Dioxide 25 (22-30) mmol/L BUN 20 (8-23) mg/dl Creatinine 1.2 (0.7-1.2) mg/dl Glucose 100 (70-105) mg/dL Calcium 7.5 L (8.6-10.4) mg/dl AST 18 (0-37) U/l ALT 10 (0-40) U/l Alkaline Phosphatase 67 (39-117) U/L Total Protein 6.0 (5.9-8.4) gm/dL Albumin 3.0 L (3.2-5.2) gm/dL Triglycerides 88 (<150) mg/dl Calcium panel 08/22/17 Range/Units 04:40 Calcium 7.5 L (8.6-10.4) mg/dl Phosphorus 1.6 L (2.7-4.5) mg/dL Albumin 3.0 L (3.2-5.2) gm/dL Pituitary panel 08/22/17 Range/Units 04:40 Sodium 143 (133-145) mmol/L Potassium 3.7 (3.3-5.1) mmol/L Chloride 107 (96-108) mmol/L Carbon Dioxide 25 (22-30) mmol/L BUN 20 (8-23) mg/dl Creatinine 1.2 (0.7-1.2) mg/dl Glucose 100 (70-105) mg/dL Calcium 7.5 L (8.6-10.4) mg/dl Adrenal panel 08/22/17 Range/Units 04:40 Sodium 143 (133-145) mmol/L Potassium 3.7 (3.3-5.1) mmol/L Chloride 107 (96-108) mmol/L Carbon Dioxide 25 (22-30) mmol/L BUN 20 (8-23) mg/dl Creatinine 1.2 (0.7-1.2) mg/dl Glucose 100 (70-105) mg/dL Calcium 7.5 L (8.6-10.4) mg/dl Total Bilirubin 0.3 (0.0-1.0) mg/dL AST 18 (0-37) U/l ALT 10 (0-40) U/l Alkaline Phosphatase 67 (39-117) U/L Total Protein 6.0 (5.9-8.4) gm/dL Albumin 3.0 L (3.2-5.2) gm/dL Assessment and Plan (1) Acute ischemic colitis Status: Acute Assessment and plan: Patient is clinically improving to present therapy and it will be continued. May advance to soft diet Current Visit: Yes (2) Hypertension Status: Acute Assessment and plan: Blood pressure is now in normal range Current Visit: Yes (3) Cholelithiasis and cholecystitis without obstruction Status: Acute Assessment and plan: No findings to suggest cholecystitis Current Visit: Yes (4) Congestive heart failure of unknown etiology Status: Acute Current Visit: Yes (5) Benign prostatic hyperplasia with lower urinary tract symptoms Status: Acute Current Visit: Yes - Time Spent With Patient Total time spent is greater than 50% in coordination of care (as documented) at patient's floor/unit and/or counseling patient:
[2017-08-22] MEDS ORDERED: POTASSIUM PHOSPHATE 40 MEQ in DEXTROSE 5% IN WATER 500 ML IV ONE (14:22)
--- NOTE | 2017-08-22 14:24 | Internal Med Progress Note ---
Medical - PN: Subj Patient information: Note initiated : 08/22/17 at 2:21 pm Service Date, if different from initiated Date: [] Patient: Kenneth Encinas 82 y/o M admitted on 08/18/17 for Lower Abd Pain/ Diverticulitis, Sepsis. Chief Complaint: [] Interval history: August 18- patient admitted with progressive diarrhea and shortness of breath and weakness and mental status change. CT abdomen service to above colitis along with bloody stool on presentation. GI/nephrology/surgery on board. On broad antibiotic coverage in light of severe sepsis with tachycardia and white count over 17,000. Elevated lactate. Admitted to medical floor. creatinine 1.4. hemoglobin 12.1 August 19- patient clinically deteriorating. [place] score 18. white count down 8.5. hemoglobin down from 12.1-9.4. on 4 hourly hemoglobin check. Surgery and nephrology on board. On crystalloid challenge to maintain map at goal. Initiate vasopressors. De-escalate antibiotics from Levaquin Flagyl to Zosyn. case discussed with son Jason on phone. Explained grim prognosis. Clinical visit in the evening. Discussed clinical deterioration with multiple end organ dysfunction including acute renal failure with creatinine of 1.9. Nephrology recommends continuing crystalloid bolus/pressors if indicated. Surgery recommends continue existing treatment due to high probability ischemic colitis. 3 L oxygen systolic hovering around mid 90s. Critically ill August 20- patient hemodynamic stable. Doing a lot better. Improved diarrhea and bloody stool. White count downto 6.2 with creatinine improved from 1.9- 1.3. Surgery and nephrology on board. Surgery recommended initiation of oral diet in 24 hours. Map at goal. transfer to telemetry. No overnight events including fever chills worsening shortness of breath chest pain. August 21-no overnight events. No concerns per staff. Renal function normalized. White count normalized. No fever chills nausea vomiting. Patient alert and oriented. No family at bedside. no telemetry events. hemoglobin 8.7. transfer to medical floor. Possible transfer to SNF in 24-48 hours August 22 She is seen and examined no acute overnight events, patient tolerating p.o. diet well, moving gas had a bowel movement yesterday. His hemoglobin is dropped down to 7.8, patient denies any acute bleed. Phosphorus low will replace, monitor hemoglobin and transfuse if drops less than 7 Appreciate surgery consult Pertinent ROS: Denies headache, dizziness Denies chest pain, palpitations Denies cough or shortness of breath Denies abdominal pain, nausea or vomiting. - Constitutional Vitals: Vital Signs Temp Pulse Resp BP Pulse Ox 98.4 F 64 12 104/60 93 08/22/17 04:53 08/22/17 04:53 08/22/17 04:53 08/22/17 04:53 08/22/17 04:53 Period Temp Pulse Resp BP Sys/Zambrano Pulse Ox Last 24 Hr 97.8 F-98.4 F 58-71 12-16 104-120/52-64 92-97 Intake and Output 08/22/17 08/22/17 08/22/17 05:59 13:59 21:59 Intake Total 300 / 300 100 / 100 Output Total 225 / 225 Balance 75 / 75 100 / 100 Intake & Output: Intake & Output 08/22/17 08/22/17 08/22/17 05:59 13:59 21:59 Intake Total 300 / 300 100 / 100 Output Total 225 / 225 Balance 75 / 75 100 / 100 Intake: IV 100 / 100 100 / 100 Oral 200 / 200 Output: Urine Catheter Amount 225 / 225 Other: Stool Size Small Small Stool Color Green Yellow Stool Consistency Watery Liquid # Bowel Movements 1 # of times incontinent of 1 Bowels Exam: Constitutional; Afebrile, cooperative, alert, not in distress. Eyes- No icterus, , No periorbital swelling Ears- Ext ear normal, hearing normal to conversation. Neck- Midline trachea, supple Respiratory system: Air Entry equal on both sides, No crackles or wheezing, no rhonchi. CVS- Rate rhythm regular, S1,S2 heard, no gallop, no rub. Abdomen- Soft abdomen, bowel sounds present, mild tenderness in the lower abdomen no guarding rigidity [employer]- AOOx3, moving all extremities, no gross focal deficit noted. Medical - PN: Obj Da - Labs CBC & Chem 7: 08/22/17 04:40 08/22/17 04:40 Labs: Abnormal Lab Results 08/22/17 08/22/17 08/21/17 04:40 04:40 03:37 WBC 4.3 L RBC 2.53 L Hgb 7.8 L Hct 23.6 L RDW 14.9 H Plt Count 110 L Eos % (Auto) 10.2 H Lymph # (Auto) 1.0 L WBC Morphology Toxic Granulation Dohle Bodies Platelet Estimate RBC Morphology Anisocytosis BUN Creatinine Glucose Calcium 7.5 L 7.2 L Phosphorus 1.6 L 2.1 L GGT Albumin 3.0 L 3.1 L 08/21/17 08/20/17 08/20/17 03:37 11:20 05:00 WBC RBC 2.78 L 2.78 L Hgb 8.7 L 8.6 L Hct 25.8 L 25.7 L RDW 14.9 H 15.3 H Plt Count 132 L 124 L Eos % (Auto) Lymph # (Auto) WBC Morphology Abnorm A Toxic Granulation Few A Dohle Bodies Rare A Platelet Estimate Decreased A Decreased A RBC Morphology Abnorm A Anisocytosis Few A BUN 27 H Creatinine Glucose 114 H Calcium 7.0 L Phosphorus GGT Albumin 08/20/17 08/19/17 08/19/17 03:30 20:00 17:26 WBC RBC Hgb 8.9 L Hct RDW Plt Count Eos % (Auto) Lymph # (Auto) WBC Morphology Toxic Granulation Dohle Bodies Platelet Estimate RBC Morphology Anisocytosis BUN 32 H 42 H Creatinine 1.3 H 1.5 H Glucose 107 H Calcium 7.3 L 7.1 L Phosphorus GGT 6 L Albumin 3.1 L 08/19/17 16:03 WBC RBC Hgb 9.0 L Hct RDW Plt Count Eos % (Auto) Lymph # (Auto) WBC Morphology Toxic Granulation Dohle Bodies Platelet Estimate RBC Morphology Anisocytosis BUN Creatinine Glucose Calcium Phosphorus GGT Albumin Meds: Medications Acetaminophen (Tylenol) 650 mg PO Q4-6HP PRN PRN Reason: PAIN/FEVER > 101 Albuterol Sulfate (Ventolin) 2 puff INH Q6HP PRN PRN Reason: shortness of breath or wheezing Cefepime HCl (Maxipime) 1 gm IV DAILY [facility] Last Admin: 08/22/17 11:27 Dose: 1 gm Citalopram Hydrobromide (Celexa) 30 mg PO QDAY [facility] Last Admin: 08/22/17 09:15 Dose: 30 mg Heparin Sodium (Porcine) (Heparin) 5,000 unit SQ Q12 [facility] Last Admin: 08/22/17 09:16 Dose: 5,000 unit Hydromorphone HCl (Dilaudid) 0.25 mg IV Q2HP PRN PRN Reason: PAIN LEVEL > 6 Magnesium Sulfate (Magnesium Sulfate) 2 gm in 50 mls @ 50 mls/hr IV UD PRN PRN Reason: MG = or < 1.7 Acetaminophen (Ofirmev) 1,000 mg in 100 mls @ 200 mls/hr IV Q6HP PRN PRN Reason: PAIN/FEVER > 101 Metronidazole (Flagyl) 500 mg in 100 mls @ 100 mls/hr IV Q8 [facility] Lactobacillus Rhamnosus (Culturelle) 1 cap PO BID [facility] Last Admin: 08/22/17 09:15 Dose: 1 cap Meclizine HCl (Antivert) 25 mg PO TIDP PRN PRN Reason: dizziness Methocarbamol (Robaxin) 500 mg PO BID [facility] Last Admin: 08/22/17 09:15 Dose: 500 mg Ondansetron HCl (Zofran) 4 mg IV Q4-6HP PRN PRN Reason: Nausea And Vomiting Last Admin: 08/22/17 13:02 Dose: 4 mg Oxybutynin Chloride (Ditropan) 10 mg PO QDAY PRN PRN Reason: Bladder spasms or leakage Last Admin: 08/22/17 10:02 Dose: 10 mg Lenalidomide [ Revlimid] 10 Mg Tablet 1 dose PO [facility] Stop: 08/30/17 21:01 Last Admin: 08/21/17 21:18 Dose: 1 dose Morphine Pain Pump 2 (.447 Mg) 0 dose INTRATHECA DAILY [facility] Last Admin: 08/22/17 09:52 Dose: Not Given Potassium Chloride (Klor-Con) 40 meq PO DAILYP PRN PRN Reason: K+ < 3.5 Senna/Docusate Sodium (Senna Plus Tablet) 1 tab PO [facility] Last Admin: 08/21/17 21:17 Dose: 1 tab Sodium Chloride (Saline Flush) 10 ml IV Q8 [facility] Last Admin: 08/22/17 05:18 Dose: 10 ml Tramadol HCl (Ultram) 50 mg PO Q6HP PRN PRN Reason: pain Trazodone HCl (Desyrel) 50 mg PO HSP PRN PRN Reason: Insomnia Medical - PN: A/P - Time Spent With Patient Total time spent is greater than 50% in coordination of care (as documented) at patient's floor/unit and/or counseling patient: - Narrative A/P Narrative: A/P Ischemic Colitis: Clinically improving, appreciate surgery input, patient tolerating p.o. diet well continue to monitor Acute kidney injury-secondary to sepsis, acute tubal necrosis likely, creatinine is back to baseline, nephrology has signed off, patient tolerating p.o. well. Monitor renal function for now Anemia-likely secondary to sepsis renal failure and ischemic colitis causing GI bleed. Monitor and transfuse if hemoglobin drops less than 7, send anemia workup Pancytopenia, patient's WBC count is trending down, platelets are also the lower , check B12 and folate for now. Severe sepsis-resolved presently on cefepime and Flagyl, was on Zosyn before. Will need total of 7 days of antibiotics. Urinary tract infection-Proteus and Pseudomonas noted, patient on cefepime to which both of bugs are sensitive. Today will be day 5 of antibiotics History of congestive heart failure-patient has echo done this admission which shows normal ejection fraction DVT heparin subcutaneous Diet dysphagia diet CODE STATUS is DO NOT RESUSCITATE Medical - PN: Qual - VTE Deep Vein Thrombosis/Pulmonary Embolism Present on Admission: No
[2017-08-22] MEDS: ACETAMINOPHEN 325 MG TABLET PO PRN (19:08)
[2017-08-22] MEDS: SENNOSIDES/DOCUSATE SODIUM 1 TAB TABLET PO SCH (22:19)
[2017-08-22] MEDS: LENALIDOMIDE 10 MG PO SCH (22:20)
[2017-08-23] MEDS: ONDANSETRON 4 MG/2 ML VIAL IV PRN (02:42)
[2017-08-23] MEDS: 0.9 % SODIUM CHLORIDE 10 ML SYRINGE IV SCH ×3 (05:17→20:56)
[2017-08-23] MEDS: metroNIDAZOLE 500 MG/100 ML BAG IV SCH ×3 (05:17→22:20)
[2017-08-23 05:54] LABS: Basophils # (Auto) 0 K/mcL (0.0-0.3); Basophils % (Auto) 0.1 % (0.0-2.0); Eosinophils # (Auto) 0.4 K/mcL (0.0-0.7); Eosinophils % (Auto) 8.9 % (0.0-7.0); Lymphocytes # (Auto) 1.2 K/mcL (1.5-4.8); Lymphocytes % (Auto) 29.7 % (15.5-49.0); Mean Cell Volume 91.8 fL (80.0-100.0); Mean Corpuscular HGB Conc 33.3 g/dL (31.0-36.0); Mean Corpuscular Hemoglobin 30.6 pg (26.0-34.0); Monocytes # (Auto) 0.2 K/mcL (0.1-0.9); Monocytes % (Auto) 5.3 % (1.0-12.0); Platelet Count 112 K/mcL (140-440); Red Cell Distribution Width 14.8 % (11.5-14.5)
[2017-08-23 06:26] LABS: ALT/SGPT 13 U/l (0-40); Albumin 3.4 gm/dL (3.2-5.2); Albumin/Globulin Ratio 1.1 (1.0-2.3); Alkaline Phosphatase 61 U/L (39-117); Bilirubin,Direct < 0.2 mg/dL (0.0-0.3); Blood Urea Nitrogen 18 mg/dl (8-23); Gamma Glutamyl Transpeptidase 11 U/L (8-61); Iron 79 mcg/dl (61-157); Transferrin % Saturation 44 % (20-50); Unsaturated Iron Binding 97 mcg/dL (112-346); Uric Acid 3.3 mg/dL (2.5-8.0)
[2017-08-23 06:31] LABS: Ferritin 349.4 ng/ml (30-400)
[2017-08-23 06:33] LABS: Folate 10.3 ng/mL (4.2-19.9)
[2017-08-23 06:36] LABS: Vitamin B12 > 2000 pg/ml (232-1245)
[2017-08-23] MEDS ORDERED: POLYVINYL ALCOHOL OPHTH DROPS 15ML BOTTLE OU PRN (09:51)
[2017-08-23] MEDS ORDERED: DEXAMETHASONE 4 MG TABLET PO SCH (10:00)
[2017-08-23] MEDS ORDERED: DEXAMETHASONE 4 MG TABLET PO ONE (11:00)
[2017-08-23] MEDS: LACTOBACILLUS 1 CAPSULE PO SCH ×2 (11:12→20:55)
[2017-08-23] MEDS: METOPROLOL SUCCINATE 25 MG TAB.XL.24H PO SCH (11:12)
[2017-08-23] MEDS: CEFEPIME 1 GM VIAL IV SCH (11:12)
[2017-08-23] MEDS: CITALOPRAM 20 MG TABLET PO SCH (11:12)
[2017-08-23] MEDS: METHOCARBAMOL 500 MG TABLET PO SCH ×2 (11:13→20:55)
[2017-08-23] MEDS: HEPARIN 5,000 UNIT/ML VIAL SQ SCH ×2 (11:13→20:55)
[2017-08-23] MEDS: MORPHINE INTRATHECA SCH (11:23)
--- NOTE | 2017-08-23 12:51 | General Surgery Progress Note ---
Subjective Patient reports: feels better, still having pain, pain is less, tolerating liquids well, flatus, bowel movement, afebrile Narrative: Note initiated : 08/23/17 at 12:50 pm Service Date, if different from initiated Date: [] Patient: Kenneth Encinas 82 y/o M admitted on 08/18/17 for Lower Abd Pain/ Diverticulitis, Sepsis. Chief Complaint: [Patient is stable and continuing to improve. He states that he only has discomfort when he moves. He has had flatus and has had bowel movements. He denies nausea and is tolerating his dysphagia 2 diet. He has ambulated with assistance and has started to participate in physical therapy. His white blood count remains normal and his hemoglobin is stable. There is not been any documented rectal bleeding over the past 24 hours.] Objective Temp Pulse Resp BP Pulse Ox 97.8 F 108 H 18 118/82 95 08/23/17 12:00 08/23/17 08:59 08/23/17 12:00 08/23/17 12:00 08/23/17 12:00 - Additional Data Intake & Output - Last 24 hours: Intake & Output 08/21/17 08/22/17 08/23/17 08/24/17 05:59 05:59 05:59 05:59 Intake Total 2980 / 2980 2360 / 2360 1909.0909 / 1909.0909 100 / 100 Output Total 875 / 875 950 / 950 975 / 975 Balance 2105 / 2105 1410 / 0917 043.0576 / 934.0909 100 / 100 Weight 195 lb 1.6 oz 200 lb 203 lb 8 oz - General physical appearance well developed, well nourished, moderate distress, moderate pain - Eyes PERRL, normal ocular movement - ENT normal pinna, normal nares, normal mucosa, no congestion, decreased hearing - Neck no masses, no bruits, trachea midline, no lymphadectomy, no venous distension - Respiratory normal expansion, normal respiratory effort, clear to percussion, clear to auscultation - Cardiovascular Cardiovascular exam: Present: normal rate and rhythm, RRR, +S1, +S2, tachycardia. Absent: JVD - Abdomen tender (Patient has mild tenderness in the hypogastrium; good active bowel sounds; no increased distention noted), bowel sounds (present), surgical scars ( none), masses (none) - Integumentary no rash, no growths, no abnormal pigmentation - Neurologic normal coordination, normal sensation, memory loss, other (Memory loss is intermittent but he is easily reoriented) - Psychiatric oriented to person, oriented to place, speech is normal - Labs 08/23/17 04:20 08/23/17 04:20 Diabetes panel 08/23/17 Range/Units 04:20 Sodium 138 (133-145) mmol/L Potassium 4.0 (3.3-5.1) mmol/L Chloride 104 (96-108) mmol/L Carbon Dioxide 25 (22-30) mmol/L BUN 18 (8-23) mg/dl Creatinine 1.1 (0.7-1.2) mg/dl Glucose 94 (70-105) mg/dL Calcium 7.9 L (8.6-10.4) mg/dl AST 20 (0-37) U/l ALT 13 (0-40) U/l Alkaline Phosphatase 61 (39-117) U/L Total Protein 6.4 (5.9-8.4) gm/dL Albumin 3.4 (3.2-5.2) gm/dL Triglycerides 80 (<150) mg/dl Thyroid panel 08/23/17 Range/Units 04:20 TSH 2.45 (0.27-5.01) uIU/ml Calcium panel 08/23/17 Range/Units 04:20 Calcium 7.9 L (8.6-10.4) mg/dl Phosphorus 2.6 L (2.7-4.5) mg/dL Albumin 3.4 (3.2-5.2) gm/dL Pituitary panel 08/23/17 08/23/17 Range/Units 04:20 04:20 Sodium 138 (133-145) mmol/L Potassium 4.0 (3.3-5.1) mmol/L Chloride 104 (96-108) mmol/L Carbon Dioxide 25 (22-30) mmol/L BUN 18 (8-23) mg/dl Creatinine 1.1 (0.7-1.2) mg/dl Glucose 94 (70-105) mg/dL Calcium 7.9 L (8.6-10.4) mg/dl TSH 2.45 (0.27-5.01) uIU/ml Adrenal panel 08/23/17 Range/Units 04:20 Sodium 138 (133-145) mmol/L Potassium 4.0 (3.3-5.1) mmol/L Chloride 104 (96-108) mmol/L Carbon Dioxide 25 (22-30) mmol/L BUN 18 (8-23) mg/dl Creatinine 1.1 (0.7-1.2) mg/dl Glucose 94 (70-105) mg/dL Calcium 7.9 L (8.6-10.4) mg/dl Total Bilirubin 0.5 (0.0-1.0) mg/dL AST 20 (0-37) U/l ALT 13 (0-40) U/l Alkaline Phosphatase 61 (39-117) U/L Total Protein 6.4 (5.9-8.4) gm/dL Albumin 3.4 (3.2-5.2) gm/dL Assessment and Plan (1) Acute ischemic colitis Status: Acute Assessment and plan: Patient is clinically improving to present therapy and it will be continued. May advance to soft diet Current Visit: Yes (2) Hypertension Status: Acute Assessment and plan: Blood pressure is now in normal range Current Visit: Yes (3) Cholelithiasis and cholecystitis without obstruction Status: Acute Assessment and plan: No findings to suggest cholecystitis Current Visit: Yes (4) Congestive heart failure of unknown etiology Status: Acute Current Visit: Yes (5) Benign prostatic hyperplasia with lower urinary tract symptoms Status: Acute Assessment and plan: Suprapubic catheter in place and functioning appropriately Current Visit: Yes - Time Spent With Patient Total time spent is greater than 50% in coordination of care (as documented) at patient's floor/unit and/or counseling patient:
--- NOTE | 2017-08-23 15:15 | Internal Med Progress Note ---
Medical - PN: Subj Patient information: Note initiated : 08/23/17 at 3:03 pm Service Date, if different from initiated Date: [] Patient: Kenneth Encinas 82 y/o M admitted on 08/18/17 for Lower Abd Pain/ Diverticulitis, Sepsis. Chief Complaint: [] Interval history: August 18- patient admitted with progressive diarrhea and shortness of breath and weakness and mental status change. CT abdomen service to above colitis along with bloody stool on presentation. GI/nephrology/surgery on board. On broad antibiotic coverage in light of severe sepsis with tachycardia and white count over 17,000. Elevated lactate. Admitted to medical floor. creatinine 1.4. hemoglobin 12.1 August 19- patient clinically deteriorating. [place] score 18. white count down 8.5. hemoglobin down from 12.1-9.4. on 4 hourly hemoglobin check. Surgery and nephrology on board. On crystalloid challenge to maintain map at goal. Initiate vasopressors. De-escalate antibiotics from Levaquin Flagyl to Zosyn. case discussed with son Jason on phone. Explained grim prognosis. Clinical visit in the evening. Discussed clinical deterioration with multiple end organ dysfunction including acute renal failure with creatinine of 1.9. Nephrology recommends continuing crystalloid bolus/pressors if indicated. Surgery recommends continue existing treatment due to high probability ischemic colitis. 3 L oxygen systolic hovering around mid 90s. Critically ill August 20- patient hemodynamic stable. Doing a lot better. Improved diarrhea and bloody stool. White count downto 6.2 with creatinine improved from 1.9- 1.3. Surgery and nephrology on board. Surgery recommended initiation of oral diet in 24 hours. Map at goal. transfer to telemetry. No overnight events including fever chills worsening shortness of breath chest pain. August 21-no overnight events. No concerns per staff. Renal function normalized. White count normalized. No fever chills nausea vomiting. Patient alert and oriented. No family at bedside. no telemetry events. hemoglobin 8.7. transfer to medical floor. Possible transfer to SNF in 24-48 hours August 22 She is seen and examined no acute overnight events, patient tolerating p.o. diet well, moving gas had a bowel movement yesterday. His hemoglobin is dropped down to 7.8, patient denies any acute bleed. Phosphorus low will replace, monitor hemoglobin and transfuse if drops less than 7 Appreciate surgery consult august 23 Patient seen examined, no acute overnight issues, patient this AM was reported to be confused and had some dizziness, the nursing noted that patient was tachcyardic, EKG done showed new onset afib. I reviewwed the findings iwth the ptaient and noted that he would be a candidate for anticoagulation, zaynab in light of recent ischemic colitis. Pt was not keen on anticoagulation but was wanting to be on aspirin. Echo ordered On my eval pt was at baseline had no complaints, no cp, no sob, no headache of dizziness, no abdominal pain, passing gas and stools Pertinent ROS: Denies headache, dizziness present Denies chest pain, palpitations Denies cough or shortness of breath Denies abdominal pain, nausea or vomiting. - Constitutional Vitals: Vital Signs Temp Pulse Resp BP Pulse Ox 97.8 F 108 H 18 118/82 95 08/23/17 12:00 08/23/17 08:59 08/23/17 12:00 08/23/17 12:00 08/23/17 12:00 Period Temp Pulse Resp BP Sys/Zambrano Pulse Ox Last 24 Hr 97.8 F-99.4 F 58-108 16-20 106-124/50-82 91-97 Intake and Output 08/23/17 08/23/17 08/23/17 05:59 13:59 21:59 Intake Total 250 / 250 100 / 100 120 / 120 Output Total 225 / 225 Balance / 25 100 / 100 120 / 120 Intake & Output: Intake & Output 08/23/17 08/23/17 08/23/17 05:59 13:59 21:59 Intake Total 250 / 250 100 / 100 120 / 120 Output Total 225 / 225 Balance 25 / 25 100 / 100 120 / 120 Intake: IV 100 / 100 100 / 100 Oral 150 / 150 120 / 120 Output: Urine Catheter Amount 225 / 225 Other: Meal Lunch Percent of Meal Consumed 50% Stool Size Small Stool Color Brown Stool Consistency Watery Loose # Bowel Movements 2 1 Exam: Constitutional; Afebrile, cooperative, alert, not in distress. Eyes- No icterus, , No periorbital swelling Ears- Ext ear normal, hearing normal to conversation. Neck- Midline trachea, supple Respiratory system: Air Entry equal on both sides, No crackles or wheezing, no rhonchi. CVS- Rate rhythm irregular, S1,S2 heard, no gallop, no rub. Abdomen- Soft nontender abdomen, mild tenderness, no guarding or rigidity [employer]- AOOx3, moving all extremities, no gross focal deficit noted. Medical - PN: Obj Da - Labs CBC & Chem 7: 08/23/17 04:20 08/23/17 04:20 Labs: Abnormal Lab Results 08/23/17 08/23/17 08/22/17 04:20 04:20 04:40 WBC 4.0 L RBC 2.70 L Hgb 8.3 L Hct 24.8 L RDW 14.8 H Plt Count 112 L Eos % (Auto) 8.9 H Lymph # (Auto) 1.2 L Platelet Estimate Calcium 7.9 L 7.5 L Phosphorus 2.6 L 1.6 L TIBC 176 L Unsat Iron Binding 97 L Albumin 3.0 L Vitamin B12 > 2000 H 08/22/17 08/21/17 08/21/17 04:40 03:37 03:37 WBC 4.3 L RBC 2.53 L 2.78 L Hgb 7.8 L 8.7 L Hct 23.6 L 25.8 L RDW 14.9 H 14.9 H Plt Count 110 L 132 L Eos % (Auto) 10.2 H Lymph # (Auto) 1.0 L Platelet Estimate Decreased A Calcium 7.2 L Phosphorus 2.1 L TIBC Unsat Iron Binding Albumin 3.1 L Vitamin B12 Meds: Medications Acetaminophen (Tylenol) 650 mg PO Q4-6HP PRN PRN Reason: PAIN/FEVER > 101 Last Admin: 08/22/17 19:08 Dose: 650 mg Albuterol Sulfate (Ventolin) 2 puff INH Q6HP PRN PRN Reason: shortness of breath or wheezing Artificial Tears (Artificial Tears Ophth Drops) 1 gtt OU Q4HP PRN PRN Reason: Allergy Symptoms Cefepime HCl (Maxipime) 1 gm IV DAILY [facility] Last Admin: 08/23/17 11:12 Dose: 1 gm Citalopram Hydrobromide (Celexa) 30 mg PO QDAY [facility] Last Admin: 08/23/17 11:12 Dose: 30 mg Cyanocobalamin (Vitamin B-12) 2,500 mcg PO DAILY [facility] Dexamethasone (Decadron) 4 mg PO Conteh@0800 [facility] Docusate Sodium (Colace) 100 mg PO QDAY [facility] Furosemide (Lasix) 40 mg PO BID [facility] Heparin Sodium (Porcine) (Heparin) 5,000 unit SQ Q12 [facility] Last Admin: 08/23/17 11:13 Dose: 5,000 unit Hydromorphone HCl (Dilaudid) 0.25 mg IV Q2HP PRN PRN Reason: PAIN LEVEL > 6 Magnesium Sulfate (Magnesium Sulfate) 2 gm in 50 mls @ 50 mls/hr IV UD PRN PRN Reason: MG = or < 1.7 Acetaminophen (Ofirmev) 1,000 mg in 100 mls @ 200 mls/hr IV Q6HP PRN PRN Reason: PAIN/FEVER > 101 Metronidazole (Flagyl) 500 mg in 100 mls @ 100 mls/hr IV Q8 [facility] Last Admin: 08/23/17 14:45 Dose: 100 mls/hr Lactobacillus Rhamnosus (Culturelle) 1 cap PO BID [facility] Last Admin: 08/23/17 11:12 Dose: 1 cap Meclizine HCl (Antivert) 25 mg PO TIDP PRN PRN Reason: dizziness Methocarbamol (Robaxin) 500 mg PO BID [facility] Last Admin: 08/23/17 11:13 Dose: 500 mg Metoprolol Succinate (Toprol Xl) 25 mg PO DAILY [facility] Last Admin: 08/23/17 11:12 Dose: 25 mg Ondansetron HCl (Zofran) 4 mg IV Q4-6HP PRN PRN Reason: Nausea And Vomiting Last Admin: 08/23/17 02:42 Dose: 4 mg Oxybutynin Chloride (Ditropan) 10 mg PO QDAY PRN PRN Reason: Bladder spasms or leakage Last Admin: 08/22/17 10:02 Dose: 10 mg Lenalidomide [ Revlimid] 10 Mg Tablet 1 dose PO [facility] Stop: 08/30/17 21:01 Last Admin: 08/22/17 22:20 Dose: 1 dose Morphine Pain Pump 2 (.447 Mg) 0 dose INTRATHECA DAILY [facility] Last Admin: 08/23/17 11:23 Dose: Not Given Potassium Chloride (Klor-Con) 40 meq PO DAILYP PRN PRN Reason: K+ < 3.5 Potassium Ch[facility] (Kdur) [facility] Senna/Docusate Sodium (Senna Plus Tablet) 1 tab PO [facility] Last Admin: 08/22/17 22:19 Dose: 1 tab Sodium Chloride (Saline Flush) 10 ml IV Q8 [facility] Last Admin: 08/23/17 14:46 Dose: 10 ml Tramadol HCl (Ultram) 50 mg PO Q6HP PRN PRN Reason: pain Trazodone HCl (Desyrel) 50 mg PO HSP PRN PRN Reason: Insomnia Medical - PN: A/P - Time Spent With Patient Total time spent is greater than 50% in coordination of care (as documented) at patient's floor/unit and/or counseling patient: - Narrative A/P Narrative: A/P New onset Atrial fibrillation: Pt needs anticoagulation, but decilned, started on metoprolol 25mg qd for rate control. start on ASA 81, echo done this Admission shows normal lvef. Ischemic Colitis: Clinically improving, appreciate surgery input, patient tolerating p.o. diet well continue to monitor Acute kidney injury-secondary to sepsis, acute tubal necrosis likely, creatinine is back to baseline, nephrology has signed off, patient tolerating p.o. well. Anemia-likely secondary to sepsis renal failure and ischemic colitis causing GI bleed. Monitor and transfuse if hemoglobin drops less than 7, likely related to acute infection. Pancytopenia, patient's WBC count is trending down, platelets likely related to acute infection, counts are stable, b12, folate normal Severe sepsis-resolved presently on cefepime and Flagyl, was on Zosyn before. Will need total of 7 days of antibiotics. Urinary tract infection-Proteus and Pseudomonas noted, patient on cefepime to which both of bugs are sensitive. Today will be day 6 of antibiotics History of congestive heart failure-patient has echo done this admission which shows normal ejection fraction DVT heparin subcutaneous Diet dysphagia diet CODE STATUS is DO NOT RESUSCITATE Medical - PN: Qual - VTE Deep Vein Thrombosis/Pulmonary Embolism Present on Admission: No
[2017-08-23] MEDS: ASPIRIN 81 MG TAB.CHEW PO SCH (15:54)
[2017-08-23] MEDS: ACETAMINOPHEN 325 MG TABLET PO PRN (19:33)
[2017-08-23] MEDS: FUROSEMIDE 40 MG TABLET PO SCH (20:55)
[2017-08-23] MEDS: SENNOSIDES/DOCUSATE SODIUM 1 TAB TABLET PO SCH (20:55)
[2017-08-23] MEDS: LENALIDOMIDE 10 MG PO SCH (21:01)
[2017-08-24] MEDS: metroNIDAZOLE 500 MG/100 ML BAG IV SCH ×2 (05:22→15:15)
[2017-08-24] MEDS: 0.9 % SODIUM CHLORIDE 10 ML SYRINGE IV SCH ×2 (05:22→15:15)
[2017-08-24 05:35] LABS: Basophils # (Auto) 0 K/mcL (0.0-0.3); Basophils % (Auto) 0.3 % (0.0-2.0); Eosinophils # (Auto) 0.2 K/mcL (0.0-0.7); Eosinophils % (Auto) 6.4 % (0.0-7.0); Lymphocytes # (Auto) 1.3 K/mcL (1.5-4.8); Lymphocytes % (Auto) 36.2 % (15.5-49.0); Mean Cell Volume 92.7 fL (80.0-100.0); Mean Corpuscular HGB Conc 33.5 g/dL (31.0-36.0); Monocytes # (Auto) 0.2 K/mcL (0.1-0.9); Monocytes % (Auto) 6.1 % (1.0-12.0); Platelet Count 109 K/mcL (140-440); RBC 2.72 M/mcL (4.50-5.90)
[2017-08-24 05:55] LABS: ALT/SGPT 12 U/l (0-40); Albumin 3.4 gm/dL (3.2-5.2); Albumin/Globulin Ratio 1.2 (1.0-2.3); Alkaline Phosphatase 51 U/L (39-117); Bilirubin,Direct < 0.2 mg/dL (0.0-0.3); Blood Urea Nitrogen 19 mg/dl (8-23); Gamma Glutamyl Transpeptidase 11 U/L (8-61); Uric Acid 3.7 mg/dL (2.5-8.0)
[2017-08-24] MEDS ORDERED: POTASSIUM CHLORIDE 20 MEQ TABLET PO SCH (08:00)
[2017-08-24] MEDS: HEPARIN 5,000 UNIT/ML VIAL SQ SCH (08:38)
[2017-08-24] MEDS: METOPROLOL SUCCINATE 25 MG TAB.XL.24H PO SCH (08:38)
[2017-08-24] MEDS: METHOCARBAMOL 500 MG TABLET PO SCH (08:38)
[2017-08-24] MEDS: CEFEPIME 1 GM VIAL IV SCH (08:38)
[2017-08-24] MEDS: ASPIRIN 81 MG TAB.CHEW PO SCH (08:38)
[2017-08-24] MEDS: CITALOPRAM 20 MG TABLET PO SCH (08:39)
[2017-08-24] MEDS: FUROSEMIDE 40 MG TABLET PO SCH (08:39)
[2017-08-24] MEDS: LACTOBACILLUS 1 CAPSULE PO SCH (08:39)
[2017-08-24] MEDS: MORPHINE INTRATHECA SCH (08:57)
[2017-08-24] MEDS ORDERED: DOCUSATE SODIUM 100 MG CAPSULE PO SCH (09:00)
[2017-08-24] MEDS ORDERED: CYANOCOBALAMIN (VITAMIN B-12) 500 MCG TABLET PO SCH (09:00)
--- NOTE | 2017-08-24 13:18 | Discharge Summary ---
Medical - DS: Prov Patient information: Note initiated : 08/24/17 at 1:16 pm Service Date, if different from initiated Date: [] Patient: Kenneth Encinas 82 y/o M admitted on 08/18/17 for Lower Abd Pain/ Diverticulitis, Sepsis. Date of admission: 08/18/17 19:44 Discharge date: 08/24/17 Primary care physician: Nemesio Medrano Consults: 08/18/17 18:05 Consult to Physician [CONS] Stat Comment: colitis Consulting Provider: Jeronimo Clark Reason For Exam: Physician to Consult 08/19/17 09:34 Consult to Physician [CONS] Routine Comment: Consulting Provider: Shira Benson Reason For Exam: Physician to Consult 08/19/17 10:47 Consult to Physician [CONS] Routine Comment: Consulting Provider: Ernesto Machado Reason For Exam: Physician to Consult 08/21/17 09:54 Consult to Physician [CONS] Routine Comment: Consulting Provider: [facility] Reason For Exam: Physician to Consult Medical - DS: Meds - Discharge Medications Prescriptions: traMADol [Ultram] 50 mg PO Q6HP PRN 30 Days #90 tab PRN Reason: Pain Active and Home Medications: Home Medications docusate sodium 100 mg capsule 100 mg PO QDAY cap 12/05/14 [History Confirmed 08/19/17 Last Taken 08/18/17 08:00] Saccharomyces boulardii 250 mg capsule 250 mg PO BID 07/09/16 [History Confirmed 08/19/17 Last Taken 08/18/17 08:00] albuterol sulfate HFA 90 mcg/actuation aerosol inhaler 2 puff INHALATION Q6H PRN #18 g 09/08/16 [Rx Confirmed 08/19/17 Last Taken 08/09/17] Acetaminophen [Non-Aspirin] 1 - 2 tab PO Q6HP PRN MDD 3 grams 01/21/17 [History Confirmed 08/19/17 Last Taken 08/14/17] Cyanocobalamin (Vitamin B-12) [Vitamin B12] 2,500 mcg SL DAILY 01/21/17 [ History Confirmed 08/19/17 Last Taken 08/18/17 08:00] Magnesium Hydroxide [Milk of Magnesia] 30 ml PO DAILYP PRN 01/21/17 [History Confirmed 08/19/17 Last Taken 08/18/17] Na Phos,M-B/Na Phos,Di-Ba [Fleets Adult] 1 dose IA DAILYP PRN 01/21/17 [History Confirmed 08/18/17 Last Taken Unknown] Simethicone [Gas-X Ultra Strength] 125 mg PO BID PRN 01/21/17 [History Confirmed 08/19/17 Last Taken 08/18/17] Vits A and D/White Pet/Lanolin [A and D Ointment] 113 gm TP PRN PRN 01/21/17 [ History Confirmed 08/18/17 Last Taken Unknown] guaiFENesin/DEXTROMETHORPHAN [Tussin Dm Syrup] 10 ml PO Q4HP PRN 01/21/17 [ History Confirmed 08/18/17 Last Taken Unknown] morphine pain pump 2.447 mg INTRATHECA DAILY 01/21/17 [History Confirmed Last Taken 08/18/17] methocarbamol 500 mg tablet 500 mg PO BID 90 Days #180 tab 02/17/17 [Rx Confirmed 08/19/17 Last Taken 08/18/17 08:00] potassium chloride ER 20 mEq tablet,extended release 20 meq PO QDAY #90 tab [Rx Confirmed 08/19/17 Last Taken 08/18/17 08:00] lisinopril 2.5 mg tablet 2.5 mg PO QDAY #90 tab 05/19/17 [Rx Confirmed 08/19/17 Last Taken 08/18/17 08:00] oxybutynin chloride 5 mg tablet 10 mg PO QDAY PRN #180 tab 06/03/17 [Rx Confirmed 08/18/17 Last Taken Unknown] citalopram 20 mg tablet 30 mg PO QDAY #135 tab 06/08/17 [Rx Confirmed 08/19/17 Last Taken 08/18/17 08:00] meclizine 25 mg chewable tablet 25 mg PO TID PRN #60 tab 06/25/17 [Rx Confirmed 08/19/17 Last Taken 08/16/17] tramadol 50 mg tablet 50 mg PO Q6H PRN #90 tab 06/25/17 [Rx Confirmed 08/19/17 Last Taken 08/07/17] furosemide 40 mg tablet 40 mg PO BID #180 tab 07/10/17 [Rx Confirmed 08/19/17 Last Taken 08/18/17 08:00] bisacodyl 10 mg rectal suppository 10 mg IA QDAY PRN #1 each 07/23/17 [Rx Confirmed 08/18/17 Last Taken Unknown] glucosamine-chondroitin 750 mg-600 mg tablet 2 tab PO QDAY #1 tab 07/23/17 [Rx Confirmed 08/19/17 Last Taken 08/17/17 16:00] methylsulfonylmethane 1,000 mg capsule 1,000 mg PO QDAY #1 cap 07/23/17 [Rx Confirmed 08/19/17 Last Taken 08/14/17] Lenalidomide [Revlimid] 10 mg PO DAILY 08/18/17 [History Confirmed 08/19/17 Last Taken 08/16/17] ondansetron HCl 4 mg tablet 4 mg PO Q8H PRN #20 tab 08/18/17 [Rx Confirmed 08/19 Last Taken 08/14/17] Dexamethasone [Decadron] 4 mg PO WEEKLY 08/19/17 [History Confirmed 08/19/17 Last Taken 08/16/17 08:00] Miconazole Nitrate [Antifungal Cream] 14 gm TOPICAL BID 08/19/17 [History Confirmed 08/19/17 Last Taken 08/18/17 08:00] Polyvinyl Alcohol [Artificial Tears] 1 gtt OU Q4HP PRN 08/19/17 [History Confirmed 08/19/17 Last Taken Unknown] Prochlorperazine [Compazine] 10 mg PO Q6HP PRN 08/19/17 [History Confirmed 08/19 Last Taken Unknown] Medical - DS: Hosp Hospital course: HISTORY OF CHIEF COMPLAINT: Mr. 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 He is currently residing at [facility] in [place] and has been receiving his chemotherapy. The patient comes to [facility] Emergency Room with roughly 5 to 7 day history of worsening abdominal pain, along with multiple frequent watery stools, weakness, loss of appetite, and abdominal pain. Over the last 24 hours he has beeb minimally responsive. With progressive symptoms, he was referred to the ER. Initial workup was significant for colitis on the CT scan, along with guaiac positive stools. Dr. Champion was consulted by ER and subsequently recommended admission and initiation of management of presumed diverticulitis. Subsequently Hospitalist Service was consulted. Further workup in the ER revealed white count of 17,000 with a creatinine of 1.4; pyuria and CT evidence of a pericolonic inflammatory changes. The patient received crystalloids, antibiotics. Hospitalist Service was consulted. At the time of evaluation, the patient is very confused, lethargic, barely able to open his eyes; however, he does respond. When barely touching his abdomen, it is exquisitely tender. The patient, however, could not delineate onset or any of the history above, which was obtained from ER medical records. He was unable to carry out a conversation August 18- patient admitted with progressive diarrhea and shortness of breath and weakness and mental status change. CT abdomen service to above colitis along with bloody stool on presentation. GI/nephrology/surgery on board. On broad antibiotic coverage in light of severe sepsis with tachycardia and white count over 17,000. Elevated lactate. Admitted to medical floor. creatinine 1.4. hemoglobin 12.1 August 19- patient clinically deteriorating. Seneca score 18. white count down 8.5. hemoglobin down from 12.1-9.4. on 4 hourly hemoglobin check. Surgery and nephrology on board. On crystalloid challenge to maintain map at goal. Initiate vasopressors. De-escalate antibiotics from Levaquin Flagyl to Zosyn. case discussed with meliton Gomez on phone. Explained grim prognosis. Clinical visit in the evening. Discussed clinical deterioration with multiple end organ dysfunction including acute renal failure with creatinine of 1.9. Nephrology recommends continuing crystalloid bolus/pressors if indicated. Surgery recommends continue existing treatment due to high probability ischemic colitis. 3 L oxygen systolic hovering around mid 90s. Critically ill August 20- patient hemodynamic stable. Doing a lot better. Improved diarrhea and bloody stool. White count downto 6.2 with creatinine improved from 1.9- 1.3. Surgery and nephrology on board. Surgery recommended initiation of oral diet in 24 hours. Map at goal. transfer to telemetry. No overnight events including fever chills worsening shortness of breath chest pain. August 21-no overnight events. No concerns per staff. Renal function normalized. White count normalized. No fever chills nausea vomiting. Patient alert and oriented. No family at bedside. no telemetry events. hemoglobin 8.7. transfer to medical floor. Possible transfer to SNF in 24-48 hours August 22 She is seen and examined no acute overnight events, patient tolerating p.o. diet well, moving gas had a bowel movement yesterday. His hemoglobin is dropped down to 7.8, patient denies any acute bleed. Phosphorus low will replace, monitor hemoglobin and transfuse if drops less than 7 Appreciate surgery consult august 23 Patient seen examined, no acute overnight issues, patient this AM was reported to be confused and had some dizziness, the nursing noted that patient was tachcyardic, EKG done showed new onset afib. I reviewwed the findings iwth the ptaient and noted that he would be a candidate for anticoagulation, zaynab in light of recent ischemic colitis. Pt was not keen on anticoagulation but was wanting to be on aspirin. Echo ordered On my eval pt was at baseline had no complaints, no cp, no sob, no headache of dizziness, no abdominal pain, passing gas and stools August 24 Daughter at bedside. Patient is eating lunch at edge of bed. He is feeling well. Has the usual back pain, controlled with acetaminophen. Denies abdominal pain, diarrhea or nausea. Reviewed events during course of hospitalization. Diagnosis as per dr Machado: ischemic colitis. Most likely due to underlying atherosclerosis vs embolic. Has newly diagnose of atrial fibrillation. Again discussed pro and con of anticoagulation. There is no history of bleeding , no contra-indication to anticoagulation. Recommended Eliquis or Dabigatran, but patient is reluctant. Continue ASA. Urged patient to discuss anticoagulation with PCP. Discharge diagnosis: Ischemic colitis, atrial fibrillation (not on anticoagulation), UTI Secondary discharge diagnosis: 1. History of multiple myeloma. 2. Vertebral body plasmacytoma. 3. Recurrent UTI. 4. Suprapubic catheter. 5. Spinal compression fracture. 6. Degenerative joint disease. 7. Hypertension. 8. Hypoparathyroidism. 9. Hyperlipidemia. 10. Diabetes mellitus type 2. 11.Anemia Reason for admission: Abdominal pain, diarrhea, generalized weakness Pertinent studies/significant findings: [facility] LAB - LIVE [address] [place] [address] [id number] Laboratory Specimen Inquiry PATIENT: Kenneth Encinas ACCT: [id number] LOC: [facility] U: [id number] REG DR: Jeronimo Clark M.D. AGE/SX: 82/M ROOM: [facility] RE08/18/17 : 1935 BED: 2 DIS: STATUS: ADM IN TLOC: SPEC #: [id number] DENIS: 08/18/17 -1345 STATUS: COMP REQ #: [id number] RECD: 08/18/17 -[address]: Margie Mcfarland SOURCE: Urine ENTR: 08/18/17 -[address]: Moises Mccullough M.D. SPDESC: Nemesio Sanders M.D. ORDERED: Procedure Result Verified Site Urine Culture Final 08/22/17924 PRL Organism 1 Proteus penneri Organism 2 Pseudomonas aeruginosa Org 1: PROTEUS PENNERI : >100,000 CFU/ml Org 2: PSEUDOMONAS AERUGINOSA : 40,000 - 50,000 CFU/ml P penneri P aerugino M.I.C. RX M.I.C. RX Ampicillin >16 R Ampicillin/Sulbactam 16/8 I Aztreonam <=4 S 8 S Cefazolin >16 R Cefepime <=4 S 8 S Cefoxitin <=8 S Ceftazidime 16 I Ceftriaxone <=8 S Cefuroxime R Ciprofloxacin >2 R <=1 S Gentamicin <=4 S <=4 S Levofloxacin >4 R <=2 S Meropenem <=1 S <=1 S Nitrofurantoin R Tetracycline >8 R Trimethoprim/Sulfamethoxazole >2/38 R Piperacillin/Tazobactam <=16 S <=16 S PRL - [facility] Tests performed at [facility]. NOTE; PATIENT HAS A CHRONIC SUPRA-PUBIC CATH IN PLACE END OF REPORT - Time Spent with Patient Total time spent providing and/or coordinating discharge services: Greater than 30 minutes Medical - DS: Exam - Constitutional Vitals: Vital Signs Temp Pulse Pulse Resp BP Pulse Ox 08/24/17 12:00 97.3 F 16 108/62 94 08/24/17 08:21 97.6 F 08/24/17 08:20 83 08/24/17 07:32 96.6 F L 14 118/54 93 08/24/17 04:00 98 F 54 L 18 116/60 91 08/24/17 00:00 97 F 56 L 17 114/60 93 08/23/17 19:32 97 F 51 L 18 110/65 97 08/23/17 16:00 98.3 F 16 112/62 97 Intake and Output 08/23/17 08/24/17 08/24/17 21:59 05:59 13:59 Intake Total 470 / 470 300 / 300 830 / 830 Output Total 400 / 400 Balance 470 / 470 -100 / -100 830 / 830 Intake: IV 100 / 100 100 / 100 100 / 100 Oral 370 / 370 200 / 200 730 / 730 Output: Urine Catheter Amount 400 / 400 Other: Meal Dinner Breakfast Percent of Meal Consumed 50% 50% Feeding Ability Assist with Tray Set Up Independent Stool Size Small Stool Color Brown Brown Yellow Stool Consistency Loose Soft # Bowel Movements 1 1 1 Weight 203 lb Medical - DS: Data Procedures and tests throughout hospitalization: ECHO: no significant valvular abnormalities. LVEF wnl. CT-abdomen/pelvis: IMPRESSION: 1. Cholelithiasis. Density within the gallbladder lumen may be biliary sludge. Ultrasound may be helpful to better evaluate gallbladder wall 2. Pericolonic inflammatory change with in the pelvis. This is in both the right and left lower quadrant. Findings may be due to diverticulitis although very few diverticula are present. No intra-abdominal abscess 3. Previous L1 compression deformity. Mottled appearance of multiple bones consistent with either demineralization or myeloma 4. Right inguinal hernia containing only fat. No bowel obstruction. 5. Previous lumbar fusion. A more fetus a subcutaneous soft tissue density posterior to the fusion. No well-defined fluid collection or soft tissue gas Labs on day of discharge: Labs from last 24 hours 08/24/17 08/24/17 04:15 04:15 WBC 3.5 L RBC 2.72 L Hgb 8.4 L Hct 25.2 L MCV 92.7 MCH 31.0 MCHC 33.5 RDW 15.0 H Plt Count 109 L MPV 10.2 Gran % 51.0 Lymph % (Auto) 36.2 [place] % (Auto) 6.1 Eos % (Auto) 6.4 Baso % (Auto) 0.3 Gran # 1.8 Lymph # (Auto) 1.3 L [place] # (Auto) 0.2 Eos # (Auto) 0.2 Baso # (Auto) 0 Sodium 139 Potassium 4.1 Chloride 103 Carbon Dioxide 26 Anion Gap 10.0 BUN 19 Creatinine 1.1 GFR Calculation 62 Glucose 112 H Uric Acid 3.7 Calcium 8.1 L Phosphorus 2.6 L Magnesium 2.3 Total Bilirubin 0.3 Direct Bilirubin < 0.2 GGT 11 AST 15 ALT 12 Alkaline Phosphatase 51 Lactate Dehydrogenase 203 Total Protein 6.3 Albumin 3.4 Globulin 2.9 Albumin/Globulin Ratio 1.2 Triglycerides 76 Medical - DS: A/P - Patient/Caregiver Discharge Instructions Activity: as per physical therapy, increase activity as tolerated Diet: Dysphagia Advanced - Follow up Plan Follow up with: Nemesio Medrano MD [Primary Care Provider] - (Ischemic colitis. New onset atrial fibrillation. Declined anti-coagulation other than ASA 81 mg. Echo: wnl Also Anemia with Hb 8.4-8.6 FU 3-4 weeks) Disposition: Xfer SNF Prognosis: Fair Rehab Potential: Fair I certify that the patient requires SNF services: Yes Overall status at discharge: patient is progressing back to baseline Medical - DS: Qual - VTE Deep Vein Thrombosis/Pulmonary Embolism Present on Admission: No
[2017-08-30] MEDS ORDERED: DEXAMETHASONE 4 MG TABLET PO SCH (08:00)
== END 2017-08-24 14:35 | DRG 871 ==
LOC: ED 12:10 → MEDSUR 19:35 → ICU 08-19 10:07 → MEDSUR 08-21 16:34
PROVIDERS: ADMIT Internal Medicine; ATTEND Specialist

== ENCOUNTER 2018-06-18 21:06 | Inpatient (IN) ==
[2018-06-18 22:05] LABS: Basophils # (Auto) 0 K/mcL (0.0-0.3); Basophils % (Auto) 0.1 % (0.0-2.0); Eosinophils # (Auto) 0 K/mcL (0.0-0.7); Eosinophils % (Auto) 0.5 % (0.0-7.0); Granulocytes % (Auto) 89.2 % (38.0-78.0); Lymphocytes # (Auto) 0.5 K/mcL (1.5-4.8); Lymphocytes % (Auto) 8.7 % (15.5-49.0); Mean Cell Volume 93.1 fL (80.0-100.0); Mean Corpuscular HGB Conc 33.2 g/dL (31.0-36.0); Monocytes # (Auto) 0.1 K/mcL (0.1-0.9); Monocytes % (Auto) 1.5 % (1.0-12.0); Platelet Count 194 K/mcL (140-440); RBC 3.07 M/mcL (4.50-5.90); Red Cell Distribution Width 15.3 % (11.5-14.5)
[2018-06-18] MEDS ORDERED: PIPERACILLIN SODIUM/TAZOBACTAM 3.375 GM in DEXTROSE 5% IN WATER 50 ML IV ONE (22:06)
[2018-06-18 22:25] LABS: ALT/SGPT < 5 U/l (0-40); Albumin 3.8 gm/dL (3.2-5.2); Albumin/Globulin Ratio 0.8 (1.0-2.3); Alkaline Phosphatase 49 U/L (39-117); Blood Urea Nitrogen 25 mg/dl (8-23)
--- NOTE | 2018-06-18 22:30 | Emergency Department Note ---
Fever HPI - General Source: patient, family, EMS Mode of arrival: EMS Limitations: no limitations, altered mental status <Moises Mccullough - Last Filed: 06/18/18 23:37> - General Source: EMS Mode of arrival: EMS Limitations: no limitations - History of Present Illness MD complaint: fever (sudden onset after choking incident) Maximum Temperature: 103 F Temperature Source: tympanic <Savanna Jadejuliana Hung - Last Filed: 06/20/18 14:51> - General Chief Complaint: Fever Stated Complaint: fever Time Seen by Provider: 06/18/18 21:10 - History of Present Illness HPI Narrative: I saw this patient earlier in the ER for foreign body stuck in esophagus. Patient had roast beef stuck in his throat and Dr. Vikash Machado came in to do an upper endoscopy on him but patient had coughed it out by the time he came in. Anyways the patient was going to be scheduled for an upper endoscopy with dilatation later on this week. However after going back to [facility] he developed a fever and was sent back for reevaluation. Concern for aspiration pneumonia especially with all of his coughing and drooling earlier today. He has significant medical comorbidities including Crohn's disease sleep apnea etc. 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 He is DNR but at the time of seeing him here after discussion with him he does want treatment with antibiotics fluids etc.-Cordelia discussed this with him directly Usually requires 2 L oxygen at night and as needed but now requiring 4 L oxygen nasal cannula (Moises Mccullough) A 83-year-old male in ED via EMS from [facility]. Patient was in earlier with piece of roast beef be stuck in his throat. Patient was able to cough it out prior to discharge. Patient returns care staff states patient was running 103.0 temperature. Care staff advised EMS patient has history of C. difficile no records patient's currently on antibiotics. Upon arrival patient's temperature was 100.7. Patient did have 87% room air at the [facility]. On arrival 96% room air. Patient is alert and able to answer questions. Patient has no complaints at this time. Care staff concerned about aspiration pneumonia. Patient does take multiple medications and is allergic to sulfas, tetracyclines, trimethoprim. (Cordelia Jade) - Related Data Home Medications Medication Instructions Recorded Confirmed Saccharomyces boulardii 250 mg 250 mg PO BID 07/09/16 06/18/18 capsule Cyanocobalamin (Vitamin B-12) 2,500 mcg SL DAILY 01/21/17 06/18/18 [Vitamin B12] Na Phos,M-B/Na Phos,Di-Ba [Fleets 1 dose ND DAILYP PRN 01/21/17 06/18/18 Adult] Simethicone [Gas-X Ultra Strength] 125 mg PO BID PRN 01/21/17 06/18/18 Vits A and D/White Pet/Lanolin [A 113 gm TP PRN PRN 01/21/17 06/18/18 and D Ointment] Lisinopril [Zestril] 2.5 mg PO DAILY 01/28/18 06/18/18 Tolnaftate [Antifungal Cream] 15 gm TP DAILY 01/28/18 06/18/18 Balsalazide Disodium [Colazal] 3 cap PO TID 06/18/18 06/18/18 Dextran 70/Hypromellose 1 each OP PRN PRN 06/19/18 06/19/18 [Artificial Tears] Mag Hydrox/Aluminum Hyd/Simeth 30 ml PO QIDP PRN 06/19/18 06/19/18 [Gnp Antacid Liquid] Nystatin [Kenalog] 1 dose TOPICAL PRN PRN 06/19/18 06/19/18 Previous Rx's Medication Instructions Recorded albuterol sulfate HFA 90 2 puff INHALATION Q6H PRN #18 g 09/08/16 mcg/actuation aerosol inhaler oxybutynin chloride 5 mg tablet 10 mg PO QDAY PRN #180 tab 06/03/17 bisacodyl 10 mg rectal suppository 10 mg ND QDAY PRN #1 each 07/23/17 glucosamine-chondroitin 750 mg-600 2 tab PO QDAY #1 tab 07/23/17 mg tablet methylsulfonylmethane 1,000 mg 1,000 mg PO QDAY #1 cap 07/23/17 capsule Acetaminophen [Tylenol] 650 mg PO Q4-6HP PRN tab 08/24/17 aspirin 81 mg chewable tablet 81 mg PO QDAY #1 tab 09/10/17 calcium citrate 250 mg tablet 500 mg PO QDAY #180 tab 09/10/17 ferrous gluconate 324 mg (36 mg 324 mg PO QDAY #90 tab 09/10/17 iron) tablet meclizine 25 mg chewable tablet 25 mg PO TID PRN #60 tab 12/09/17 magnesium hydroxide 400 mg/5 mL 5 ml PO QHS PRN #30 ml 01/01/18 oral suspension furosemide 40 mg tablet 40 mg PO BID #180 tab 01/12/18 traMADol [Ultram] 50 mg PO Q6HP PRN 30 Days #90 tab 01/31/18 ondansetron HCl 4 mg tablet 4 mg PO Q8H PRN #20 tab 04/06/18 potassium chloride ER 20 mEq 20 meq PO QDAY #90 tab 04/21/18 tablet,extended release methocarbamol 500 mg tablet 500 mg PO QDAY #30 tab 05/05/18 citalopram 20 mg tablet 30 mg PO QDAY #135 tab 06/03/18 Allergies Allergy/AdvReac Type Severity Reaction Status Date / Time sulfamethoxazole Allergy Mild Hives Verified 06/18/18 14:19 [From Bactrim] Tetracyclines Allergy Mild Hives Verified 06/18/18 14:19 trimethoprim [From Bactrim] Allergy Mild Hives Verified 06/18/18 14:19 Review of Systems All systems ED: reviewed and negative except as stated. <Moises Mccullough - Last Filed: 06/18/18 23:37> All systems ED: reviewed and negative except as stated. <Cordelia Jade - Last Filed: 06/20/18 14:51> Fever PMH - Past Medical History Attestation: Yes: The following information was validated with the patient. <Moises Mccullough - Last Filed: 06/18/18 23:37> - Past Medical History Medical history: Reports: arthritis, atrial fibrillation, COPD, DM, hyperlipidemia, hypertension, other (Multiple myeloma, BPH, urinary incontinence, vertigo, crohn, leg lymphedema, anemia, B12 deficiency, multiple myeloma, hyperparathyroidism, obstructive sleep apnea) - Social History smoking status: Never smoker Alcohol use: Reports: None Drug use: Reports: none <Cordelia Jade - Last Filed: 06/20/18 14:51> - Past Medical History PMFSH Narrative: All Active Problems (Last Reviewed 04/21/18 @ 13:28 by Mabel Acosta RN) Suprapubic catheter dysfunction (Acute) Foreign body in esophagus (Acute) COPD with hypoxia (Acute) Fall from wheelchair (Acute) Laceration of face without complication (Acute) Anemia with chronic illness (Acute) Fever (Acute) Chronic suprapubic catheter (Acute) RBBB (right bundle branch block) (Acute) Obtundation (Acute) Somnolence (Acute) Decreased level of consciousness (Acute) Colitis (Acute) Prediabetes (Chronic) JOSE R (obstructive sleep apnea) (Chronic) Hypoxia (Chronic) Acute delirium (Acute) UTI (urinary tract infection) (Acute) Indwelling catheter present on admission (Acute) Generalized weakness (Acute) Diverticulitis (Acute) Cholelithiasis (Acute) Diarrhea (Acute) Hematochezia (Acute) Acute ischemic colitis (Acute) Hypertension (Acute) Cholelithiasis and cholecystitis without obstruction (Acute) Congestive heart failure of unknown etiology (Acute) Benign prostatic hyperplasia with lower urinary tract symptoms (Acute) Acute kidney injury (Acute) Severe sepsis with acute organ dysfunction (Acute) Viral syndrome (Acute) Urinary tract infection (Acute) History of vasectomy (Acute) History of open reduction and internal fixation (ORIF) procedure (Acute) Urinary retention (Acute 08/11/13) Spinal compression fracture (Acute) Osteoarthritis (Acute) Multiple myeloma (Acute) MRSA (methicillin resistant Staphylococcus aureus) (Acute 08/26/13) Loss of balance (Acute 10/10/14) Knee pain (Acute) Joint effusion-lower leg (Acute) Hypertension, essential (Chronic) Hyperparathyroidism (Acute) Hyperlipidemia (Acute) Hallucinations (Acute) Fungal infection of the groin (Acute 08/22/14) Colonic polyp (Acute) Carpal tunnel syndrome (Acute) Benign localized hyperplasia of prostate without urinary obstruction (Acute) Fracture of ankle, closed (Acute) Past Surgical History (Last Reviewed 04/21/18 @ 13:28 by Mabel Acosta RN) History of vasectomy (Acute) History of open reduction and internal fixation (ORIF) procedure (Acute) Family History (Last Reviewed 04/21/18 @ 13:28 by Mabel Acosta RN) Father Atherosclerosis of coronary artery Mother Cerebrovascular accident Atherosclerosis of coronary artery (Cordelia Jade) Physical Exam <Moises Mccullough - Last Filed: 06/18/18 23:37> General appearance: alert Head: atraumatic, normocephalic, normal inspection Eye: Present: normal appearance, PERRL. Absent: conjunctival injection ENT: mucous membranes dry, TM's normal bilaterally, normal external ear exam Neck: Present: normal inspection. Absent: tenderness, lymphadenopathy Chest: Present: normal inspection, symmetric chest wall rise. Absent: tenderness Respiratory: Present: normal lung sounds bilaterally Cardiovascular: Present: tachycardia. Absent: systolic murmur, diastolic murmur Abdominal: Present: soft, normal bowel sounds, other (pt with a pain pump right lower abdomen). Absent: distention, tenderness, guarding, rebound, rigidity Extremities: Present: normal inspection. Absent: pedal edema Neurological: Present: alert, oriented X3 Psychiatric: Present: normal affect, normal mood. Absent: depressed, agitated, anxious <Cordelia Jade - Last Filed: 06/20/18 14:51> Patient is somnolent and has significant coarse breathing with respiratory distress. Requiring 4 L oxygen now (Moises Mccullough) Vital Signs Temperature 100.7 F H 06/18/18 21:06 Pulse Rate 97 H 06/18/18 21:06 Respiratory Rate 18 06/18/18 21:06 Blood Pressure 132/53 06/18/18 21:06 Pulse Oximetry (%) 96 06/18/18 21:06 Temperature 98.3 F 06/20/18 11:34 Pulse Rate 72 06/20/18 07:28 Respiratory Rate 16 06/20/18 11:34 Blood Pressure 110/59 06/20/18 11:34 Pulse Oximetry (%) 93 06/20/18 11:34 Fever - Lab Data Lab results reviewed: Yes I reviewed the patient's lab results. Result diagrams: 06/18/18 21:37 06/18/18 21:37 - Radiology Data Radiology results reviewed: Yes I reviewed the patient's radiology results. <Moises Mccullough - Last Filed: 06/18/18 23:37> - Lab Data Result diagrams: 06/20/18 04:21 06/20/18 04:21 <Cordelia Jade - Last Filed: 06/20/18 14:51> - Lab Data Lab Results 06/18/18 06/18/18 06/18/18 Range/Units 21:37 21:37 21:37 WBC 5.3 (4.5-11.0) K/mcL RBC 3.07 L (4.50-5.90) M/mcL Hgb 9.5 L (13.5-16.5) g/dL Hct 28.5 L (41.0-55.0) % MCV 93.1 (80.0-100.0) fL MCH 30.9 (26.0-34.0) pg MCHC 33.2 (31.0-36.0) g/dL RDW 15.3 H (11.5-14.5) % Plt Count 194 (140-440) K/mcL MPV 7.2 L (7.4-10.4) fL Gran % 89.2 H (38.0-78.0) % Lymph % (Auto) 8.7 L (15.5-49.0) % [place] % (Auto) 1.5 (1.0-12.0) % Eos % (Auto) 0.5 (0.0-7.0) % Baso % (Auto) 0.1 (0.0-2.0) % Gran # 4.7 (1.8-8.0) K/mcL Lymph # (Auto) 0.5 L (1.5-4.8) K/mcL [place] # (Auto) 0.1 (0.1-0.9) K/mcL Eos # (Auto) 0 (0.0-0.7) K/mcL Baso # (Auto) 0 (0.0-0.3) K/mcL VBG Lactic Acid 0.9 (0.5-2.0) mmol/L Sodium 137 (133-145) mmol/L Potassium 4.1 (3.3-5.1) mmol/L Chloride 96 (96-108) mmol/L Carbon Dioxide 31 H (22-30) mmol/L Anion Gap 10.0 (8-16) BUN 25 H (8-23) mg/dl Creatinine 1.1 (0.7-1.2) mg/dl GFR Calculation 61 Glucose 151 H (70-105) mg/dL Calcium 8.7 (8.6-10.4) mg/dl Total Bilirubin 0.6 (0.0-1.0) mg/dL AST 13 (0-37) U/l ALT < 5 (0-40) U/l Alkaline Phosphatase 49 (39-117) U/L Total Protein 8.5 H (5.9-8.4) gm/dL Albumin 3.8 (3.2-5.2) gm/dL Globulin 4.7 H (2.2-3.7) gm/dL Albumin/Globulin Ratio 0.8 L (1.0-2.3) Procalcitonin (<0.10) ng/mL Urine Color Urine Appearance Urine pH (5.0-9.0) Ur Specific [place] (1.000-1.035) Urine Protein (NEG) mg/dL Urine Glucose (UA) (NEG) mg/dL Urine Ketones (NEG) mg/dL Urine Occult Blood (<0.03) mg/dL Urine Nitrate (NEG) Urine Bilirubin (NEG) mg/dL Urine Urobilinogen (NEG) mg/dL Ur Leukocyte Esterase (NEG) /uL Urine RBC (0-1) /hpf Urine WBC (0-4) /hpf Ur Squamous Epith Cells (0-4) /hpf Urine Bacteria (0) /hpf Urine Mucus (0) /hpf Ur Culture Indicated? 06/18/18 06/18/18 Range/Units 21:37 22:20 WBC (4.5-11.0) K/mcL RBC (4.50-5.90) M/mcL Hgb (13.5-16.5) g/dL Hct (41.0-55.0) % MCV (80.0-100.0) fL MCH (26.0-34.0) pg MCHC (31.0-36.0) g/dL RDW (11.5-14.5) % Plt Count (140-440) K/mcL MPV (7.4-10.4) fL Gran % (38.0-78.0) % Lymph % (Auto) (15.5-49.0) % [place] % (Auto) (1.0-12.0) % Eos % (Auto) (0.0-7.0) % Baso % (Auto) (0.0-2.0) % Gran # (1.8-8.0) K/mcL Lymph # (Auto) (1.5-4.8) K/mcL [place] # (Auto) (0.1-0.9) K/mcL Eos # (Auto) (0.0-0.7) K/mcL Baso # (Auto) (0.0-0.3) K/mcL VBG Lactic Acid (0.5-2.0) mmol/L Sodium (133-145) mmol/L Potassium (3.3-5.1) mmol/L Chloride (96-108) mmol/L Carbon Dioxide (22-30) mmol/L Anion Gap (8-16) BUN (8-23) mg/dl Creatinine (0.7-1.2) mg/dl GFR Calculation Glucose (70-105) mg/dL Calcium (8.6-10.4) mg/dl Total Bilirubin (0.0-1.0) mg/dL AST (0-37) U/l ALT (0-40) U/l Alkaline Phosphatase (39-117) U/L Total Protein (5.9-8.4) gm/dL Albumin (3.2-5.2) gm/dL Globulin (2.2-3.7) gm/dL Albumin/Globulin Ratio (1.0-2.3) Procalcitonin 0.12 (<0.10) ng/mL Urine Color Yellow Urine Appearance Clear Urine pH 7.0 (5.0-9.0) Ur Specific [place] 1.014 (1.000-1.035) Urine Protein Neg (NEG) mg/dL Urine Glucose (UA) Negative (NEG) mg/dL Urine Ketones Neg (NEG) mg/dL Urine Occult Blood Neg (<0.03) mg/dL Urine Nitrate Pos A (NEG) Urine Bilirubin Neg (NEG) mg/dL Urine Urobilinogen Neg (NEG) mg/dL Ur Leukocyte Esterase 250 A (NEG) /uL Urine RBC 3 H (0-1) /hpf Urine WBC 21 H (0-4) /hpf Ur Squamous Epith Cells 0 (0-4) /hpf Urine Bacteria Few A (0) /hpf Urine Mucus Few (0) /hpf Ur Culture Indicated? Yes - Radiology Data Chest x-ray shows diffuse patchy infiltrates throughout both lungs-see comparison with chest x-ray from earlier today (Moises Mccullough) Disposition Pt seen by [facility]/PA only: No <Moises Mccullough - Last Filed: 06/18/18 23:37> Time of Disposition: 14:50 <Cordelia Jade - Last Filed: 06/20/18 14:51> Clinical Impression: Aspiration pneumonia due to gastric secretions Qualifiers: Laterality: bilateral Lung location: unspecified part of lung Qualified Code(s): J69.0 - Pneumonitis due to inhalation of food and vomit UTI (urinary tract infection) Qualifiers: Urinary tract infection type: acute cystitis Hematuria presence: without hematuria Qualified Code(s): N30.00 - Acute cystitis without hematuria Summary: Patient worked up with laboratory and chest x-ray. Blood cultures and sputum culture ordered and Zosyn started Chest x-ray shows patchy infiltrate bilaterally consistent with aspiration pneumonia. Requiring more oxygen now. Concern for low normal blood pressure so IV fluids started UTI seen on urinalysis-antibiotics will cover this as well Discussed case with hospitalist Dr. Rich, who agreed to accept the patient for further care and evaluation in the hospital (Moises Mccullough) Disposition: Xfer As Inpt ([facility]) Condition: Critical
[2018-06-18 22:59] LABS: Appearance,Urine CLEAR; Bacteria,Urine FEW /hpf (0); Bilirubin,Urine NEG (NEG); Color,Urine YELLOW; Glucose,Urine (UA) NEGATIVE (NEG); Leukocyte Esterase,Urine 250 /uL (NEG); Mucus,Urine FEW /hpf (0); Protein,Urine NEG (NEG); Specific Gravity,Urine 1.014 (1.000-1.035); Urine Blood NEG mg/dL (<0.03); Urine RBC 3 /hpf (0-1); Urine Squamous Epithelial Cell 0 /hpf (0-4); Urine WBC 21 /hpf (0-4); Urobilinogen,Urine NEG (NEG)
[2018-06-18] MEDS ORDERED: 0.9 % SODIUM CHLORIDE 1,000 ML IV ONE (23:27)
--- NOTE | 2018-06-18 23:56 | Internal Med History&Physical ---
Medical - H&P: [facility] Patient information: Note initiated : 06/18/18 at 11:51 pm Service Date, if different from initiated Date: [] Patient: Kenneth Encinas 83 y/o M admitted on for fever. Chief Complaint: [] History of present illness: Mr. Encinas is a 83 year old M who presents from nursing facility after nausea vomiting and hypoxia. Is actually here in the ED earlier in the day after choking on a piece of roast beef. He did have some hypoxia at that point and was coughing quite a bit. ED staff was coordinating with GI for endoscopy on the patient suddenly was able to cough out the food and a lot of phlegm. He was sent back to the nursing facility and scheduled for outpatient endoscopy next week. He reports back by nursing staff who stated to triage that he had nausea vomiting also had a temperature of 103. He was hypoxic at 87% on room air. He does use oxygen at night at least and as needed during the day. Nursing facility is concerned about aspiration pneumonia. Is on 4 L nasal cannula in the ED. Temperature in the ED was 100.7. Chest x-ray with some right lower lobe infiltrates. Urinalysis with nitrites and WBCs. History is obtained from chart as patient is significantly poor historian. In the charts is noted that he is on precautions for C. difficile and Flagyl was on an old list here in the ED but that we do not see it on the current med list. Patient does admit to coughing after repeated questioning initially he denied it. Initially denied nausea vomiting but after further and direct questions said he did admitted to some nausea. Admitted to sometimes diarrhea. Denies fever chills Review of Systems: Pertinent positives as above. Denies headache/fever/chills/na usea/vomiting/chest or abdominal pain/. Many 10 point review of systems reviewed negative Medical - H&P: H Medical history: Medical History (Last Reviewed 04/21/18 @ 13:28 by Mabel Acosta RN) Prediabetes (Chronic) JOSE R (obstructive sleep apnea) (Chronic) Hypoxia (Chronic) Urinary tract infection (Acute) Urinary retention (Acute 08/11/13) Spinal compression fracture (Acute) Osteoarthritis (Acute) Multiple myeloma (Acute) MRSA (methicillin resistant Staphylococcus aureus) (Acute 08/26/13) Loss of balance (Acute 10/10/14) Knee pain (Acute) Joint effusion-lower leg (Acute) Hypertension, essential (Chronic) Hyperparathyroidism (Acute) Hyperlipidemia (Acute) Hallucinations (Acute) Fungal infection of the groin (Acute 08/22/14) Colonic polyp (Acute) Carpal tunnel syndrome (Acute) Benign localized hyperplasia of prostate without urinary obstruction (Acute) Fracture of ankle, closed (Acute) Atrial fibrillation (Acute) Diabetes mellitus, type II (Resolved) Past Surgical History (Last Reviewed 04/21/18 @ 13:28 by Mabel Acosta RN) History of vasectomy (Acute) History of open reduction and internal fixation (ORIF) procedure (Acute) Family History (Last Reviewed 04/21/18 @ 13:28 by Mabel Acosta RN) Father Atherosclerosis of coronary artery Mother Cerebrovascular accident Atherosclerosis of coronary artery Social History (Last Updated 04/21/18 @ 13:41 by Justin Valdez MD) N denies tobacco or alcohol, ambulates with walker, resides at a nursing facility Medical - H&P: Meds Home Medications Medication Instructions Recorded Confirmed Type Saccharomyces boulardii 250 mg 250 mg PO BID 07/09/16 06/18/18 History capsule albuterol sulfate HFA 90 2 puff INHALATION Q6H PRN #18 g 09/08/16 06/18/18 Rx mcg/actuation aerosol inhaler Cyanocobalamin (Vitamin B-12) 2,500 mcg SL DAILY 01/21/17 06/18/18 History [Vitamin B12] Na Phos,M-B/Na Phos,Di-Ba [Fleets 1 dose OR DAILYP PRN 01/21/17 06/18/18 History Adult] Simethicone [Gas-X Ultra Strength] 125 mg PO BID PRN 01/21/17 06/18/18 History Vits A and D/White Pet/Lanolin [A 113 gm TP PRN PRN 01/21/17 06/18/18 History and D Ointment] oxybutynin chloride 5 mg tablet 10 mg PO QDAY PRN #180 tab 06/03/17 06/18/18 Rx bisacodyl 10 mg rectal suppository 10 mg OR QDAY PRN #1 each 07/23/17 06/18/18 Rx glucosamine-chondroitin 750 mg-600 2 tab PO QDAY #1 tab 07/23/17 06/18/18 Rx mg tablet methylsulfonylmethane 1,000 mg 1,000 mg PO QDAY #1 cap 07/23/17 06/18/18 Rx capsule Acetaminophen [Tylenol] 650 mg PO Q4-6HP PRN tab 08/24/17 06/18/18 Rx aspirin 81 mg chewable tablet 81 mg PO QDAY #1 tab 09/10/17 06/18/18 Rx calcium citrate 250 mg tablet 500 mg PO QDAY #180 tab 09/10/17 06/18/18 Rx ferrous gluconate 324 mg (36 mg 324 mg PO QDAY #90 tab 09/10/17 06/18/18 Rx iron) tablet meclizine 25 mg chewable tablet 25 mg PO TID PRN #60 tab 12/09/17 06/18/18 Rx magnesium hydroxide 400 mg/5 mL 5 ml PO QHS PRN #30 ml 01/01/18 06/18/18 Rx oral suspension furosemide 40 mg tablet 40 mg PO BID #180 tab 01/12/18 06/18/18 Rx Lisinopril [Zestril] 2.5 mg PO DAILY 01/28/18 06/18/18 History Tolnaftate [Antifungal Cream] 15 gm TP DAILY 01/28/18 06/18/18 History traMADol [Ultram] 50 mg PO Q6HP PRN 30 Days #90 tab 01/31/18 06/18/18 Rx ondansetron HCl 4 mg tablet 4 mg PO Q8H PRN #20 tab 04/06/18 06/18/18 Rx potassium chloride ER 20 mEq 20 meq PO QDAY #90 tab 04/21/18 06/18/18 Rx tablet,extended release methocarbamol 500 mg tablet 500 mg PO QDAY #30 tab 05/05/18 06/18/18 Rx citalopram 20 mg tablet 30 mg PO QDAY #135 tab 06/03/18 06/18/18 Rx Balsalazide Disodium [Colazal] 3 cap PO TID 06/18/18 06/18/18 History Allergies Allergy/AdvReac Type Severity Reaction Status Date / Time sulfamethoxazole Allergy Mild Hives Verified 06/18/18 14:19 [From Bactrim] Tetracyclines Allergy Mild Hives Verified 06/18/18 14:19 trimethoprim [From Bactrim] Allergy Mild Hives Verified 06/18/18 14:19 Medical - H&P: Exam - Constitutional Vitals: Temp Pulse Resp BP Pulse Ox 98.8 F 79 19 129/65 95 06/18/18 22:57 06/18/18 23:44 06/18/18 23:44 06/18/18 23:44 06/18/18 23:44 Exam: General: Drowsy but able to be awoken, No acute Distress Eyes/N/T: EOMI, PEERL, DMM Head/Neck: neck supple, normocephalic atraumatic CV: RRR, 1/6, normal s1/s2 Pulm: Bibasilar rales and rhonchi greater on the right. No wheezing abd: soft, nontender, +BS x4 Ext: no clubbing/cyanosis/edema Neuro: no focal deficits, moves all extremities, CN 2-12 grossly intact, symmetrical strength b/l upper/lower, sensations intact b/l upper/lower Skin: warm/dry Medical - H&P: Reslt - Labs CBC & Chem 7: 06/18/18 21:37 06/18/18 21:37 Labs: Short CBC 06/18/18 Range/Units 21:37 WBC 5.3 (4.5-11.0) K/mcL Hgb 9.5 L (13.5-16.5) g/dL Hct 28.5 L (41.0-55.0) % Plt Count 194 (140-440) K/mcL BMP 06/18/18 21:37 Sodium 137 Potassium 4.1 Chloride 96 Carbon Dioxide 31 H BUN 25 H Creatinine 1.1 Glucose 151 H Calcium 8.7 Liver Function 06/18/18 Range/Units 21:37 Total Bilirubin 0.6 (0.0-1.0) mg/dL AST 13 (0-37) U/l ALT < 5 (0-40) U/l Alkaline Phosphatase 49 (39-117) U/L Albumin 3.8 (3.2-5.2) gm/dL Urine 06/18/18 Range/Units 22:20 Urine Color Yellow Urine Appearance Clear Urine pH 7.0 (5.0-9.0) Ur Specific [place] 1.014 (1.000-1.035) Urine Protein Neg (NEG) mg/dL Urine Glucose (UA) Negative (NEG) mg/dL - Impressions Chest x-ray with infiltrate right lower lobe Medical - H&P: A/P - Narrative A/P Narrative: A: *Acute hypoxic respiratory failure, on chronic: *Aspiration pneumonitis, concern for developing pneumonia: *UTI: *Sepsis, based on tachycardia and fever: *Deconditioning/debility: *? Dementia: *COPD (2L@night and prn daytime) *JOSE R: *Depression *Anemia, chronic: *HTN: *Ulcerative colitis *?c.diff: ?undergoing treatment P: -Dysphasia diet -ST eval -abx, pending bc/sc/uc -o2 supp -IS/Acapella -c. diff - -pt/ot -f/u with Dr. reagan outpt for EGD -ppx: lovenox No code
[2018-06-19] MEDS ORDERED: ACETAMINOPHEN 325 MG TABLET PO PRN (01:07)
[2018-06-19] MEDS ORDERED: POLYETHYLENE GLYCOL 3350 17 GM PACKET PO PRN (01:07)
[2018-06-19] MEDS ORDERED: METOCLOPRAMIDE 10 MG/2 ML VIAL IV PRN (01:07)
[2018-06-19] MEDS ORDERED: DEXTROSE 50% 50 ML VIAL IV PRN (01:07)
[2018-06-19] MEDS ORDERED: POTASSIUM CHLORIDE 40 MEQ in DEXTROSE 5% IN WATER 500 ML IV PRN (01:07)
[2018-06-19] MEDS ORDERED: ONDANSETRON 4 MG/2 ML VIAL IV PRN (01:07)
[2018-06-19] MEDS ORDERED: IPRATROPIUM/ALBUTEROL 3 ML AMPUL.NEB NEB PRN (01:07)
[2018-06-19] MEDS ORDERED: POTASSIUM CHLORIDE 20 MEQ TABLET PO PRN ×2 (01:07)
[2018-06-19] MEDS ORDERED: traMADol 50 MG TABLET PO PRN (01:07)
[2018-06-19] MEDS ORDERED: DEXTROSE 31 GM ORAL.SUSP PO PRN (01:07)
[2018-06-19] MEDS ORDERED: VITS A AND D TP PRN (01:07)
[2018-06-19] MEDS ORDERED: LANOLIN TP PRN (01:07)
[2018-06-19] MEDS ORDERED: OXYBUTYNIN CHLORIDE 5 MG TABLET PO PRN (01:07)
[2018-06-19] MEDS ORDERED: [UNRECOGNIZED DRUG - OTHER] TP PRN (01:07)
[2018-06-19] MEDS ORDERED: MAGNESIUM SULFATE 2 GM/50 ML BAG IV PRN (01:07)
[2018-06-19] MEDS ORDERED: WHITE PET TP PRN (01:07)
[2018-06-19] MEDS: PIPERACILLIN SODIUM/TAZOBACTAM 3.375 GM in DEXTROSE 5% IN WATER 50 ML IV SCH ×4 (01:45→17:05)
[2018-06-19] MEDS ORDERED: ONDANSETRON 4 MG ODT TABLET ONE (04:44)
--- NOTE | 2018-06-19 04:46 | XRay Report ---
CLINICAL INFORMATION: Dyspnea COMPARISON: 01/27/2018 and 06/18/2017 FINDINGS: Moderate cardiomegaly is increased. Mediastinum is unremarkable. The pulmonary vessels are mildly distended and there is minimal perihilar interstitial edema. Mild bibasilar airspace disease may represent atelectasis or developing infiltrate. No definite effusions IMPRESSION: Mild CHF Mild atelectasis or, less likely, developing infiltrate in both bases Interpreted and Authenticated by: Chris Morelos 06/19/18
[2018-06-19] MEDS: 0.9 % SODIUM CHLORIDE 10 ML SYRINGE IV SCH ×3 (05:12→20:00)
[2018-06-19 05:34] LABS: Mean Cell Volume 93.9 fL (80.0-100.0); Platelet Count 174 K/mcL (140-440); RBC 2.83 M/mcL (4.50-5.90); Red Cell Distribution Width 15.2 % (11.5-14.5)
[2018-06-19] MEDS: 0.9 % SODIUM CHLORIDE 1,000 ML IV SCH ×2 (05:42→17:00)
[2018-06-19 05:53] LABS: ALT/SGPT < 5 U/l (0-40); Albumin 3.5 gm/dL (3.2-5.2); Albumin/Globulin Ratio 0.9 (1.0-2.3); Alkaline Phosphatase 41 U/L (39-117); Bilirubin,Direct < 0.2 mg/dL (0.0-0.3); Blood Urea Nitrogen 27 mg/dl (8-23); Gamma Glutamyl Transpeptidase 7 U/L (8-61); Uric Acid 5.5 mg/dL (2.5-8.0)
[2018-06-19 06:40] LABS: Band Neutrophils % 13 % (0-10); Lymphocytes % 11 % (15-49); Monocytes % (Manual) 2 % (1-12); Platelet Estimate NORMAL (NORMAL); RBC Morphology NORMAL (NORMAL); Segmented Neutrophils % 74 % (38-78); Toxic Granulation 1+ (NONE SEEN)
[2018-06-19] MEDS: INSULIN LISPRO 1 UNIT/0.01 ML UNIT SQ SCH ×4 (06:47→20:03)
--- NOTE | 2018-06-19 07:00 | Internal Med Progress Note ---
Medical - PN: Subj Patient information: Note initiated : 06/19/18 at 6:53 am Service Date, if different from initiated Date: [] Patient: Kenneth Encinas 83 y/o M admitted on 06/19/18 for fever. Chief Complaint: [] Interval history: Mr. Encinas is a 83 year old M who presents from nursing facility after nausea vomiting and hypoxia. Is actually here in the ED earlier in the day after choking on a piece of roast beef. He did have some hypoxia at that point and was coughing quite a bit. ED staff was coordinating with GI for endoscopy on the patient suddenly was able to cough out the food and a lot of phlegm. He was sent back to the nursing facility and scheduled for outpatient endoscopy next week. He reports back by nursing staff who stated to triage that he had nausea vomiting also had a temperature of 103. He was hypoxic at 87% on room air. He does use oxygen at night at least and as needed during the day. Nursing facility is concerned about aspiration pneumonia. Is on 4 L nasal cannula in the ED. Temperature in the ED was 100.7. Chest x-ray with some right lower lobe infiltrates. Urinalysis with nitrites and WBCs. History is obtained from chart as patient is significantly poor historian. In the charts is noted that he is on precautions for C. difficile and Flagyl was on an old list here in the ED but that we do not see it on the current med list. Patient does admit to coughing after repeated questioning initially he denied it. Initially denied nausea vomiting but after further and direct questions said he did admitted to some nausea. Admitted to sometimes diarrhea. Denies f ever chills 06/19 Weaned to 2 L oxygen mask overnight, no overnight events. Denies any complaints to me this morning quite drowsy still. denies coughing or shortness of breath. Review of Systems: denies headache/fever/chills/nausea/vomiting/chest or abdominal pain/diarrhea. Otherwise see above. - Constitutional Vitals: Vital Signs Temp Pulse Resp BP Pulse Ox 98.7 F 85 22 116/66 94 06/19/18 04:00 06/19/18 04:00 06/19/18 04:00 06/19/18 04:00 06/19/18 04:00 Period Temp Pulse Resp BP Sys/Zambrano Pulse Ox Last 24 Hr 98.7 F-100.7 F 74-97 17-22 89-132/46-83 92-99 Intake and Output 06/18/18 06/19/18 06/19/18 21:59 05:59 13:59 Intake Total 350 Output Total 1400 Balance -1050 Weight 77.111 kg 77.111 kg Intake & Output: Intake & Output 06/18/18 06/19/18 06/19/18 21:59 05:59 13:59 Intake Total 350 Output Total 1400 Balance -1050 Weight 77.111 kg 77.111 kg Intake: IV 350 Sodium Chloride 0.9% 1,000 ml @ 250 Wide Open IV [facility] Rx#: [id number] Zosyn 3.375 gm In Dextrose 5% 100 in Water 50 ml @ 100 mls/hr IV Q6H [facility] Rx#:[id number] Output: Urine Catheter Amount 800 Suprapubic 800 Void Amount 600 Other: Urine Appearance Cloudy Suprapubic Cloudy Urine Odor Foul # Bowel Movements 1 Exam: General: Drowsy but able to be awoken, No acute Distress Eyes/N/T: EOMI, Head/Neck: neck supple, CV: RRR, 1/6, Pulm: decreased BS on right, No wheezing abd: soft, nontender, +BS x4 Ext: no clubbing/cyanosis/edema Neuro: no focal deficits, moves all extremities, Skin: warm/dry Medical - PN: Obj Da - Labs CBC & Chem 7: 06/19/18 04:20 06/19/18 04:25 Labs: Abnormal Lab Results 06/19/18 06/19/18 06/18/18 04:25 04:20 22:20 RBC 2.83 L Hgb 8.8 L Hct 26.6 L RDW 15.2 H MPV Gran % Lymph % (Auto) Lymph # (Auto) Band Neutrophils % 13 H Lymphocytes % 11 L WBC Morphology Abnorm A Toxic Granulation 1+ A Carbon Dioxide 33 H BUN 27 H Creatinine 1.3 H Glucose 127 H Calcium 8.4 L GGT 7 L Total Protein Globulin 4.1 H Albumin/Globulin Ratio 0.9 L Urine Nitrate Pos A Ur Leukocyte Esterase 250 A Urine RBC 3 H Urine WBC 21 H Urine Bacteria Few A 06/18/18 06/18/18 21:37 21:37 RBC 3.07 L Hgb 9.5 L Hct 28.5 L RDW 15.3 H MPV 7.2 L Gran % 89.2 H Lymph % (Auto) 8.7 L Lymph # (Auto) 0.5 L Band Neutrophils % Lymphocytes % WBC Morphology Toxic Granulation Carbon Dioxide 31 H BUN 25 H Creatinine Glucose 151 H Calcium GGT Total Protein 8.5 H Globulin 4.7 H Albumin/Globulin Ratio 0.8 L Urine Nitrate Ur Leukocyte Esterase Urine RBC Urine WBC Urine Bacteria Meds: Medications Acetaminophen (Tylenol) 650 mg PO Q6HP PRN PRN Reason: PAIN/FEVER > 101 Albuterol/Ipratropium (Duoneb) 3 ml NEB Q4HP PRN PRN Reason: Shortness Of Breath Aspirin (Aspirin) 81 mg PO QDAY [facility] Citalopram Hydrobromide (Celexa) 30 mg PO QDAY [facility] Dextrose (Dextrose 50%) 0 ml IV UD PRN PRN Reason: Hypoglycemia Diagnostic Test (Pha) (Accu-Chek) 1 each FS [facility] Last Admin: 06/19/18 06:46 Dose: 1 each Documented by: Enoxaparin Sodium (Lovenox) 40 mg SQ DAILY [facility] Famotidine (Pepcid) 20 mg IV Q12 [facility] Glucose (Insta-Glucose) 15 gm PO PRN PRN PRN Reason: Hypoglycemia Potassium Chloride 40 meq/ (Dextrose) 520 mls @ 130 mls/hr IV ONCE PRN PRN Reason: Potassium < 3 Magnesium Sulfate (Magnesium Sulfate) 2 gm in 50 mls @ 50 mls/hr IV ONCE PRN PRN Reason: Magnesium </= 1.6 Sodium Chloride (Sodium Chloride 0.9%) 1,000 mls @ 100 mls/hr IV .Q10H [facility] Stop: 06/19/18 21:06 Last Admin: 06/19/18 05:42 Dose: 100 mls/hr Documented by: Piperacillin Sod/Tazobactam (Sod 3.375 gm/ Dextrose) 50 mls @ 100 mls/hr IV Q6H [facility] Last Admin: 06/19/18 06:47 Dose: 100 mls/hr Documented by: Insulin Human Lispro (Humalog) 0 unit SQ [facility]; Protocol Last Admin: 06/19/18 06:47 Dose: Not Given Documented by: Lactobacillus Rhamnosus (Culturelle) 1 cap PO BID [facility] Lisinopril (Zestril) 2.5 mg PO DAILY [facility] Methocarbamol (Robaxin) 500 mg PO QDAY [facility] Metoclopramide HCl (Reglan) 10 mg IV Q6HP PRN PRN Reason: Nausea And Vomiting Non-Formulary Medication (Balsalazide Disodium [Colazal]) 3 cap PO TID [facility] Non-Formulary Medication (Glucosamine/Chondr Conteh A Sod [Glucosamine-Chondroitin Tablet]) 2 tab PO QDAY [facility] Non-Formulary Medication (Meclizine Hcl) 25 mg PO TID PRN PRN Reason: dizziness Non-Formulary Medication (Methylsulfonylmethane [Msm]) 1,000 mg PO QDAY [facility] Non-Formulary Medication (Ondansetron Hcl [Zofran]) 4 mg PO Q8H PRN PRN Reason: Nausea And Vomiting Non-Formulary Medication (Vits A And D/White Pet/Lanolin [A And D Ointment]) 113 gm TP PRN PRN PRN Reason: Disinfection Ondansetron HCl (Zofran) 4 mg IV Q4HP PRN PRN Reason: Nausea And Vomiting Oxybutynin Chloride (Ditropan) 10 mg PO QDAY PRN PRN Reason: Bladder spasms or leakage Polyethylene Glycol (Miralax) 17 gm PO DAILYP PRN PRN Reason: Constipation Potassium Chloride (Kdur) 40 meq PO ONCE PRN PRN Reason: Potssium is 3-3.5 Potassium Chloride (Kdur) 40 meq PO ONCE PRN PRN Reason: Potassium < 3 Sodium Chloride (Saline Flush) 10 ml IV Q8 [facility] Last Admin: 06/19/18 05:12 Dose: Not Given Documented by: Tramadol HCl (Ultram) 50 mg PO Q6HP PRN PRN Reason: Pain Medical - PN: A/P - Time Spent With Patient Total time spent is greater than 50% in coordination of care (as documented) at patient's floor/unit and/or counseling patient: - Narrative A/P Narrative: A: *Acute hypoxic respiratory failure, on chronic: -down to 2L oxymask *Aspiration pneumonitis, concern for developing pneumonia: *UTI: *Sepsis, based on tachycardia and fever: *LESLI on CKD III: *Deconditioning/debility: *likely underlying Dementia: *COPD (2L@night and prn daytime) *JOSE R: *Depression *Anemia, chronic: *HTN: *Ulcerative colitis *?c.diff: ?undergoing treatment. c. diff assay negative on admit P: -Dysphagia diet -ST eval -zosyn, pending bc/sc/uc -trend PCT -o2 supp -IS/Acapella -hold ACEI for renal fxn -pt/ot -f/u with Dr. reagan outpt for EGD -ppx: lovenox No code Medical - PN: Qual - VTE Deep Vein Thrombosis/Pulmonary Embolism Present on Admission: No
[2018-06-19] MEDS ORDERED: MECLIZINE 25 MG TABLET PO PRN (07:27)
--- NOTE | 2018-06-19 08:34 | XRay Report ---
CLINICAL INFORMATION: Aspiration COMPARISON: 06/18/2018 FINDINGS: Moderate cardiomegaly is unchanged. Mediastinum is unremarkable. Moderate-sized patchy infiltrates have developed in both mid and lower lungs - more prominent on the right side. Pulmonary vessels are slightly distended. IMPRESSION: Moderate patchy infiltrates both mid and lower lungs more prominent on the right. Suspect aspiration. Probable mild underlying CHF Interpreted and Authenticated by: Chris Morelos 06/19/18
[2018-06-19] MEDS ORDERED: LISINOPRIL 2.5 MG TABLET PO SCH (09:00)
[2018-06-19] MEDS: METHOCARBAMOL 500 MG TABLET PO SCH (09:02)
[2018-06-19] MEDS: CITALOPRAM 20 MG TABLET PO SCH (09:02)
[2018-06-19] MEDS: LACTOBACILLUS 1 CAPSULE PO SCH ×2 (09:03→20:00)
[2018-06-19] MEDS: GLUCOSAMINE/CHONDROITIN SULF A 1 CAP CAPSULE PO SCH (09:04)
[2018-06-19] MEDS: BALSALAZIDE DISODIUM 750 MG PO SCH ×3 (09:05→20:00)
[2018-06-19] MEDS: METHYLSULFONYLMETHANE 1000 MG PO SCH (09:05)
[2018-06-19] MEDS: FAMOTIDINE/PF 20 MG/2 ML VIAL IV SCH ×2 (09:05→20:00)
[2018-06-19] MEDS: ENOXAPARIN 40 MG/0.4 ML SYRINGE SQ SCH (09:05)
[2018-06-19] MEDS: ASPIRIN 81 MG TAB.CHEW PO SCH (09:16)
[2018-06-19] MEDS: ONDANSETRON 4 MG ODT TABLET SL PRN (22:41)
[2018-06-20] MEDS: PIPERACILLIN SODIUM/TAZOBACTAM 3.375 GM in DEXTROSE 5% IN WATER 50 ML IV SCH ×5 (00:14→23:45)
[2018-06-20] MEDS: 0.9 % SODIUM CHLORIDE 10 ML SYRINGE IV SCH ×3 (05:07→23:23)
[2018-06-20 05:58] LABS: Blood Urea Nitrogen 26 mg/dl (8-23)
[2018-06-20] MEDS ORDERED: 0.9 % SODIUM CHLORIDE 750 ML IV SCH (06:30)
--- NOTE | 2018-06-20 06:30 | Internal Med Progress Note ---
Medical - PN: Subj Patient information: Note initiated : 06/20/18 at 6:22 am Service Date, if different from initiated Date: [] Patient: Kenneth Encinas 83 y/o M admitted on 06/19/18 for fever. Chief Complaint: [] Interval history: Mr. Encinas is a 83 year old M who presents from nursing facility after nausea vomiting and hypoxia. Is actually here in the ED earlier in the day after choking on a piece of roast beef. He did have some hypoxia at that point and was coughing quite a bit. ED staff was coordinating with GI for endoscopy on the patient suddenly was able to cough out the food and a lot of phlegm. He was sent back to the nursing facility and scheduled for outpatient endoscopy next week. He reports back by nursing staff who stated to triage that he had nausea vomiting also had a temperature of 103. He was hypoxic at 87% on room air. He does use oxygen at night at least and as needed during the day. Nursing facility is concerned about aspiration pneumonia. Is on 4 L nasal cannula in the ED. Temperature in the ED was 100.7. Chest x-ray with some right lower lobe infiltrates. Urinalysis with nitrites and WBCs. History is obtained from chart as patient is significantly poor historian. In the charts is noted that he is on precautions for C. difficile and Flagyl was on an old list here in the ED but that we do not see it on the current med list. Patient does admit to coughing after repeated questioning initially he denied it. Initially denied nausea vomiting but after further and direct questions said he did admitted to some nausea. Admitted to sometimes diarrhea. Denies f ever chills 06/19 Weaned to 2 L oxygen mask overnight, no overnight events. Denies any complaints to me this morning quite drowsy still. denies coughing or shortness of breath. 06/20 Reported loose stool overnight, C. difficile assay negative. Patient feeling little better. No overnight events no new complaints. Review of Systems: denies headache/fever/chills/nausea/vomiting/chest or abdominal pain. Otherwise see above. - Constitutional Vitals: Vital Signs Temp Pulse Resp BP Pulse Ox 98.3 F 72 20 109/52 94 06/20/18 05:10 06/20/18 05:10 06/20/18 05:10 06/20/18 05:10 06/20/18 05:10 Period Temp Pulse Resp BP Sys/Zambrano Pulse Ox Last 24 Hr 98.1 F-98.9 F 65-72 18-20 92-119/52-61 91-99 Intake and Output 06/19/18 06/20/18 06/20/18 21:59 05:59 13:59 Intake Total 1290 640 Output Total 350 450 Balance 940 190 Weight 78.471 kg Intake & Output: Intake & Output 06/19/18 06/20/18 06/20/18 21:59 05:59 13:59 Intake Total 1290 640 Output Total 350 450 Balance 940 190 Weight 78.471 kg Intake: IV 1050 100 Sodium Chloride 0.9% 1,000 ml @ 1000 100 mls/hr IV .Q10H [facility] Rx#: [id number] Zosyn 3.375 gm In Dextrose 5% 50 100 in Water 50 ml @ 100 mls/hr IV Q6H [facility] Rx#:[id number] Oral 240 540 Output: Urine Catheter Amount 350 450 Other: Urine Appearance Suprapubic Cloudy Urine Color Light Genna Suprapubic Bright Yellow Urine Odor Foul Suprapubic Foul # Bowel Movements 1 1 Exam: General: Drowsy but able to be awoken, No acute Distress Eyes/N/T: EOMI, Head/Neck: neck supple, CV: RRR, 1/6, Pulm: mild rales at bases more on right, No wheezing abd: soft, nontender, +BS x4 Ext: no clubbing/cyanosis/edema Neuro: no focal deficits, moves all extremities, Skin: warm/dry Medical - PN: Obj Da - Labs CBC & Chem 7: 06/20/18 04:21 06/20/18 04:21 Labs: Abnormal Lab Results 06/20/18 06/19/18 06/19/18 04:21 04:25 04:20 RBC 2.83 L Hgb 8.8 L Hct 26.6 L RDW 15.2 H MPV Gran % Lymph % (Auto) Lymph # (Auto) Band Neutrophils % 13 H Lymphocytes % 11 L WBC Morphology Abnorm A Toxic Granulation 1+ A Carbon Dioxide 33 H BUN 26 H 27 H Creatinine 1.3 H 1.3 H Glucose 127 H Calcium 7.9 L 8.4 L GGT 7 L Total Protein Globulin 4.1 H Albumin/Globulin Ratio 0.9 L Urine Nitrate Ur Leukocyte Esterase Urine RBC Urine WBC Urine Bacteria 06/18/18 06/18/18 06/18/18 22:20 21:37 21:37 RBC 3.07 L Hgb 9.5 L Hct 28.5 L RDW 15.3 H MPV 7.2 L Gran % 89.2 H Lymph % (Auto) 8.7 L Lymph # (Auto) 0.5 L Band Neutrophils % Lymphocytes % WBC Morphology Toxic Granulation Carbon Dioxide 31 H BUN 25 H Creatinine Glucose 151 H Calcium GGT Total Protein 8.5 H Globulin 4.7 H Albumin/Globulin Ratio 0.8 L Urine Nitrate Pos A Ur Leukocyte Esterase 250 A Urine RBC 3 H Urine WBC 21 H Urine Bacteria Few A Meds: Medications Acetaminophen (Tylenol) 650 mg PO Q6HP PRN PRN Reason: PAIN/FEVER > 101 Albuterol/Ipratropium (Duoneb) 3 ml NEB Q4HP PRN PRN Reason: Shortness Of Breath Aspirin (Aspirin) 81 mg PO QDAY [facility] Last Admin: 06/19/18 09:16 Dose: 81 mg Documented by: Citalopram Hydrobromide (Celexa) 30 mg PO QDAY [facility] Last Admin: 06/19/18 09:02 Dose: 30 mg Documented by: Dextrose (Dextrose 50%) 0 ml IV UD PRN PRN Reason: Hypoglycemia Diagnostic Test (Pha) (Accu-Chek) 1 each FS [facility] Last Admin: 06/19/18 20:01 Dose: 1 each Documented by: Enoxaparin Sodium (Lovenox) 40 mg SQ DAILY [facility] Last Admin: 06/19/18 09:05 Dose: 40 mg Documented by: Famotidine (Pepcid) 20 mg IV Q12 [facility] Last Admin: 06/19/18 20:00 Dose: 20 mg Documented by: Glucosamine/Chondroitin (Glucosamine-Chondroitin Cap) 2 cap PO DAILY [facility] Last Admin: 06/19/18 09:04 Dose: 2 cap Documented by: Glucose (Insta-Glucose) 15 gm PO PRN PRN PRN Reason: Hypoglycemia Potassium Chloride 40 meq/ (Dextrose) 520 mls @ 130 mls/hr IV ONCE PRN PRN Reason: Potassium < 3 Magnesium Sulfate (Magnesium Sulfate) 2 gm in 50 mls @ 50 mls/hr IV ONCE PRN PRN Reason: Magnesium </= 1.6 Piperacillin Sod/Tazobactam (Sod 3.375 gm/ Dextrose) 50 mls @ 100 mls/hr IV Q6H [facility] Last Infusion: 06/20/18 05:45 Dose: Infused Documented by: Insulin Human Lispro (Humalog) 0 unit SQ [facility]; Protocol Last Admin: 06/19/18 20:03 Dose: Not Given Documented by: Lactobacillus Rhamnosus (Culturelle) 1 cap PO BID [facility] Last Admin: 06/19/18 20:00 Dose: 1 cap Documented by: Meclizine HCl (Antivert) 25 mg PO TIDP PRN PRN Reason: Vertigo Methocarbamol (Robaxin) 500 mg PO QDAY [facility] Last Admin: 06/19/18 09:02 Dose: 500 mg Documented by: Metoclopramide HCl (Reglan) 10 mg IV Q6HP PRN PRN Reason: Nausea And Vomiting Ondansetron HCl (Zofran) 4 mg IV Q4HP PRN PRN Reason: Nausea And Vomiting Ondansetron HCl (Zofran Odt) 4 mg SL Q8HP PRN PRN Reason: Nausea And Vomiting Last Admin: 06/19/18 22:41 Dose: 4 mg Documented by: Oxybutynin Chloride (Ditropan) 10 mg PO QDAY PRN PRN Reason: Bladder spasms or leakage Balsalazide Disodium [Colazal] 750 Mg Cap 3 dose PO TID [facility] Last Admin: 06/19/18 20:00 Dose: Not Given Documented by: Methylsulfonylmethan (e [Msm] 1,000 Mg Cap) 1 dose PO QDAY [facility] Last Admin: 06/19/18 09:05 Dose: Not Given Documented by: Polyethylene Glycol (Miralax) 17 gm PO DAILYP PRN PRN Reason: Constipation Potassium Chloride (Kdur) 40 meq PO ONCE PRN PRN Reason: Potssium is 3-3.5 Potassium Chloride (Kdur) 40 meq PO ONCE PRN PRN Reason: Potassium < 3 Sodium Chloride (Saline Flush) 10 ml IV Q8 [facility] Last Admin: 06/20/18 05:07 Dose: 10 ml Documented by: Tramadol HCl (Ultram) 50 mg PO Q6HP PRN PRN Reason: Pain Last Admin: 01/19/19 22:41 Dose: 50 mg Documented by: Medical - PN: A/P - Time Spent With Patient Total time spent is greater than 50% in coordination of care (as documented) at patient's floor/unit and/or counseling patient: - Narrative A/P Narrative: A: *Acute hypoxic respiratory failure, on chronic: -down to 2L oxymask *Aspiration pneumonitis, concern for developing pneumonia: *UTI: *Sepsis, based on tachycardia and fever: *LESLI vs CKD III baseline: *Deconditioning/debility: *likely underlying Dementia: *COPD (2L@night and prn daytime) *JOSE R: *Depression *Anemia, chronic: *HTN: *Ulcerative colitis *recent c.diff outpt: c. diff assay negative on admit, but having loose stools, P: -Dysphagia diet -ST eval -zosyn/levaquin, pending bc/sc/uc -c. diff pcr -trend PCT -o2 supp -IS/Acapella -hold ACEI for renal fxn -pt/ot -f/u with Dr. reagan outpt for EGD -ppx: lovenox No code Medical - PN: Qual - VTE Deep Vein Thrombosis/Pulmonary Embolism Present on Admission: No
[2018-06-20 06:47] LABS: Mean Cell Volume 94.7 fL (80.0-100.0); Mean Corpuscular HGB Conc 32.2 g/dL (31.0-36.0); Platelet Count 137 K/mcL (140-440); RBC 2.49 M/mcL (4.50-5.90); Red Cell Distribution Width 15.6 % (11.5-14.5)
[2018-06-20 07:06] LABS: Band Neutrophils % 14 % (0-10); Dohle Bodies OCC (NONE SEEN); Eosinophils % (Manual) 1 % (0-7); Lymphocytes % 24 % (15-49); Platelet Estimate DECREASED (NORMAL); RBC Morphology NORMAL (NORMAL); Segmented Neutrophils % 61 % (38-78); Toxic Granulation 1+ (NONE SEEN)
[2018-06-20] MEDS: INSULIN LISPRO 1 UNIT/0.01 ML UNIT SQ SCH ×4 (07:17→23:29)
[2018-06-20] MEDS: metroNIDAZOLE 500 MG TABLET PO SCH ×3 (07:22→23:24)
[2018-06-20] MEDS: GLUCOSAMINE/CHONDROITIN SULF A 1 CAP CAPSULE PO SCH (08:56)
[2018-06-20] MEDS: ENOXAPARIN 40 MG/0.4 ML SYRINGE SQ SCH (08:56)
[2018-06-20] MEDS: FAMOTIDINE/PF 20 MG/2 ML VIAL IV SCH ×2 (08:57→23:29)
[2018-06-20] MEDS: CITALOPRAM 20 MG TABLET PO SCH (08:57)
[2018-06-20] MEDS: LEVOFLOXACIN 750 MG/150 ML BAG IV SCH (08:58)
[2018-06-20] MEDS: BALSALAZIDE DISODIUM 750 MG PO SCH ×3 (08:58→23:29)
[2018-06-20] MEDS: LACTOBACILLUS 1 CAPSULE PO SCH ×2 (08:58→23:23)
[2018-06-20] MEDS: METHYLSULFONYLMETHANE 1000 MG PO SCH (08:58)
[2018-06-20] MEDS: ASPIRIN 81 MG TAB.CHEW PO SCH (08:58)
[2018-06-20] MEDS: METHOCARBAMOL 500 MG TABLET PO SCH (08:58)
[2018-06-20] MEDS: ONDANSETRON 4 MG ODT TABLET SL PRN ×2 (10:00→17:32)
[2018-06-21] MEDS: PIPERACILLIN SODIUM/TAZOBACTAM 3.375 GM in DEXTROSE 5% IN WATER 50 ML IV SCH (06:00)
[2018-06-21] MEDS: 0.9 % SODIUM CHLORIDE 10 ML SYRINGE IV SCH ×4 (06:03→21:52)
[2018-06-21 06:15] LABS: Basophils # (Auto) 0 K/mcL (0.0-0.3); Basophils % (Auto) 0.2 % (0.0-2.0); Eosinophils # (Auto) 0.1 K/mcL (0.0-0.7); Eosinophils % (Auto) 1.6 % (0.0-7.0); Granulocytes % (Auto) 70.5 % (38.0-78.0); Lymphocytes # (Auto) 1.5 K/mcL (1.5-4.8); Lymphocytes % (Auto) 25.9 % (15.5-49.0); Mean Cell Volume 94.4 fL (80.0-100.0); Mean Corpuscular HGB Conc 32.6 g/dL (31.0-36.0); Monocytes # (Auto) 0.1 K/mcL (0.1-0.9); Monocytes % (Auto) 1.8 % (1.0-12.0); Platelet Count 154 K/mcL (140-440); RBC 2.56 M/mcL (4.50-5.90); Red Cell Distribution Width 15.4 % (11.5-14.5)
[2018-06-21] MEDS: metroNIDAZOLE 500 MG TABLET PO SCH (06:35)
[2018-06-21 06:47] LABS: ALT/SGPT < 5 U/l (0-40); Albumin 3.3 gm/dL (3.2-5.2); Albumin/Globulin Ratio 0.8 (1.0-2.3); Alkaline Phosphatase 33 U/L (39-117); Bilirubin,Direct < 0.2 mg/dL (0.0-0.3); Blood Urea Nitrogen 24 mg/dl (8-23); Uric Acid 3.8 mg/dL (2.5-8.0)
[2018-06-21 06:56] LABS: Gamma Glutamyl Transpeptidase 7 U/L (8-61)
[2018-06-21] MEDS: INSULIN LISPRO 1 UNIT/0.01 ML UNIT SQ SCH ×4 (06:58→21:49)
[2018-06-21] MEDS: METHOCARBAMOL 500 MG TABLET PO SCH (08:16)
[2018-06-21] MEDS: GLUCOSAMINE/CHONDROITIN SULF A 1 CAP CAPSULE PO SCH (08:16)
[2018-06-21] MEDS: LACTOBACILLUS 1 CAPSULE PO SCH ×2 (08:17→21:34)
[2018-06-21] MEDS: ASPIRIN 81 MG TAB.CHEW PO SCH (08:17)
[2018-06-21] MEDS: CITALOPRAM 20 MG TABLET PO SCH (08:17)
[2018-06-21] MEDS: ENOXAPARIN 40 MG/0.4 ML SYRINGE SQ SCH (08:18)
[2018-06-21] MEDS: FAMOTIDINE/PF 20 MG/2 ML VIAL IV SCH (08:18)
[2018-06-21] MEDS: BALSALAZIDE DISODIUM 750 MG PO SCH ×3 (08:18→21:50)
[2018-06-21] MEDS: METHYLSULFONYLMETHANE 1000 MG PO SCH (08:18)
[2018-06-21] MEDS: ERTAPENEM 1 GM in 0.9 % SODIUM CHLORIDE 50 ML IV SCH (11:24)
--- NOTE | 2018-06-21 13:29 | Internal Med Progress Note ---
Medical - PN: Subj Patient information: Note initiated : 06/21/18 at 1:25 pm Service Date, if different from initiated Date: [] Patient: Kenneth Encinas 83 y/o M admitted on 06/19/18 for fever. Chief Complaint: [] Interval history: Mr. Encinas is a 83 year old M who presents from nursing facility after nausea vomiting and hypoxia. Is actually here in the ED earlier in the day after choking on a piece of roast beef. He did have some hypoxia at that point and was coughing quite a bit. ED staff was coordinating with GI for endoscopy on the patient suddenly was able to cough out the food and a lot of phlegm. He was sent back to the nursing facility and scheduled for outpatient endoscopy next week. He reports back by nursing staff who stated to triage that he had nausea vomiting also had a temperature of 103. He was hypoxic at 87% on room air. He does use oxygen at night at least and as needed during the day. Nursing facility is concerned about aspiration pneumonia. Is on 4 L nasal cannula in the ED. Temperature in the ED was 100.7. Chest x-ray with some right lower lobe infiltrates. Urinalysis with nitrites and WBCs. History is obtained from chart as patient is significantly poor historian. In the charts is noted that he is on precautions for C. difficile and Flagyl was on an old list here in the ED but that we do not see it on the current med list. Patient does admit to coughing after repeated questioning initially he denied it. Initially denied nausea vomiting but after further and direct questions said he did admitted to some nausea. Admitted to sometimes diarrhea. Denies fe tomas chills 06/19 Weaned to 2 L oxygen mask overnight, no overnight events. Denies any complaints to me this morning quite drowsy still. denies coughing or shortness of breath. 06/20 Reported loose stool overnight, C. difficile assay negative. Patient feeling little better. No overnight events no new complaints. 06/21 Patient seen and examined, no acute overnight events. Patient is feeling better has no complaints. Was lying comfortably in bed. Patient's microbiology is growing possible Proteus speaking to the collaborating supervising physician it looks like this could be ESBL, with intermediate sensitivity to Zosyn. Discontinue Zosyn and start the patient on ertapenem. Patient will need at least 5 more days of IV antibiotics. Midline to be placed. Given the fact that patient lives in assisted living facility IV antibiotics cannot be provided there. Patient refuses to go to snf Pertinent ROS: Denies headache, dizziness Denies chest pain, palpitations Denies cough or shortness of breath Denies abdominal pain, nausea or vomiting. - Constitutional Vitals: Vital Signs Temp Pulse Resp BP Pulse Ox 97.3 F 60 17 100/46 95 06/21/18 11:25 06/21/18 11:25 06/21/18 11:25 06/21/18 11:25 06/21/18 11:25 Period Temp Pulse Resp BP Sys/Zambrano Pulse Ox Last 24 Hr 97.3 F-98.9 F 55-75 16-18 100-143/44-68 90-95 Intake and Output 06/20/18 06/21/18 06/21/18 21:59 05:59 13:59 Intake Total 1000 300 170 Output Total 250 Balance 1000 50 170 Weight 180 lb 181 lb 8 oz Intake & Output: Intake & Output 06/20/18 06/21/18 06/21/18 21:59 05:59 13:59 Intake Total 1000 300 170 Output Total 250 Balance 1000 50 170 Weight 180 lb 181 lb 8 oz Intake: IV 100 50 50 Zosyn 3.375 gm In Dextrose 5% 100 50 50 in Water 50 ml @ 100 mls/hr IV Q6H [facility] Rx#:[id number] Oral 900 250 120 Output: Urine Catheter Amount 250 Other: Meal Lunch Percent of Meal Consumed 2 bites Feeding Ability Assist with Tray Set Up Urine Appearance Clear Cloudy Cloudy Suprapubic Cloudy Sediment Urine Color Dark Yellow Dark Yellow Suprapubic Dark Yellow Bright Yellow Urine Odor Foul Suprapubic Foul Normal Stool Size Small Large Stool Color Brown Brown Stool Consistency Soft Soft Liquid Loose Watery Loose # Bowel Movements 1 Exam: Constitutional; Afebrile, cooperative, alert, not in distress. Respiratory system: Air Entry equal on both sides, No crackles or wheezing, no rhonchi. CVS- Rate rhythm regular, S1,S2 heard, no gallop, no rub. Abdomen- Soft nontender abdomen, no organomegaly, no tenderness, no guarding or rigidity, [employer]- AOOx3, moving all extremities, no gross focal deficit noted. Medical - PN: Obj Da - Labs CBC & Chem 7: 06/21/18 04:04 06/21/18 04:04 Labs: Abnormal Lab Results 06/21/18 06/21/18 06/20/18 04:04 04:04 04:21 RBC 2.56 L 2.49 L Hgb 7.9 L 7.6 L Hct 24.2 L 23.6 L RDW 15.4 H 15.6 H Plt Count 137 L MPV Gran % Lymph % (Auto) Lymph # (Auto) Band Neutrophils % 14 H Lymphocytes % WBC Morphology Abnorm A Toxic Granulation 1+ A Dohle Bodies Occ A Platelet Estimate Decreased A Carbon Dioxide 31 H Anion Gap 7.0 L BUN 24 H Creatinine 1.3 H Glucose 107 H Calcium 8.2 L Phosphorus 1.7 L GGT 7 L Alkaline Phosphatase 33 L Total Protein Globulin 4.2 H Albumin/Globulin Ratio 0.8 L Urine Nitrate Ur Leukocyte Esterase Urine RBC Urine WBC Urine Bacteria 06/20/18 06/19/18 06/19/18 04:21 04:25 04:20 RBC 2.83 L Hgb 8.8 L Hct 26.6 L RDW 15.2 H Plt Count MPV Gran % Lymph % (Auto) Lymph # (Auto) Band Neutrophils % 13 H Lymphocytes % 11 L WBC Morphology Abnorm A Toxic Granulation 1+ A Dohle Bodies Platelet Estimate Carbon Dioxide 33 H Anion Gap BUN 26 H 27 H Creatinine 1.3 H 1.3 H Glucose 127 H Calcium 7.9 L 8.4 L Phosphorus GGT 7 L Alkaline Phosphatase Total Protein Globulin 4.1 H Albumin/Globulin Ratio 0.9 L Urine Nitrate Ur Leukocyte Esterase Urine RBC Urine WBC Urine Bacteria 06/18/18 06/18/18 06/18/18 22:20 21:37 21:37 RBC 3.07 L Hgb 9.5 L Hct 28.5 L RDW 15.3 H Plt Count MPV 7.2 L Gran % 89.2 H Lymph % (Auto) 8.7 L Lymph # (Auto) 0.5 L Band Neutrophils % Lymphocytes % WBC Morphology Toxic Granulation Dohle Bodies Platelet Estimate Carbon Dioxide 31 H Anion Gap BUN 25 H Creatinine Glucose 151 H Calcium Phosphorus GGT Alkaline Phosphatase Total Protein 8.5 H Globulin 4.7 H Albumin/Globulin Ratio 0.8 L Urine Nitrate Pos A Ur Leukocyte Esterase 250 A Urine RBC 3 H Urine WBC 21 H Urine Bacteria Few A Meds: Medications Acetaminophen (Tylenol) 650 mg PO Q6HP PRN PRN Reason: PAIN/FEVER > 101 Last Admin: 06/20/18 17:31 Dose: 650 mg Documented by: Albuterol/Ipratropium (Duoneb) 3 ml NEB Q4HP PRN PRN Reason: Shortness Of Breath Aspirin (Aspirin) 81 mg PO QDAY [facility] Last Admin: 06/21/18 08:17 Dose: 81 mg Documented by: Citalopram Hydrobromide (Celexa) 30 mg PO QDAY [facility] Last Admin: 06/21/18 08:17 Dose: 30 mg Documented by: Dextrose (Dextrose 50%) 0 ml IV UD PRN PRN Reason: Hypoglycemia Diagnostic Test (Pha) (Accu-Chek) 1 each FS ACHS [facility] Last Admin: 06/21/18 11:00 Dose: 1 each Documented by: Enoxaparin Sodium (Lovenox) 40 mg SQ DAILY [facility] Last Admin: 06/21/18 08:18 Dose: 40 mg Documented by: Famotidine (Pepcid) 20 mg PO BID [facility] Glucosamine/Chondroitin (Glucosamine-Chondroitin Cap) 2 cap PO DAILY [facility] Last Admin: 06/21/18 08:16 Dose: 2 cap Documented by: Glucose (Insta-Glucose) 15 gm PO PRN PRN PRN Reason: Hypoglycemia Heparin Sodium (Porcine) (Heparin Flush) 2 ml IV Q12 [facility] Potassium Chloride 40 meq/ (Dextrose) 520 mls @ 130 mls/hr IV ONCE PRN PRN Reason: Potassium < 3 Magnesium Sulfate (Magnesium Sulfate) 2 gm in 50 mls @ 50 mls/hr IV ONCE PRN PRN Reason: Magnesium </= 1.6 Levofloxacin (Levaquin) 750 mg in 150 mls @ 100 mls/hr IV Q48H [facility] Last Infusion: 06/20/18 10:38 Dose: Infused Documented by: Ertapenem 1 gm/ Sodium (Chloride) 50 mls @ 100 mls/hr IV Q24H [facility] Last Admin: 06/21/18 11:24 Dose: 100 mls/hr Documented by: Insulin Human Lispro (Humalog) 0 unit SQ ACHS [facility]; Protocol Last Admin: 06/21/18 11:00 Dose: Not Given Documented by: Lactobacillus Rhamnosus (Culturelle) 1 cap PO BID [facility] Last Admin: 06/21/18 08:17 Dose: 1 cap Documented by: Meclizine HCl (Antivert) 25 mg PO TIDP PRN PRN Reason: Vertigo Methocarbamol (Robaxin) 500 mg PO QDAY [facility] Last Admin: 06/21/18 08:16 Dose: 500 mg Documented by: Metoclopramide HCl (Reglan) 10 mg IV Q6HP PRN PRN Reason: Nausea And Vomiting Ondansetron HCl (Zofran) 4 mg IV Q4HP PRN PRN Reason: Nausea And Vomiting Ondansetron HCl (Zofran Odt) 4 mg SL Q8HP PRN PRN Reason: Nausea And Vomiting Last Admin: 06/20/18 17:32 Dose: 4 mg Documented by: Oxybutynin Chloride (Ditropan) 10 mg PO QDAY PRN PRN Reason: Bladder spasms or leakage Balsalazide Disodium [Colazal] 750 Mg Cap 3 dose PO TID [facility] Last Admin: 06/21/18 13:15 Dose: Not Given Documented by: Methylsulfonylmethan (e [Msm] 1,000 Mg Cap) 1 dose PO QDAY [facility] Last Admin: 06/21/18 08:18 Dose: Not Given Documented by: Polyethylene Glycol (Miralax) 17 gm PO DAILYP PRN PRN Reason: Constipation Potassium Chloride (Kdur) 40 meq PO ONCE PRN PRN Reason: Potssium is 3-3.5 Potassium Chloride (Kdur) 40 meq PO ONCE PRN PRN Reason: Potassium < 3 Sodium Chloride (Saline Flush) 10 ml IV Q8 [facility] Last Admin: 06/21/18 12:52 Dose: 10 ml Documented by: Sodium Chloride (Saline Flush) 10 ml IV Q12 [facility] Tramadol HCl (Ultram) 50 mg PO Q6HP PRN PRN Reason: Pain Last Admin: 06/19/18 22:41 Dose: 50 mg Documented by: Medical - PN: A/P - Time Spent With Patient Total time spent is greater than 50% in coordination of care (as documented) at patient's floor/unit and/or counseling patient: - Narrative A/P Narrative: A: *Acute hypoxic respiratory failure, on chronic: -down to 2L oxymask *Aspiration pneumonitis, concern for developing pneumonia: *UTI: *Sepsis, based on tachycardia and fever: *LESLI vs CKD III baseline: *Deconditioning/debility: *likely underlying Dementia: *COPD (2L@night and prn daytime) *JOSE R: *Depression *Anemia, chronic: *HTN: *Ulcerative colitis *recent c.diff outpt: c. diff assay negative on admit, but having loose stools, P: -Dysphagia diet -ST eval -switch to ertapenum given possible esbl proteus in urine, final culture repots pending. -c. diff pcr is negative. -Hb stable -trend PCT -o2 supp -IS/Acapella -hold ACEI for renal fxn -pt/ot -f/u with Dr. reagan outpt for EGD, will review with him to see if this can be done while pt is here. -ppx: lovenox No code Medical - PN: Qual - VTE Deep Vein Thrombosis/Pulmonary Embolism Present on Admission: No
[2018-06-21] MEDS: ONDANSETRON 4 MG ODT TABLET SL PRN (14:31)
[2018-06-21] MEDS: FAMOTIDINE 20 MG TABLET PO SCH (21:34)
[2018-06-22] MEDS: 0.9 % SODIUM CHLORIDE 10 ML SYRINGE IV SCH ×5 (05:19→23:34)
[2018-06-22 06:32] LABS: Basophils # (Auto) 0 K/mcL (0.0-0.3); Basophils % (Auto) 0.2 % (0.0-2.0); Eosinophils # (Auto) 0.1 K/mcL (0.0-0.7); Eosinophils % (Auto) 3.2 % (0.0-7.0); Granulocytes % (Auto) 69.4 % (38.0-78.0); Lymphocytes # (Auto) 1.1 K/mcL (1.5-4.8); Lymphocytes % (Auto) 24.6 % (15.5-49.0); Mean Cell Volume 94.9 fL (80.0-100.0); Mean Corpuscular HGB Conc 32.4 g/dL (31.0-36.0); Monocytes # (Auto) 0.1 K/mcL (0.1-0.9); Monocytes % (Auto) 2.6 % (1.0-12.0); Platelet Count 167 K/mcL (140-440); RBC 2.43 M/mcL (4.50-5.90); Red Cell Distribution Width 15.4 % (11.5-14.5)
[2018-06-22 06:59] LABS: ALT/SGPT < 5 U/l (0-40); Albumin/Globulin Ratio 0.7 (1.0-2.3); Alkaline Phosphatase 35 U/L (39-117); Bilirubin,Direct < 0.2 mg/dL (0.0-0.3); Blood Urea Nitrogen 21 mg/dl (8-23); Gamma Glutamyl Transpeptidase 7 U/L (8-61); Uric Acid 3.8 mg/dL (2.5-8.0)
[2018-06-22] MEDS: INSULIN LISPRO 1 UNIT/0.01 ML UNIT SQ SCH ×4 (09:11→19:45)
[2018-06-22] MEDS: GLUCOSAMINE/CHONDROITIN SULF A 1 CAP CAPSULE PO SCH (09:11)
[2018-06-22] MEDS: LACTOBACILLUS 1 CAPSULE PO SCH ×2 (09:12→20:21)
[2018-06-22] MEDS: METHOCARBAMOL 500 MG TABLET PO SCH (09:12)
[2018-06-22] MEDS: ASPIRIN 81 MG TAB.CHEW PO SCH (09:12)
[2018-06-22] MEDS: FAMOTIDINE 20 MG TABLET PO SCH ×2 (09:13→20:21)
[2018-06-22] MEDS: CITALOPRAM 20 MG TABLET PO SCH (09:13)
[2018-06-22] MEDS: ENOXAPARIN 40 MG/0.4 ML SYRINGE SQ SCH (09:14)
[2018-06-22] MEDS: ERTAPENEM 1 GM in 0.9 % SODIUM CHLORIDE 50 ML IV SCH (09:14)
[2018-06-22] MEDS: BALSALAZIDE DISODIUM 750 MG PO SCH ×3 (09:18→23:34)
[2018-06-22] MEDS: METHYLSULFONYLMETHANE 1000 MG PO SCH (09:18)
[2018-06-22] MEDS: LEVOFLOXACIN 750 MG/150 ML BAG IV SCH (09:57)
[2018-06-22] MEDS ORDERED: POLYVINYL ALCOHOL OPHTH DROPS 15ML BOTTLE OU PRN (10:08)
[2018-06-22] MEDS ORDERED: 0.9 % SODIUM CHLORIDE 250 ML IV SCH (10:30)
--- NOTE | 2018-06-22 11:05 | XRay Report ---
HISTORY: Congestive heart failure FINDINGS: The heart is mildly enlarged but has decreased in size since 06/19/18. The congestive heart failure has improved but not completely resolved. There is a linear band of scar tissue above the midline in the left upper lobe or lingula. No consolidating infiltrate or pleural effusion are present. IMPRESSION: Improving congestive heart failure Interpreted and Authenticated by: Joo Zamudio 06/22/18
[2018-06-22] MEDS: FUROSEMIDE 40 MG/4 ML VIAL IV SCH ×2 (11:10→16:36)
[2018-06-22 11:21] LABS: Retic Absolute 0.9 % (0.5-1.5)
[2018-06-22 11:36] LABS: Iron 44 mcg/dl (61-157); Transferrin % Saturation 27 % (20-50); Unsaturated Iron Binding 117 mcg/dL (112-346)
[2018-06-22] MEDS: ONDANSETRON 4 MG ODT TABLET SL PRN (11:46)
[2018-06-22 11:47] LABS: Ferritin 393.6 ng/ml (30-400)
[2018-06-22] MEDS ORDERED: SIMETHICONE 80 MG TAB.CHEW CHEWED PRN (12:30)
--- NOTE | 2018-06-22 14:17 | General Surgery Consult Note ---
History of Present Illness Patient information: Note initiated : 06/22/18 at 2:13 pm Service Date, if different from initiated Date: [] Patient: Kenneth Encinas 83 y/o M admitted on 06/19/18 for fever. Chief Complaint: [] Reason for consult: other (DYSPHAGIA) History of present illness: 83-year-old male who is being seen for consideration for upper endoscopy and esophageal dilation for dysphagia. The patient was seen in the emergency room on 18 June after he presented with a foreign body in his esophagus. This occurred while he was eating some bEEF. He had initially presented with inability to swallow with increase saliva gurgling respirations and cough. While being evaluated the patient coughed up a piece of meat and all of his symptoms resolved. He was given 1/2 cup of water and he was able to drink this without difficulty. He was returned to the nursing care facility where she developed less responsiveness and had temperature to 103. He also had nausea and vomiting. He had mild decrease in oxygen saturations to the level of about 87%. He was reevaluated in the emergency room and was also noted to have a urinary tract infection. He has a chronic indwelling suprapubic catheter. His x-ray showed questionable right lower lobe infiltrate suggestive of aspiration pneumonia. He has not demonstrated any significant temperature elevation while hospitalized. His urine is growing Klebsiella and MRSA. He is presently under therapy for this and has responded. His chest x-ray is relatively clear at this time. The patient denies having any abdominal pain but it is known that he has gallstone disease also. He has not had leukocytosis and his LFTs have been normal. Family members request that visit endoscopy be done while he is hospitalized so that he does not have to re-presented to the outpatient clinic for the procedure. He is clinically stable except for hemoglobin of 7.6. He will be transfused 2 units of packed red blood cells today and this should suffice. The patient is counseled for upper endoscopy and they will be performed on June 19. Review of Systems - Constitutional fatigue, headache(s), snoring, weakness - EENT Nose, mouth and throat: abnormal hearing, dizziness, dysphagia, hoarseness, neck pain, post-nasal drip, sore throat - Cardiovascular dyspnea on exertion, palpatations, rapid heart rate - Respiratory cough, dyspnea on exertion, wheezing, snoring - Gastrointestinal abdominal pain, bloating, dyspepsia, dysphagia, heartburn, nausea, vomiting - Genitourinary change in urinary stream, difficulty urinating, urinary hesitancy, urinary incontinence, urinary urgency - Musculoskeletal abnormal gait, arthralgias, back pain, joint swelling, limited range of motion, muscle cramps, neck pain, stiffness, other - Integumentary no new lesions, no pruritus, no rash, no wounds, no jaundice - Neurological abnormal hearing, confusion, disequilibrium, focal weakness, lack of coordination, syncope, tremor(s), vertigo, weakness, no convulsions - Psychiatric anxiety, confusion, depression - Endocrine fatigue, palpitations - Hematologic/Lymphatic no easy bleeding, no easy bruising, no lymphadenopathy - Allergic/Immunologic no tongue swelling, no throat swelling, no uticaria, no wheezing, no lip swelling Past History Past medical history: History of ischemic colitis Cholelithiasis History of congestive heart failure Chronic urinary tract infection with indwelling suprapubic catheter BPH with chronic urinary retention Diabetes mellitus by history History of MRSA infection Chronic anemia History of hypertension Back syndrome Anxiety with depression Chronic obstructive lung disease Past surgical history: OTIF right ankle Back surgery 2 Pain pump placement Suprapubic catheter placement Past family history: Coronary artery disease by history Stroke Past social history: Meds at nursing care facility Never smoker Never drinker Denies drug Medications and Allergies Home Medications Medication Instructions Recorded Confirmed Type Saccharomyces boulardii 250 mg 250 mg PO BID 07/09/16 06/18/18 History capsule albuterol sulfate HFA 90 2 puff INHALATION Q6H PRN #18 g 09/08/16 06/18/18 Rx mcg/actuation aerosol inhaler Cyanocobalamin (Vitamin B-12) 2,500 mcg SL DAILY 01/21/17 06/18/18 History [Vitamin B12] Na Phos,M-B/Na Phos,Di-Ba [Fleets 1 dose MN DAILYP PRN 01/21/17 06/18/18 History Adult] Simethicone [Gas-X Ultra Strength] 125 mg PO BID PRN 01/21/17 06/18/18 History Vits A and D/White Pet/Lanolin [A 113 gm TP PRN PRN 01/21/17 06/18/18 History and D Ointment] oxybutynin chloride 5 mg tablet 10 mg PO QDAY PRN #180 tab 06/03/17 06/18/18 Rx bisacodyl 10 mg rectal suppository 10 mg MN QDAY PRN #1 each 07/23/17 06/18/18 Rx glucosamine-chondroitin 750 mg-600 2 tab PO QDAY #1 tab 07/23/17 06/18/18 Rx mg tablet methylsulfonylmethane 1,000 mg 1,000 mg PO QDAY #1 cap 07/23/17 06/18/18 Rx capsule Acetaminophen [Tylenol] 650 mg PO Q4-6HP PRN tab 08/24/17 06/18/18 Rx aspirin 81 mg chewable tablet 81 mg PO QDAY #1 tab 09/10/17 06/18/18 Rx calcium citrate 250 mg tablet 500 mg PO QDAY #180 tab 09/10/17 06/18/18 Rx ferrous gluconate 324 mg (36 mg 324 mg PO QDAY #90 tab 09/10/17 06/18/18 Rx iron) tablet meclizine 25 mg chewable tablet 25 mg PO TID PRN #60 tab 12/09/17 06/18/18 Rx magnesium hydroxide 400 mg/5 mL 5 ml PO QHS PRN #30 ml 01/01/18 06/18/18 Rx oral suspension furosemide 40 mg tablet 40 mg PO BID #180 tab 01/12/18 06/18/18 Rx Lisinopril [Zestril] 2.5 mg PO DAILY 01/28/18 06/18/18 History Tolnaftate [Antifungal Cream] 15 gm TP DAILY 01/28/18 06/18/18 History traMADol [Ultram] 50 mg PO Q6HP PRN 30 Days #90 tab 01/31/18 06/18/18 Rx ondansetron HCl 4 mg tablet 4 mg PO Q8H PRN #20 tab 04/06/18 06/18/18 Rx potassium chloride ER 20 mEq 20 meq PO QDAY #90 tab 04/21/18 06/18/18 Rx tablet,extended release methocarbamol 500 mg tablet 500 mg PO QDAY #30 tab 05/05/18 06/18/18 Rx citalopram 20 mg tablet 30 mg PO QDAY #135 tab 06/03/18 06/18/18 Rx Balsalazide Disodium [Colazal] 3 cap PO TID 06/18/18 06/18/18 History Dextran 70/Hypromellose 1 each OP PRN PRN 06/19/18 06/19/18 History [Artificial Tears] Mag Hydrox/Aluminum Hyd/Simeth 30 ml PO QIDP PRN 06/19/18 06/19/18 History [Gnp Antacid Liquid] Nystatin [Kenalog] 1 dose TOPICAL PRN PRN 06/19/18 06/19/18 History Allergies Allergy/AdvReac Type Severity Reaction Status Date / Time sulfamethoxazole Allergy Mild Hives Verified 06/18/18 14:19 [From Bactrim] Tetracyclines Allergy Mild Hives Verified 06/18/18 14:19 trimethoprim [From Bactrim] Allergy Mild Hives Verified 06/18/18 14:19 Exam Temp Pulse Resp BP Pulse Ox 98.1 F 58 L 12 126/72 97 06/22/18 11:38 06/22/18 11:38 06/22/18 11:38 06/22/18 11:38 06/22/18 11:38 - General physical appearance well developed, well nourished, no distress, no pain - Eyes PERRL, normal ocular movement - ENT normal pinna, normal nares, normal mucosa, no congestion, decreased hearing - Head Head exam IM: Present: atraumatic, normocephalic - Neck no masses, no bruits, trachea midline, no lymphadenopathy, no venous distension - Cardiovascular Cardiovascular exam IM: Present: +S1, +S2. Absent: irregular rhythm, JVD, tachycardia - Respiratory normal expansion, normal respiratory effort, clear to auscultation, other (chest remains totally clear no rales or rhonchi wheezes) - Abdomen Abdomen: Present: soft, non tender, bowel sounds, masses (pain pump generator right lateral abdomen) Hernia: Present: none - Genitourinary Present: normal penis with no external lesions, other (suprapubic catheter in place) - Integumentary Present: no rash, no growths, no abnormal pigmentation - Neurologic Present: normal coordination, normal sensation - Musculoskeletal Present: other (wheelchair dependent) - Psychiatric Present: oriented to time, oriented to person, oriented to place, speech is normal, memory intact Results - Labs 06/22/18 04:00 06/22/18 04:00 Abnormal lab results 06/22/18 06/22/18 06/22/18 Range/Units 04:00 04:00 10:37 RBC 2.43 L (4.50-5.90) M/mcL Hgb 7.5 L (13.5-16.5) g/dL Hct 23.1 L (41.0-55.0) % RDW 15.4 H (11.5-14.5) % Lymph # (Auto) 1.1 L (1.5-4.8) K/mcL Haptoglobin (30-200) mg/dl Anion Gap 6.0 L (8-16) Creatinine 1.3 H (0.7-1.2) mg/dl Calcium 8.3 L (8.6-10.4) mg/dl Phosphorus 1.8 L (2.7-4.5) mg/dL Iron 44 L (61-157) mcg/dl TIBC 161 L (228-428) ug/dl GGT 7 L (8-61) U/L Alkaline Phosphatase 35 L (39-117) U/L Albumin 3.0 L (3.2-5.2) gm/dL Globulin 4.3 H (2.2-3.7) gm/dL Albumin/Globulin Ratio 0.7 L (1.0-2.3) Vitamin B12 (232-1245) pg/ml 06/22/18 Range/Units 10:37 RBC (4.50-5.90) M/mcL Hgb (13.5-16.5) g/dL Hct (41.0-55.0) % RDW (11.5-14.5) % Lymph # (Auto) (1.5-4.8) K/mcL Haptoglobin 219 H (30-200) mg/dl Anion Gap (8-16) Creatinine (0.7-1.2) mg/dl Calcium (8.6-10.4) mg/dl Phosphorus (2.7-4.5) mg/dL Iron (61-157) mcg/dl TIBC (228-428) ug/dl GGT (8-61) U/L Alkaline Phosphatase (39-117) U/L Albumin (3.2-5.2) gm/dL Globulin (2.2-3.7) gm/dL Albumin/Globulin Ratio (1.0-2.3) Vitamin B12 1436 H (232-1245) pg/ml Diabetes panel 06/22/18 Range/Units 04:00 Sodium 140 (133-145) mmol/L Potassium 3.6 (3.3-5.1) mmol/L Chloride 104 (96-108) mmol/L Carbon Dioxide 30 (22-30) mmol/L BUN 21 (8-23) mg/dl Creatinine 1.3 H (0.7-1.2) mg/dl Glucose 83 (70-105) mg/dL Calcium 8.3 L (8.6-10.4) mg/dl AST 10 (0-37) U/l ALT < 5 (0-40) U/l Alkaline Phosphatase 35 L (39-117) U/L Total Protein 7.3 (5.9-8.4) gm/dL Albumin 3.0 L (3.2-5.2) gm/dL Triglycerides 59 (<150) mg/dl Calcium panel 06/22/18 Range/Units 04:00 Calcium 8.3 L (8.6-10.4) mg/dl Phosphorus 1.8 L (2.7-4.5) mg/dL Albumin 3.0 L (3.2-5.2) gm/dL Pituitary panel 06/22/18 Range/Units 04:00 Sodium 140 (133-145) mmol/L Potassium 3.6 (3.3-5.1) mmol/L Chloride 104 (96-108) mmol/L Carbon Dioxide 30 (22-30) mmol/L BUN 21 (8-23) mg/dl Creatinine 1.3 H (0.7-1.2) mg/dl Glucose 83 (70-105) mg/dL Calcium 8.3 L (8.6-10.4) mg/dl Adrenal panel 06/22/18 Range/Units 04:00 Sodium 140 (133-145) mmol/L Potassium 3.6 (3.3-5.1) mmol/L Chloride 104 (96-108) mmol/L Carbon Dioxide 30 (22-30) mmol/L BUN 21 (8-23) mg/dl Creatinine 1.3 H (0.7-1.2) mg/dl Glucose 83 (70-105) mg/dL Calcium 8.3 L (8.6-10.4) mg/dl Total Bilirubin 0.3 (0.0-1.0) mg/dL AST 10 (0-37) U/l ALT < 5 (0-40) U/l Alkaline Phosphatase 35 L (39-117) U/L Total Protein 7.3 (5.9-8.4) gm/dL Albumin 3.0 L (3.2-5.2) gm/dL All other labs normal. Assessment and Plan (1) Dysphagia Patient was counseled for upper endoscopy and esophageal dilation. This will be scheduled for June Status: Acute (2) Aspiration pneumonia due to gastric secretions Status: Acute Qualifiers: Laterality: bilateral Lung location: unspecified part of lung Qualified Code(s): J69.0 - Pneumonitis due to inhalation of food and vomit (3) UTI (urinary tract infection) Status: Acute Qualifiers: Urinary tract infection type: acute cystitis Hematuria presence: without hematuria Qualified Code(s): N30.00 - Acute cystitis without hematuria (4) Cholelithiasis Status: Chronic Priority: Low (5) Anemia with chronic illness Status: Acute (6) Chronic suprapubic catheter Status: Acute (7) Multiple myeloma Status: Acute (8) Spinal compression fracture Status: Acute (9) JSOE R (obstructive sleep apnea) Status: Chronic
--- NOTE | 2018-06-22 15:09 | Internal Med Progress Note ---
Medical - PN: Subj Patient information: Note initiated : 06/22/18 at 3:06 pm Service Date, if different from initiated Date: [] Patient: Kenneth Encinas 83 y/o M admitted on 06/19/18 for fever. Chief Complaint: [] Interval history: Mr. Encinas is a 83 year old M who presents from nursing facility after nausea vomiting and hypoxia. Is actually here in the ED earlier in the day after choking on a piece of roast beef. He did have some hypoxia at that point and was coughing quite a bit. ED staff was coordinating with GI for endoscopy on the patient suddenly was able to cough out the food and a lot of phlegm. He was sent back to the nursing facility and scheduled for outpatient endoscopy next week. He reports back by nursing staff who stated to triage that he had nausea vomiting also had a temperature of 103. He was hypoxic at 87% on room air. He does use oxygen at night at least and as needed during the day. Nursing facility is concerned about aspiration pneumonia. Is on 4 L nasal cannula in the ED. Temperature in the ED was 100.7. Chest x-ray with some right lower lobe infiltrates. Urinalysis with nitrites and WBCs. History is obtained from chart as patient is significantly poor historian. In the charts is noted that he is on precautions for C. difficile and Flagyl was on an old list here in the ED but that we do not see it on the current med list. Patient does admit to coughing after repeated questioning initially he denied it. Initially denied nausea vomiting but after further and direct questions said he did admitted to some nausea. Admitted to sometimes diarrhea. Denies fe tomas chills 06/19 Weaned to 2 L oxygen mask overnight, no overnight events. Denies any complaints to me this morning quite drowsy still. denies coughing or shortness of breath. 06/20 Reported loose stool overnight, C. difficile assay negative. Patient feeling little better. No overnight events no new complaints. 06/21 Patient seen and examined, no acute overnight events. Patient is feeling better has no complaints. Was lying comfortably in bed. Patient's microbiology is growing possible Proteus speaking to the lab scientist it looks like this could be ESBL, with intermediate sensitivity to Zosyn. Discontinue Zosyn and start the patient on ertapenem. Patient will need at least 5 more days of IV antibiotics. Midline to be placed. Given the fact that patient lives in assisted living facility IV antibiotics cannot be provided there. Patient refuses to go to snf 06/22 pt seen examined, no acute issues, no new complaints mid line placed on ertapenem, cultures reviewed, resistant to Zosyn. MRSA in a SPC likely contaminant. Pt sad that he has to stay for 6 more days Surgery consulted for Endoscopy. cxr today shows resolving chf Pertinent ROS: Denies headache, dizziness Denies chest pain, palpitations Denies cough or shortness of breath Denies abdominal pain, nausea or vomiting. - Constitutional Vitals: Vital Signs Temp Pulse Resp BP Pulse Ox 98.1 F 58 L 12 126/72 97 06/22/18 11:38 06/22/18 11:38 06/22/18 11:38 06/22/18 11:38 06/22/18 11:38 Period Temp Pulse Resp BP Sys/Zambrano Pulse Ox Last 24 Hr 97 F-98.1 F 57-72 12-18 112-130/58-74 96-98 Intake and Output 06/22/18 06/22/18 06/22/18 05:59 13:59 21:59 Intake Total 200 780 100 Output Total 250 825 Balance -50 780 -725 Intake & Output: Intake & Output 06/22/18 06/22/18 06/22/18 05:59 13:59 21:59 Intake Total 200 780 100 Output Total 250 825 Balance -50 780 -725 Intake: Oral 200 780 100 Output: Urine Catheter Amount 250 825 Other: Meal Lunch Percent of Meal Consumed 50% Urine Appearance Clear Sediment Suprapubic Sediment Urine Color Dark Yellow Bright Yellow Suprapubic Bright Yellow Urine Odor Strong Strong Suprapubic Normal Stool Size Small Stool Color Brown Stool Consistency Soft Liquid # Bowel Movements 1 Exam: Constitutional; Afebrile, cooperative, alert, not in distress. Eyes- No icterus, , No periorbital swelling Ears- Ext ear normal, hearing normal to conversation. Neck- Midline trachea, supple Respiratory system: Air Entry equal on both sides, lloyd basilar crackles. CVS- Rate rhythm regular, S1,S2 heard, no gallop, no rub. Abdomen- Soft nontender abdomen, no organomegaly, no tenderness, no guarding or rigidity, [employer]- AOOx3, moving all extremities, no gross focal deficit noted. Medical - PN: Obj Da - Labs CBC & Chem 7: 06/22/18 04:00 06/22/18 04:00 Labs: Abnormal Lab Results 06/22/18 06/22/18 06/22/18 14:08 10:37 10:37 RBC Hgb Hct RDW Plt Count Lymph # (Auto) Band Neutrophils % WBC Morphology Toxic Granulation Dohle Bodies Platelet Estimate Haptoglobin 219 H Carbon Dioxide Anion Gap BUN Creatinine Glucose Calcium Phosphorus Iron 44 L TIBC 161 L GGT Alkaline Phosphatase NT-Pro-B Natriuret Pep 93438.0 H Albumin Globulin Albumin/Globulin Ratio Vitamin B12 1436 H 06/22/18 06/22/18 06/21/18 04:00 04:00 04:04 RBC 2.43 L Hgb 7.5 L Hct 23.1 L RDW 15.4 H Plt Count Lymph # (Auto) 1.1 L Band Neutrophils % WBC Morphology Toxic Granulation Dohle Bodies Platelet Estimate Haptoglobin Carbon Dioxide 31 H Anion Gap 6.0 L 7.0 L BUN 24 H Creatinine 1.3 H 1.3 H Glucose 107 H Calcium 8.3 L 8.2 L Phosphorus 1.8 L 1.7 L Iron TIBC GGT 7 L 7 L Alkaline Phosphatase 35 L 33 L NT-Pro-B Natriuret Pep Albumin 3.0 L Globulin 4.3 H 4.2 H Albumin/Globulin Ratio 0.7 L 0.8 L Vitamin B12 06/21/18 06/20/18 06/20/18 04:04 04:21 04:21 RBC 2.56 L 2.49 L Hgb 7.9 L 7.6 L Hct 24.2 L 23.6 L RDW 15.4 H 15.6 H Plt Count 137 L Lymph # (Auto) Band Neutrophils % 14 H WBC Morphology Abnorm A Toxic Granulation 1+ A Dohle Bodies Occ A Platelet Estimate Decreased A Haptoglobin Carbon Dioxide Anion Gap BUN 26 H Creatinine 1.3 H Glucose Calcium 7.9 L Phosphorus Iron TIBC GGT Alkaline Phosphatase NT-Pro-B Natriuret Pep Albumin Globulin Albumin/Globulin Ratio Vitamin B12 Meds: Medications Acetaminophen (Tylenol) 650 mg PO Q6HP PRN PRN Reason: PAIN/FEVER > 101 Last Admin: 06/20/18 17:31 Dose: 650 mg Documented by: Albuterol/Ipratropium (Duoneb) 3 ml NEB Q4HP PRN PRN Reason: Shortness Of Breath Artificial Tears (Artificial Tears Ophth Drops) 1 gtt OU DAILYP PRN PRN Reason: Dry Eye(s) Aspirin (Aspirin) 81 mg PO QDAY [facility] Last Admin: 06/22/18 09:12 Dose: 81 mg Documented by: Citalopram Hydrobromide (Celexa) 30 mg PO QDAY [facility] Last Admin: 06/22/18 09:13 Dose: 30 mg Documented by: Cyanocobalamin (Vitamin B-12) 2,500 mcg PO DAILY [facility] Dextrose (Dextrose 50%) 0 ml IV UD PRN PRN Reason: Hypoglycemia Diagnostic Test (Pha) (Accu-Chek) 1 each FS ACHS [facility] Last Admin: 06/22/18 11:10 Dose: 1 each Documented by: Enoxaparin Sodium (Lovenox) 40 mg SQ DAILY [facility] Last Admin: 06/22/18 09:14 Dose: 40 mg Documented by: Famotidine (Pepcid) 20 mg PO BID [facility] Last Admin: 06/22/18 09:13 Dose: 20 mg Documented by: Ferrous Gluconate (Fergon) 324 mg PO DAILY [facility] Furosemide (Lasix) 40 mg IV BIDD [facility] Last Admin: 06/22/18 11:10 Dose: 40 mg Documented by: Glucosamine/Chondroitin (Glucosamine-Chondroitin Cap) 2 cap PO DAILY [facility] Last Admin: 06/22/18 09:11 Dose: 2 cap Documented by: Glucose (Insta-Glucose) 15 gm PO PRN PRN PRN Reason: Hypoglycemia Heparin Sodium (Porcine) (Heparin Flush) 2 ml IV Q12 [facility] Last Admin: 06/22/18 09:18 Dose: 2 ml Documented by: Potassium Chloride 40 meq/ (Dextrose) 520 mls @ 130 mls/hr IV ONCE PRN PRN Reason: Potassium < 3 Magnesium Sulfate (Magnesium Sulfate) 2 gm in 50 mls @ 50 mls/hr IV ONCE PRN PRN Reason: Magnesium </= 1.6 Ertapenem 1 gm/ Sodium (Chloride) 50 mls @ 100 mls/hr IV Q24H [facility] Last Admin: 06/22/18 09:14 Dose: 100 mls/hr Documented by: Sodium Chloride (Sodium Chloride 0.9%) 250 mls @ 20 mls/hr IV .[id number] [facility] Stop: 06/22/18 22:59 Last Admin: 06/22/18 12:49 Dose: 20 mls/hr Documented by: Insulin Human Lispro (Humalog) 0 unit SQ ACHS [facility]; Protocol Last Admin: 06/22/18 11:13 Dose: Not Given Documented by: Lactobacillus Rhamnosus (Culturelle) 1 cap PO BID [facility] Last Admin: 06/22/18 09:12 Dose: 1 cap Documented by: Meclizine HCl (Antivert) 25 mg PO TIDP PRN PRN Reason: Vertigo Methocarbamol (Robaxin) 500 mg PO QDAY [facility] Last Admin: 06/22/18 09:12 Dose: 500 mg Documented by: Metoclopramide HCl (Reglan) 10 mg IV Q6HP PRN PRN Reason: Nausea And Vomiting Ondansetron HCl (Zofran) 4 mg IV Q4HP PRN PRN Reason: Nausea And Vomiting Ondansetron HCl (Zofran Odt) 4 mg SL Q8HP PRN PRN Reason: Nausea And Vomiting Last Admin: 06/22/18 11:46 Dose: 4 mg Documented by: Oxybutynin Chloride (Ditropan) 10 mg PO QDAY PRN PRN Reason: Bladder spasms or leakage Balsalazide Disodium [Colazal] 750 Mg Cap 3 dose PO TID [facility] Last Admin: 06/22/18 13:01 Dose: Not Given Documented by: Methylsulfonylmethan (e [Msm] 1,000 Mg Cap) 1 dose PO QDAY [facility] Last Admin: 06/22/18 09:18 Dose: Not Given Documented by: Polyethylene Glycol (Miralax) 17 gm PO DAILYP PRN PRN Reason: Constipation Potassium Chloride (Kdur) 40 meq PO ONCE PRN PRN Reason: Potssium is 3-3.5 Potassium Chloride (Kdur) 40 meq PO ONCE PRN PRN Reason: Potassium < 3 Potassium Chloride (Kdur) 20 meq PO [facility] Simethicone (Mylicon) 80 mg CHEWED BIDP PRN PRN Reason: INDIGESTION Sodium Chloride (Saline Flush) 10 ml IV Q8 [facility] Last Admin: 06/22/18 12:50 Dose: 10 ml Documented by: Sodium Chloride (Saline Flush) 10 ml IV Q12 [facility] Last Admin: 06/22/18 09:19 Dose: 10 ml Documented by: Tramadol HCl (Ultram) 50 mg PO Q6HP PRN PRN Reason: Pain Last Admin: 06/19/18 22:41 Dose: 50 mg Documented by: Medical - PN: A/P - Time Spent With Patient Total time spent is greater than 50% in coordination of care (as documented) at patient's floor/unit and/or counseling patient: - Narrative A/P Narrative: A: *Acute hypoxic respiratory failure, on chronic: -down to 2L oxymask *Aspiration pneumonitis, concern for developing pneumonia: *UTI: *Sepsis, based on tachycardia and fever: *LESLI vs CKD III baseline: *Deconditioning/debility: *likely underlying Dementia: *COPD (2L@night and prn daytime) *JOSE R: *Depression *Anemia, chronic: *HTN: *Ulcerative colitis *recent c.diff outpt: c. diff assay negative on admit, but having loose stools, Acute congestive heart failure,resolving P: -Dysphagia diet -ST eval -switch to ertapenum given possible esbl proteus in urine, final culture repots pending. j -mrsa is likely contaminant -swithc oral to IV lasix today, XRay shows resolving chf. -slow drop in hb noted, transfuse 2 units prbc today -c. diff pcr is negative. -o2 supp -IS/Acapella -pt/ot -f/u with Dr. reagan outpt for EGD, will review with him to see if this can be done while pt is here. -ppx: lovenox No code Medical - PN: Qual - VTE Deep Vein Thrombosis/Pulmonary Embolism Present on Admission: No
[2018-06-22] MEDS ORDERED: SACCHAROMYCES BOULARDII 250 MG PO SCH (21:00)
[2018-06-22] MEDS ORDERED: FUROSEMIDE 40 MG TABLET PO SCH (21:00)
[2018-06-23] MEDS: 0.9 % SODIUM CHLORIDE 10 ML SYRINGE IV SCH ×2 (04:16→09:00)
[2018-06-23 05:50] LABS: Basophils # (Auto) 0 K/mcL (0.0-0.3); Basophils % (Auto) 0.2 % (0.0-2.0); Eosinophils # (Auto) 0.2 K/mcL (0.0-0.7); Eosinophils % (Auto) 4.5 % (0.0-7.0); Granulocytes % (Auto) 66.6 % (38.0-78.0); Lymphocytes # (Auto) 1.1 K/mcL (1.5-4.8); Lymphocytes % (Auto) 25.5 % (15.5-49.0); Mean Cell Volume 92.9 fL (80.0-100.0); Mean Corpuscular HGB Conc 33.6 g/dL (31.0-36.0); Monocytes # (Auto) 0.1 K/mcL (0.1-0.9); Monocytes % (Auto) 3.2 % (1.0-12.0); Platelet Count 169 K/mcL (140-440); RBC 3.05 M/mcL (4.50-5.90)
[2018-06-23 06:34] LABS: ALT/SGPT < 5 U/l (0-40); Albumin 3.1 gm/dL (3.2-5.2); Albumin/Globulin Ratio 0.7 (1.0-2.3); Alkaline Phosphatase 36 U/L (39-117); Bilirubin,Direct < 0.2 mg/dL (0.0-0.3); Blood Urea Nitrogen 19 mg/dl (8-23); Gamma Glutamyl Transpeptidase 10 U/L (8-61); Uric Acid 4.6 mg/dL (2.5-8.0)
[2018-06-23] MEDS ORDERED: POTASSIUM CHLORIDE 20 MEQ PACKET PO ONE (07:28)
[2018-06-23] MEDS: INSULIN LISPRO 1 UNIT/0.01 ML UNIT SQ SCH ×2 (07:30→12:17)
[2018-06-23] MEDS ORDERED: POTASSIUM CHLORIDE 20 MEQ TABLET PO SCH (08:00)
[2018-06-23] MEDS: BALSALAZIDE DISODIUM 750 MG PO SCH (08:26)
[2018-06-23] MEDS: FUROSEMIDE 40 MG/4 ML VIAL IV SCH (08:54)
[2018-06-23] MEDS: GLUCOSAMINE/CHONDROITIN SULF A 1 CAP CAPSULE PO SCH (08:54)
[2018-06-23] MEDS: LACTOBACILLUS 1 CAPSULE PO SCH (08:54)
[2018-06-23] MEDS: FAMOTIDINE 20 MG TABLET PO SCH (08:54)
[2018-06-23] MEDS: CITALOPRAM 20 MG TABLET PO SCH (08:54)
[2018-06-23] MEDS: ASPIRIN 81 MG TAB.CHEW PO SCH (08:55)
[2018-06-23] MEDS: METHOCARBAMOL 500 MG TABLET PO SCH (08:56)
[2018-06-23] MEDS: ENOXAPARIN 40 MG/0.4 ML SYRINGE SQ SCH (08:58)
[2018-06-23] MEDS: METHYLSULFONYLMETHANE 1000 MG PO SCH (08:58)
[2018-06-23] MEDS ORDERED: CYANOCOBALAMIN (VITAMIN B-12) 500 MCG TABLET PO SCH (09:00)
[2018-06-23] MEDS ORDERED: FERROUS GLUCONATE 324 MG TABLET PO SCH (09:00)
[2018-06-23] MEDS: ERTAPENEM 1 GM in 0.9 % SODIUM CHLORIDE 50 ML IV SCH (12:12)
--- NOTE | 2018-06-23 14:01 | General Surgery Progress Note ---
Subjective Patient reports: tolerating liquids well, flatus, afebrile Narrative: Note initiated : 06/23/18 at 1:59 pm Service Date, if different from initiated Date: [] Patient: Kenneth Encinas 83 y/o M admitted on 06/19/18 for fever. Chief Complaint: [patient states that he no longer wishes to proceed with the upper endoscopy and esophageal dilation. When he was made aware of the difficulty that he had with her last food bolus he states that he'll just wait until that happens again. After full counseling he still does not wish to proceed so be endoscopy will be canceled for now. I'll be available if and when he needs to have the procedure done.] Objective Temp Pulse Resp BP Pulse Ox 99.1 F H 51 L 10 L 110/58 98 06/23/18 12:00 06/23/18 12:00 06/23/18 12:00 06/23/18 11:28 06/23/18 12:00 - Additional Data Intake & Output - Last 24 hours: Intake & Output 06/21/18 06/22/18 06/23/18 06/24/18 05:59 05:59 05:59 05:59 Intake Total 2390 720 2360 Output Total 331 548 3343 845 Balance 1940 220 635 -845 Weight 181 lb 8 oz 182 lb 183 lb 183 lb - Labs 06/23/18 04:00 06/23/18 04:00 Diabetes panel 06/23/18 Range/Units 04:00 Sodium 142 (133-145) mmol/L Potassium 3.4 (3.3-5.1) mmol/L Chloride 102 (96-108) mmol/L Carbon Dioxide 31 H (22-30) mmol/L BUN 19 (8-23) mg/dl Creatinine 1.2 (0.7-1.2) mg/dl Glucose 96 (70-105) mg/dL Calcium 8.5 L (8.6-10.4) mg/dl AST 9 (0-37) U/l ALT < 5 (0-40) U/l Alkaline Phosphatase 36 L (39-117) U/L Total Protein 7.4 (5.9-8.4) gm/dL Albumin 3.1 L (3.2-5.2) gm/dL Triglycerides 75 (<150) mg/dl Calcium panel 06/23/18 Range/Units 04:00 Calcium 8.5 L (8.6-10.4) mg/dl Phosphorus 2.3 L (2.7-4.5) mg/dL Albumin 3.1 L (3.2-5.2) gm/dL Pituitary panel 06/23/18 Range/Units 04:00 Sodium 142 (133-145) mmol/L Potassium 3.4 (3.3-5.1) mmol/L Chloride 102 (96-108) mmol/L Carbon Dioxide 31 H (22-30) mmol/L BUN 19 (8-23) mg/dl Creatinine 1.2 (0.7-1.2) mg/dl Glucose 96 (70-105) mg/dL Calcium 8.5 L (8.6-10.4) mg/dl Adrenal panel 06/23/18 Range/Units 04:00 Sodium 142 (133-145) mmol/L Potassium 3.4 (3.3-5.1) mmol/L Chloride 102 (96-108) mmol/L Carbon Dioxide 31 H (22-30) mmol/L BUN 19 (8-23) mg/dl Creatinine 1.2 (0.7-1.2) mg/dl Glucose 96 (70-105) mg/dL Calcium 8.5 L (8.6-10.4) mg/dl Total Bilirubin 0.8 (0.0-1.0) mg/dL AST 9 (0-37) U/l ALT < 5 (0-40) U/l Alkaline Phosphatase 36 L (39-117) U/L Total Protein 7.4 (5.9-8.4) gm/dL Albumin 3.1 L (3.2-5.2) gm/dL Assessment and Plan (1) Dysphagia Status: Acute Assessment and plan: Patient wishes to postpone the upper endoscopy and esophageal dilation and after full review counseling he is still quite sure that he does not wish to have to procedure. I will sign off at this time. Current Visit: Yes (2) Aspiration pneumonia due to gastric secretions Status: Acute Current Visit: Yes (3) UTI (urinary tract infection) Status: Acute Current Visit: Yes (4) Cholelithiasis Status: Chronic Current Visit: No (5) Anemia with chronic illness Status: Acute Current Visit: No (6) Chronic suprapubic catheter Status: Acute Current Visit: No (7) Multiple myeloma Status: Acute Current Visit: No (8) Spinal compression fracture Status: Acute Current Visit: No (9) JOSE R (obstructive sleep apnea) Status: Chronic Current Visit: No - Time Spent With Patient Total time spent is greater than 50% in coordination of care (as documented) at patient's floor/unit and/or counseling patient:
--- NOTE | 2018-06-23 14:28 | Discharge Summary ---
Medical - DS: Prov Patient information: Note initiated : 06/23/18 at 2:26 pm Service Date, if different from initiated Date: [] Patient: Kenneth Encinas 83 y/o M admitted on 06/19/18 for fever. Chief Complaint: [] Date of admission: 06/19/18 00:57 Discharge date: 06/23/18 Primary care physician: Nemesio Medrano Consults: 06/18/18 Consult to Physician [CONS] Stat Comment: Consulting Provider: Konstantin Rich Reason For Exam: Physician to Consult 06/22/18 08:44 Consult to Physician [CONS] Routine Comment: Consulting Provider: Ernesto Machado Reason For Exam: Physician to Consult Discharging clinician: Bonny Cash Medical - DS: Meds - Discharge Medications Active and Home Medications: Home Medications Saccharomyces boulardii 250 mg capsule 250 mg PO BID 07/09/16 [History Confirmed 06/18/18 Last Taken 01/27/18 16:00] albuterol sulfate HFA 90 mcg/actuation aerosol inhaler 2 puff INHALATION Q6H PRN #18 g 09/08/16 [Rx Confirmed 06/18/18 Last Taken 08/09/17] Cyanocobalamin (Vitamin B-12) [Vitamin B12] 2,500 mcg SL DAILY 01/21/17 [History Confirmed 06/18/18 Last Taken 01/27/18 08:00] Na Phos,M-B/Na Phos,Di-Ba [Fleets Adult] 1 dose OH DAILYP PRN 01/21/17 [History Confirmed 06/18/18 Last Taken Unknown] Simethicone [Gas-X Ultra Strength] 125 mg PO BID PRN 01/21/17 [History Confirmed 06/18/18 Last Taken 08/18/17] Vits A and D/White Pet/Lanolin [A and D Ointment] 113 gm TP PRN PRN 01/21/17 [History Confirmed 06/18/18 Last Taken Unknown] oxybutynin chloride 5 mg tablet 10 mg PO QDAY PRN #180 tab 06/03/17 [Rx Confi rmed 06/18/18 Last Taken Unknown] bisacodyl 10 mg rectal suppository 10 mg OH QDAY PRN #1 each 07/23/17 [Rx Confirmed 06/18/18 Last Taken Unknown] glucosamine-chondroitin 750 mg-600 mg tablet 2 tab PO QDAY #1 tab 07/23/17 [Rx Confirmed 06/18/18 Last Taken 01/27/18 16:00] methylsulfonylmethane 1,000 mg capsule 1,000 mg PO QDAY #1 cap 07/23/17 [Rx Confirmed 06/18/18 Last Taken 01/27/18 16:00] Acetaminophen [Tylenol] 650 mg PO Q4-6HP PRN tab 08/24/17 [Rx Confirmed 06/18/18 Last Taken 01/23/18] aspirin 81 mg chewable tablet 81 mg PO QDAY #1 tab 09/10/17 [Rx Confirmed 06/18/18 Last Taken 01/27/18 08:00] calcium citrate 250 mg tablet 500 mg PO QDAY #180 tab 09/10/17 [Rx Confirmed 06/18/18 Last Taken 01/27/18 08:00] ferrous gluconate 324 mg (36 mg iron) tablet 324 mg PO QDAY #90 tab 09/10/17 [Rx Confirmed 06/18/18 Last Taken 01/27/18 08:00] meclizine 25 mg chewable tablet 25 mg PO TID PRN #60 tab 12/09/17 [Rx Confirmed 06/18/18 Last Taken Unknown] magnesium hydroxide 400 mg/5 mL oral suspension 5 ml PO QHS PRN #30 ml 01/01/18 [Rx Confirmed 06/18/18 Last Taken 01/27/18] furosemide 40 mg tablet 40 mg PO BID #180 tab 01/12/18 [Rx Confirmed 06/18/18 Last Taken 01/27/18 16:00] Lisinopril [Zestril] 2.5 mg PO DAILY 01/28/18 [History Confirmed 06/18/18 Last Taken 01/27/18 08:00] Tolnaftate [Antifungal Cream] 15 gm TP DAILY 01/28/18 [History Confirmed 06/18/18 Last Taken 01/27/18 08:00] traMADol [Ultram] 50 mg PO Q6HP PRN 30 Days #90 tab 01/31/18 [Rx Confirmed 06/18/18 Last Taken Unknown] ondansetron HCl 4 mg tablet 4 mg PO Q8H PRN #20 tab 04/06/18 [Rx Confirmed 06/18/18 Last Taken Unknown] potassium chloride ER 20 mEq tablet,extended release 20 meq PO QDAY #90 tab 04/21/18 [Rx Confirmed 06/18/18 Last Taken Unknown] methocarbamol 500 mg tablet 500 mg PO QDAY #30 tab 05/05/18 [Rx Confirmed 06/18/18 Last Taken Unknown] citalopram 20 mg tablet 30 mg PO QDAY #135 tab 06/03/18 [Rx Confirmed 06/18/18 Last Taken Unknown] Balsalazide Disodium [Colazal] 3 cap PO TID 06/18/18 [History Confirmed 06/18/18 Last Taken Unknown] Dextran 70/Hypromellose [Artificial Tears] 1 each OP PRN PRN 06/19/18 [History Confirmed 06/19/18 Last Taken Unknown] Mag Hydrox/Aluminum Hyd/Simeth [Gnp Antacid Liquid] 30 ml PO QIDP PRN 06/19/18 [History Confirmed 06/19/18 Last Taken Unknown] Nystatin [Kenalog] 1 dose TOPICAL PRN PRN 06/19/18 [History Confirmed 06/19/18 Last Taken Unknown] Medical - DS: Hosp Hospital course: Mr. Encinas is a 83 year old M who presents from nursing facility after nausea vomiting and hypoxia. Is actually here in the ED earlier in the day after choking on a piece of roast beef. He did have some hypoxia at that point and was coughing quite a bit. ED staff was coordinating with GI for endoscopy on the patient suddenly was able to cough out the food and a lot of phlegm. He was sent back to the nursing facility and scheduled for outpatient endoscopy next week. He reports back by nursing staff who stated to triage that he had nausea vomiting also had a temperature of 103. He was hypoxic at 87% on room air. He does use oxygen at night at least and as needed during the day. Nursing facility is concerned about aspiration pneumonia. Is on 4 L nasal cannula in the ED. Temperature in the ED was 100.7. Chest x-ray with some right lower lobe infiltrates. Urinalysis with nitrites and WBCs. History is obtained from chart as patient is significantly poor historian. In the charts is noted that he is on precautions for C. difficile and Flagyl was on an old list here in the ED but that we do not see it on the current med list. Patient does admit to coughing after repeated questioning initially he denied it. Initially denied nausea vomiting but after further and direct questions said he did admitted to some nausea. Admitted to sometimes diarrhea. Denies fever chills 06/19 Weaned to 2 L oxygen mask overnight, no overnight events. Denies any complaints to me this morning quite drowsy still. denies coughing or shortness of breath. 06/20 Reported loose stool overnight, C. difficile assay negative. Patient feeling little better. No overnight events no new complaints. 06/21 Patient seen and examined, no acute overnight events. Patient is feeling better has no complaints. Was lying comfortably in bed. Patient's microbiology is growing possible Proteus speaking to the phlebotomist medical lab assistant it looks like this could be ESBL, with intermediate sensitivity to Zosyn. Discontinue Zosyn and start the patient on ertapenem. Patient will need at least 5 more days of IV antibiotics. Midline to be placed. Given the fact that patient lives in assisted living facility IV antibiotics cannot be provided there. Patient refuses to go to snf 06/22 pt seen examined, no acute issues, no new complaints mid line placed on ertapenem, cultures reviewed, resistant to Zosyn. MRSA in a SPC likely contaminant. Pt sad that he has to stay for 6 more days Surgery consulted for Endoscopy. cxr today shows resolving chf 06/23 Pt seen examined noacute issues stable labs, stable medically for discharge he does not want to go to SNF, will discharge to swing bed status, will complete his course of antibiotics there. Discharge diagnosis: UTI, sepsis, CHF - Time Spent with Patient Total time spent providing and/or coordinating discharge services: Greater than 30 minutes Medical - DS: Exam - Constitutional Vitals: Vital Signs Temp Pulse Resp BP Pulse Ox 06/23/18 12:00 99.1 F H 51 L 10 L 98 06/23/18 11:28 99.1 F H 110/58 06/23/18 11:03 51 L 10 L 98 06/23/18 07:37 98.7 F 50 L 12 100/64 98 06/23/18 03:20 98.8 F 58 L 20 128/62 96 06/22/18 23:40 98.7 F 57 L 20 116/68 97 06/22/18 19:42 98.2 F 59 L 20 124/70 97 06/22/18 16:00 98.4 F 62 14 102/60 98 06/22/18 15:00 98.3 F 61 13 112/52 97 06/22/18 14:45 98.3 F 62 12 118/60 98 Intake and Output 06/23/18 06/23/18 06/23/18 05:59 13:59 21:59 Intake Total 200 Output Total 225 845 Balance -845 Intake: Oral 200 Output: Urine Catheter Amount 225 845 Other: Urine Appearance Clear Clear Urine Color Bright Yellow Yellow Brown Suprapubic Pale Urine Odor Normal Suprapubic Normal Stool Size Small Stool Color Brown Stool Consistency Soft Weight 183 lb Patient Weight 06/24/18 05:59 Weight 183 lb Additional comments: Constitutional; Afebrile, cooperative, alert, not in distress. Respiratory system: Air Entry equal on both sides, No crackles or wheezing, no rhonchi. CVS- Rate rhythm regular, S1,S2 heard, no gallop, no rub. Abdomen- Soft nontender abdomen, no organomegaly, no tenderness, no guarding or rigidity, BODY FITTER- AOOx3, moving all extremities, no gross focal deficit noted. Medical - DS: Data Labs on day of discharge: Labs from last 24 hours 06/23/18 06/23/18 06/22/18 04:00 04:00 14:08 WBC 4.4 L RBC 3.05 L Hgb 9.5 L Hct 28.4 L MCV 92.9 MCH 31.2 MCHC 33.6 RDW 16.0 H Plt Count 169 MPV 7.6 Gran % 66.6 Lymph % (Auto) 25.5 Waller % (Auto) 3.2 Eos % (Auto) 4.5 Baso % (Auto) 0.2 Gran # 2.9 Lymph # (Auto) 1.1 L Waller # (Auto) 0.1 Eos # (Auto) 0.2 Baso # (Auto) 0 Sodium 142 Potassium 3.4 Chloride 102 Carbon Dioxide 31 H Anion Gap 9.0 BUN 19 Creatinine 1.2 GFR Calculation 55 Glucose 96 Uric Acid 4.6 Calcium 8.5 L Phosphorus 2.3 L Magnesium 2.1 Total Bilirubin 0.8 Direct Bilirubin < 0.2 GGT 10 AST 9 ALT < 5 Alkaline Phosphatase 36 L Lactate Dehydrogenase 173 NT-Pro-B Natriuret Pep 97160.0 H Total Protein 7.4 Albumin 3.1 L Globulin 4.3 H Albumin/Globulin Ratio 0.7 L Triglycerides 75 Preliminary micro results at discharge 06/18/18 22:17 Blood Culture - Preliminary Blood 06/18/18 21:37 Blood Culture - Preliminary Blood Medical - DS: A/P - Patient/Caregiver Discharge Instructions Activity: as per physical therapy Diet: Dysphagia Mech Alter Additional Instructions: Transferred to swing status. - Follow up Plan Follow up with: Nemesio Medrano MD [Primary Care Provider] - Disposition: Xfer As Swing Bed ([facility]) Prognosis: Fair Rehab Potential: Fair I certify that the patient requires SNF services: No Overall status at discharge: patient is progressing back to baseline Medical - DS: Qual - VTE Deep Vein Thrombosis/Pulmonary Embolism Present on Admission: No
== END 2018-06-23 14:28 | disposition swing bed (61) | DRG 871 ==
LOC: ED 21:06 → MEDSUR 06-19 00:57
PROVIDERS: ADMIT Internal Medicine; ATTEND Internal Medicine